=== PATIENT | female | born 1960 | race Caucasian/White ===

== ENCOUNTER 2023-10-24 11:19 | Inpatient (IN) | payer MEDICARE, OTHER, SELFPAY ==
[2023-10-24] VITALS (23 sets, daily range): BP systolic 95–139; BP diastolic 51–101; PULSE 2–118; BMI 19.5
--- NOTE | 2023-10-24 09:25 | ED.GENMED ---
History of Present Illness
General
Chief Complaint: Breathing Problem
Source: patient and ambulance crew
Exam Limitations: none
Time Seen by Provider: 10/24/23 09:16
Nursing documentation reviewed up to this point in time: agreed with
Travel History
Have you had any contact with someone who has COVID-19?: No
Do you have any symptoms of coronavirus? Fever > 100 degrees, chills, cough, shortness of breath, sore throat, loss of taste or smell, muscle aches, or headache?: Yes
Symptoms:: SOB
History of Present Illness
History of Present Illness:
63-year-old female presents to the emergency department due to shortness of breath ongoing for several days. She states she has had a fever but is not sure when. She smokes 2 packs a day, has a history of COPD. She was transferred by EMS who gave
her a DuoNeb which did bring her oxygen up from low 90s to mid 90s.
Past History
Past History
ED Past Medical History: COPD, Hypothyroidism, Psychiatric, Other (Multiple sclerosis) and Other (Prior drug overdoses, prior ventilator dependent narcotic drug overdose)
ED Past Surgical History: None, , Tonsilectomy and Other
Social History
Tobacco: Smoker
Alcohol: Former
Drug: Narcotics
Personal: Single
Living: with family
Employment: Not employed
Family History
Family History: Unable to obtain
Review of Systems
Review of Systems
Allergies reviewed?: Yes
All Other Systems: Not applicable
Constitutional: Reports fever
EENT: Reports no symptoms
Respiratory: Reports cough and trouble breathing
Cardiac: Reports no symptoms
ABD/GI: Reports no symptoms
: Reports no symptoms
Musculoskeletal: Reports no symptoms
Skin: Reports no symptoms
Neurological: Reports no symptoms
Endocrine: Reports no symptoms
Hematologic/Lymphatic: Reports no symptoms
Psychiatric: Reports no symptoms
Phy Exam
Physical Exam
Physical Exam:
Physical Exam
General: Moderate respiratory distress
Neck: supple. no meningeal signs. normal posterior pharynx
Heart: s1/s2 tachycardia, no murmur. equal radial
pulses.
HEENT: Pupils equal round reactive to light, EOMI
Lungs: Moderate respiratory distress. Wheezing bilaterally
Abdomen: normal bowel sounds. not tender. no CVAT
Neuro: alert and oriented. no focal neurological deficits cranial nerves II through XII intact
Skin: no rash
Psychiatric: well kept. interactive and cooperative
Extremities: Mild tibial edema. no calf tenderness. negative homans. good distal pulses
Scores
Heart Failure Risk
Heart Failure Risk Score: Yes
History of Stroke or TIA: No
History of intubation for respiratory distress: Yes
Heart rate on ED arrival >/= 110: Yes
SaO2 <90% on arrival on room air: Yes
HR >/=110 during 3min walk test (or too ill to perform test): Yes
ECG has acute ischemic changes: No
Urea >/=12mmol/L (BUN 33.6mg/dL): No
Serum CO2>/=35mmol/L: No
Troponin I or T elevated to NE Level (0.4mg/dL): No
NT-proBNP >/=5,000ng/L (5,000pg/ml): Yes
HF Risk Score: 6
Admission Status: VERY HIGH RISK 55.3% Consider admission to hospital
Course
Orders/Labs/Results
Orders:
Orders
10/24/23 Breakfast
NPO
Allow oral meds: Yes
Allow clear liquids: Sips of Clears
10/24/23 09:04
Electrocardiogram (*1) Urgent
Reason for Study: Chest Pain
Cardiac Monitoring- Treatment ONCE
IV Insert/Care/Rem.- Treatment PRN
10/24/23 09:05
EKG- Treatment ONCE
10/24/23 09:12
Complete Blood Count/With Diff Urgent
Comprehensive Metabolic Panel Urgent
Lactic Acid Urgent
Magnesium Urgent
Comment: ADD ON
PT/INR [Prothrombin Time] Urgent
Pro-BNP [NT-proBNP] Urgent
Serum Osmolality Urgent
Comment: ADD ON
Troponin I Urgent
Blood Culture Q30M
KENIA Source: Blood/Venous
Specimen Description:
Date Specimen was Collected: 10/24/23
Time Specimen was Collected: 09:04
10/24/23 09:17
Type+Screen Urgent
10/24/23 09:21
Dexamethasone Sod Phosphate [Decadron] 20 mg .ROUTE .STK-MED ONE
Ipratropium/Albuterol Sulfate [Duoneb] 3 ml .ROUTE .STK-MED ONE
10/24/23 09:22
Dexamethasone Sod Phosphate [Decadron] 10 mg IV NOW STA
Ipratropium/Albuterol Sulfate [Duoneb] 3 ml INH R NOW ONE
Bipap [RESP] Urgent
Patient to use own unit?: No
Inspiratory Pressure (cm H2O): 10
Expiratory Pressure (cm H2O): 5
10/24/23 09:39
COVID-19 Antigen Urgent
Source: Nasal Swab
Blood Culture Q30M
KENIA Source: Blood/Venous
Specimen Description:
Date Specimen was Collected: 10/24/23
Time Specimen was Collected: 09:04
Influenza A+B Rapid Molecular Urgent
KENIA Source: Nasal Swab
Specimen Description:
10/24/23 09:43
0.9% Sodium Chloride 1000 ml [Nss] 1,000 ml IV BOLUS
CR Chest Portable - 1 View Urgent
Comment:
Reason For Exam: short of breath
Reason Study Needs to be Portable: Patient Unstable
10/24/23 09:44
Straight cath- Treatment ONCE
10/24/23 09:45
Add On- LAB Urgent
Tests Added?: serum osmolality
10/24/23 10:02
Osmolality, Random Urine Urgent
Date Specimen was Collected: 10/24/23
Time Specimen was Collected: 10:00
Urine Sodium Urgent
Date Specimen was Collected: 10/24/23
Time Specimen was Collected: 10:00
10/24/23 10:14
Cefepime HCl [Maxipime] 2,000 mg IV NOW STA
10/24/23 10:26
Vancomycin [Vancocin] 1,500 mg 0.9% Sodium Chloride [Nss] 20 ml 0.9% Sodium Chloride 250 ml [Nss] 250 ml IV NOW
10/24/23 10:48
Echo 2D MMode Color/Doppler Urgent
Reason for Study: ef
CT Chest Pe Study Urgent
Comment:
Reason For Exam: pe
US Abdomen Complete/Upper Urgent
Comment:
Reason For Exam: lfts
10/24/23 10:55
Admit/Transfer Patient As Directed
Co-Sign Provider:
Level of Care: Inpatient admission
Assign to:: ICU
Physician / Group: [email or web address]/medicine
Diagnosis: acute hypoxic respiratory failure
Reason for Hospitalization: acute hypoxic respiratory failure
Expected length of stay greater than two midnights?: Yes
ELOS- Estimated Length of Stay in days: 4
I certify the patient meets the requirements for IP care: Yes
10/24/23 11:02
Code Status As Directed
Resuscitation Status: Full Code
10/24/23 12:18
Acetaminophen [Tylenol] 650 mg PO Q4HPRN PRN
Ipratropium/Albuterol Sulfate [Duoneb] 3 ml INH R Q2HPRN PRN
Ipratropium/Albuterol Sulfate [Duoneb] 3 ml INH R QID
Ondansetron Orally Disint [Zofran Odt (Orally Disintegrating)] 4 mg PO DAILYPRN PRN
Polyethylene Glycol Powder [Miralax] 17 grams PO DAILY PRN
10/24/23 12:18
Respiratory Culture/Gram Stain Routine
KENIA Source: Sputum
Specimen Description:
Activity As Directed
Activity Level: As Tolerated
Fentanyl Patch Confirmation [id number]
Vital Signs As Directed
Frequency: Per unit guidelines
DX Deep Vein Thrombosis Video Routine
10/24/23 12:42
Lactic Acid Urgent
Procalcitonin Urgent
PCT Algorithmm Indication: Respiratory
Troponin I Q6H
Vancomycin MRSA PCR Screen Routine
KENIA Source: Nose
Specimen Description:
10/24/23 13:00
FentaNYL 50 MCG/HR PATCH [Duragesic 50 Mcg/Hr Patch] 1 patch TRANSDERM Q72H
10/24/23 16:00
Heparin 5,000 units SC Q8
Oxycodone [Roxicodone] 15 mg PO Q4HWA
10/24/23 18:00
Cefepime HCl [Maxipime] 2,000 mg IV Q8H
10/25/23 06:00
Complete Blood Count/No Diff IN AM
Comprehensive Metabolic Panel IN AM
Magnesium IN AM
Phos [Phosphorus] IN AM
10/25/23 08:00
Dexamethasone Sod Phosphate [Decadron] 6 mg IV Q24H
10/26/23 06:00
Complete Blood Count/No Diff IN AM
Comprehensive Metabolic Panel IN AM
Magnesium IN AM
10/27/23 06:00
Complete Blood Count/No Diff IN AM
Comprehensive Metabolic Panel IN AM
Magnesium IN AM
10/27/23 13:00
REMOVE fentaNYL PATCH [Remove Duragesic Patch] See Dose Instructions REMOVE Q72H
10/28/23 06:00
Complete Blood Count/No Diff IN AM
Comprehensive Metabolic Panel IN AM
Magnesium IN AM
10/29/23 06:00
Complete Blood Count/No Diff IN AM
Comprehensive Metabolic Panel IN AM
Magnesium IN AM
Abnormal Lab Results
10/24/23 10/24/23 10/24/23
09:12 09:39 10:02
WBC 17.0 H 10^3/uL
(4.8-10.8)
RBC 3.59 L 10^6/uL
(4.20-5.40)
MCV 105.8 H fL
(81.0-99.0)
MCH 39.6 H pg
(27.0-31.0)
MCHC 37.4 H g/dL
(33.0-37.0)
MPV 10.8 H fL
(7.4-10.4)
Abs Immat Gran (auto) 0.2 H 10^3/uL
(0-0.05)
Absolute Neuts (auto) 14.0 H 10^3/uL
(1.4-6.5)
Absolute Monos (auto) 1.1 H 10^3/uL
(0.1-0.6)
Immature Gran % 0.9 H %
(0-0.5)
Neutrophils % 82.5 H %
(42.2-75.2)
Lymphocytes % 10.0 L %
(20.5-51.1)
PT 15.7 H Sec
(11.4-14.6)
Sodium 114 L* mmol/L
(135-145)
Chloride 78 L mmol/L
(98-107)
Serum Osmolality 248 L mOsm/kg
(275-300)
Lactic Acid 6.4 H* mmol/L
(0.7-2.0)
Calcium 7.7 L mg/dl
(8.4-10.2)
Total Bilirubin 1.5 H mg/dl
(0.2-1.3)
AST 144 H U/L
(14-36)
ALT 42 H U/L
(0-35)
Alkaline Phosphatase 242 H U/L
(38-126)
Troponin I 0.150 H* ng/ml
Total Protein 6.2 L g/dl
(6.3-8.2)
Albumin 2.6 L g/dl
(3.5-5.0)
Urine Sodium 12 L mmol/L
(30-90)
SARS-CoV-2 Antigen Positive A
(Negative)
10/24/23 09:12
10/24/23 09:12
Vital Signs
Initial and Last Documented VS:
Initial Vital Signs
Pulse Resp Pulse Ox
112 32 90
10/24/23 09:07 10/24/23 09:07 10/24/23 09:07
Last Documented Vital Signs
Temp Pulse Resp BP Pulse Ox
99.9 F 99 28 139/81 94
10/24/23 15:00 10/24/23 15:00 10/24/23 15:00 10/24/23 13:30 10/24/23 15:00
MDM/Problems Addressed
Differential Diagnosis Includes:
CHF, pneumonia, COVID, COPD exacerbation
MDM/Problems Addressed:
63-year-old female with COVID, hyponatremia, COPD exacerbation, respiratory insufficiency.
Chronic conditions affecting care: COPD
Acute Exacerbation and/or Progression of Chronic Illness: COPD
*Radiology
Radiology exam reviewed: radiology read reviewed (Chest x-ray right middle lobe pneumonia, pulmonary vascular increased)
*Pulse Oximetry
Patient hypoxic: no
*EKG
Interpreted by ED Provider?: Yes
EKG Intrepretation Date: 10/24/23
EKG Intrepretation Time: 09:09
Interpretation: abnormal
Comparison EKG: changes noted
Heart Rate: 112
Rate: tachycardiac
Rhythm: sinus tachycardia
[place]: normal axis
Interval: normal interval
QRS Pattern: normal QRS
Ischemia: T-wave inversion
*Pool Installer Interpretation
Rate: tachycardiac
Interpretation: abnormal
Heart Rate: 110
Rhythm: sinus tachycardia
*Critical Care Note
Total Time (30-74mins, 75-104mins- exclusive of procedures): 30
comment:
Critical care statement: A total of 30 minutes of critical care time was provided for this patient. This includes management of unstable vital signs, evaluation of the patient at bedside, reviewing the patient's pertinent medical records, discussion
with consultants, review of old EKGs and review of pertinent medical records. This time with separate from time utilized to perform the aforementioned documented procedures
Data Reviewed
Review of Other/Old Records Reveals: Discharge Summary
Source: records (VDRF due to overdose, d/c 08/11/11)
Patient Management
Social determinants of health affecting care: Living situation and Substance abuse
Discussion with other providers: Hospitalist and Extension Edger (Nephrology)
Escalation/DeEscalation of care consider admission/obs:
Admit to ICU indicated
ED Attending Note
-
Portions of this chart may have been created with voice recognition software.� Occasional wrong word or��sound alike� substitutions may have occurred due to the inherent limitations of voice recognition software.
Discharge Plan
Departure
Patient Disposition: Admit
Date of Disposition: 10/24/23
Time of Disposition: 10:07
Admit to: ICU
Presentation/result/management discussed w/ accepting MD/DO: Hospitalist
Patient with high blood pressure during this ER visit?: No
Condition: Serious
Covid-19: Confirmed COVID-19
Discharge Problem:
Acute hyponatremia, COPD exacerbation, Pneumonia, COVID-19
Interventions
Interventions:
*Risk Screen - Suicide Last Done: 10/24/23 09:16
*General Assessment Last Done: 10/24/23 09:16
*Neglect/Abuse Screening Last Done: 10/24/23 09:16
ED- Fall Risk Assessment Last Done: 10/24/23 09:16
*ED COVID-19 Vaccine History Last Done: 10/24/23 13:00
*Nursing Disposition Last Done: 10/24/23 12:20
ED- Cardiac Assessment Last Done: 10/24/23 10:00
ED- Pulmonary Assessment Last Done: 10/24/23 10:00
Discharge Date and Time
Discharge Date/Time: 10/24/23 12:35
[2023-10-24 09:26] LABS: % Basophils 0.2 % (0-2); % Immature Granulocytes 0.9 % (0-0.5); % Monocytes 6.4 % (1.7-9.3); % Neutrophils 82.5 % (42.2-75.2); Absolute Immature Granulocytes 0.2 10^3/uL (0-0.05); Absolute Lymphocytes 1.7 10^3/uL (1.2-3.4); Absolute Monocytes 1.1 10^3/uL (0.1-0.6); Hemoglobin 14.2 g/dL (12.0-16.0); Mean Corp Hgb Conc. 37.4 g/dL (33.0-37.0); Mean Corpuscular Hgb 39.6 pg (27.0-31.0); Mean Corpuscular Volume 105.8 fL (81.0-99.0); Mean Platelet Volume 10.8 fL (7.4-10.4); Nucleated Red Blood Cells % 0.1 %; Platelet Count 210 10^3/uL (130-400); Red Blood Cell Count 3.59 10^6/uL (4.20-5.40); Red Cell Dist. Width 13.3 % (11.5-14.5)
[2023-10-24] MEDS: DUONEB 3 ML INH (09:35)
[2023-10-24 09:37] LABS: INR 1.27; PT 15.7 Sec (11.4-14.6)
[2023-10-24 09:38] LABS: Lactic Acid 6.4 mmol/L (0.7-2.0)
[2023-10-24 09:42] LABS: ALT (SGPT) 42 U/L (0-35); AST (SGOT) 144 U/L (14-36); Albumin 2.6 g/dl (3.5-5.0); Alkaline Phosphatase 242 U/L (38-126); Blood Urea Nitrogen 10 mg/dl (7-17); Calcium 7.7 mg/dl (8.4-10.2); Carbon Dioxide 28 mmol/L (22-30); Chloride 78 mmol/L (98-107); Estimated Creatinine Clearance 60 ml/min; Glucose 74 mg/dl (70-99); Potassium 4.6 mmol/L (3.5-5.1); Sodium 114 mmol/L (135-145); Total Bilirubin 1.5 mg/dl (0.2-1.3); Total Protein 6.2 g/dl (6.3-8.2); eGFR > 60.00
[2023-10-24] MEDS: DECADRON 10 MG IV (09:43)
[2023-10-24 09:50] LABS: NT-proBNP > 27000 pg/ml
[2023-10-24] MEDS: NSS 1000 IV (09:50)
[2023-10-24 10:07] LABS: COVID-19 Antigen Positive (Negative)
--- NOTE | 2023-10-24 10:10 | EDRN ---
At 9:25 oxygen was at 2lpm and decreased to 1lpm per Dr. Newton who was in room w/ pt. At9:54 Dr. Newton in room and increased oxygen to 4lpm. This RN had TT'd resp therapist at 9:52 and responded and coming for BiPAP as pt showing increased
resp distress, Using all accessory muscle, rate 50's and pt grunting, and increased WOB. At 9:54 Dr. Newton in room, radiology doing xray, and resp outside of room. CXR completed at 10:00 and respiratory therapy entered room to place pt on BiPAP
at 12/5 and 4 lpm. Pt's teeth removed and placed in a labeled container. Pt is fighting BiPAP at this time. POX on 4 lpm was 956% and now on BiPAP is 97%. Pt remains w/ increased resp rate in 30-40s and decreased grunting and sl decrease in work of
breathing.
--- NOTE | 2023-10-24 10:20 | EDRN ---
Dr. Newton in room w/ pt speaking to spouse at this time.
[2023-10-24 10:23] LABS: Osmolality Serum 248 mOsm/kg (275-300)
[2023-10-24 10:28] LABS: Osmolality Urine 395 mOsm/kg (300-900)
[2023-10-24] MEDS: MAXIPIME 2000 MG IV ×2 (10:32→16:37)
[2023-10-24] MEDS: VANCOCIN 300 MG IV (10:51)
[2023-10-24] MEDS: VANCOCIN 300 ML IV (10:51)
[2023-10-24 10:56] LABS: Urine Sodium 12 mmol/L (30-90)
--- NOTE | 2023-10-24 11:25 | EDRN ---
Dr. Granados in room w/pt.
--- NOTE | 2023-10-24 11:28 | EDRN ---
Report called to Sara BERGERON in ICU at this time.
--- NOTE | 2023-10-24 11:30 | EDRN ---
Echo cardiogram being done at stretcher side at this time.
--- NOTE | 2023-10-24 11:50 | EDRN ---
Awaiting resp therapist to take pt to CT then ICU. TT sent at 11:41 that was delivered and not read. CT wainting for pt. Called fresh foods clerk to get respiratory to assist w/ pt transfers.
--- NOTE | 2023-10-24 12:38 | EDRN ---
Pt was taken from CT to ICU at 12:20 w/ resp therapist and myself. IV were off and on hold per Dr. Granados. Pt on BiPAP 14/5 w/ 4lpm of oxygen. Vancomycin infusing.
--- NOTE | 2023-10-24 12:41 | CON.INTV ---
Consultation
Consultation Request
Date/Time Consultation Requested: 10-24-23
Date/Time Consultation Performed: 10-24-23
Requesting Provider: Hospitalist
Performing Provider: Dr Griffin
Reason for Consultation: dyspnea
Medical History
-
Chief Complaint: dyspnea
History of Present Illness:
Ms Kaitlin Esparza is a 63/W adm 10-24 with several d h/o dyspnea.
Brought by EMS to ER, no EMS report available, ER note mentioned administration of DNs in route which improved O2 from low 90s victoria mid 90s.
Seen at ICU, on BPAP 14/5 with O2 4L , POx 92%, in moderate resp distress, intermittently agitated and trying to remove BPAP mask. Unfortunately very poor historian at time of visit, unknown baseline MS, appears acutely on chronically ill
Past Medical History
Past Medical History: Other (see A&P for PMH/PSH)
Social History
Tobacco: Smoker
Alcohol: Former
Drug: Narcotics
Personal: Single
Living: With Family
Employment: Not Employed
Family History
Family History: Unable to Obtain
Allergies / Home Medications
Allergies
Allergy/AdvReac Type Severity Reaction Status Date / Time
alcohol [Alcohol] Allergy HISTORY OF Verified 10/24/23 09:06
ETOH ABUSE
latex [Latex] Allergy Anaphylaxis Verified 10/24/23 09:06
nicotine [Nicotine] Allergy Hives Verified 10/24/23 09:06
Penicillins Allergy Hives Verified 10/24/23 09:06
Home Medications
Medication Instructions Recorded Confirmed Last Taken Type
fentanyl 50 mcg/hr transdermal 50 mcg transdermal Q72H Pain 10/24/23 10/24/23 Unknown History
patch
hydromorphone 4 mg tablet 4 mg PO Q6HPRN PRN SEVERE PAIN 10/24/23 10/24/23 Unknown History
methadone 10 mg tablet 10 mg PO .DAILY OR TID? Pain 10/24/23 Unknown History
ondansetron 4 mg disintegrating 4 mg PO DAILYPRN PRN nausea 10/24/23 10/24/23 Unknown History
tablet
oxycodone 15 mg tablet 15 mg PO Q4HWA Pain 10/24/23 10/24/23 Unknown History
polyethylene glycol 3350 17 gram 17 g PO DAILY PRN constipation 10/24/23 10/24/23 Unknown History
oral powder packet (Miralax)
Review of Systems
-
Unable to Obtain full review of systems at this time due to: Acuity
Vitals / Labs / Diagnostic Testing
Vital Signs
Temp Pulse Resp BP Pulse Ox
98.1 F 116 45 101/71 96
10/24/23 09:55 10/24/23 12:30 10/24/23 12:30 10/24/23 11:45 10/24/23 12:30
Lab Data
10/24/23 09:12
10/24/23 09:12
Laboratory Results
10/24/23
09:12
PT 15.7 H
INR 1.27
Microbiology
10/24/23 09:39 Nasal Swab Influenza Types A & B (YANY) - Final
Negative for Influenza A & B, NAAT
Negative results must be combined with clinical observations
and patient history.
Nucleic Acid Amplification test (NAAT)performed on the
[employer] platform.
Diagnostic Testing:
Physical Exam
-
HEENT: Normocephalic and Other (FFM BPAP)
Cardiovascular: Regular Rhythm, Murmur (n) and Peripheral Edema (LANCE mild to moderate, pitting)
Respiratory: Rales (R base), Rhonchi (scattered) and Accessory Resp Muscle Use
GI: Soft and Non Distended
Neurology: Other (lethargic to intermittently agitated)
Skin: Dry
General: Respiratory Distress
Assessment
-
Assessment:
Ms Kaitlin Esparza is a 63/W adm 10-24 with several d h/o dyspnea. Brought by EMS to ER, no EMS report available, ER note mentioned administration of DNs in route which improved O2 from low 90s victoria mid 90s. Seen at ICU, on BPAP 14/5 with O2 4L , POx
92%, in moderate resp distress, intermittently agitated and trying to remove BPAP mask. Unfortunately very poor historian at time of visit, unknown baseline MS, appears acutely on chronically ill
Impression:
Acute respiratory failure
RML infiltrate
COVID positive
Elevated PCT
Leukocytosis s eosinophilia
Hyponatremia, uncertain chronicity
Low serum osmolality
Lactic acidosis
Mild transaminitis
Elevated troponin and BNP: LVEF 30-35% with WMAs
Flu negative
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
COPD
Hypothyroidism
Multiple sclerosis
Substance abuse: on methadone
VDRF due to overdose Jul 2011
Chronic pain: reportedly on fentanyl patch, hydromorphone, oxycodone
Smoker
Alcohol: Former
Plan:
Admitted to ICU for mgmt of pneumonia and resp distress
Seen at ICU, unfortunately very poor historian at time of visit
Per RN report, found with two patches of fentanyl applied to her back
Reviewed with pharmacy, chronic back pain and h/o opiate abuse, on multiple opiates
Continue BPAP 14/5, 4L
Titrate for comfort and POx>=90%
Asp precs
NPO for now
BDs: alb/iprat HFA qid and prn to continue
RML infiltrate on CXR, RLL pneumonitis not typical of COVID on CT
Small patchy densities in lingula
Started on empiric atbs upon adm to ER: cefepime and vancomycin IV
Dexam 6 mg IV changed to MP 40 mg IV q12
Uncertain impact of COVID positive test: no areas of pneumonitis c/w COVID infection
Observe off remdesivir
Procure sputum sample for culture
Blood cxs pending
MRSA screening pending
PCT elevated
Hyponatremia, unclear chronicity but severe
Likely secondary to acute illness, opiates, decreased oral intake, heart failure
Continue NSS for now
Renal consultation warranted
Noted elevated troponins and BNP along TTE evidence of low EF and WMAs of unknown chronicity
Differential: demand ischemia, sepsis induced CM
Cards consultation
Chronic back pain and opiate dependence
Continue fentanyl patch, oxycodone, prn IV morphine
Sc for DVT proph
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
Guarded prognosis
Critical care time: 40 min
Diagnostic tests:
CXR 10-24-23 c/w Apr 2023: New R basilar infiltrate. Mild pulm vasc congestion. No free air. Blunted c-d angles.
Chest CTA 10-24-23: No PE. RML infiltrate. RLL patchy pneumonitis. Patchy small lingular infiltrates.
TTE 10-24-23:
CONCLUSIONS
1. Normal left ventricular size with akinesis of the septum and apex, normal contraction of the basal inferior, inferolateral and lateral louis and hypokinesis of the remaining segments, EF 30-35%
2. Mild mitral regurgitation with normal left atrium
3. Aortic sclerosis with mild aortic regurgitation in limited views
4. Grossly normal right heart, could not determine pulmonary artery systolic pressure
Reliability of the interpretation is reduced related to limited image quality.
There are no prior studies available for comparison
[2023-10-24 13:04] LABS: Magnesium 1.7 mg/dl (1.6-2.3)
[2023-10-24 13:07] LABS: Lactic Acid 2.5 mmol/L (0.7-2.0)
--- NOTE | 2023-10-24 13:07 | PTCARENOTE ---
PT found with 2 50 mcg fentanyl patches on lower back, removed, notified Dr Carreon and Dr Griffin, no new orders
[2023-10-24 13:08] LABS: APTT 40.1 Sec (23.4-35.0)
--- NOTE | 2023-10-24 13:10 | PHA.VAN.IN ---
Assessment
- Assessment
Renal Function: Appears similar to baseline
Concomitant Antimicrobials: cefepime
AUC Dosing Plan
- Dosing Variables
Dosing Weight (kg): 51.5
Dosing CrCl (ml/min): 60
Vd coefficient (L/kg): 0.7
- Empiric Dosing
Initial / Loading Dose: 1500 mg (29mg/kg) - adm 10/24/23 ~ 1100
Maintenance Regimen: 1000 mg q24h - start 0600 10/25/23
Estimated AUC (mcg*h/mL): 526
Estimated Peak (mcg*h/mL): 38.1
Estimated Trough (mcg/ml): 11.0
Estimated Half Life (H): 12.8
- Monitoring
No levels ordered at this time: consider levels in few days when pt reaches steady state
Pharmacokinetics Vancomycin I
- -
Patient Age: 63
Patient Sex: Female
Vancomycin Day #: 1
Indication: Pulmonary/Respiratory
Requesting Provider: Velma
Pertinent Antimicrobial Allergies:
penicillins-> hives; latex -> anaphylaxis
Height / Weight:
Height 5 ft 4 in
Actual Weight 51.5 kg
Pertinent Past Medical History: COPD
- Vital Signs / Lab Results
Temp Pulse Resp BP Pulse Ox
98.1 F 116 45 101/71 96
10/24/23 09:55 10/24/23 12:30 10/24/23 12:30 10/24/23 11:45 10/24/23 12:30
Lab Results - Hematology
10/24/23
09:12
WBC 17.0 H
Lab Results - Chemistry
10/24/23
09:12
BUN 10
Creatinine 0.8
Estimated Creat Clear 60
Albumin 2.6 L
10/24/23 10/24/23
09:12 12:42
Lactic Acid 6.4 H* 2.5 H
Microbiology Results
10/24/23 09:39 Influenza Types A & B (YANY) - Final
Nasal Swab Negative for Influenza A & B, NAAT
Negative results must be combined with clinical observations
and patient history.
Nucleic Acid Amplification test (NAAT)performed on the
[employer] platform.
[2023-10-24 13:20] LABS: Troponin I 0.158 ng/ml
[2023-10-24 13:25] LABS: Procalcitonin 1.12 ng/ml (0.0-0.25)
[2023-10-24] MEDS: DURAGESIC 50 MCG/HR PATCH 1 PATCH TRANSDERM (13:25)
--- NOTE | 2023-10-24 13:45 | CON.CAR ---
Addendum entered and electronically signed by Mando Biggs MD 10/25/23 08:28:
This note is for 10/24/23 and was put under wrong consult note
I saw and examined the patient.
The SPECIMEN PROCESSOR or PA's note was reviewed and I agree with the note.
Comment: Sedate
Neck: Supple, no JVD, HJR, carotids +2 B/L, no bruits bilaterally.
Heart: Non displaced PMI, RRR, no murmurs, No S3, S4, no rubs.
Lungs: Poor effort
Extremities: No clubbing, cyanosis or edema bilaterally.
Neuro: Sedate
Kaitlin has a history of multiple sclerosis, substance abuse on methadone chronic opiate use, tobacco abuse, COPD, hypothyroidism.� She presented with worsening shortness breath found to be COVID-positive.� Cardiology is consulted for CHF based on
elevated proBNP.� Patient also has pneumonia on x-ray
At the present time she is sedate.� Echocardiogram with ejection fraction of 30 to 35%.� Will add low-dose Toprol.� Will also continue IV Lasix low-dose for now although likely mostly pneumonia.� Will eventually add VICTOR MANUEL inhibitor
Original Note:
Consultation
Consultation Request
Date/Time Consultation Requested: 10/24/2023
Date/Time Consultation Performed: 10/24/2023 at 1346
Requesting Provider: Dr. Carreon
Performing Provider: Dr. Biggs
Reason for Consultation: Cardiomyopathy
Medical History
-
History of Present Illness:
HPI: Kaitlin is a 63-year-old female with past medical history of hypothyroidism, COPD, multiple sclerosis, substance abuse, tobacco abuse, chronic pain, and possible remote atrial fibrillation who presents to ER for evaluation of ongoing
shortness of breath. Symptoms have been occurring for the past few days. She has also had a fever. In ER, she was found to be COVID-positive with elevated WBC at 17.0 and chest x-ray and chest CT consistent with large right middle lobe pneumonia.
She was hypoxic and placed on supplemental O2. Echo done urgently in the emergency room that showed cardiomyopathy with EF 30 to 35%. Cardiology consulted given cardiomyopathy.
PMH:
Hypothyroidism
COPD
Multiple sclerosis
h/o substance abuse
Tobacco abuse
Chronic pain
Possible remote atrial fibrillation
Past Medical History
Past Medical History: Other (In HPI)
Past Surgical History: Appendectomy, , Tonsilectomy and Other (Right hemicolectomy, right hernia repair, hysterectomy, bladder repair)
Social History
Tobacco: Smoker
Alcohol: Former
Drug: Narcotics
Personal: Single
Employment: Not Employed
Family History
Family History: CAD
Allergies / Home Medications
Allergy/AdvReac Type Severity Reaction Status Date / Time
alcohol [Alcohol] Allergy HISTORY OF Verified 10/24/23 09:06
ETOH ABUSE
latex [Latex] Allergy Anaphylaxis Verified 10/24/23 09:06
nicotine [Nicotine] Allergy Hives Verified 10/24/23 09:06
Penicillins Allergy Hives Verified 10/24/23 09:06
Medication Instructions Recorded Confirmed Type
fentanyl 50 mcg/hr transdermal 50 mcg transdermal Q72H Pain 10/24/23 10/24/23 History
patch
hydromorphone 4 mg tablet 4 mg PO Q6HPRN PRN SEVERE PAIN 10/24/23 10/24/23 History
methadone 10 mg tablet 10 mg PO .DAILY OR TID? Pain 10/24/23 History
ondansetron 4 mg disintegrating 4 mg PO DAILYPRN PRN nausea 10/24/23 10/24/23 History
tablet
oxycodone 15 mg tablet 15 mg PO Q4HWA Pain 10/24/23 10/24/23 History
polyethylene glycol 3350 17 gram 17 g PO DAILY PRN constipation 10/24/23 10/24/23 History
oral powder packet (Miralax)
Review of Systems
-
History Source: Patient
All other systems: Negative unless noted
Physical Exam
Vital Signs
Temp Pulse Resp BP Pulse Ox
98.1 F 116 45 101/71 96
10/24/23 09:55 10/24/23 12:30 10/24/23 12:30 10/24/23 11:45 10/24/23 12:30
Lab Results
10/24/23 09:12
10/24/23 09:12
Troponin I 0.158 ng/ml H* 10/24/23 12:42
Tyv-E-Nmipfdwzclg Pept > 92525 pg/ml 10/24/23 09:12
Impression / Plan
-
Cardiology: Previously seen by Dr. Biggs in 2018
Impression:
Presented with shortness of breath
Acute hypoxic respiratory insufficiency
COVID-19
Right middle lobe pneumonia
Cardiomyopathy, EF 30 to 35%
Elevated troponin
Hyponatremia
Hypothyroidism
COPD
Multiple sclerosis
h/o substance abuse
Tobacco abuse
Chronic pain
Possible remote atrial fibrillation
Echo 10/24/2023: EF 30 to 35%, akinesis of the septum and apex, normal contraction of the basal inferior, inferolateral, and lateral louis, hypokinesis of the remaining segments, mild MR, aortic sclerosis with mild AR
Plan:
-Presented with worsening shortness of breath. COVID-positive in the emergency room and evidence of large right middle lobe pneumonia noted on chest x-ray and chest CT.
-Continue antibiotics per primary service for pneumonia.
-Severe hyponatremia noted with Na of 114.
-Echo completed 10/24/2023 with cardiomyopathy noted. EF 30-35% with WMA. No prior to compare to
-Borderline hypotensive currently. Will start low dose Toprol with hold parameters.
-Elevated troponin noted with trop up to 0.158. Continue to trend to peak.
-Consider eventual ischemic evaluation, inpatient vs outpatient.
-Wean O2 as able.
HPI: Kaitlin is a 63-year-old female with past medical history of hypothyroidism, COPD, multiple sclerosis, substance abuse, tobacco abuse, chronic pain, and possible remote atrial fibrillation who presents to ER for evaluation of ongoing
shortness of breath. Symptoms have been occurring for the past few days. She has also had a fever. In ER, she was found to be COVID-positive with elevated WBC at 17.0 and chest x-ray and chest CT consistent with large right middle lobe pneumonia.
She was hypoxic and placed on supplemental O2. Echo done urgently in the emergency room that showed cardiomyopathy with EF 30 to 35%. Cardiology consulted given cardiomyopathy.
Data Reviewed
-
EKG: Tracing Personally Visualized and interpreted
Radiology: Report Reviewed by me
CT Scan: Report Reviewed by me
Medical Tests (Nuc Med, Echo etc): Report Reviewed by me
Labs: Labs Reviewed by me
Old Records: Reviewed
--- NOTE | 2023-10-24 14:00 | PTCARENOTE ---
PT received from ED via stretcher, PT restless, uncooperative to commands, continuously removing Bipap, PT placed on 4L NC and appears more comfortable, less pulling, PT unable to answer questions place and time, ST on monitor, +3 edema to LE, weak
pedal pulses, 4L MF 97%, coarse rhonchi with weak KILN STOKER cough, abdomen soft NT, +BS, B/L heels, B/L elbows and scrum, red and blanchable, foams placed on above sites, left FA INT, right wrist INT right AC INT, flushed and patent
[2023-10-24] MEDS: ProAIR HFA INHALER 2 PUFF INH (14:05)
[2023-10-24] MEDS: ATROVENT HFA INHALER 2 PUFF INH (14:05)
--- NOTE | 2023-10-24 15:29 | HPS.HSE ---
Family Physician
-
Family Physician: NOT KNOW UNKNOWN - PT DOES
Chief Complaint
-
Shortness of breath
History of Present Illness
63-year-old female with past medical history of hypothyroidism, COPD, multiple sclerosis, substance abuse on methadone, chronic opiate, tobacco abuse, COPD, chronic pain, ? History of atrial fibrillation now presenting for ongoing shortness of
breath. Symptoms have been ongoing for the last couple days and worsened over the last 24 hours prompting hospital visit. Also acknowledges fever. Patient received DuoNebs with improvement of oxygenation and route to the hospital. Patient was
noted to be tachypneic, tachycardic, diffuse wheezing bilaterally. Patient was placed on BiPAP 14/5 upon arrival, saturations approximate 902%. Also noted to have lower extremity edema, +1. White count 17, sodium 114, total bilirubin 1.5, AST
144, ALT 42, alk phos 242. Procalcitonin noted to be 1.12. SARS-CoV-[address] chest with no PE, found to have large right middle lobe pneumonia, possible pneumonitis although could also be due to SARS-CoV-2, empirical effusion. Ultrasound
noted to have thrombosed main portal vein. Ascites also noted.
Medical History
Past Medical History
Past Medical History: Reports Other (hypothyroidism, COPD, multiple sclerosis, substance abuse on methadone, chronic opiate, tobacco abuse, COPD, chronic pain,)
Past Surgical History: Reports None
Social History
Tobacco: Smoker
Drug: Narcotics
Personal:
Living: With Family
Family History
Family History: Not pertinent
Allergies / Home Medications
Allergies reflects when Allergies were last updated in [employer].
Home Medications with original date entered in [employer]
Allergy/Medication List:
Allergies
Allergy/AdvReac Type Severity Reaction Status Date / Time
alcohol [Alcohol] Allergy HISTORY OF Verified 10/24/23 09:06
ETOH ABUSE
latex [Latex] Allergy Anaphylaxis Verified 02/02/24 09:06
nicotine [Nicotine] Allergy Hives Verified 10/24/23 09:06
Penicillins Allergy Hives Verified 10/24/23 09:06
Home Medications
fentanyl 50 mcg/hr transdermal patch 50 mcg transdermal Q72H Pain 10/24/23
hydromorphone 4 mg tablet 4 mg PO Q6HPRN PRN SEVERE PAIN 10/24/23
methadone 10 mg tablet 10 mg PO .DAILY OR TID? Pain 10/24/23
ondansetron 4 mg disintegrating tablet 4 mg PO DAILYPRN PRN nausea 10/24/23
oxycodone 15 mg tablet 15 mg PO Q4HWA Pain 10/24/23
polyethylene glycol 3350 17 gram oral powder packet (Miralax) 17 g PO DAILY PRN constipation 10/24/23
Review of Systems
-
History Source: Patient
A 12 point ROS was completed and negative except as noted: Yes
Physical Exam
Vital Signs
Vital Signs
Temp Pulse Resp BP Pulse Ox
99.9 F 99 28 139/81 94
10/24/23 15:00 10/24/23 15:00 10/24/23 15:00 10/24/23 13:30 10/24/23 15:00
Physical Exam
General: Well Developed, Well Nourished, Respiratory Distress and Other (bipap on board)
Respiratory: Clear
Cardiac: S1/S2 and Regular Rhythm
GI: Soft
Musculoskeletal: No Clubbing
Skin: Warm
Neuro: Awake, Alert, Oriented and AO x 3
Hematologic/Lymphatic: No Lymphadenopathy
Psych: Calm
Laboratory Results
-
10/24/23 09:12
10/24/23 09:12
Laboratory Results
PT 15.7 Sec (11.4-14.6) H 10/24/23 09:12
INR 1.27 10/24/23 09:12
APTT 40.1 Sec (23.4-35.0) H 10/24/23 12:42
Lactic Acid 2.5 mmol/L (0.7-2.0) H 10/24/23 12:42
Total Bilirubin 1.5 mg/dl (0.2-1.3) H 10/24/23 09:12
AST 144 U/L (14-36) H 10/24/23 09:12
ALT 42 U/L (0-35) H 10/24/23 09:12
Alkaline Phosphatase 242 U/L (38-126) H 10/24/23 09:12
Troponin I Cancelled 10/24/23 18:18
Data Reviewed
-
Diagnostic Radiology: Image Personally Visualized and interpreted and Report Reviewed by me
CT Scan: Image Personally Visualized and interpreted and Report Reviewed by me
Ultrasound: Image Personally Visualized and interpreted and Report Reviewed by me
Medical Tests (Nuc Med, Echo, EKG etc): Report Reviewed by me
Lab Data: Labs Reviewed by me
Impression/Plan
-
IMPRESSION:
63-year-old female with past medical history of hypothyroidism, COPD, multiple sclerosis, substance abuse on methadone, chronic opiate, tobacco abuse, COPD, chronic pain, ? History of atrial fibrillation now presenting for ongoing shortness of
breath.
PLAN:
#Acute hypoxic respiratory failure
#COPD exacerbation
#Pneumonia
#SARS-CoV-2
� I suspect this is COPD exacerbation secondary to pneumonia along with new onset acute HFrEF
�Doubt SARS-CoV-2 pneumonia as etiology for decompensation
� Continue IV antibiotics
� Follow-up cultures including sputum cultures
� Wean O2 as tolerated
� I believe can be weaned off BiPAP now
� DuoNebs every 4 standing
� Solu-Medrol 40 mg every 12, wean as tolerated
� Continue gentle diuresis as blood pressures improved
#Severe sepsis
� Secondary to pneumonia
� Continue plan as above with IV antibiotics, follow-up cultures
� Maintain MAP greater than 65
#New onset acute HFrEF
� Echo with EF 30 to 35%, akinesis of the septum and apex �normal contraction of the basal inferior, inferolateral, and lateral louis, hypokinesis of the remaining segments, mild MR, aortic sclerosis with mild AR
� Gentle diuresis, 20 mg IV Lasix today, titrate as needed
� Started on low-dose Toprol, monitor blood pressures
� Ischemic evaluation inpatient versus outpatient as per cardiology
� Cardiology consulted
� Wean O2 as tolerated
#Portal vein thrombosis
� Started on Lovenox 1 mg/kg
� Follow-up pathology/GI outpatient
#Hyponatremia
� I favor secondary to fluid overload along with possible SIADH
� Monitor with gentle diuresis
� ICU consulted nephrology, appreciate recommendations
#Transaminitis
#Hepatocellular injury
� Most likely secondary to portal vein thrombosis along with congestive hepatopathy
� Continue anticoagulation as stated above
� Continue diuresis and monitor
#Elevated opponent
� Most likely non-KS troponin elevation in setting of acute CHF
� Continue to monitor trend
� Follow cardiology recommendations
#Hypothyroidism
� Follow-up TSH with reflex T4
� Not on Synthroid as per med rec
� Continue to monitor
#Polysubstance abuse
#Tobacco use
#Chronic pain
� Continue methadone, fentanyl patch, opiates as needed
#Multiple sclerosis
#DVT prophylaxis
Lovenox
--- NOTE | 2023-10-24 15:35 | CON.MD ---
Addendum entered and electronically signed by Mando Biggs MD 10/25/23 08:28:
Note below from cardiology was amended to the wrong consult on 10/24/23
Addendum entered and electronically signed by Mando Biggs MD 10/24/23 15:59:
I saw and examined the patient.
The SUPERVISOR REAL ESTATE OFFICE or PA's note was reviewed and I agree with the note.
Comment: Sedate
Neck: Supple, no JVD, HJR, carotids +2 B/L, no bruits bilaterally.
Heart: Non displaced PMI, RRR, no murmurs, No S3, S4, no rubs.
Lungs: Poor effort
Extremities: No clubbing, cyanosis or edema bilaterally.
Neuro: Sedate
Kaitlin has a history of multiple sclerosis, substance abuse on methadone chronic opiate use, tobacco abuse, COPD, hypothyroidism. She presented with worsening shortness breath found to be COVID-positive. Cardiology is consulted for CHF based on
elevated proBNP. Patient also has pneumonia on x-ray
At the present time she is sedate. Echocardiogram with ejection fraction of 30 to 35%. Will add low-dose Toprol. Will also continue IV Lasix low-dose for now although likely mostly pneumonia. Will eventually add VICTOR MANUEL inhibitor
Original Note:
Consultation - Medical
-
Assessment
-hyponatremia
-hypotension on admission
-COVID+
-large RML PNA
-lactic acidosis
-?thrombosed portal vein
-COPD
-hypothyroid
-HFrEF 30%
-multiple sclerosis
-chronic pain/opioids
Plan
-likely volume depleted on admission. receiving 1L IVF
-repeat BMP. May need 3%NaCl
-follow lactate/LFTs
-steroids IV
-abx per primary team
-follow Cr given contrast and hypotension and sepsis
-Can trial lasix, though I don't think she is severely volume overloaded. Currently there is essentially no po intake, so all volume is med related.
-critical care time 31 minutes
-[id number]
--- NOTE | 2023-10-24 16:21 | PTCARENOTE ---
PT B/L knees are mottled and the palms of her hands are also ducky in color, updated Ramón by phone, PT continues to be drowsy, not answering questions, PT just moans when nurse asks questions, no attempt to respond, B/L elbows, sacrum and
heels are blanchable and red, foams applied
[2023-10-24 16:30] LABS: Lactic Acid 1.4 mmol/L (0.7-2.0)
[2023-10-24] MEDS: SOLU-MEDROL PF 40 MG IV (16:36)
[2023-10-24] MEDS: STERILE WATER FOR INJECTION 10 ML IV (16:37)
[2023-10-24 16:38] LABS: Blood Urea Nitrogen 14 mg/dl (7-17); Calcium 7.1 mg/dl (8.4-10.2); Carbon Dioxide 27 mmol/L (22-30); Chloride 82 mmol/L (98-107); Estimated Creatinine Clearance 69 ml/min; Glucose 87 mg/dl (70-99); Sodium 114 mmol/L (135-145); eGFR > 60.00
[2023-10-24] MEDS: LOVENOX 50 MG SC (16:38)
[2023-10-24] MEDS: LASIX 20 MG IV (16:46)
[2023-10-24 17:06] LABS: TSH Reflex To Free T4 2.29 uIU/ml (0.47-4.68)
[2023-10-24] MEDS: SODIUM CHLORIDE 3% 250 IV (17:33)
[2023-10-24 18:42] LABS: Troponin I 0.161 ng/ml
[2023-10-24] MEDS: COMBIVENT RESPIMAT INHAL SPRAY 1 PUFF INH (20:42)
[2023-10-24 21:03] LABS: Blood Urea Nitrogen 14 mg/dl (7-17); Carbon Dioxide 28 mmol/L (22-30); Chloride 88 mmol/L (98-107); Estimated Creatinine Clearance 80 ml/min; Glucose 86 mg/dl (70-99); Potassium 3.4 mmol/L (3.5-5.1); Sodium 117 mmol/L (135-145); eGFR > 60.00
--- NOTE | 2023-10-24 22:08 | PTCARENOTE ---
received patient from previous shift. pt will not speak to me. she mumbles/groans when pulling her up in bed, listening to her lungs, or trying to do any care for her. pupils equal and reactive. moving all extremities. restless, tossing and turning
throughout the bed. 4L midflow. ST on the monitor. rectal temp probe in place. no BM. purewick draining yellow urine. 3% infusing as ordered.
[2023-10-24] MEDS: KCL 160 MEQ IV (22:47)
[2023-10-25] VITALS (17 sets, daily range): BP systolic 91–137; BP diastolic 52–120; BMI 19.3
--- NOTE | 2023-10-25 00:02 | PTCARENOTE ---
pt removed her gown, pulled out her ivs, was attempting to crawl over the side rails, took off her bp cuff, and some of her heart monitor stickers. attempted to reorient patient she said she did know where she was but she continued to pull off her
monitor stickers and her gown while I was trying to talk to her. bilateral wrist restraints in place.
[2023-10-25] MEDS: STERILE WATER FOR INJECTION 10 ML IV ×3 (01:21→17:17)
[2023-10-25] MEDS: MAXIPIME 2000 MG IV ×3 (01:21→17:18)
[2023-10-25] MEDS: LOVENOX 50 MG SC ×2 (04:44→15:59)
[2023-10-25 04:54] LABS: Troponin I 0.169 ng/ml
[2023-10-25 05:04] LABS: ALT (SGPT) 48 U/L (0-35); AST (SGOT) 155 U/L (14-36); Alkaline Phosphatase 196 U/L (38-126); Blood Urea Nitrogen 16 mg/dl (7-17); Calcium 7.3 mg/dl (8.4-10.2); Carbon Dioxide 27 mmol/L (22-30); Chloride 92 mmol/L (98-107); Estimated Creatinine Clearance 79 ml/min; Glucose 69 mg/dl (70-99); Phosphorus 3.7 mg/dl (2.5-4.5); Potassium 4.2 mmol/L (3.5-5.1); Sodium 121 mmol/L (135-145); Total Protein 5.1 g/dl (6.3-8.2); eGFR > 60.00
[2023-10-25 05:14] LABS: Hematocrit 32.9 % (37.0-47.0); Hemoglobin 12.5 g/dL (12.0-16.0); Mean Corpuscular Hgb 39.1 pg (27.0-31.0); Mean Corpuscular Volume 102.8 fL (81.0-99.0); Mean Platelet Volume 11.6 fL (7.4-10.4); Platelet Count 185 10^3/uL (130-400); Red Cell Dist. Width 13.2 % (11.5-14.5); White Blood Cell Count 21.1 10^3/uL (4.8-10.8)
[2023-10-25] MEDS: SOLU-MEDROL PF 40 MG IV ×2 (05:57→17:18)
[2023-10-25] MEDS: VANCOCIN 200 IV (05:57)
[2023-10-25] MEDS: DEXTROSE 50% SYRINGE 12.5 GRAMS IV (05:58)
[2023-10-25 06:35] LABS: Glucose - Point of Care 178 mg/dl (70-99)
--- NOTE | 2023-10-25 07:42 | W.PN.INTV ---
Today's Communication / Plan
Recommendations
O2
Atb
Sputum cx
Acapella
Assessment
-
Assessment:
Ms Kaitlin Esparza is a 63/W adm 10-24 with several d h/o dyspnea. Brought by EMS to ER, no EMS report available, ER note mentioned administration of DNs in route which improved O2 from low 90s victoria mid 90s. Seen at ICU, on BPAP 14/5 with O2 4L , POx
92%, in moderate resp distress, intermittently agitated and trying to remove BPAP mask. Unfortunately very poor historian at time of visit, unknown baseline MS, appears acutely on chronically ill
Impression:
Acute respiratory failure
RML infiltrate
COVID positive
Elevated PCT
Leukocytosis s eosinophilia
Hyponatremia, uncertain chronicity
Low serum osmolality
Lactic acidosis
Mild transaminitis
Portal vein thrombosis
Elevated troponin and BNP: LVEF 30-35% with WMAs
Flu negative
Conditions PUBLISHING EDITOR:
COPD
Hypothyroidism
Multiple sclerosis
Substance abuse: on methadone
VDRF due to overdose Jul 2011
Chronic pain: reportedly on fentanyl patch, hydromorphone, oxycodone
Smoker
Alcohol: Former
Plan:
Admitted to ICU for mgmt of pneumonia and resp distress
Seen at ICU, unfortunately very poor historian at time of visit
Require BPAP for a short period of time in ICU
Transitioned to MFNC
Currently on 4L, POx 95%
Asp precs
BDs: alb/iprat HFA qid and prn to continue
RML infiltrate on CXR, RLL pneumonitis not typical of COVID on CT
Small patchy densities in lingula
Started on empiric atbs upon adm to ER: cefepime and vancomycin IV
Dexam 6 mg IV changed to MP 40 mg IV q12, continue for now
Uncertain impact of COVID positive test: no areas of pneumonitis c/w COVID infection
Observe off remdesivir
Acapella valve, sputum sample for culture
Blood cxs pending
MRSA screening negative, can d/c vancomycin
PCT elevated
Intermittent CXR
Hyponatremia, unclear chronicity, severe, responding to diuretic trial
Likely secondary to acute illness, opiates, decreased oral intake, heart failure
Renal consultation appreciated
Noted elevated troponins and BNP along TTE evidence of low EF and WMAs of unknown chronicity
Differential: demand ischemia, sepsis induced CM
Cards following
Portal vein thrombosis, liver steatosis, small volume ascites on US
Started on AC with enoxaparin
Rec GI and Hem/Onc evaluation
Chronic back pain and opiate dependence
Continue fentanyl patch, oxycodone, prn IV morphine
D/w MUSIC COMPOSER and Mrs Esparza
At this juncture stable for transition to IMU, will follow
Diagnostic tests:
CXR 10-24-23 c/w Apr 2023: New R basilar infiltrate. Mild pulm vasc congestion. No free air. Blunted c-d angles.
Chest CTA 10-24-23: No PE. RML infiltrate. RLL patchy pneumonitis. Patchy small lingular infiltrates.
TTE 10-24-23:
CONCLUSIONS
1. Normal left ventricular size with akinesis of the septum and apex, normal contraction of the basal inferior, inferolateral and lateral louis and hypokinesis of the remaining segments, EF 30-35%
2. Mild mitral regurgitation with normal left atrium
3. Aortic sclerosis with mild aortic regurgitation in limited views
4. Grossly normal right heart, could not determine pulmonary artery systolic pressure
Reliability of the interpretation is reduced related to limited image quality.
There are no prior studies available for comparison
Subjective Dataa
Subjective Data
Date of Service:
Date of Service: October 25, 2023
Chief Complaint: Sunglass Clip Attacher Follow Up
Subjective:
Require BiPAP only for a short period of time during initial ICU time, then transition to mid flow nasal cannula
Appears more awake and conversant today, multiple complaints
Currently on oxygen 4 L with saturation 95%
Review of Systems
General: Fever (n), Sweats, Chills and Satisfactory Appetite (n)
HEENT: Epistaxis (n)
Cardiopulmonary: Dyspnea, Cough, Wheezing and Chest Pain
GI: Abdominal Pain, Nausea and Vomiting
Neuro: Weakness
Objective Data
Data Reviewed
Vital Signs / I&O / Oxygen:
Vital Signs
Temp Pulse Resp BP Pulse Ox
98.6 F 100 23 106/56 96
10/25/23 07:24 10/25/23 05:45 10/25/23 05:45 10/24/23 20:30 10/25/23 05:45
SaO2 96
Nasal Cannula flow liters per 4
minute
Physical Exam
General: Respiratory Distress
HEENT: Normocephalic and Moist Mucous Membranes
Cardiovascular: Regular Rhythm, Murmur (n) and Peripheral Edema (mild LANCE)
Respiratory: Wheeze (n), Crackles, Accessory Resp Muscle Use (mild) and Stridor (n)
GI: Soft, Non Distended and Non Tender
Neurology: Awake, Oriented and No Motor Deficits
Skin: Dry
Labs/Micro/Reports
Lab Data
10/25/23 04:12
10/25/23 04:12
Laboratory Results
10/24/23 10/24/23
09:12 12:42
PT 15.7 H
INR 1.27
APTT 40.1 H
Microbiology
10/24/23 12:42 Nose Nasal Screen MRSA (PCR) - Final
MRSA not detected - performed by PCR methodology.
10/24/23 09:39 Nasal Swab Influenza Types A & B (YANY) - Final
Negative for Influenza A & B, NAAT
Negative results must be combined with clinical observations
and patient history.
Nucleic Acid Amplification test (NAAT)performed on the
[employer] platform.
[2023-10-25] MEDS: LASIX 20 MG IV (08:00)
--- NOTE | 2023-10-25 08:00 | PTCARENOTE ---
PT received in bed drowsy but arousable to verbal stimuli, PT uncooperative at times waxing and waning when she'll answer questions and follow simple commands, moaning at times and unable to tell you why, PT oriented to self only, NSR weak pedal
pulses, +2 edema, 4L MF B/L BS coarse rhonchi T/O, dry weak cough, abdomen soft NT +BS, incontinent, bruises noted to left and right flank areas, unknown of the origin, multiple tattoos, right AC INT flushed and patent
[2023-10-25] MEDS: TOPROL XL 12.5 MG PO (08:01)
[2023-10-25] MEDS: COMBIVENT RESPIMAT INHAL SPRAY 1 PUFF INH ×4 (08:53→19:43)
--- NOTE | 2023-10-25 09:58 | W.PN.UPDATE ---
Update Note
Progress Note Update
Discussed with Dr. Griffin received a consult on this patient for portal vein thrombosis would recommend hematology consult, unclear if it is acute or chronic thrombosis, she does have evidence of hepatic steatosis but no evidence of cirrhosis or
varices noted on ultrasound and will need workup for hepatic steatosis as outpatient could also be related to COVID. Defer further workup for possible hypercoagulable state to hematology and follow-up with GI as outpatient for workup of fatty liver.
--- NOTE | 2023-10-25 10:04 | PHA.VAN.FU ---
Vancomycin Assessment / Plan
- Assessment
Renal Function: Stable
WBC's are: Trending Up
In the past 24 hrs, patient has been: Afebrile
Concomitant Antimicrobials: Cefepime
- Dosing Plan
Continue: Vanc 1000mg IV q24H
- Monitoring Plan
No level(s) ordered at this time: Consider levels after 2/5 dose.
- Follow Up
Pharmacy will continue to follow.
Vancomycin Follow UP
- -
Patient Age: 63
Patient Sex: Female
Vancomycin Day #: 2
Indication: Pulmonary/Respiratory
Requesting Provider: Velma
Pertinent Antimicrobial Allergies:
penicillins-> hives; latex -> anaphylaxis
Height / Weight:
Height 5 ft 4 in
Actual Weight 50.9 kg
Pertinent Past Medical History: COPD
- Vital Signs / Lab Results
Temp Pulse Resp BP Pulse Ox
98.6 F 85 21 119/79 95
10/25/23 07:24 10/25/23 09:45 10/25/23 09:45 10/25/23 09:00 10/25/23 09:45
Lab Results - Hematology
10/24/23 10/25/23
09:12 04:12
WBC 17.0 H 21.1 H
Lab Results - Chemistry
10/24/23 10/24/23 10/24/23
09:12 16:10 20:39
BUN 10 14 14
Creatinine 0.8 0.7 0.6
Estimated Creat Clear 60 69 80
Albumin 2.6 L
10/25/23
04:12
BUN 16
Creatinine 0.6
Estimated Creat Clear 79
Albumin 2.0 L
10/24/23 10/24/23 10/24/23
09:12 12:42 16:10
Lactic Acid 6.4 H* 2.5 H 1.4
10/24/23
17:00
Lactic Acid Cancelled
Microbiology Results
10/24/23 09:39 Blood Culture - Preliminary
Blood/Venous No Growth in 24 hours- Final report to follow
10/24/23 09:12 Blood Culture - Preliminary
Blood/Venous No Growth in 24 hours- Final report to follow
10/24/23 12:42 Nasal Screen MRSA (PCR) - Final
Nose MRSA not detected - performed by PCR methodology.
10/24/23 09:39 Influenza Types A & B (YANY) - Final
Nasal Swab Negative for Influenza A & B, NAAT
Negative results must be combined with clinical observations
and patient history.
Nucleic Acid Amplification test (NAAT)performed on the
[employer] platform.
--- NOTE | 2023-10-25 11:08 | W.PN.NEPH.PH ---
Today's Communication / Plan
-
3%
Assessment/Plan
-
Assessment
-hyponatremia
-hypotension on admission
-COVID+
-large RML PNA
-lactic acidosis
-?thrombosed portal vein
-COPD
-hypothyroid
-HFrEF 30%
-multiple sclerosis
-chronic pain/opioids
Plan
-3%NaCl again today
-follow LFTs
-steroids IV
-abx per primary team
-follow Cr given contrast and hypotension and sepsis
-Can continue lasix for balance, though I don't think she is severely volume overloaded. Currently there is essentially no po intake, so all volume is med related.
-critical care time 31 minutes
-
-
Date of Service: October 25, 2023
CC / HPI / ROS
-
Chief Complaint:
hyponatremia
History of Present Illness:
Abx for RML PNA
BP stable
Na up to 121 after 3%
LFTs stable high
Review of Systems:
no CP/fever
Labs
-
Labs:
WBC 21.1 10^3/uL (4.8-10.8) H 10/25/23 04:12
RBC 3.20 10^6/uL (4.20-5.40) L 10/25/23 04:12
Hgb 12.5 g/dL (12.0-16.0) 10/25/23 04:12
Hct 32.9 % (37.0-47.0) L 10/25/23 04:12
Plt Count 185 10^3/uL (130-400) 10/25/23 04:12
Sodium 121 mmol/L (135-145) L 10/25/23 04:12
Potassium 4.2 mmol/L (3.5-5.1) 10/25/23 04:12
Chloride 92 mmol/L (98-107) L 10/25/23 04:12
Carbon Dioxide 27 mmol/L (22-30) 10/25/23 04:12
BUN 16 mg/dl (7-17) 10/25/23 04:12
Creatinine 0.6 mg/dL (0.6-1.0) 10/25/23 04:12
eGFR > 60.00 10/25/23 04:12
Glucose 69 mg/dl (70-99) L 10/25/23 04:12
Calcium 7.3 mg/dl (8.4-10.2) L 10/25/23 04:12
Phosphorus 3.7 mg/dl (2.5-4.5) 10/25/23 04:12
Yso-C-Ynwonaxroem Pept > 29151 pg/ml 10/24/23 09:12
Albumin 2.0 g/dl (3.5-5.0) L 10/25/23 04:12
Physical Exam
-
Vital Signs:
Vital Signs
Temp Pulse Resp BP Pulse Ox
98.5 F 85 21 119/79 95
10/25/23 11:01 10/25/23 09:45 10/25/23 09:45 10/25/23 09:00 10/25/23 09:45
Cardiovascular:: Regular rate and rhythm
Respiratory:: Bilateral: Rhonchi
Lung Excursion:: Normal
Abdomen:: Nontender and Soft
Bowel Sounds:: Normal
Extremity Edema:: None: Bilateral:
[2023-10-25 11:15] LABS: Troponin I 0.162 ng/ml
--- NOTE | 2023-10-25 11:54 | CON.ONC ---
Impression
Impression
Portal vein thrombosis indeterminate age
Acute hypoxic respiratory insufficiency
COVID-19
Right middle lobe pneumonia
Cardiomyopathy, EF 30 to 35%
Elevated troponin
Hyponatremia
Hypothyroidism
COPD
Multiple sclerosis
h/o substance abuse
Tobacco abuse
Chronic pain
Possible remote atrial fibrillation
Plan
Plan
Portal vein thrombosis indeterminate age
Evaluate for thrombophilia associated event APL, prothrombin gene mutation, PENNY-2 mutation
Has been an increase incidence of portal vein thrombosis associated with coronavirus
Patient is unable to give history of potential abdominal trauma
Slight elevation of PT and PTT obtain a mixing study
Would be exceedingly careful with anticoagulation in this cachectic gait unstable patient
Suggest heparin to low-dose Apixaban 2.5 mg twice daily
Patient History
History of Present Illness
Ms Kaitlin Esparza is a 63/W adm 02- with several d h/o dyspnea and cough. She has a known history of chronic pain with use of opiates including fentanyl, hydromorphone, oxycodone and methadone. She has underlying COPD and presented within moderate
resp distress, intermittently agitated and trying to remove BPAP mask. She has been found to be COVID-positive with a lower lobe pneumonia. Unfortunately very poor historian Known psychiatric history., unknown baseline MS, appears acutely on
chronically ill With multiple bruises implying gait instability and falls. Hematology has been consulted for the incidental finding of portal vein thrombosis.
Past-Medical/Surgical History
PMH:
Past Medical History:
Hypothyroidism, COPD, Multiple sclerosis, h/o substance abuse, Tobacco abuse, Chronic pain, Possible remote atrial fibrillation
Past Surgical History: Appendectomy, , Tonsilectomy and Right hemicolectomy, right hernia repair, hysterectomy, bladder repair
Social History
Tobacco: Smoker
Alcohol: Former
Drug: Narcotics
Personal: Single
Employment: Not Employed
Family History
Family History: CAD
Allergies / Home Medications
Patient Medication
Medication Instructions Recorded Confirmed Last Taken Type
fentanyl 50 mcg/hr transdermal 50 mcg transdermal Q72H Pain 10/24/23 10/24/23 Unknown History
patch
hydromorphone 4 mg tablet 4 mg PO Q6HPRN PRN SEVERE PAIN 10/24/23 10/24/23 Unknown History
methadone 10 mg tablet 10 mg PO .DAILY OR TID? Pain 10/24/23 Unknown History
ondansetron 4 mg disintegrating 4 mg PO DAILYPRN PRN nausea 10/24/23 10/24/23 Unknown History
tablet
oxycodone 15 mg tablet 15 mg PO Q4HWA Pain 10/24/23 10/24/23 Unknown History
polyethylene glycol 3350 17 gram 17 g PO DAILY PRN constipation 10/24/23 10/24/23 Unknown History
oral powder packet (Miralax)
Active Medications
Generic Name Dose Route Start Last Admin
Trade Name Freq PRN Reason Stop Dose Admin
Acetaminophen 650 mg 10/24/23 12:18
Acetaminophen 325 Mg Tablet PO 11/21/23 12:17
Q4HPRN PRN
mild pain/GARCIA/temp> 100.4F
Albuterol/Ipratropium 1 puff 10/24/23 20:00 10/25/23 11:39
Combivent Respimat Inhalation [place] INH 11/21/23 19:59 1 puff
R QID LEISA Administration
Albuterol/Ipratropium 1 puff 10/24/23 17:27
Combivent Respimat Inhalation [place] INH 11/21/23 17:26
R Q2HPRN PRN
SOB/WHEEZE
Cefepime HCl 2,000 mg 10/24/23 18:00 10/25/23 10:24
Cefepime Hcl 2,000 Mg/12.5 Ml Vial IV 2,000 mg
Q8H LEISA Administration
Dextrose 12.5 grams 10/25/23 05:37 10/25/23 05:58
Dextrose 50% (0.5 Grams/Ml) 50 Ml Syringe IV 11/22/23 05:36 12.5 grams
[id number] PRN Administration
BS < 70
Enoxaparin Sodium 50 mg 10/24/23 16:00 10/25/23 04:44
Enoxaparin Sodium 60 Mg/0.6 Ml Syringe SC 11/21/23 15:59 50 mg
Q12H LEISA Administration
Fentanyl 1 patch 10/24/23 13:00 10/24/23 13:25
Fentanyl 50 Mcg/Hr Patch TRANSDERM 11/07/23 12:59 1 patch
Q72H LEISA Administration
Furosemide 20 mg 10/24/23 16:00 10/25/23 08:00
Furosemide 20 Mg (10 Mg/Ml) 2 Ml Vial IV 11/21/23 15:59 20 mg
DAILY LEISA Administration
Sodium Chloride 250 mls @ 20 mls/hr 10/25/23 11:10
Sodium Chloride 3% IV 10/25/23 23:39
ONCE ONE
Methylprednisolone Sodium Succinate 40 mg 10/24/23 18:00 10/25/23 05:57
Methylprednisolone Pf 125 Mg/2 Ml Vial IV 11/21/23 17:59 40 mg
Q12H LEISA Administration
Metoprolol Succinate 12.5 mg 10/25/23 08:00 10/25/23 08:01
Metoprolol 12.5 Mg Extended Release Dose (1/2 Of 25 Mg Xl Tablet) PO 11/22/23 07:59 12.5 mg
DAILY LEISA Administration
Morphine Sulfate 1 mg 10/24/23 12:49
Morphine 2 Mg/Ml Syringe IV 11/07/23 12:48
Q6HPRN PRN
moderate to severe pain
Oxycodone HCl 15 mg 10/24/23 16:00
Oxycodone 15 Mg Regular Release Tablet PO 11/07/23 15:59
Q4HWA LEISA
Patch Removal 0 patch 10/27/23 13:00
Remove Fentanyl Patch REMOVE 11/10/23 12:59
Q72H LEISA
Polyethylene Glycol 17 grams 10/24/23 12:18
Polyethylene Glycol Powder 17 Grams Packet PO 11/21/23 12:17
DAILY PRN
constipation
Sodium Chloride 0 flush 10/24/23 13:00
Sodium Chloride 0.9% (Flush) Syringe IV 11/21/23 12:59
PER PROTOCOL LEISA
Sterile Water 10 ml 10/24/23 18:00 10/25/23 01:21
Sterile Water For Injection 10 Ml Vial IV 11/21/23 17:59 10 ml
Q8H LEISA Administration
Review of Systems
-
Patient unable to offer meaningful review of systems outside of the complaints noted in HPI
Physical Exam
-
Physical Exam
General: Cachectic, Acutely ill
Respiratory: Right lower lobe rhonchi
Cardiac: S1/S2 and Regular Rhythm
GI: Soft Bowel sounds present
Musculoskeletal: No Clubbing
Skin: Warm Multiple tattoos and areas of ecchymosis to suggest frequent falls
Neuro: Awake, Alert
Hematologic/Lymphatic: No Lymphadenopathy
Psych: Calm
Labs
Lab Results
WBC 21.1 10^3/uL (4.8-10.8) H 10/25/23 04:12
RBC 3.20 10^6/uL (4.20-5.40) L 10/25/23 04:12
Hgb 12.5 g/dL (12.0-16.0) 10/25/23 04:12
Hct 32.9 % (37.0-47.0) L 10/25/23 04:12
MCV 102.8 fL (81.0-99.0) H 10/25/23 04:12
MCH 39.1 pg (27.0-31.0) H 10/25/23 04:12
MCHC 38.0 g/dL (33.0-37.0) H 10/25/23 04:12
RDW 13.2 % (11.5-14.5) 10/25/23 04:12
Plt Count 185 10^3/uL (130-400) 10/25/23 04:12
MPV 11.6 fL (7.4-10.4) H 10/25/23 04:12
Abs Immat Gran (auto) 0.2 10^3/uL (0-0.05) H 10/24/23 09:12
Absolute Neuts (auto) 14.0 10^3/uL (1.4-6.5) H 10/24/23 09:12
Absolute Lymphs (auto) 1.7 10^3/uL (1.2-3.4) 10/24/23 09:12
Absolute Monos (auto) 1.1 10^3/uL (0.1-0.6) H 10/24/23 09:12
Absolute Eos (auto) 0.0 10^3/uL (0-0.7) 10/24/23 09:12
Absolute Basos (auto) 0.0 10^3/uL (0-0.2) 10/24/23 09:12
Immature Gran % 0.9 % (0-0.5) H 10/24/23 09:12
Neutrophils % 82.5 % (42.2-75.2) H 10/24/23 09:12
Lymphocytes % 10.0 % (20.5-51.1) L 10/24/23 09:12
Monocytes % 6.4 % (1.7-9.3) 10/24/23 09:12
Eosinophils % 0.0 % (0-6) 10/24/23 09:12
Basophils % 0.2 % (0-2) 10/24/23 09:12
Creatinine 0.6 mg/dL (0.6-1.0) 10/25/23 04:12
Vital Signs
Vital Signs
Temp Pulse Resp BP Pulse Ox
98.5 F 85 21 119/79 95
10/25/23 11:01 10/25/23 09:45 10/25/23 09:45 10/25/23 09:00 10/25/23 09:45
[2023-10-25] MEDS: SODIUM CHLORIDE 3% 250 IV (12:02)
--- NOTE | 2023-10-25 12:37 | PTCARENOTE ---
Updated PT's and daughter, reviewed visiting hours and protocols due to her COVID+ status, family is receptive and cooperative, assessment of PT unchanged, PT continues to be drowsy, but arousable, no changes in O2 requirements, PT remains
on Novel respiratory illness
--- NOTE | 2023-10-25 13:07 | W.PN.HOSP.TC ---
Today's Communication/Plan
-
iv abx
F/u cultures - not expectorating much
3% saline - monitor Na level
wean o2
Assessment / Plan
Assessment / Plan
Physical Exam
General: Well Developed, Well Nourished, Respiratory Distress
Respiratory: Clear
Cardiac: S1/S2 and Regular Rhythm
GI: Soft
Musculoskeletal: No Clubbing
Skin: Warm
Neuro: Awake, Alert, Oriented and AO x 3
Hematologic/Lymphatic: No Lymphadenopathy
Psych: Calm
63-year-old female with past medical history of hypothyroidism, COPD, multiple sclerosis, substance abuse on methadone, chronic opiate, tobacco abuse, COPD, chronic pain, ?� History of atrial fibrillation now presenting for ongoing shortness of
breath.
PLAN:
#Acute hypoxic respiratory failure
#COPD exacerbation
#Pneumonia
#SARS-CoV-2
� I suspect this is COPD exacerbation secondary to pneumonia along with +/- new onset acute HFrEF
� Continue IV antibiotics
� Follow-up cultures including sputum cultures
� Wean O2 as tolerated
� DuoNebs every 4 standing
� Solu-Medrol 40 mg every 12, wean as tolerated
� Continue gentle diuresis, not overtly fluid overloaded
-Incentive [place]
#Severe sepsis
� Secondary to pneumonia
� Continue plan as above with IV antibiotics, follow-up cultures
� Maintain MAP greater than 65
#New onset acute HFrEF
� Echo with EF 30 to 35%, akinesis of the septum and apex �normal contraction of the basal inferior, inferolateral, and lateral louis, hypokinesis of the remaining segments, mild MR, aortic sclerosis with mild AR
� Gentle diuresis, 20 mg IV Lasix today, titrate as needed
� Started on low-dose Toprol, monitor blood pressures
� Ischemic evaluation inpatient versus outpatient as per cardiology
� Cardiology consulted
� Wean O2 as tolerated
#Portal vein thrombosis
-unclear acute v chronic, can be related to COVID-19
� Started on Lovenox 1 mg/kg - can transition to 2.5 mg BID Eliquis
� Follow-up hematology outpatient
-F/u Heme work up, Mixing study
-heme consulted here by ICU
#Hyponatremia
�Hypertonic Saline
-Nephro on board
#Transaminitis
#Hepatocellular injury
� Most likely secondary to portal vein thrombosis +/- congestive hepatopathy
� Continue anticoagulation as stated above
� Continue diuresis and monitor
-See above for portal vein thrombosis
#Elevated troponin
� Most likely non-DC troponin elevation in setting of acute CHF
� Continue to monitor trend
� Follow cardiology recommendations
#Polysubstance abuse
#Tobacco use
#Chronic pain
� Continue methadone, fentanyl patch, opiates as needed
#Multiple sclerosis
#DVT prophylaxis
Lovenox
Total time spent on today's encounter was 52 minutes which included time spent in counseling the patient/family regarding diagnosis and treatment plan as listed above, goals of care, and symptom management. Case was discussed with nursing staff,
specialists, and care coordinators/case management. All labs and imaging personally reviewed by me. Remainder the time spent in detailed review of previous records, lab data, imaging, and other medical provider documentation.
Anticipated Discharge: > 48 hours
Subjective/Interval History
-
Date of Service: October 25, 2023
weaned off bipap, respiratory status appears improved
Objective Data
-
Labs:
Laboratory Results
10/25/23 10/25/23 10/25/23
04:12 12:14 16:00
WBC 21.1 H
Hgb 12.5
Hct 32.9 L
Plt Count 185
APTT Pending
Sodium 121 L Pending
Potassium 4.2 Pending
Chloride 92 L Pending
Carbon Dioxide 27 Pending
BUN 16 Pending
Creatinine 0.6 Pending
Glucose 69 L Pending
Calcium 7.3 L Pending
Total Bilirubin 1.0
AST 155 H
ALT 48 H
Alkaline Phosphatase 196 H
Vital Signs:
Vital Signs
Temp Pulse Resp BP Pulse Ox
98.5 F 82 22 128/71 95
10/25/23 11:01 10/25/23 12:30 10/25/23 12:30 10/25/23 12:00 10/25/23 12:30
Review of Systems
-
History Source: Patient
All other systems: Not reviewed unless documented
Data Reviewed
-
CT Scan: Image personally visualized and interpreted and Report Reviewed by me
Ultrasound: Image personally visualized and interpreted and Report Reviewed by me
Labs: Labs Reviewed by me
[2023-10-25 13:59] LABS: APTT 33.2 Sec (23.4-35.0)
[2023-10-25 16:25] LABS: Blood Urea Nitrogen 19 mg/dl (7-17); Calcium 7.6 mg/dl (8.4-10.2); Carbon Dioxide 32 mmol/L (22-30); Chloride 93 mmol/L (98-107); Estimated Creatinine Clearance 68 ml/min; Glucose 83 mg/dl (70-99); Potassium 3.8 mmol/L (3.5-5.1); Sodium 122 mmol/L (135-145); eGFR > 60.00
--- NOTE | 2023-10-25 16:57 | PTCARENOTE ---
Received call from lab regarding DR García's PTT mixing study lab, Lab personnel asked if the mixing study was the correct lab the doctor wanted, I explained I was unsure, but I'm assuming that he wanted this as he was looking at several different
obscure labs, lab canceled PTT mixing study and obtained a PTT, I tiger texted DR García regarding this, my TT was read, however I didn't not receive any new orders
--- NOTE | 2023-10-25 20:09 | PTCARENOTE ---
Received patient from previous shift. alert to self only. moaning and calling out. 4L midflow, dry cough. ST on the monitor. incontinent of urine, brief changed. fentanyl patch on left upper arm.
[2023-10-26] VITALS (19 sets, daily range): BP systolic 96–141; BP diastolic 45–81; BMI 18.9
[2023-10-26] MEDS: MAXIPIME 2000 MG IV ×3 (02:42→17:36)
[2023-10-26] MEDS: STERILE WATER FOR INJECTION 10 ML IV ×3 (02:42→17:37)
[2023-10-26] MEDS: LOVENOX 50 MG SC (05:10)
[2023-10-26] MEDS: SOLU-MEDROL PF 40 MG IV ×2 (05:10→17:36)
[2023-10-26 05:16] LABS: Hematocrit 31.7 % (37.0-47.0); Hemoglobin 11.9 g/dL (12.0-16.0); Mean Corp Hgb Conc. 37.5 g/dL (33.0-37.0); Mean Corpuscular Volume 103.9 fL (81.0-99.0); Mean Platelet Volume 11.6 fL (7.4-10.4); Platelet Count 236 10^3/uL (130-400); Red Blood Cell Count 3.05 10^6/uL (4.20-5.40); Red Cell Dist. Width 13.2 % (11.5-14.5); White Blood Cell Count 22.4 10^3/uL (4.8-10.8)
[2023-10-26 05:20] LABS: ALT (SGPT) 62 U/L (0-35); AST (SGOT) 153 U/L (14-36); Albumin 2.1 g/dl (3.5-5.0); Alkaline Phosphatase 214 U/L (38-126); Blood Urea Nitrogen 22 mg/dl (7-17); Calcium 7.7 mg/dl (8.4-10.2); Carbon Dioxide 29 mmol/L (22-30); Chloride 98 mmol/L (98-107); Estimated Creatinine Clearance 78 ml/min; Glucose 77 mg/dl (70-99); Magnesium 2.1 mg/dl (1.6-2.3); Potassium 3.7 mmol/L (3.5-5.1); Sodium 126 mmol/L (135-145); Total Protein 5.2 g/dl (6.3-8.2); eGFR > 60.00
--- NOTE | 2023-10-26 05:32 | PTCARENOTE ---
pt alert to self, taking off hospital gown, tele monitor, oxygen, and throwing her legs up over top the side rails. redressed and new leads put on multiple times. complete bed bath given. incontinent of urine. pt now in soft limb restraints.
--- NOTE | 2023-10-26 08:00 | PTCARENOTE ---
PT received in bed, PT thrashing around, attempting to remove gown and IV's, restraints reapplied overnight for protection, PT is AAOx2, disoriented to tie, PT easily forgetful, need to ask PT questions multiple times, still only occasionally
answers you, and most of the time her answers make no sense, NSR, +pulses +2 edema to B/L ankles, 2L NC 90-94%, B/L BS diminished, shallow, coarse with rhonchi noted, occasional dry cough, abdomen soft, NT, distended, + BS, PT incontinent of urine,
B/L hips with bruise noted, left upper arm INT, right AC INT, flushed and patent
[2023-10-26] MEDS: COMBIVENT RESPIMAT INHAL SPRAY 1 PUFF INH ×4 (08:08→19:52)
[2023-10-26] MEDS: TOPROL XL 12.5 MG PO (08:14)
[2023-10-26] MEDS: LASIX 20 MG IV (08:15)
--- NOTE | 2023-10-26 08:15 | W.PN.INTV ---
Today's Communication / Plan
Recommendations
O2
Atbs
MP
BDs
Asp precs
Telem
Assessment
-
Assessment:
Ms Kaitlin Esparza is a 63/W adm 10-24 with several d h/o dyspnea. Brought by EMS to ER, no EMS report available, ER note mentioned administration of DNs in route which improved O2 from low 90s [place]oria mid 90s. Seen at ICU, on BPAP 14/ with O2 4L , POx
92%, in moderate resp distress, intermittently agitated and trying to remove BPAP mask. Unfortunately very poor historian at time of visit, unknown baseline MS, appears acutely on chronically ill
Impression:
Acute respiratory failure
RML infiltrate
COVID positive
Elevated PCT
Leukocytosis s eosinophilia
Hyponatremia, uncertain chronicity
Low serum osmolality
Lactic acidosis
Mild transaminitis
Portal vein thrombosis
Elevated troponin and BNP: LVEF 30-35% with WMAs
Flu negative
Conditions [place]:
COPD
Hypothyroidism
Multiple sclerosis
Substance abuse: on methadone
VDRF due to overdose Jul 2011
Chronic pain: reportedly on fentanyl patch, hydromorphone, oxycodone
Smoker
Alcohol: Former
Plan:
Admitted to ICU for mgmt of pneumonia and resp distress
Required BPAP for a short period of time in ICU
Transitioned to [facility]
Currently down to 2L, POx 95%
Asp precs
BDs: alb/iprat HFA qid and prn to continue
RML infiltrate on CXR, RLL pneumonitis not typical of COVID on CT
Small patchy densities in lingula
Started on empiric atbs upon adm to ER: cefepime and vancomycin IV
Dexam 6 mg IV changed to MP 40 mg IV q12, continue for now
Uncertain impact of COVID positive test: no areas of pneumonitis c/w COVID infection
Observe off remdesivir
Acapella valve, sputum sample for culture
Blood cxs pending
MRSA screening negative, can d/c vancomycin
PCT elevated
Intermittent CXR
Hyponatremia, unclear chronicity, severe, responding to diuretic trial
Likely secondary to acute illness, opiates, decreased oral intake, heart failure
Renal consultation appreciated, 3% saline
Noted elevated troponins and BNP along TTE evidence of low EF and WMAs of unknown chronicity
Differential: demand ischemia, sepsis induced CM
Cards following
Portal vein thrombosis, liver steatosis, small volume ascites on US
Suspected COVID infection related
Started on AC with enoxaparin, continue
GI contacted, will see as outpatient
D/w Hem/Onc, rec thrombophilia w/u
Chronic back pain and opiate dependence
Continue fentanyl patch, oxycodone, prn IV morphine
D/w [employer]ICE [employer]IDENT PLANNING
Stable for transition to telemetry, will follow
Diagnostic tests:
CXR 10-24-23 c/w Apr 2023: New R basilar infiltrate. Mild pulm vasc congestion. No free air. Blunted c-d angles.
Chest CTA 10-24-23: No PE. RML infiltrate. RLL patchy pneumonitis. Patchy small lingular infiltrates.
TTE 10-24-23:
CONCLUSIONS
1. Normal left ventricular size with akinesis of the septum and apex, normal contraction of the basal inferior, inferolateral and lateral louis and hypokinesis of the remaining segments, EF 30-35%
2. Mild mitral regurgitation with normal left atrium
3. Aortic sclerosis with mild aortic regurgitation in limited views
4. Grossly normal right heart, could not determine pulmonary artery systolic pressure
Reliability of the interpretation is reduced related to limited image quality.
There are no prior studies available for comparison
Subjective Dataa
Subjective Data
Date of Service:
Date of Service: October 26, 2023
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
Subjective:
No major events reported overnight
Oxygen requirement has decreased
Hyponatremia improving
Review of Systems
General: Other (Poor historian)
Objective Data
Data Reviewed
Vital Signs / I&O / Oxygen:
Vital Signs
Temp Pulse Resp BP Pulse Ox
97.9 F 103 21 114/52 93
10/26/23 07:39 10/26/23 06:30 10/26/23 06:30 10/26/23 06:00 10/26/23 05:15
SaO2 93
Nasal Cannula flow liters per 3
minute
Physical Exam
General: Respiratory Distress
HEENT: Normocephalic and Moist Mucous Membranes
Cardiovascular: Regular Rhythm, Murmur (n) and Peripheral Edema (mild LANCE)
Respiratory: Wheeze (n), Crackles, Accessory Resp Muscle Use (mild) and Stridor (n)
GI: Soft, Non Distended and Non Tender
Neurology: Awake, Oriented and No Motor Deficits
Skin: Dry
Labs/Micro/Reports
Lab Data
10/26/23 04:31
10/26/23 04:31
Laboratory Results
10/25/23
13:35
APTT 33.2
Microbiology
10/24/23 09:39 Blood/Venous Blood Culture - Preliminary
No Growth in 24 hours- Final report to follow
10/24/23 09:12 Blood/Venous Blood Culture - Preliminary
No Growth in 24 hours- Final report to follow
10/24/23 12:42 Nose Nasal Screen MRSA (PCR) - Final
MRSA not detected - performed by PCR methodology.
10/24/23 09:39 Nasal Swab Influenza Types A & B (YANY) - Final
Negative for Influenza A & B, NAAT
Negative results must be combined with clinical observations
and patient history.
Nucleic Acid Amplification test (NAAT)performed on the
[facility] platform.
--- NOTE | 2023-10-26 09:19 | W.PN.NEPH.PH ---
Today's Communication / Plan
-
3%
Assessment/Plan
-
Assessment
-hyponatremia
-hypotension on admission
-COVID+
-large RML PNA
-lactic acidosis
-?thrombosed portal vein
-COPD
-hypothyroid
-HFrEF 30%
-multiple sclerosis
-chronic pain/opioids
Plan
-3%NaCl again today
-follow LFTs
-steroids and abx per primary team
-Can continue lasix for balance, though I don't think she is severely volume overloaded. Currently there is essentially no po intake, so all volume is med related.
-
-
Date of Service: October 26, 2023
CC / HPI / ROS
-
Chief Complaint:
hyponatremia
History of Present Illness:
Abx for RML PNA
BP stable
Na up to 126 after 3%
LFTs stable high
diuresing with lasix
WBC remains elevated
Review of Systems:
no CP/fever
Labs
-
Labs:
WBC 22.4 10^3/uL (4.8-10.8) H 10/26/23 04:31
RBC 3.05 10^6/uL (4.20-5.40) L 10/26/23 04:31
Hgb 11.9 g/dL (12.0-16.0) L 10/26/23 04:31
Hct 31.7 % (37.0-47.0) L 10/26/23 04:31
Plt Count 236 10^3/uL (130-400) D 10/26/23 04:31
Sodium 126 mmol/L (135-145) L 10/26/23 04:31
Potassium 3.7 mmol/L (3.5-5.1) 10/26/23 04:31
Chloride 98 mmol/L (98-107) 10/26/23 04:31
Carbon Dioxide 29 mmol/L (22-30) 10/26/23 04:31
BUN 22 mg/dl (7-17) H 10/26/23 04:31
Creatinine 0.6 mg/dL (0.6-1.0) 10/26/23 04:31
eGFR > 60.00 10/26/23 04:31
Glucose 77 mg/dl (70-99) 10/26/23 04:31
Calcium 7.7 mg/dl (8.4-10.2) L 10/26/23 04:31
Phosphorus 3.7 mg/dl (2.5-4.5) 10/25/23 04:12
[id number] Pept > 91882 pg/ml 10/24/23 09:12
Albumin 2.1 g/dl (3.5-5.0) L 10/26/23 04:31
Physical Exam
-
Vital Signs:
Vital Signs
Temp Pulse Resp BP Pulse Ox
97.9 F 91 21 124/70 93
10/26/23 07:39 10/26/23 08:15 10/26/23 06:30 10/26/23 08:15 10/26/23 05:15
Cardiovascular:: Regular rate and rhythm
Respiratory:: Bilateral: Rhonchi
Lung Excursion:: Normal
Abdomen:: Nontender and Soft
Bowel Sounds:: Normal
Extremity Edema:: None: Bilateral:
[2023-10-26] MEDS: SODIUM CHLORIDE 3% 250 IV (11:27)
--- NOTE | 2023-10-26 12:00 | PTCARENOTE ---
Assessment remains unchanged, updated and at bedside, PT continues with B/L wrist restraints for protection
--- NOTE | 2023-10-26 13:17 | W.PN.HOSP.TC ---
Addendum entered and electronically signed by Gustavo Carreon MD 10/26/23 14:40:
eliquis not covered by insurance - cm assessing options
Original Note:
Today's Communication/Plan
-
Hypertonic saline
Anticoagulation
Wean O2
Antibiotics
Steroids
IV Lasix
Assessment / Plan
Assessment / Plan
Physical Exam
General: Well Developed, Well Nourished, Respiratory Distress
Respiratory: Clear
Cardiac: S1/S2 and Regular Rhythm
GI: Soft
Musculoskeletal: No Clubbing
Skin: Warm
Neuro: Awake, Alert, Oriented and AO x 3
Hematologic/Lymphatic: No Lymphadenopathy
Psych: Calm
63-year-old female with past medical history of hypothyroidism, COPD, multiple sclerosis, substance abuse on methadone, chronic opiate, tobacco abuse, COPD, chronic pain, ?� History of atrial fibrillation now presenting for ongoing shortness of
breath.
PLAN:
#Acute hypoxic respiratory failure
#COPD exacerbation
#Pneumonia
#SARS-CoV-2
� I suspect this is COPD exacerbation secondary to pneumonia along with +/- new onset acute HFrEF
� Continue IV antibiotics
� Follow-up cultures including sputum cultures
� Wean O2 as tolerated
� DuoNebs every 4 standing
� Solu-Medrol 40 mg every 12, wean as tolerated
� Continue gentle diuresis, not overtly fluid overloaded
-Incentive [place]
#Severe sepsis
� Secondary to pneumonia
� Continue plan as above with IV antibiotics, follow-up cultures
� Maintain MAP greater than 65
#New onset acute HFrEF
� Echo with EF 30 to 35%, akinesis of the septum and apex �normal contraction of the basal inferior, inferolateral, and lateral louis, hypokinesis of the remaining segments, mild MR, aortic sclerosis with mild AR
� Gentle diuresis, 20 mg IV Lasix today, titrate as needed
� Started on low-dose Toprol, monitor blood pressures
� Ischemic evaluation inpatient versus outpatient as per cardiology
� Cardiology consulted
� Wean O2 as tolerated
#Portal vein thrombosis
-unclear acute v chronic, can be related to COVID-19
� Started on Lovenox 1 mg/kg - can transition to 2.5 mg BID Eliquis
� Follow-up hematology outpatient
-F/u Heme work up, Mixing study
-heme consulted here by ICU
#Hyponatremia
�Hypertonic Saline again today
-Nephro on board
#Transaminitis
#Hepatocellular injury
� Most likely secondary to portal vein thrombosis +/- congestive hepatopathy
� Continue anticoagulation as stated above
� Continue diuresis and monitor
-See above for portal vein thrombosis
#Elevated troponin
� Most likely non-OK troponin elevation in setting of acute CHF
� Continue to monitor trend
� Follow cardiology recommendations
#Polysubstance abuse
#Tobacco use
#Chronic pain
� Continue methadone, fentanyl patch, opiates as needed
#Multiple sclerosis
#DVT prophylaxis
Lovenox
Anticipated Discharge: > 48 hours
Subjective/Interval History
-
Date of Service: October 26, 2023
Weaning oxygen; Still mild wheezing
Objective Data
-
Labs:
Laboratory Results
24 10/26/23
04:31 15:00
WBC 22.4 H
Hgb 11.9 L
Hct 31.7 L
Plt Count 236 D
Sodium 126 L Pending
Potassium 3.7 Pending
Chloride 98 Pending
Carbon Dioxide 29 Pending
BUN 22 H Pending
Creatinine 0.6 Pending
Glucose 77 Pending
Calcium 7.7 L Pending
Total Bilirubin 1.0
AST 153 H
ALT 62 H
Alkaline Phosphatase 214 H
Vital Signs:
Vital Signs
Temp Pulse Resp BP Pulse Ox
97.9 F 79 25 120/65 92
10/26/23 11:13 10/26/23 12:05 10/26/23 12:05 10/26/23 10:00 10/26/23 12:05
Review of Systems
-
History Source: Patient
All other systems: Not reviewed unless documented
Data Reviewed
-
CT Scan: Image personally visualized and interpreted and Report Reviewed by me
Ultrasound: Image personally visualized and interpreted and Report Reviewed by me
Labs: Labs Reviewed by me
--- NOTE | 2023-10-26 14:55 | CM ---
Case Management Consult completed.
Out of Pocket Cost for Eliquis 2.5 mg Bid and Xarelo 20 mg are both $0
Attending notified and acknowledged cost info via [place] [employer]
[2023-10-26 15:19] LABS: Blood Urea Nitrogen 25 mg/dl (7-17); Calcium 8.2 mg/dl (8.4-10.2); Carbon Dioxide 28 mmol/L (22-30); Chloride 96 mmol/L (98-107); Estimated Creatinine Clearance 67 ml/min; Glucose 73 mg/dl (70-99); Potassium 3.8 mmol/L (3.5-5.1); Sodium 130 mmol/L (135-145); eGFR > 60.00
--- NOTE | 2023-10-26 16:41 | SUR.OPER ---
Report given to Kelsey BERGERON on 2 N, answered all questions, PT and belongings transferred to room 1671
--- NOTE | 2023-10-26 16:51 | PTCARENOTE ---
Pt received from ICU. 2L o2 b/l soft wrist restraints. 3% saline 20 ml/hr running through R AC report received from Sara.
[2023-10-26] MEDS: ELIQUIS 2.5 MG PO (17:36)
[2023-10-27] MEDS: STERILE WATER FOR INJECTION 10 ML IV ×3 (02:44→18:06)
[2023-10-27] MEDS: MAXIPIME 2000 MG IV ×3 (02:44→18:06)
[2023-10-27 03:33] VITALS: BP 92/75
[2023-10-27] MEDS: SOLU-MEDROL PF 40 MG IV (06:11)
[2023-10-27 06:57] LABS: ALT (SGPT) 68 U/L (0-35); AST (SGOT) 105 U/L (14-36); Albumin 2.1 g/dl (3.5-5.0); Alkaline Phosphatase 224 U/L (38-126); Blood Urea Nitrogen 28 mg/dl (7-17); Calcium 7.8 mg/dl (8.4-10.2); Carbon Dioxide 25 mmol/L (22-30); Chloride 104 mmol/L (98-107); Estimated Creatinine Clearance 67 ml/min; Glucose 77 mg/dl (70-99); Magnesium 2.3 mg/dl (1.6-2.3); Potassium 3.5 mmol/L (3.5-5.1); Sodium 132 mmol/L (135-145); Total Protein 5.2 g/dl (6.3-8.2); eGFR > 60.00
[2023-10-27 07:03] LABS: Hematocrit 30.8 % (37.0-47.0); Hemoglobin 11.4 g/dL (12.0-16.0); Mean Corpuscular Volume 105.5 fL (81.0-99.0); Platelet Count 180 10^3/uL (130-400); Red Blood Cell Count 2.92 10^6/uL (4.20-5.40); Red Cell Dist. Width 13.5 % (11.5-14.5); White Blood Cell Count 13.1 10^3/uL (4.8-10.8)
[2023-10-27 07:35] VITALS: BP 117/66
[2023-10-27] MEDS: COMBIVENT RESPIMAT INHAL SPRAY 1 PUFF INH ×3 (08:23→15:26)
[2023-10-27] MEDS: ELIQUIS 2.5 MG PO (09:57)
[2023-10-27] MEDS: LASIX 20 MG IV (09:58)
[2023-10-27] MEDS: TOPROL XL 12.5 MG PO (09:58)
[2023-10-27 11:18] VITALS: BP 117/63
--- NOTE | 2023-10-27 12:45 | W.PN.PUL3 ---
Today's Communication / Plan
-
O2
Cefepime
CS
BDs
CXR
Assessment
-
Assessment:
Ms Kaitlin Esparza is a 63/W adm 10-24 with several d h/o dyspnea. Brought by EMS to ER, no EMS report available, ER note mentioned administration of DNs in route which improved O2 from low 90s victoria mid 90s. Seen at ICU, on BPAP 14/5 with O2 4L , POx
92%, in moderate resp distress, intermittently agitated and trying to remove BPAP mask. Unfortunately very poor historian at time of visit, unknown baseline MS, appears acutely on chronically ill
Impression:
Acute respiratory failure
RML infiltrate
COVID positive
Elevated PCT
Leukocytosis s eosinophilia
Hyponatremia, uncertain chronicity
Low serum osmolality
Lactic acidosis
Mild transaminitis
Portal vein thrombosis
Elevated troponin and BNP: LVEF 30-35% with WMAs
Flu negative
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
COPD
Hypothyroidism
Multiple sclerosis
Substance abuse: on methadone
VDRF due to overdose Jul 2011
Chronic pain: reportedly on fentanyl patch, hydromorphone, oxycodone
Smoker
Alcohol: Former
Plan:
Admitted to ICU for mgmt of pneumonia and resp distress
Required BPAP for a short period of time in ICU
Transitioned to [facility]NC
Currently down to 2L, POx 95%
Asp precs
BDs: alb/iprat HFA qid and prn to continue
RML infiltrate on CXR, RLL pneumonitis not typical of COVID on CT
Small patchy densities in lingula
Started on empiric atbs upon adm to ER: cefepime and vancomycin IV
Dexam 6 mg IV changed to MP 40 mg IV q12 due to significant bronchitic symptoms, decrease to 40 mg qd on 10-26 (equivalent to 7.5 mg dexam)
Uncertain impact of COVID positive test: no areas of pneumonitis c/w COVID infection
Observing off remdesivir
Acapella valve, sputum sample for culture
Blood cxs so far negative
MRSA screening negative, d/c'ed vancomycin
PCT elevated
Portable CXR 10-28
Hyponatremia, unclear chronicity, severe, responding to diuretic trial and 3% saline
Likely secondary to acute illness, opiates, decreased oral intake, heart failure
Renal consultation appreciated
Noted elevated troponins and BNP along TTE evidence of low EF and WMAs of unknown chronicity
Differential: demand ischemia, sepsis induced CM
Cards following
Portal vein thrombosis, liver steatosis, small volume ascites on US
Suspected COVID infection related
Started on AC with enoxaparin, changed to apixaban by Hem
GI contacted, will see as outpatient
D/w Hem/Onc, thrombophilia w/u
Chronic back pain and opiate dependence
Continue fentanyl patch, oxycodone, prn IV morphine
Diagnostic tests:
CXR 10-24-23 c/w Apr 2023: New R basilar infiltrate. Mild pulm vasc congestion. No free air. Blunted c-d angles.
Chest CTA 10-24-23: No PE. RML infiltrate. RLL patch of pneumonitis. Patchy small lingular infiltrates.
TTE 10-24-23:
CONCLUSIONS
1. Normal left ventricular size with akinesis of the septum and apex, normal contraction of the basal inferior, inferolateral and lateral louis and hypokinesis of the remaining segments, EF 30-35%
2. Mild mitral regurgitation with normal left atrium
3. Aortic sclerosis with mild aortic regurgitation in limited views
4. Grossly normal right heart, could not determine pulmonary artery systolic pressure
Reliability of the interpretation is reduced related to limited image quality.
There are no prior studies available for comparison
Subjective Data
-
Date of Service:
Date of Service: October 27, 2023
Chief Complaint: Pulmonary Follow Up
Subjective:
Transferred from ICU
O2 down to 2L
MS slightly improved, suspected poor baseline
Review of Systems
General: Other (poor historian)
Objective Data
Data Reviewed
Vital Signs / I&O / Oxygen:
Vital Signs
Temp Pulse Resp BP Pulse Ox
97.1 F 80 20 117/63 99
10/27/23 11:18 10/27/23 11:42 10/27/23 11:42 10/27/23 11:18 10/27/23 11:18
SaO2 99
Nasal Cannula flow liters per 2
minute
Physical Exam
General: Respiratory Distress (n)
HEENT: Normocephalic and Moist Mucous Membranes
Cardiovascular: Regular Rhythm, Murmur and Peripheral Edema (LANCE)
Respiratory: Crackles (R base), Rhonchi and Stridor (n)
GI: Soft, Non Distended and Non Tender
Neurology: Lethargic (arousable) and Other
Skin: Dry
Labs/Micro/Reports
Lab Data
10/27/23 06:06
10/27/23 06:06
Microbiology
10/24/23 09:39 Blood/Venous Blood Culture - Preliminary
No Growth in 72 hours- Final report to follow
10/24/23 09:12 Blood/Venous Blood Culture - Preliminary
No Growth in 72 hours- Final report to follow
10/24/23 12:42 Nose Nasal Screen MRSA (PCR) - Final
MRSA not detected - performed by PCR methodology.
10/24/23 09:39 Nasal Swab Influenza Types A & B (YANY) - Final
Negative for Influenza A & B, NAAT
Negative results must be combined with clinical observations
and patient history.
Nucleic Acid Amplification test (NAAT)performed on the
[employer] platform.
--- NOTE | 2023-10-27 13:25 | W.PN.HOSP.TC ---
Today's Communication/Plan
-
see A/P
Assessment / Plan
Assessment / Plan
HPI: 63-year-old female with past medical history of hypothyroidism, COPD, multiple sclerosis, substance abuse on methadone, chronic opiate, tobacco abuse, COPD, chronic pain, ?History of atrial fibrillation; p/w shortness of breath.
A/P:
# Acute hypoxic respiratory insufficiency
# COPD exacerbation
# Severe sepsis POA, Secondary to CAP
# SARS-CoV-2
procal 1.12, MRSA screen negative, Continue Cefepime
Blood Cx negative
On 2L NC, wean O2 as tolerated
DuoNebs every 4 standing
Solu-Medrol 40 mg every 12 -> Decadron 6 mg daily
Incentive [place]
# hypoactive delirium
DC fentanyl patch , off ATC oxycodone
Check UDS
Check CT head
Monitor MS
NPO for now, SPL eval
# New onset acute HFrEF
Echo with EF 30 to 35%, akinesis of the septum and apex, normal contraction of the basal inferior, inferolateral, and lateral louis, hypokinesis of the remaining segments, mild MR, aortic sclerosis with mild AR
Cont gentle diuresis, IV Lasix 20 mg daily, cont
Started on low-dose Toprol, monitor blood pressures
Ischemic evaluation inpatient versus outpatient as per cardiology
Cardiology consulted
# Portal vein thrombosis
unclear acute v chronic, can be related to COVID-19
Started on Lovenox 1 mg/kg, transitioned to 2.5 mg BID Eliquis
Follow-up hematology outpatient
# Hyponatremia
s/p Hypertonic Saline
Nephro on board
# Transaminitis
# Hepatocellular injury
Most likely secondary to portal vein thrombosis +/- congestive hepatopathy
Continue anticoagulation as stated above
Continue diuresis and monitor
See above for portal vein thrombosis
# Elevated troponin, Most likely non-[place] troponin elevation in setting of acute CHF
Continue to monitor trend
troponin plateaued at 0.16
# Polysubstance abuse
# Tobacco use
# Chronic pain
Continue methadone, fentanyl patch, opiates as needed
# Multiple sclerosis
DVT prophylaxis: Lovenox SQ
DW RN
Anticipated Discharge: 24 - 48 hours
Subjective/Interval History
-
Date of Service: October 27, 2023
Objective Data
-
Labs:
Laboratory Results
10/27/23
06:06
WBC 13.1 H
Hgb 11.4 L
Hct 30.8 L
Plt Count 180 D
Sodium 132 L
Potassium 3.5
Chloride 104
Carbon Dioxide 25
BUN 28 H
Creatinine 0.7
Glucose 77
Calcium 7.8 L
Total Bilirubin 1.0
AST 105 H
ALT 68 H
Alkaline Phosphatase 224 H
Vital Signs:
Vital Signs
Temp Pulse Resp BP Pulse Ox
36.2 C 80 20 117/63 99
10/27/23 11:18 10/27/23 11:42 10/27/23 11:42 10/27/23 11:18 10/27/23 11:18
Review of Systems
-
Unable to obtain full review of systems at this time due to: Other (pt did not respond)
Physical Exam
-
General: Well Developed, Well Nourished and Comfortable
HEENT: Normocephalic, Atraumatic, Nose Appears Normal, Ears Appear Normal and Oxygen (2L NC)
Respiratory: Clear to Auscultation and Non Labored Respirations; Negative Accessory Resp Muscle Use
Cardiac: Regular Rhythm and S1/S2
GI: Soft, Nontender, Nondistended and Normal Bowel Sounds
Skin: Warm and Dry
Psych: Calm
Data Reviewed
-
Labs: Labs Reviewed by me
--- NOTE | 2023-10-27 13:47 | W.PN.NEPH.PH ---
Today's Communication / Plan
-
follow bmp, lasix FR
Assessment/Plan
-
Assessment
-hyponatremia
-hypotension on admission
-COVID+
-large RML PNA
-lactic acidosis
-?thrombosed portal vein
-COPD
-hypothyroid
-HFrEF 30%
-multiple sclerosis
-chronic pain/opioids
Plan
-sodium up to 132 after 3% given last pm
-follow LFTs
-steroids and abx per primary team
-Can continue lasix for balance, though I don't think she is severely volume overloaded. Currently there is essentially no po intake, so all volume is med related.
-
-
Date of Service: October 27, 2023
CC / HPI / ROS
-
Chief Complaint:
hyponatremia
History of Present Illness:
Abx for RML PNA
BP stable
Na up to 132 after 3%
LFTs stable high
diuresing with lasix
WBC remains elevated
Review of Systems:
no CP/fever
Labs
-
Labs:
WBC 13.1 10^3/uL (4.8-10.8) H 10/27/23 06:06
RBC 2.92 10^6/uL (4.20-5.40) L 10/27/23 06:06
Hgb 11.4 g/dL (12.0-16.0) L 10/27/23 06:06
Hct 30.8 % (37.0-47.0) L 10/27/23 06:06
Plt Count 180 10^3/uL (130-400) D 10/27/23 06:06
Sodium 132 mmol/L (135-145) L 10/27/23 06:06
Potassium 3.5 mmol/L (3.5-5.1) 10/27/23 06:06
Chloride 104 mmol/L (98-107) 10/27/23 06:06
Carbon Dioxide 25 mmol/L (22-30) 10/27/23 06:06
BUN 28 mg/dl (7-17) H 10/27/23 06:06
Creatinine 0.7 mg/dL (0.6-1.0) 10/27/23 06:06
eGFR > 60.00 10/27/23 06:06
Glucose 77 mg/dl (70-99) 10/27/23 06:06
Calcium 7.8 mg/dl (8.4-10.2) L 10/27/23 06:06
Phosphorus 3.7 mg/dl (2.5-4.5) 10/25/23 04:12
Hsc-H-Mhknddnuasa Pept > 60568 pg/ml 10/24/23 09:12
Albumin 2.1 g/dl (3.5-5.0) L 10/27/23 06:06
Physical Exam
-
Vital Signs:
Vital Signs
Temp Pulse Resp BP Pulse Ox
97.1 F 80 20 117/63 99
10/27/23 11:18 10/27/23 11:42 10/27/23 11:42 10/27/23 11:18 10/27/23 11:18
Cardiovascular:: Regular rate and rhythm
--- NOTE | 2023-10-27 14:06 | W.PN.CARDCBS ---
Today's Communication / Plan
-
add lisinopril for reduced EF
consider outpt ischemic eval
cont antibiotics for pneumonia and treatment of Covid
Impression / Plan
-
Cardiology: Previously seen by Dr. Biggs in 2018
Impression:
Presented with shortness of breath
Acute hypoxic respiratory insufficiency
COVID-19
Right middle lobe pneumonia
Cardiomyopathy, EF 30 to 35%
Hyponatremia
Hypothyroidism
COPD
Multiple sclerosis
h/o substance abuse
Tobacco abuse
Chronic pain
Possible remote atrial fibrillation
Non [place] troponin elevation
Echo 10/24/2023: EF 30 to 35%, akinesis of the septum and apex, normal contraction of the basal inferior, inferolateral, and lateral louis, hypokinesis of the remaining segments, mild MR, aortic sclerosis with mild AR
Plan:
Nephrology managing diuretics with low Na+ which is improving
cont Toprol and add Lisinopril for reduced EF
? outpt ischemic evaluation
cont antibiotics for pneumonia and treatment of Covid
HPI: Kaitlin is a 63-year-old female with past medical history of hypothyroidism, COPD, multiple sclerosis, substance abuse, tobacco abuse, chronic pain, and possible remote atrial fibrillation who presents to ER for evaluation of ongoing
shortness of breath. Symptoms have been occurring for the past few days. She has also had a fever. In ER, she was found to be COVID-positive with elevated WBC at 17.0 and chest x-ray and chest CT consistent with large right middle lobe pneumonia.
She was hypoxic and placed on supplemental O2. Echo done urgently in the emergency room that showed cardiomyopathy with EF 30 to 35%. Cardiology consulted given cardiomyopathy.
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
Subjective
Date of Service: October 27, 2023
Awake but confused
Objective
Labs:
10/27/23 06:06
10/27/23 06:06
Labs
Hgb 11.4 g/dL (12.0-16.0) L 10/27/23 06:06
Hct 30.8 % (37.0-47.0) L 10/27/23 06:06
Plt Count 180 10^3/uL (130-400) D 10/27/23 06:06
PT 15.7 Sec (11.4-14.6) H 10/24/23 09:12
INR 1.27 10/24/23 09:12
APTT 33.2 Sec (23.4-35.0) 10/25/23 13:35
Sodium 132 mmol/L (135-145) L 10/27/23 06:06
Potassium 3.5 mmol/L (3.5-5.1) 10/27/23 06:06
BUN 28 mg/dl (7-17) H 10/27/23 06:06
Creatinine 0.7 mg/dL (0.6-1.0) 10/27/23 06:06
Glucose 77 mg/dl (70-99) 10/27/23 06:06
Troponins
10/24/23 10/24/23 10/24/23
16:10 18:10 18:18
Troponin I Cancelled 0.161 H* Cancelled
10/25/23 10/25/23
04:12 10:37
Troponin I 0.169 H* 0.162 H*
Vital Signs and I&O:
Vital Signs
Temp Pulse Resp BP Pulse Ox
97.1 F 80 20 117/63 99
10/27/23 11:18 10/27/23 11:42 10/27/23 11:42 10/27/23 11:18 10/27/23 11:18
Vital Signs
Temp Pulse Resp BP Pulse Ox
97.1 F 80 20 117/63 99
10/27/23 11:18 10/27/23 11:42 10/27/23 11:42 10/27/23 11:18 10/27/23 11:18
Physical Exam
Physical Exam
General: awake but confused
Neck: Supple, no JVD, HJR, carotids +2 B/L, no bruits bilaterally.
Heart: Non displaced PMI, RRR, no murmurs, No S3, S4, no rubs.
Lungs: scattered rhonchi
Abdomen: Normal bowel sounds, soft, non-tender, non-distended.
Extremities: No clubbing, cyanosis or edema bilaterally.
Neuro: awake but confused
[2023-10-27] MEDS: DURAGESIC 50 MCG/HR PATCH 1 PATCH TRANSDERM (14:25)
[2023-10-27 15:24] VITALS: BP 106/53
[2023-10-27 15:36] VITALS: BMI 18.9
--- NOTE | 2023-10-27 15:47 | CM ---
Reviewed the chart notes and spoke with the patient's spouse via telephone. Attempted to reach patient by her cell and room phone, no answer. The patient resides with her spouse in a second floor apartment with a flight of steps to enter. The
patient had a cane and nebulizer. The patient has not had VN nor been to a SNF. The patient's pharmacy of choice is [facility]. The patient is currently on supplemental O2. CM continues to be available to patient/family and is monitoring medical
plan for needs at discharge.
Plan: Discharge plans will depend on the patient's progress.
[2023-10-27 19:05] VITALS: BP 114/55
[2023-10-27] MEDS: COMBIVENT RESPIMAT INHAL SPRAY INH (19:58)
[2023-10-27] MEDS: MORPHINE SULFATE 1 MG IV (20:21)
[2023-10-27] MEDS: ATIVAN 0.5 MG IV (21:12)
[2023-10-27] MEDS: NSS (PRESERVATIVE FREE) 0.25 ML IV (21:12)
[2023-10-27] MEDS: ELIQUIS PO ×2 (22:30→22:34)
[2023-10-27 23:24] VITALS: BP 122/86
[2023-10-28 00:26] LABS: Beta-2-Glycoprotein I Ab. IgA <10 SAU (<=20)
--- NOTE | 2023-10-28 00:58 | PTCARENOTE ---
Dayshift reports unable to obtain head CT during the day - repeat order for urgent head CT ordered. Patient restless/unable to follow commands. Patient w/ CPOT of 6 - PRN order of morphine given. Patient remained restless w/ CPOT of 5. TOPOGRAPHICAL SURVEYOR notified.
One time dose of Ativan ordered and administered - See MAR. Patient more calm after administration of Ativan. Patient transported for head CT - CT obtained.
--- NOTE | 2023-10-28 01:05 | PTCARENOTE ---
Patient unable to follow commands/uncooperative. Unable to give patient PM Hiralquis. PHYSICIAN/ALLERGY/IMMUNOLOGY notified.
[2023-10-28] MEDS: MAXIPIME 2000 MG IV ×3 (03:01→19:32)
[2023-10-28] MEDS: STERILE WATER FOR INJECTION 10 ML IV ×3 (03:01→19:32)
[2023-10-28 03:26] VITALS: BP 131/73
[2023-10-28 06:23] LABS: Hematocrit 34.3 % (37.0-47.0); Hemoglobin 12.5 g/dL (12.0-16.0); Mean Corp Hgb Conc. 36.4 g/dL (33.0-37.0); Mean Corpuscular Hgb 39.1 pg (27.0-31.0); Mean Corpuscular Volume 107.2 fL (81.0-99.0); Mean Platelet Volume 11.4 fL (7.4-10.4); Platelet Count 196 10^3/uL (130-400); White Blood Cell Count 13.5 10^3/uL (4.8-10.8)
[2023-10-28 06:50] LABS: ALT (SGPT) 79 U/L (0-35); AST (SGOT) 133 U/L (14-36); Albumin 2.5 g/dl (3.5-5.0); Alkaline Phosphatase 248 U/L (38-126); Blood Urea Nitrogen 34 mg/dl (7-17); Calcium 8.3 mg/dl (8.4-10.2); Carbon Dioxide 31 mmol/L (22-30); Chloride 106 mmol/L (98-107); Estimated Creatinine Clearance 58 ml/min; Glucose 55 mg/dl (70-99); Magnesium 2.6 mg/dl (1.6-2.3); Potassium 3.5 mmol/L (3.5-5.1); Sodium 138 mmol/L (135-145); Total Bilirubin 1.3 mg/dl (0.2-1.3); Total Protein 5.7 g/dl (6.3-8.2); eGFR > 60.00
[2023-10-28] MEDS: DEXTROSE 50% SYRINGE 12.5 GRAMS IV (06:52)
[2023-10-28 08:00] VITALS: BP 110/87
[2023-10-28] MEDS: COMBIVENT RESPIMAT INHAL SPRAY INH ×2 (08:19→08:25)
[2023-10-28] MEDS: ELIQUIS PO ×2 (08:34→20:46)
[2023-10-28] MEDS: TOPROL XL PO (08:35)
[2023-10-28 08:38] LABS: Glucose - Point of Care 122 mg/dl (70-99)
--- NOTE | 2023-10-28 09:20 | W.PN.HOSP.TC ---
Today's Communication/Plan
-
see A/P
Assessment / Plan
Assessment / Plan
HPI: 63-year-old female with past medical history of hypothyroidism, COPD, multiple sclerosis, substance abuse on methadone, chronic opiate, tobacco abuse, COPD, chronic pain, ?History of atrial fibrillation; p/w shortness of breath.
A/P:
# Acute hypoxic respiratory insufficiency
# COPD exacerbation
# Severe sepsis POA, Secondary to CAP
# SARS-CoV-2
procal 1.12, MRSA screen negative, Blood Cx negative, Continue Cefepime
On 2L NC, wean O2 as tolerated
DuoNebs every 4 standing
Start RemD with persistent hypoxia
Solu-Medrol 40 mg every 12 -> Decadron 6 mg daily
Incentive [place]
# hypoactive delirium
DC fentanyl patch , off ATC oxycodone
Check UDS
CT head : No acute intracranial abnormality noted.
Check MRI brain
Monitor MS
NPO for now, cont SPL eval
# Hypoglycemia due to decreased PO
s/p D50
start D5NSS
check AccuCheck
# New onset acute HFrEF
Echo with EF 30 to 35%, akinesis of the septum and apex, normal contraction of the basal inferior, inferolateral, and lateral louis, hypokinesis of the remaining segments, mild MR, aortic sclerosis with mild AR
Cont gentle diuresis with IV Lasix 20 mg daily
Started on low-dose Toprol, monitor blood pressures
Cardiology on board, added lisinopril for reduced EF, consider outpt ischemic eval
# Portal vein thrombosis
unclear acute v chronic, can be related to COVID-19
Started on Lovenox 1 mg/kg, transitioned to 2.5 mg BID Eliquis
Follow-up hematology outpatient
# Hyponatremia
s/p Hypertonic Saline
Nephro on board
# Transaminitis
# Hepatocellular injury
Most likely secondary to portal vein thrombosis +/- congestive hepatopathy
Continue anticoagulation as stated above
Continue diuresis and monitor
See above for portal vein thrombosis
# Elevated troponin, Most likely non-DC troponin elevation in setting of acute CHF
Continue to monitor trend
troponin plateaued at 0.16
# Polysubstance abuse
# Tobacco use
# Chronic pain
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
# Multiple sclerosis
DVT prophylaxis: Lovenox SQ
DW RN
Anticipated Discharge: > 48 hours
Subjective/Interval History
-
Date of Service: October 28, 2023
Objective Data
-
Labs:
Laboratory Results
10/28/23
04:52
WBC 13.5 H
Hgb 12.5
Hct 34.3 L
Plt Count 196
Sodium 138
Potassium 3.5
Chloride 106
Carbon Dioxide 31 H
BUN 34 H
Creatinine 0.8
Glucose 55 L*
Calcium 8.3 L
Total Bilirubin 1.3
AST 133 H
ALT 79 H
Alkaline Phosphatase 248 H
Vital Signs:
Vital Signs
Temp Pulse Resp BP Pulse Ox
36.3 C 90 26 110/87 93
10/28/23 08:00 10/28/23 08:00 10/28/23 08:00 10/28/23 08:00 10/28/23 08:00
I&O
10/27/23 10/28/23 10/29/23
06:59 06:59 06:59
Intake Total 0 / 0
Output Total 0 / 0
Balance 0 / 0
Review of Systems
-
Unable to obtain full review of systems at this time due to: Acuity (confused)
Physical Exam
-
General: Well Developed and Well Nourished
HEENT: Normocephalic, Atraumatic, Nose Appears Normal, Ears Appear Normal and Oxygen (2L NC)
Respiratory: Clear to Auscultation and Non Labored Respirations; Negative Accessory Resp Muscle Use
Cardiac: Regular Rhythm and S1/S2
GI: Soft, Nontender, Nondistended and Normal Bowel Sounds
Skin: Warm and Dry
Neuro: Awake
Psych: Calm and Confused; Negative Intact Judgement/Insight
Data Reviewed
-
Labs: Labs Reviewed by me
[2023-10-28] MEDS: LASIX 20 MG IV (09:49)
[2023-10-28] MEDS: DECADRON 6 MG IV (09:49)
[2023-10-28] MEDS: KCL 270 MEQ IV (10:19)
[2023-10-28 11:22] LABS: Amphetamines Negative (Negative); Barbiturates Negative (Negative); Benzodiazepines Positive (Negative); Buprenorphine Negative (Negative); Cocaine Positive (Negative); Marijuana Negative (Negative); Methadone Negative (Negative); Methamphetamines Positive (Negative); Opiates Positive (Negative); Phencyclidine Negative (Negative); Tricyclic Antidepressants Negative (Negative)
--- NOTE | 2023-10-28 11:38 | CON.MD ---
Consultation - Medical
-
patient seen chart reviewed. spoke with nursing . the patient is a 63 year old woman with serious underlying medical issues...see below... who comes to the er w c.o sob. she was found to have covid /pneumonia. she has been in the throes of what
seems to be a hypoactive delirium. the patient according to the chart does have some psych hx....depression, bipolar, schizoaffective, and adhd are noted but at this point it is impossible to obtain a hx nor is it particularly relevant at this
moment as she is lying in bed virtually motionless when i saw her and moaning now and them. she has been seen by cardiology, pulmonary, renal and gi and has medical concerns in all of these specialties. again see below. recently she was being rx
w duragesic patch dc'ed due to sedation. she does have hx of opiate and bzp dependence in the past. noted on tox screen were opiates, methamphetamine bzp and cocaine. patient was at some point taking methadone for pain. currently has a prn of
morphine for pain. chest ray showing pneumonia, cat scan brain /atrophy, abdominal ultrasound among other findings thrombosed portal vein.
past psych hx not known. there have been many dx in the past in the context of substance abuse as well. i did find a note from dr chavira in the record from 2010 recording hx of substance abuse and possibly bipolar/schizoaffective.
medical hx patient w many medical illnesses including those listed above, MS hypothyroid copd bzp and opiate dependence, chronic back pain, hld cad gerd osteoporosis vit d deficiency hx hemicolectomy (dr chavira's note reads small bowel
obstruction) hysterectomy (?why), bladder surgery (?why)
severe hyponatremia elevated lft's imaging as above macrocytosis qtc 535
family hx non contributory
substance abuse see above
social hx not known
mental status frail woman appears older than age lying virtually motionless in her bed. only verbalization was moaning in response to my questions eg ?what's your first name, Mrs Esparza?' unable to assess further
dx tme secondary to underlying medical illness
recommendations avoid all sedating medications as is possible yet watching for signs of withdrawal from bzp opiates and possibly alcohol. do not feel psychotropic medication needed at this time. note qtc is elevated so would beware of medications
which further increase it. would recheck b12 folate vit d and tsh. psych will sign off. nursing tells me patient is not a mgt issue...her delirium is very hypoactive. please call us if you need us to see her again.
--- NOTE | 2023-10-28 11:41 | W.PN.PUL3 ---
Today's Communication / Plan
-
O2
Cefepime
BDs
Dexam
Remd per adm svce
Assessment
-
Assessment:
Ms Kaitlin Esparza is a 63/W adm 10-24 with several d h/o dyspnea. Brought by EMS to ER, no EMS report available, ER note mentioned administration of DNs in route which improved O2 from low 90s victoria mid 90s. Seen at ICU, on BPAP 14/ with O2 4L , POx
92%, in moderate resp distress, intermittently agitated and trying to remove BPAP mask. Unfortunately very poor historian at time of visit, unknown baseline MS, appears acutely on chronically ill
Impression:
Acute respiratory failure
RML infiltrate
COVID positive
Elevated PCT
Leukocytosis s eosinophilia
Hyponatremia, uncertain chronicity
Low serum osmolality
Lactic acidosis
Mild transaminitis
Portal vein thrombosis
Elevated troponin and BNP: LVEF 30-35% with WMAs
Flu negative
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
COPD
Hypothyroidism
Multiple sclerosis
Substance abuse: on methadone
VDRF due to overdose Jul 2011
Chronic pain: reportedly on fentanyl patch, hydromorphone, oxycodone
Smoker
Alcohol: Former
Plan:
Admitted to ICU for mgmt of pneumonia and resp distress
Required BPAP for a short period of time in ICU
Transitioned to [facility]
Continue O2 protocol
Asp precs
BDs: alb/iprat HFA qid and prn to continue if patient cooperates
RML infiltrate on CXR, RLL pneumonitis not typical of COVID on CT
Small patchy densities in lingula
Started on empiric atbs upon adm to ER: cefepime and vancomycin IV
Currently on cefepime, complete 5 d regimen on 10-29
Dexam 6 mg IV temporarily changed to MP 40 mg IV q12 due to significant bronchitic symptoms, changed back to dexam COVID dosing, continue through 11-03
Uncertain impact of COVID positive test: no areas of pneumonitis c/w COVID infection
Observing off remdesivir, started 10-27 by adm svce due to hypoxia
Acapella valve, sputum sample for culture
Blood cxs so far negative
MRSA screening negative, d/c'ed vancomycin
PCT elevated
Portable CXR 10-28, marked improvement in RML infiltrate
Hyponatremia, unclear chronicity, severe, responding to diuretic trial and 3% saline
Likely secondary to acute illness, opiates, decreased oral intake, heart failure
Renal consultation appreciated
Noted elevated troponins and BNP along TTE evidence of low EF and WMAs of unknown chronicity
Differential: demand ischemia, sepsis induced CM
Cards following
Portal vein thrombosis, liver steatosis, small volume ascites on US
Suspected COVID infection related
Started on AC with enoxaparin, changed to apixaban by Hem
GI contacted, will see as outpatient
D/w Hem/Onc, thrombophilia w/u
Chronic back pain and opiate dependence
Continue fentanyl patch, oxycodone, prn IV morphine
Diagnostic tests:
CXR 10-24-23 c/w Apr 2023: New R basilar infiltrate. Mild pulm vasc congestion. No free air. Blunted c-d angles.
Chest CTA 10-24-23: No PE. RML infiltrate. RLL patch of pneumonitis. Patchy small lingular infiltrates.
TTE 10-24-23:
CONCLUSIONS
1. Normal left ventricular size with akinesis of the septum and apex, normal contraction of the basal inferior, inferolateral and lateral louis and hypokinesis of the remaining segments, EF 30-35%
2. Mild mitral regurgitation with normal left atrium
3. Aortic sclerosis with mild aortic regurgitation in limited views
4. Grossly normal right heart, could not determine pulmonary artery systolic pressure
Reliability of the interpretation is reduced related to limited image quality.
There are no prior studies available for comparison
Subjective Data
-
Date of Service:
Date of Service: October 28, 2023
Chief Complaint: Pulmonary Follow Up
Objective Data
Data Reviewed
Vital Signs / I&O / Oxygen:
Vital Signs
Temp Pulse Resp BP Pulse Ox
97.3 F 90 26 110/87 93
10/28/23 08:00 10/28/23 09:49 10/28/23 08:00 10/28/23 09:49 10/28/23 08:00
Intake and Output
10/27/23 10/28/23 10/29/23
06:59 06:59 06:59
Intake Total 0 / 0
Output Total 0 / 0
Balance 0 / 0
SaO2 93
Nasal Cannula flow liters per 2
minute
Physical Exam
General: Respiratory Distress (n)
HEENT: Normocephalic and Moist Mucous Membranes
Cardiovascular: Regular Rhythm, Murmur and Peripheral Edema (LANCE)
Respiratory: Crackles (R base), Rhonchi and Stridor (n)
GI: Soft, Non Distended and Non Tender
Neurology: Lethargic (arousable) and Other
Skin: Dry
Labs/Micro/Reports
Lab Data
10/28/23 04:52
10/28/23 04:52
Microbiology
10/24/23 09:39 Blood/Venous Blood Culture - Preliminary
No Growth in 4 days- Final report to follow
10/24/23 09:12 Blood/Venous Blood Culture - Preliminary
No Growth in 4 days- Final report to follow
[2023-10-28 12:00] VITALS: BP 114/68
--- NOTE | 2023-10-28 12:51 | W.PN.CARDCBS ---
Today's Communication / Plan
-
Will defer diuretic management to nephrology
Newly reduced LVEF - cont Toprol and Lisinopril for cardiomyopathy
Consider outpt ischemic evaluation
We will sign off, please recall as needed
Outpatient follow up arranged
Impression / Plan
-
Cardiology: Previously seen by Dr. Biggs in 2018
Impression:
Presented with shortness of breath
Acute hypoxic respiratory insufficiency
COVID-19
Right middle lobe pneumonia
Cardiomyopathy, EF 30 to 35%
Hyponatremia
Hypothyroidism
COPD
Multiple sclerosis
h/o substance abuse
Tobacco abuse
Chronic pain
Possible remote atrial fibrillation
Non PA troponin elevation
Altered mental status
Echo 10/24/2023: EF 30 to 35%, akinesis of the septum and apex, normal contraction of the basal inferior, inferolateral, and lateral louis, hypokinesis of the remaining segments, mild MR, aortic sclerosis with mild AR
Plan:
Nephrology managing diuretics with low Na+ which is improving
Newly reduced LVEF - cont Toprol and Lisinopril for cardiomyopathy
Consider outpt ischemic evaluation
Defer treatment of COVID/PNA to hospitalist
We will sign off
Please recall as needed
Outpatient follow up arranged
HPI: Kaitlin is a 63-year-old female with past medical history of hypothyroidism, COPD, multiple sclerosis, substance abuse, tobacco abuse, chronic pain, and possible remote atrial fibrillation who presents to ER for evaluation of ongoing
shortness of breath. Symptoms have been occurring for the past few days. She has also had a fever. In ER, she was found to be COVID-positive with elevated WBC at 17.0 and chest x-ray and chest CT consistent with large right middle lobe pneumonia.
She was hypoxic and placed on supplemental O2. Echo done urgently in the emergency room that showed cardiomyopathy with EF 30 to 35%. Cardiology consulted given cardiomyopathy.
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
Subjective
Date of Service: October 28, 2023
Difficult to obtain history, patient in restrains, minimally responsive. Shakes head and says no when I ask if she has chest pain or shortness of breath.
Objective
Labs:
10/28/23 04:52
10/28/23 04:52
Labs
Hgb 12.5 g/dL (12.0-16.0) 10/28/23 04:52
Hct 34.3 % (37.0-47.0) L 10/28/23 04:52
Plt Count 196 10^3/uL (130-400) 10/28/23 04:52
PT 15.7 Sec (11.4-14.6) H 10/24/23 09:12
INR 1.27 10/24/23 09:12
APTT 33.2 Sec (23.4-35.0) 10/25/23 13:35
Sodium 138 mmol/L (135-145) 10/28/23 04:52
Potassium 3.5 mmol/L (3.5-5.1) 10/28/23 04:52
BUN 34 mg/dl (7-17) H 10/28/23 04:52
Creatinine 0.8 mg/dL (0.6-1.0) 10/28/23 04:52
Glucose 55 mg/dl (70-99) L* 10/28/23 04:52
Vital Signs and I&O:
Vital Signs
Temp Pulse Resp BP Pulse Ox
97.8 F 91 24 114/68 90
10/28/23 12:00 10/28/23 12:00 10/28/23 12:00 10/28/23 12:00 10/28/23 12:00
Vital Signs
Temp Pulse Resp BP Pulse Ox
97.8 F 91 24 114/68 90
10/28/23 12:00 10/28/23 12:00 10/28/23 12:00 10/28/23 12:00 10/28/23 12:00
Intake & Output
10/26/23 10/27/23 10/28/23 10/29/23
06:59 06:59 06:59 06:59
Intake Total 0 / 0
Output Total 0 / 0
Balance 0 / 0
Physical Exam
Physical Exam
Gen: NAD, in restraints, responds to voice
HEENT: NC/AT, sclera anicteric
Neck: No JVD
CV: RRR, NL s1/s2
Lungs: CTAB
Abd: S/ND
Ext: No LE edema
Skin: Warm, dry
Neuro: Non-focal
[2023-10-28] MEDS: NSS 30 IV (13:25)
[2023-10-28] MEDS: VEKLURY 250 MG IV (13:25)
[2023-10-28 13:35] LABS: Glucose - Point of Care 138 mg/dl (70-99)
[2023-10-28 13:57] LABS: Fentanyl, Urine Positive (Negative)
--- NOTE | 2023-10-28 14:07 | W.PN.NEPH.PH ---
Today's Communication / Plan
-
hold lasix
follow bmp
Assessment/Plan
-
Assessment
-hyponatremia
-hypotension on admission
-COVID+
-large RML PNA
-lactic acidosis
-?thrombosed portal vein
-COPD
-hypothyroid
-HFrEF 30%
-multiple sclerosis
-chronic pain/opioids
-confusion
Plan
-sodium up to 138 after 3% given 48hrs ago
-will hold lasix, patient is not able to swallow due to mental status changes
-follow LFTs
-steroids and abx per primary team
-for MRI of head re: confusion
-
-
Date of Service: October 28, 2023
CC / HPI / ROS
-
Chief Complaint:
hyponatremia
History of Present Illness:
Abx for RML PNA
BP stable
Na up to 138
LFTs stable high
WBC remains elevated
Review of Systems:
no CP/fever
confusion and swallowing issues
Labs
-
Labs:
WBC 13.5 10^3/uL (4.8-10.8) H 10/28/23 04:52
RBC 3.20 10^6/uL (4.20-5.40) L 10/28/23 04:52
Hgb 12.5 g/dL (12.0-16.0) 10/28/23 04:52
Hct 34.3 % (37.0-47.0) L 10/28/23 04:52
Plt Count 196 10^3/uL (130-400) 10/28/23 04:52
Sodium 138 mmol/L (135-145) 10/28/23 04:52
Potassium 3.5 mmol/L (3.5-5.1) 10/28/23 04:52
Chloride 106 mmol/L (98-107) 10/28/23 04:52
Carbon Dioxide 31 mmol/L (22-30) H 10/28/23 04:52
BUN 34 mg/dl (7-17) H 10/28/23 04:52
Creatinine 0.8 mg/dL (0.6-1.0) 10/28/23 04:52
eGFR > 60.00 10/28/23 04:52
Glucose 55 mg/dl (70-99) L* 10/28/23 04:52
Calcium 8.3 mg/dl (8.4-10.2) L 10/28/23 04:52
Phosphorus 3.7 mg/dl (2.5-4.5) 10/25/23 04:12
Mth-W-Stpqxuirhuf Pept > 79440 pg/ml 10/24/23 09:12
Albumin 2.5 g/dl (3.5-5.0) L 10/28/23 04:52
Physical Exam
-
Vital Signs:
Vital Signs
Temp Pulse Resp BP Pulse Ox
97.8 F 91 24 114/68 90
10/28/23 12:00 10/28/23 12:00 10/28/23 12:00 10/28/23 12:00 10/28/23 12:00
Cardiovascular:: Regular rate and rhythm
Morgan Catheter: No
--- NOTE | 2023-10-28 15:26 | CM ---
Reviewed the chart notes. Await PT/OT recommendation. CM continues to be available to patient/family and is monitoring medical plan for needs at discharge.
Plan: Discharge plans will depend on the patient's progress.
[2023-10-28 16:00] VITALS: BP 131/75
[2023-10-28] MEDS: D5/0.9% SODIUM CHLORIDE 1000 IV (16:05)
[2023-10-28 16:16] LABS: Vitamin D, 25-OH*** < 12.8 ng/mL (30-80)
[2023-10-28 16:29] LABS: TSH Reflex To Free T4 3.22 uIU/ml (0.47-4.68)
[2023-10-28 16:46] LABS: Beta-2-Glycoprotein I Ab. IgG <10 SGU (<=20); Beta-2-Glycoprotein I Ab. IgM 14 SMU (<=20)
[2023-10-28 17:05] LABS: Folate 3.3 ng/ml (2.76-20); Vitamin B12 970 pg/ml (239-931)
[2023-10-28 17:13] LABS: Cardiolipin IgA Antibody <10 APL (<=11); Cardiolipin IgM Antibody 10 MPL (<=12); Cardiolipin Igg Antibody <10 GPL (<=14)
[2023-10-28 17:58] LABS: Glucose - Point of Care 131 mg/dl (70-99)
[2023-10-28 19:00] VITALS: BP 114/68
[2023-10-28 23:15] VITALS: BP 125/63
[2023-10-28 23:51] LABS: Glucose - Point of Care 148 mg/dl (70-99)
[2023-10-28] MEDS: NOVOLOG FLEXPEN-LOW RESISTANCE SC (23:59)
[2023-10-29] MEDS: STERILE WATER FOR INJECTION 10 ML IV ×3 (02:13→17:56)
[2023-10-29] MEDS: MAXIPIME 2000 MG IV ×3 (02:13→17:56)
[2023-10-29 03:12] VITALS: BP 119/59
[2023-10-29 05:32] LABS: Hematocrit 32.4 % (37.0-47.0); Hemoglobin 11.6 g/dL (12.0-16.0); Mean Corp Hgb Conc. 35.8 g/dL (33.0-37.0); Mean Corpuscular Hgb 38.8 pg (27.0-31.0); Mean Corpuscular Volume 108.4 fL (81.0-99.0); Mean Platelet Volume 11.5 fL (7.4-10.4); Platelet Count 125 10^3/uL (130-400); Red Blood Cell Count 2.99 10^6/uL (4.20-5.40); Red Cell Dist. Width 14.2 % (11.5-14.5); White Blood Cell Count 14.2 10^3/uL (4.8-10.8)
[2023-10-29 06:00] VITALS: BMI 18.6
[2023-10-29 06:02] LABS: Glucose - Point of Care 138 mg/dl (70-99)
[2023-10-29] MEDS: NOVOLOG FLEXPEN-LOW RESISTANCE SC ×3 (06:08→18:15)
[2023-10-29 06:17] LABS: ALT (SGPT) 65 U/L (0-35); AST (SGOT) 80 U/L (14-36); Albumin 2.2 g/dl (3.5-5.0); Alkaline Phosphatase 178 U/L (38-126); Blood Urea Nitrogen 37 mg/dl (7-17); Calcium 8.5 mg/dl (8.4-10.2); Carbon Dioxide 28 mmol/L (22-30); Chloride 109 mmol/L (98-107); Direct Bilirubin 0.9 mg/dl (0.0-0.4); Estimated Creatinine Clearance 67 ml/min; Glucose 125 mg/dl (70-99); Magnesium 2.5 mg/dl (1.6-2.3); Potassium 3.4 mmol/L (3.5-5.1); Sodium 142 mmol/L (135-145); Total Bilirubin 1.1 mg/dl (0.2-1.3); Total Protein 5.2 g/dl (6.3-8.2); eGFR > 60.00
[2023-10-29] MEDS: D5/0.9% SODIUM CHLORIDE 1000 IV (06:35)
[2023-10-29 08:10] VITALS: BP 136/59
[2023-10-29 08:54] LABS: Glycohemoglobin (HgbA1c) 5.4 % (4.0-5.6)
[2023-10-29] MEDS: DECADRON 6 MG IV (09:17)
[2023-10-29] MEDS: ELIQUIS PO ×2 (09:18→20:54)
[2023-10-29] MEDS: KCL 270 MEQ IV (09:18)
[2023-10-29] MEDS: TOPROL XL PO (09:18)
--- NOTE | 2023-10-29 09:44 | PTOTSP ---
Dysphagia Evaluation
Patient inappropriate for oral intake via any means at this time due to AMS (hypoactive delirium noted this admission) resulting in absent pre-feeding skills.
Recommend:
1. NPO - consider temporary non-oral means
2. Medications via non-oral means
3. Patients is NOT appropriate for Aspiration Risk Hydration Protocol
4. Oral care 3-5x daily with suctioning
5. Will re-assess swallowing if/when mentation improves.
--- NOTE | 2023-10-29 10:51 | W.PN.HOSP.TC ---
Addendum entered and electronically signed by Dian Alfred MD 10/29/23 16:23:
# Unclear source of Pneumonia
Original Note:
Today's Communication/Plan
-
see A/P
Assessment / Plan
Assessment / Plan
HPI: 63-year-old female with past medical history of hypothyroidism, COPD, multiple sclerosis, substance abuse on methadone, chronic opiate, tobacco abuse, COPD, chronic pain, ?History of atrial fibrillation; p/w shortness of breath.
A/P:
# Acute hypoxic respiratory insufficiency
# COPD exacerbation
# Severe sepsis POA, Secondary to CAP
# SARS-CoV-2
procal 1.12, MRSA screen negative, Blood Cx negative, Continue Cefepime
On 2L NC, wean O2 as tolerated
DuoNebs every 4 standing
Started RemD with persistent hypoxia
Solu-Medrol 40 mg every 12 -> Decadron 6 mg daily
Incentive [place]
# hypoactive delirium
DC fentanyl patch, off ATC oxycodone, PRN Morphine
UDS positive for opiate/fentanyl/benzo, also cocaine and methamphetamine
CT head : No acute intracranial abnormality noted.
Check MRI brain
Monitor MS
NPO for now, cont SPL eval
# Hypoglycemia due to decreased PO
s/p D50
cont D5NSS
monitor with AccuCheck
# New onset acute HFrEF
Echo with EF 30 to 35%, akinesis of the septum and apex, normal contraction of the basal inferior, inferolateral, and lateral louis, hypokinesis of the remaining segments, mild MR, aortic sclerosis with mild AR
Cont gentle diuresis with IV Lasix 20 mg daily
Started on low-dose Toprol, monitor blood pressures
Cardiology on board, added lisinopril for reduced EF, consider outpt ischemic eval
# Portal vein thrombosis
unclear acute v chronic, can be related to COVID-19
Was started on Lovenox 1 mg/kg, transitioned to 2.5 mg BID Eliquis
Follow-up hematology outpatient
# Hyponatremia
s/p Hypertonic Saline
Nephro on board
# Transaminitis, LFT improving
# Hepatocellular injury
Most likely secondary to portal vein thrombosis +/- congestive hepatopathy
Continue anticoagulation as stated above
Continue diuresis and monitor
See above for portal vein thrombosis
# Elevated troponin, Most likely non-VT troponin elevation in setting of acute CHF
Continue to monitor trend
troponin plateaued at 0.16
# Polysubstance abuse
# Tobacco use
# Chronic pain
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
# Multiple sclerosis
DVT prophylaxis: Lovenox SQ
DW RN
Anticipated Discharge: > 48 hours
Subjective/Interval History
-
Date of Service: October 29, 2023
Objective Data
-
Labs:
Laboratory Results
10/29/23
05:15
WBC 14.2 H
Hgb 11.6 L
Hct 32.4 L
Plt Count 125 L D
Sodium 142
Potassium 3.4 L
Chloride 109 H
Carbon Dioxide 28
BUN 37 H
Creatinine 0.7
Glucose 125 H
Calcium 8.5
Total Bilirubin 1.1
AST 80 H
ALT 65 H
Alkaline Phosphatase 178 H
Vital Signs:
Vital Signs
Temp Pulse Resp BP Pulse Ox
36.2 C 82 18 136/59 97
10/29/23 08:10 10/29/23 08:10 10/29/23 08:10 10/29/23 08:10 10/29/23 08:10
I&O
10/28/23 10/29/23 10/30/23
06:59 06:59 06:59
Intake Total 0 / 0
Output Total 0 / 0 200 / 200
Balance 0 / 0 -200 / -200
Review of Systems
-
Unable to obtain full review of systems at this time due to: Acuity (confused)
Physical Exam
-
General: Well Developed
HEENT: Normocephalic, Atraumatic, Nose Appears Normal, Ears Appear Normal and Oxygen (2L NC)
Respiratory: Clear to Auscultation and Non Labored Respirations; Negative Accessory Resp Muscle Use
Cardiac: Regular Rhythm and S1/S2
GI: Soft, Nontender, Nondistended and Normal Bowel Sounds
Skin: Warm and Dry
Neuro: Awake
Psych: Calm and Confused; Negative Intact Judgement/Insight
Data Reviewed
-
Labs: Labs Reviewed by me
--- NOTE | 2023-10-29 11:09 | W.PN.NEPH.PH ---
Today's Communication / Plan
-
IVF
Assessment/Plan
-
Assessment
-hyponatremia
-hypotension on admission
-COVID+
-large RML PNA
-lactic acidosis
-?thrombosed portal vein
-COPD
-hypothyroid
-HFrEF 30%
-multiple sclerosis
-chronic pain/opioids
-confusion
Plan
-no diuretics
-basal IVF with dextrose, may need hypotonic if po intake remains nil
-follow BMP
-
-
Date of Service: October 29, 2023
CC / HPI / ROS
-
Chief Complaint:
hyponatremia
History of Present Illness:
Abx for RML PNA
BP stable
Na up to 142
K low 3.4
LFTs stable high
WBC remains elevated
Review of Systems:
no CP/fever
confusion and swallowing issues
Labs
-
Labs:
WBC 14.2 10^3/uL (4.8-10.8) H 10/29/23 05:15
RBC 2.99 10^6/uL (4.20-5.40) L 10/29/23 05:15
Hgb 11.6 g/dL (12.0-16.0) L 10/29/23 05:15
Hct 32.4 % (37.0-47.0) L 10/29/23 05:15
Plt Count 125 10^3/uL (130-400) L D 10/29/23 05:15
Sodium 142 mmol/L (135-145) 10/29/23 05:15
Potassium 3.4 mmol/L (3.5-5.1) L 10/29/23 05:15
Chloride 109 mmol/L (98-107) H 10/29/23 05:15
Carbon Dioxide 28 mmol/L (22-30) 10/29/23 05:15
BUN 37 mg/dl (7-17) H 10/29/23 05:15
Creatinine 0.7 mg/dL (0.6-1.0) 10/29/23 05:15
eGFR > 60.00 10/29/23 05:15
Glucose 125 mg/dl (70-99) H 10/29/23 05:15
Calcium 8.5 mg/dl (8.4-10.2) 10/29/23 05:15
Phosphorus 3.7 mg/dl (2.5-4.5) 10/25/23 04:12
Xoe-R-Qacwmeklrsy Pept > 82260 pg/ml 10/24/23 09:12
Albumin 2.2 g/dl (3.5-5.0) L 10/29/23 05:15
Physical Exam
-
Vital Signs:
Vital Signs
Temp Pulse Resp BP Pulse Ox
97.2 F 82 18 136/59 97
10/29/23 08:10 10/29/23 08:10 10/29/23 08:10 10/29/23 08:10 10/29/23 08:10
Cardiovascular:: Regular rate and rhythm
Respiratory:: Bilateral: Coarse and Bilateral: Rhonchi
Lung Excursion:: Normal
Abdomen:: Nontender and Soft
Bowel Sounds:: Normal
Extremity Edema:: None: Bilateral:
[2023-10-29 11:30] VITALS: BP 136/59
[2023-10-29 11:37] LABS: Glucose - Point of Care 131 mg/dl (70-99)
[2023-10-29] MEDS: NSS 30 IV (13:39)
[2023-10-29] MEDS: VEKLURY 250 MG IV (13:39)
--- NOTE | 2023-10-29 15:11 | CM ---
Reviewed chart notes. Patient with soft wrist restraints. Awaiting PT evaluation for discharge planning purposes. ST recommending NPO due to poor cognitive status. CM continues to be available to patient/family and is monitoring medical plan for
needs at discharge.
Plan: Discharge plans will depend on the patient's progress.
[2023-10-29] MEDS: NSS (PRESERVATIVE FREE) 1 ML IV (15:37)
[2023-10-29] MEDS: ATIVAN 2 MG IV (15:39)
--- NOTE | 2023-10-29 15:50 | W.PN.PUL3 ---
Today's Communication / Plan
-
O2
Dexam through 11-03
Complete atb 10-29 and d/c
Asp precs
Reconsult as needed
Assessment
-
Assessment:
Ms Kaitlin Esparza is a 63/W adm 10-24 with several d h/o dyspnea. Brought by EMS to ER, no EMS report available, ER note mentioned administration of DNs in route which improved O2 from low 90s [place] mid 90s. Seen at ICU, on BPAP 14/5 with O2 4L , POx
92%, in moderate resp distress, intermittently agitated and trying to remove BPAP mask. Unfortunately very poor historian at time of visit, unknown baseline MS, appears acutely on chronically ill
Impression:
Acute respiratory failure
RML infiltrate
COVID positive
Elevated PCT
Leukocytosis s eosinophilia
Hyponatremia, uncertain chronicity
Low serum osmolality
Lactic acidosis
Mild transaminitis
Portal vein thrombosis
Elevated troponin and BNP: LVEF 30-35% with WMAs
Flu negative
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
COPD
Hypothyroidism
Multiple sclerosis
Substance abuse: on methadone
VDRF due to overdose Jul 2011
Chronic pain: reportedly on fentanyl patch, hydromorphone, oxycodone
Smoker
Alcohol: Former
Plan:
Admitted to ICU for mgmt of pneumonia and resp distress
Required BPAP for a short period of time in ICU
Transitioned to [facility]
Transferred to F
Asp precs to continue
Does not cooperate with attempts to give oral meds
Mainly hypoactive delirium, could not do speech eval today, kept NPO
BDs: alb/iprat HFA qid and prn but patient does not cooperate (delirium)
RML infiltrate on CXR, RLL pneumonitis not typical of COVID on CT
Small patchy densities in lingula
Started on empiric atbs upon adm to ER: cefepime and vancomycin IV
Currently on cefepime, complete 5 d regimen on 10-29
Dexam 6 mg IV temporarily changed to MP 40 mg IV q12 due to significant bronchitic symptoms, changed back to dexam COVID dosing, continue through 11-03
Uncertain impact of COVID positive test: no areas of pneumonitis c/w COVID infection
Observing off remdesivir since adm, started 10-27 by adm svce due to hypoxia
Currently on O2 2L, Pox 95%
Acapella valve, could not produce sputum sample for culture
Blood cxs so far negative
MRSA screening negative, d/c'ed vancomycin
PCT elevated
Portable CXR 10-28, marked improvement in RML infiltrate
Hyponatremia, unclear chronicity, severe, responded to diuretic trial and 3% saline
Likely secondary to acute illness, opiates, decreased oral intake, heart failure
Renal following
Noted elevated troponins and BNP along TTE evidence of low EF and WMAs of unknown chronicity
Differential: demand ischemia, sepsis induced CM. Rec outpatient w/u
Cards was following till 10-28
Portal vein thrombosis, liver steatosis, small volume ascites on US
Suspected COVID infection related
Started on AC with enoxaparin, changed to apixaban by Hem
GI contacted, will see as outpatient
D/w Hem/Onc, thrombophilia w/u
Chronic back pain and opiate dependence
Seen by Psych 10-28: TME, hypoactive delirium, rec avoiding sedating meds
D/w Mr Esparza on 10-29
Reconsult prn
Diagnostic tests:
CXR 10-24-23 c/w Apr 2023: New R basilar infiltrate. Mild pulm vasc congestion. No free air. Blunted c-d angles.
Chest CTA 10-24-23: No PE. RML infiltrate. RLL patch of pneumonitis. Patchy small lingular infiltrates.
TTE 10-24-23:
CONCLUSIONS
1. Normal left ventricular size with akinesis of the septum and apex, normal contraction of the basal inferior, inferolateral and lateral louis and hypokinesis of the remaining segments, EF 30-35%
2. Mild mitral regurgitation with normal left atrium
3. Aortic sclerosis with mild aortic regurgitation in limited views
4. Grossly normal right heart, could not determine pulmonary artery systolic pressure
Reliability of the interpretation is reduced related to limited image quality.
There are no prior studies available for comparison
Subjective Data
-
Date of Service:
Date of Service: October 29, 2023
Chief Complaint: Pulmonary Follow Up
Subjective:
Remains encephalopathic
Continues refusing oral meds
Delirious could not due speech eval today, kept NPO
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
Review of Systems
General: Other (unable, delirium)
Objective Data
Data Reviewed
Vital Signs / I&O / Oxygen:
Vital Signs
Temp Pulse Resp BP Pulse Ox
96.3 F L 85 22 136/59 96
10/29/23 11:30 10/29/23 11:30 10/29/23 11:30 10/29/23 11:30 10/29/23 11:30
Intake and Output
10/28/23 10/29/23 10/30/23
06:59 06:59 06:59
Intake Total 0 / 0
Output Total 0 / 0 200 / 200
Balance 0 / 0 -200 / -200
SaO2 96
Nasal Cannula flow liters per 2
minute
Physical Exam
General: Respiratory Distress (n)
HEENT: Normocephalic and Moist Mucous Membranes
Cardiovascular: Regular Rhythm, Murmur and Peripheral Edema (LANCE)
Respiratory: Crackles (R base), Rhonchi and Stridor (n)
GI: Soft, Non Distended and Non Tender
Neurology: Lethargic (arousable) and Other (agitated)
Skin: Dry
Labs/Micro/Reports
Lab Data
10/29/23 05:15
10/29/23 05:15
Microbiology
10/24/23 09:39 Blood/Venous Blood Culture - Final
No Growth - Final Report
10/24/23 09:12 Blood/Venous Blood Culture - Final
No Growth - Final Report
--- NOTE | 2023-10-29 15:51 | PN.CDI ---
CDI
- -
CDI:
Physician Documentation Request
Admit Date: 10/24/23 11:19
Dear Doctor Tima,
Patient admitted with severe sepsis secondary.
Patient positive for COVID.
Cefepime given to patient since admission.
10/28 Progress note states 'start RemD with persistent hypoxia'
Based on the above, could you clarify in the Progress Notes further specificity regarding the known, suspected or likely type of pneumonia you are treating (recognizing the specific organism may not be known)?
Gram negative Pneumonia
COVID pneumonia
Multifactorial - please specify
Other organism - specify known or suspected type
Other type
Use of terms such as suspected, likely, concern for, or probable (associated with a specific diagnosis that is being evaluated, monitored, or treated as if it exists) are acceptable and can be coded in the inpatient setting, when documented at the
time of discharge.
Thank you,
Sarah Daniel RN, BSN
CDI Specialist
tiger text
Please use your independent medical judgment in providing your response.
[2023-10-29 16:07] VITALS: BP 125/58
[2023-10-29] MEDS: FLAGYL 500 MG 100 IV (17:56)
[2023-10-29 18:10] LABS: Glucose - Point of Care 114 mg/dl (70-99)
[2023-10-29 19:45] VITALS: BP 131/59
[2023-10-29 22:35] LABS: Glucose - Point of Care 79 mg/dl (70-99)
[2023-10-29 23:04] LABS: B.E. 2.5 mmol/L; HCO3 26.3 mmol/L (21-28); O2 Saturation % 96.4 % (94-98); PCO2 37 mmHg (32-35); PO2 76 mmHg (83-108); pH 7.46 (7.35-7.45)
[2023-10-29 23:29] VITALS: BP 131/62
[2023-10-29] MEDS: D5/0.9% SODIUM CHLORIDE IV (23:45)
[2023-10-30 00:24] LABS: Glucose - Point of Care 121 mg/dl (70-99)
[2023-10-30] MEDS: NOVOLOG FLEXPEN-LOW RESISTANCE SC ×4 (01:06→18:20)
[2023-10-30] MEDS: FLAGYL 500 MG 100 IV ×3 (02:41→18:21)
[2023-10-30] MEDS: MAXIPIME 2000 MG IV ×2 (02:41→11:07)
[2023-10-30] MEDS: STERILE WATER FOR INJECTION 10 ML IV ×2 (02:41→11:07)
[2023-10-30 03:25] VITALS: BP 100/65
--- NOTE | 2023-10-30 04:23 | W.PN.UPDATE ---
Update Note
Progress Note Update
RN notifed AUTO BODY REPAIR ESTIMATOR patient looks lethargic possibly due to Ativan 2mg given prior to CT Scan, Temp of 96.5, Felice richardson ordered with target to 97. Temp at present 97.5. ABG done wnl. VS stable.
At 0600,patient is awake more and restless, Bladder scan 364, hasn't void all night, will straight cath once.
[2023-10-30 05:56] LABS: Hematocrit 34.5 % (37.0-47.0); Hemoglobin 12.4 g/dL (12.0-16.0); Mean Corp Hgb Conc. 35.9 g/dL (33.0-37.0); Mean Corpuscular Hgb 39.9 pg (27.0-31.0); Mean Corpuscular Volume 110.9 fL (81.0-99.0); Mean Platelet Volume 11.4 fL (7.4-10.4); Platelet Count 147 10^3/uL (130-400); Red Blood Cell Count 3.11 10^6/uL (4.20-5.40); Red Cell Dist. Width 14.7 % (11.5-14.5); White Blood Cell Count 25.8 10^3/uL (4.8-10.8)
[2023-10-30 06:20] LABS: ALT (SGPT) 67 U/L (0-35); AST (SGOT) 61 U/L (14-36); Albumin 2.1 g/dl (3.5-5.0); Alkaline Phosphatase 195 U/L (38-126); Blood Urea Nitrogen 37 mg/dl (7-17); Calcium 8.1 mg/dl (8.4-10.2); Carbon Dioxide 24 mmol/L (22-30); Chloride 120 mmol/L (98-107); Direct Bilirubin 0.9 mg/dl (0.0-0.4); Estimated Creatinine Clearance 55 ml/min; Glucose 96 mg/dl (70-99); Potassium 3.3 mmol/L (3.5-5.1); Sodium 145 mmol/L (135-145); Total Protein 5.3 g/dl (6.3-8.2); eGFR > 60.00
[2023-10-30 06:27] LABS: Glucose - Point of Care 96 mg/dl (70-99)
[2023-10-30 07:10] VITALS: BP 130/64
[2023-10-30] MEDS: TOPROL XL PO (07:54)
[2023-10-30] MEDS: ELIQUIS PO ×2 (07:54→21:04)
[2023-10-30] MEDS: KCL 270 MEQ IV (08:15)
[2023-10-30] MEDS: DECADRON 6 MG IV (08:16)
[2023-10-30] MEDS: D5/0.9% SODIUM CHLORIDE 1000 IV (08:31)
[2023-10-30 08:50] LABS: Phosphatidylserine Ab, IgA 0 APS (0-19); Phosphatidylserine Ab, IgG 4 GPS (0-15); Phosphatidylserine Ab, IgM 14 MPS (0-21)
--- NOTE | 2023-10-30 09:30 | CM ---
Requested order for PT OT from . said too confused to participate at this time.Pt needing soft restraints.
Positive Covid.
On 4 liter oxygen Pox 93%.
Low temp.
Continues on steroids and Remdesivir.
NPO IV fluids.
PLAN Will depend on hospital course of care .
[2023-10-30 11:00] VITALS: BP 138/69
[2023-10-30 11:12] LABS: Glucose - Point of Care 110 mg/dl (70-99)
--- NOTE | 2023-10-30 11:47 | W.PN.HOSP.TC ---
Addendum entered and electronically signed by Dian Alfred MD 10/30/23 14:30:
# Moderate Malnutrition
Addendum entered and electronically signed by Dian Alfred MD 10/30/23 13:57:
updated daughter on the phone
Original Note:
Today's Communication/Plan
-
see A/P
Assessment / Plan
Assessment / Plan
HPI: 63-year-old female with past medical history of hypothyroidism, COPD, multiple sclerosis, substance abuse on methadone, chronic opiate, tobacco abuse, COPD, chronic pain, ?History of atrial fibrillation; p/w shortness of breath.
A/P:
# Acute hypoxic respiratory insufficiency
# COPD exacerbation
# Severe sepsis POA, Secondary to CAP
# SARS-CoV-2
procal 1.12, MRSA screen negative, Blood Cx negative
She was treated with Cefepime, received 7 days, discontinue further cefepime
Added Flagyl for anaerobe coverage, will treat for 5 days
Cont O2 support at 2L NC, wean O2 as tolerated
DuoNebs every 4 standing
Started RemD x5 days with persistent hypoxia
Solu-Medrol 40 mg every 12 -> Decadron 6 mg daily x10 days
Incentive [place]
# Leucocytosis
ID CS
# hypoactive delirium
DC fentanyl patch, off ATC oxycodone, PRN Morphine
UDS positive for opiate/fentanyl/benzo, also cocaine and methamphetamine
CT head x2: No acute intracranial abnormality noted.
Check MRI brain
Monitor MS
NPO for now, cont SPL eval
# Hypoglycemia due to decreased PO
s/p D50
cont D5NSS
monitor with AccuCheck
# New onset acute HFrEF
Echo with EF 30 to 35%, akinesis of the septum and apex, normal contraction of the basal inferior, inferolateral, and lateral louis, hypokinesis of the remaining segments, mild MR, aortic sclerosis with mild AR
Cont gentle diuresis with IV Lasix 20 mg daily
Started on low-dose Toprol, monitor blood pressures
Cardiology on board, added lisinopril for reduced EF, consider outpt ischemic eval
# Portal vein thrombosis
unclear acute v chronic, can be related to COVID-19
Was started on Lovenox 1 mg/kg, transitioned to 2.5 mg BID Eliquis
Follow-up hematology outpatient
# Hyponatremia
s/p Hypertonic Saline
Nephro on board
# Transaminitis, LFT improving
# Hepatocellular injury
Most likely secondary to portal vein thrombosis +/- congestive hepatopathy
Continue anticoagulation as stated above
Continue diuresis and monitor
See above for portal vein thrombosis
# Elevated troponin, Most likely non-HI troponin elevation in setting of acute CHF
Continue to monitor trend
troponin plateaued at 0.16
# Polysubstance abuse
# Tobacco use
# Chronic pain
off SERVICE LOSS CONTROL CONSULTANT fentanyl patch, oxycodone with current hypoactive delirium
# Multiple sclerosis
# Hypokalemia
replete
DVT prophylaxis: Lovenox SQ
DW RN
Anticipated Discharge: > 48 hours
Subjective/Interval History
-
Date of Service: October 30, 2023
Objective Data
-
Labs:
Laboratory Results
10/30/23
05:39
WBC 25.8 H
Hgb 12.4
Hct 34.5 L
Plt Count 147
Sodium 145
Potassium 3.3 L
Chloride 120 H
Carbon Dioxide 24
BUN 37 H
Creatinine 0.9
Glucose 96
Calcium 8.1 L
Total Bilirubin 1.0
AST 61 H
ALT 67 H
Alkaline Phosphatase 195 H
Vital Signs:
Vital Signs
Temp Pulse Resp BP Pulse Ox
36.8 C 94 18 130/64 95
10/30/23 08:20 10/30/23 07:10 10/30/23 07:10 10/30/23 07:10 10/30/23 07:10
I&O
10/29/23 10/30/23 10/31/23
06:59 06:59 06:59
Intake Total 760 / 760
Output Total 200 / 200 700 / 700 300 / 300
Balance -200 / -200 60 / 60 -300 / -300
Review of Systems
-
Unable to obtain full review of systems at this time due to: Acuity
Physical Exam
-
General: Well Developed and Appears Chronically Ill
HEENT: Normocephalic, Atraumatic, Nose Appears Normal, Ears Appear Normal and Oxygen (2L NC)
Respiratory: Clear to Auscultation and Non Labored Respirations; Negative Accessory Resp Muscle Use
Cardiac: Regular Rhythm and S1/S2
GI: Soft, Nontender, Nondistended and Normal Bowel Sounds
Skin: Warm and Dry
Psych: Calm and Confused; Negative Intact Judgement/Insight
Data Reviewed
-
CT Scan: Report Reviewed by me
Labs: Labs Reviewed by me
[2023-10-30] MEDS: VEKLURY 250 MG IV (12:26)
[2023-10-30] MEDS: NSS 30 IV (12:26)
--- NOTE | 2023-10-30 13:12 | PN.CDI ---
CDI
- -
CDI:
Physician Documentation Request
Admit Date: 10/24/23 11:19
Dear Doctor Tima,
10/29 note states 'CBW BMI 18.6 underweight range. 11.5% weight loss x 6 months significant per ASPEN.... RN reports pt is very skinny with clavicle bones protruding and depressed temples...... Per ASPEN/AND guidelines, pt meets for moderate
malnutrition in context of chronic illness as evidence by 11.5% weight loss x 6 moths, muscle loss.'
Based on the information, which of the following most accurately represents the patient's nutritional status?
Moderate Malnutrition
Underweight without malnutrition
No nutritional deficiency
Other (please specify)
[place] Criteria ([facility] Hospitalist 2017)
2 or more criteria must be present for either
non severe or severe malnutrition
Note that the criteria differs related to the
presence of an acute or chronic illness
Acute Illness Chronic Illness
Energy Intake Non Severe: <75% for >7 days Non Severe: <75% for >1 month
Severe: <50% for >5 days Severe: <75% for >1 month
Weight Loss Non Severe: 1-2% over 1 week Non Severe: 5% over 1 month
5% over 1 month 7.5% over 3 months
7.5% over 3 months 10% over 6 months
1 year N/A 20% over 1 year
Severe: >2% over 1 week Severe: >5% over 1 month
>5% over 1 month >7.5% over 3 months
>7.5% over 3 months >10% over 6 months
1 year N/A >20% over 1 year
Body Fat Non Severe: Mild Decrease Non Severe: Mild Loss
Severe: Moderate Decrease Severe: Severe Loss
Muscle Mass Non Severe: Mild Decrease Non Severe: Mild Loss
Severe: Moderate Decrease Severe: Severe Loss
Fluid Accumulation Non Severe: Mild Accumulation Non Severe: Mild Accumulation
Severe: Moderate to severe Severe: Moderate to severe
accumulation accumulation
Reduced Hemodialysis Charge Nurse Strength Non Severe: N/A Non Severe: N/A
Severe: Measurably reduced Severe: Measurably reduced
Additional criteria that can be used to Determine if Mild or Moderate Malnutrition ([employer]ck Manual 2018)
Mild Moderate Severe
Albumin gm/dl <3.0 gm/dl <2.5 gm/dl <2.0 gm/dl
Pre Albumin mg/dl <15 gm/dl <10 mg/dl <5.0 mg/dl
BMI <18.5 <17 <16
Use of terms such as suspected, likely, concern for, or probable (associated with a specific diagnosis that is being evaluated, monitored, or treated as if it exists) are acceptable and can be coded in the inpatient setting, when documented at the
time of discharge.
Thank you,
Sarah Daniel RN, BSN
CDI Specialist
tiger text
Please use your independent medical judgment in providing your response.
--- NOTE | 2023-10-30 13:13 | W.PN.NEPH.PH ---
Today's Communication / Plan
-
ivf
Assessment/Plan
-
Assessment
-hyponatremia
-hypotension on admission
-COVID+
-large RML PNA
-lactic acidosis
-?thrombosed portal vein
-COPD
-hypothyroid
-HFrEF 30%
-multiple sclerosis
-chronic pain/opioids
-confusion
Plan
-no diuretics
-basal IVF with dextrose, change to hypotonic
-follow BMP
-cause of delirium uncertain,
-
-
Date of Service: October 30, 2023
CC / HPI / ROS
-
Chief Complaint:
hyponatremia
History of Present Illness:
Abx for RML PNA
BP stable
Na up to 145
K low 3.3
LFTs stable high
WBC remains elevated on steroids
Review of Systems:
no CP/fever
confusion and swallowing issues
Labs
-
Labs:
WBC 25.8 10^3/uL (4.8-10.8) H 10/30/23 05:39
RBC 3.11 10^6/uL (4.20-5.40) L 10/30/23 05:39
Hgb 12.4 g/dL (12.0-16.0) 10/30/23 05:39
Hct 34.5 % (37.0-47.0) L 10/30/23 05:39
Plt Count 147 10^3/uL (130-400) 10/30/23 05:39
Sodium 145 mmol/L (135-145) 10/30/23 05:39
Potassium 3.3 mmol/L (3.5-5.1) L 10/30/23 05:39
Chloride 120 mmol/L (98-107) H 10/30/23 05:39
Carbon Dioxide 24 mmol/L (22-30) 10/30/23 05:39
BUN 37 mg/dl (7-17) H 10/30/23 05:39
Creatinine 0.9 mg/dL (0.6-1.0) 10/30/23 05:39
eGFR > 60.00 10/30/23 05:39
Glucose 96 mg/dl (70-99) 10/30/23 05:39
Calcium 8.1 mg/dl (8.4-10.2) L 10/30/23 05:39
Phosphorus 3.7 mg/dl (2.5-4.5) 10/25/23 04:12
Usu-U-Mtajvucfhgy Pept > 29101 pg/ml 10/24/23 09:12
Albumin 2.1 g/dl (3.5-5.0) L 10/30/23 05:39
Physical Exam
-
Vital Signs:
Vital Signs
Temp Pulse Resp BP Pulse Ox
98.2 F 89 20 138/69 95
10/30/23 11:00 10/30/23 11:00 10/30/23 11:00 10/30/23 11:00 10/30/23 11:00
Cardiovascular:: Regular rate and rhythm
Respiratory:: Bilateral: Coarse and Bilateral: Rhonchi
Lung Excursion:: Normal
Abdomen:: Nontender and Soft
Bowel Sounds:: Normal
Extremity Edema:: None: Bilateral:
[2023-10-30] MEDS: D5/0.45%NACL 500 IV ×2 (14:18→21:12)
[2023-10-30 15:10] VITALS: BP 107/76
--- NOTE | 2023-10-30 15:27 | CON.ID ---
Consultation
-
Date/Time Consultation Requested: 10/30/2023 1125
Date/Time Consultation Performed: 10/30/2023 1521
Requesting Provider: Dr. Alfred
Performing Provider: Dr. Begum
Reason for Consultation: COVID-19; confusion/change in mental status; leukocytosis
Chief Complaint / Past History
History of Present Illness
Kaitlin Esparza is a 63-year-old female being evaluated at the request of Dr. Alfred in regards to COVID-19 and encephalopathy. History is obtained from chart review, along with history obtained from the patient's who was at the bedside.
Currently the patient has depressed level of consciousness and cannot provide any history to me.
According to the , the patient has a significant past medical history of multiple sclerosis, and was in her usual state of health until approximately 3 weeks ago. At that time he found that she started to have decreased energy, and he
believes that some of her change in mental status may be back to that point in time. He admits that she had a slight cough, but on the day of admission she became much more confused and he called EMS. When they arrived she was found to have
decreased pulse ox which improved with oxygenation. Workup in the ER revealed that she was COVID-positive. She initially was not started on any antivirals as she was not hypoxic, but she did start some antibacterial medications (cefepime). Over
the past several days she had increasing O2 requirements, and remdesivir has been started. Infectious Diseases is asked to comment upon further antimicrobial therapy.
Past History
Additional Past Medical History:
COPD
Hypothyroidism
Multiple sclerosis
Substance abuse (on chronic methadone)
Additional Past Surgical History:
Back surgery
SBO with bowel resection
Allergy History:
alcohol [Alcohol] Allergy (Verified 10/24/23 09:06)
HISTORY OF ETOH ABUSE
latex [Latex] Allergy (Verified 10/24/23 09:06)
Anaphylaxis
nicotine [Nicotine] Allergy (Verified 10/24/23 09:06)
Hives
Penicillins Allergy (Verified 10/24/23 09:06)
Hives
Medications Reviewed: Yes
Current Antibiotics:
Remdesivir (day #3)
Metronidazole
Social History
Tobacco: Smoker (2 PPD)
Alcohol: Former
Drug: Narcotics
Personal: Single
Living: With Family
Employment: Not Employed
Family History
Family History: Not Pertinent
Review of Systems
Vital Signs
Temp Pulse Resp BP Pulse Ox
98.0 F 85 20 107/76 97
10/30/23 15:10 10/30/23 15:10 10/30/23 15:10 10/30/23 15:10 10/30/23 15:10
Physical Exam
Physical Exam
Constitutional: Acutely Ill, Non-toxic and Cachetic
Head: Other (Temporal wasting.)
Eyes: Pupils Equal, Pupils Round, No Conjunctival Hemorrhage and Sclera Anicteric
Oral: Poor Dentition, No Thrush and No Ulcers
Lymph Nodes: Negative Lymphadenopathy
Cardiovascular: Regular Rate and S1/S2; Negative S3/S4 or Murmur
Pulmonary: Coarse and Other (Mildly labored.); Negative Wheezes or Rales
Gastrointestinal: Soft, Non Distended, Normal Bowel Sounds, No Rebound and No Guarding
Genito-Urinary: Negative Suprapubic Tenderness
Extremities: Negative Edema, Cyanosis, Erythema, Splinter Hemorrhage, Venous Insufficiency or [place] Lesions
Musculoskeletal: Negative Joint Swelling or Joint Effusion
Skin: Warm and Dry; Negative Rash or Jaundice
Neurological: Awake and Alert
Psychological: Calm
Lab / Diagnostic Study Results
10/30/23 05:39
10/30/23 05:39
Abs Immat Gran (auto) 0.2 10^3/uL (0-0.05) H 10/24/23 09:12
Absolute Neuts (auto) 14.0 10^3/uL (1.4-6.5) H 10/24/23 09:12
Absolute Lymphs (auto) 1.7 10^3/uL (1.2-3.4) 10/24/23 09:12
Absolute Monos (auto) 1.1 10^3/uL (0.1-0.6) H 10/24/23 09:12
Absolute Basos (auto) 0.0 10^3/uL (0-0.2) 10/24/23 09:12
Immature Gran % 0.9 % (0-0.5) H 10/24/23 09:12
Neutrophils % 82.5 % (42.2-75.2) H 10/24/23 09:12
Lymphocytes % 10.0 % (20.5-51.1) L 10/24/23 09:12
Monocytes % 6.4 % (1.7-9.3) 10/24/23 09:12
Eosinophils % 0.0 % (0-6) 10/24/23 09:12
Basophils % 0.2 % (0-2) 10/24/23 09:12
PT 15.7 Sec (11.4-14.6) H 10/24/23 09:12
INR 1.27 10/24/23 09:12
Lactic Acid Cancelled 10/24/23 17:00
C-Reactive Protein 19.40 mg/L (0.0-10.00) H 10/30/23 05:39
Procalcitonin 1.12 ng/ml (0.0-0.25) H 10/24/23 12:42
Microbiology Results
Micro:
10/24/23 09:39 Blood Culture - Final
Blood/Venous No Growth - Final Report
10/24/23 09:12 Blood Culture - Final
Blood/Venous No Growth - Final Report
10/24/23 12:42 Nasal Screen MRSA (PCR) - Final
Nose MRSA not detected - performed by PCR methodology.
10/24/23 09:39 Influenza Types A & B (YANY) - Final
Nasal Swab Negative for Influenza A & B, NAAT
Negative results must be combined with clinical observations
and patient history.
Nucleic Acid Amplification test (NAAT)performed on the
[employer] ID NOW platform.
Imaging:
10/29/2023 CT head without contrast: Moderate ventricular sulcal prominence consistent with atrophy. Brain parenchyma is normal attenuation. No intra or extra-axial masses, hemorrhage or fluid collection. Please see full dictation for additional
detail.
10/28/2023 CXR (portable): Mild � moderate interstitial airspace disease in the right middle lobe consistent with pneumonia which is significantly improved when compared to prior study. Lungs are otherwise clear. Please see full dictation for
additional detail.
10/24/2023 CT chest: Large right middle lobe pneumonia noted. Small volume right hilar lymphadenopathy.
Assessment / Plan
Encephalopathy; unclear etiology
Leukocytosis - may be secondary to steroid effect
COVID-19 (vaccinated patient)
COPD
Hypothyroidism
Multiple sclerosis
Substance abuse (on chronic methadone)
Recommendations:
Agree with discontinuation of cefepime.
Continue metronidazole and remdesivir for today.
Trend O2 sat. Attempt to wean O2.
Await MRI.
Follow white count and temperature curve.
[2023-10-30 18:14] LABS: Glucose - Point of Care 98 mg/dl (70-99)
--- NOTE | 2023-10-30 19:29 | PTCARENOTE ---
pt arrived to IMU post MRI at 1800. pt opens eyes. not following commands or responding verbally. moving all extremities. pupils reactive to light. sinus rythym on monitor. sat 97 on 4 liters o2 . caorse rhonchi throughout lungs with occasional
mosit harsh cough. . blood sugar 98 on arrival. pt kept npo. bed alarm activated, callbell in pts reach although she is not able to use at this time. covid precautions maintained.
[2023-10-30 20:00] VITALS: BP 123/44
--- NOTE | 2023-10-30 20:03 | W.PN.UPDATE ---
Update Note
Progress Note Update
Nursing notified this house provider that patient has been unable to PO medications related to change in mental status. In chart review patient was transitioned to Eliquis 2.5mg PO on 10/26/2023, MAR shows last dose of Eliquis patient received was
morning of 10/27/2023. Placed Eilquis on hold and reordered Lovenox 1mg/kg q12 for portal vein thrombosis.
[2023-10-30] MEDS: LOVENOX 50 MG SC (21:11)
[2023-10-30 22:00] VITALS: BP 119/103
--- NOTE | 2023-10-30 22:28 | PTCARENOTE ---
pt unresponsive but restless- unable to follow commands- oxygen requirements increased to 15 liters midflow from 4 liters. rnp ordered cxr and ABG's. unable to take Eliquis. rnp ordered Lovenox. see mar
[2023-10-30 22:52] LABS: B.E. 0.4 mmol/L; HCO3 22.6 mmol/L (21-28); O2 Saturation % 93.8 % (94-98); PCO2 29 mmHg (32-35); PO2 67 mmHg (83-108)
[2023-10-30 23:20] LABS: Glucose - Point of Care 84 mg/dl (70-99)
[2023-10-31] VITALS (14 sets, daily range): BP systolic 94–133; BP diastolic 39–107; BMI 18.3
[2023-10-31] MEDS: NOVOLOG FLEXPEN-LOW RESISTANCE SC ×4 (00:38→17:44)
--- NOTE | 2023-10-31 01:12 | PTCARENOTE ---
98% on 14 liters midflow- remains restless but unresponsive at same time- did open eyes to voice. unable to follow commands. moves all extremities but nit purposefully- sinus afebrile bp wnl
[2023-10-31] MEDS: D5/0.45%NACL 500 IV (03:16)
[2023-10-31] MEDS: FLAGYL 500 MG 100 IV ×3 (03:16→17:41)
[2023-10-31 05:25] LABS: ALT (SGPT) 62 U/L (0-35); AST (SGOT) 106 U/L (14-36); Albumin 2.3 g/dl (3.5-5.0); Alkaline Phosphatase 177 U/L (38-126); Blood Urea Nitrogen 43 mg/dl (7-17); Calcium 8.1 mg/dl (8.4-10.2); Carbon Dioxide 20 mmol/L (22-30); Chloride 120 mmol/L (98-107); Direct Bilirubin 1.6 mg/dl (0.0-0.4); Estimated Creatinine Clearance 41 ml/min; Glucose 88 mg/dl (70-99); Sodium 149 mmol/L (135-145); Total Bilirubin 1.8 mg/dl (0.2-1.3); Total Protein 5.4 g/dl (6.3-8.2); eGFR 57.17
[2023-10-31 06:05] LABS: Hemoglobin 12.6 g/dL (12.0-16.0); Mean Corpuscular Hgb 39.4 pg (27.0-31.0); Mean Corpuscular Volume 112.5 fL (81.0-99.0); Mean Platelet Volume 12.2 fL (7.4-10.4); Platelet Count 128 10^3/uL (130-400); Red Cell Dist. Width 14.8 % (11.5-14.5); White Blood Cell Count 33.7 10^3/uL (4.8-10.8)
[2023-10-31 06:13] LABS: Glucose - Point of Care 102 mg/dl (70-99)
--- NOTE | 2023-10-31 08:09 | W.PN.HOSP.TC ---
Today's Communication/Plan
-
see A/P
Assessment / Plan
Assessment / Plan
HPI: 63-year-old female with past medical history of hypothyroidism, COPD, multiple sclerosis, substance abuse on methadone, chronic opiate, tobacco abuse, COPD, chronic pain, ?History of atrial fibrillation; p/w shortness of breath.
A/P:
# Acute hypoxic respiratory insufficiency
# COPD exacerbation
# Severe sepsis POA, secondary to CAP
# SARS-CoV-2
procal 1.12, MRSA screen negative, Blood Cx negative
She was treated with Cefepime, received 7 days, discontinued further cefepime
Cont Flagyl for anaerobe coverage, will treat for 5 days
Cont O2 support at 2L NC, wean O2 as tolerated
DuoNebs every 4 standing
Started RemD x5 days with persistent hypoxia
Solu-Medrol 40 mg every 12 -> Decadron 6 mg daily x10 days
Incentive [place]
# Leucocytosis, steroid induced?
ID on board
Heme CS
# Acute TME
DC fentanyl patch, off ATC oxycodone, off PRN Morphine
UDS positive for opiate/fentanyl/benzo, also cocaine and methamphetamine
CT head x2: No acute intracranial abnormality noted.
MRI brain No acute intracranial abnormality noted.
Monitor MS
Check EEG
Neuro CS
NPO for now, cont daily SPL eval
# Hypoglycemia due to decreased PO
s/p D50
monitor with AccuCheck
# New onset acute HFrEF
Echo with EF 30 to 35%, akinesis of the septum and apex, normal contraction of the basal inferior, inferolateral, and lateral louis, hypokinesis of the remaining segments, mild MR, aortic sclerosis with mild AR
s/p gentle diuresis with IV Lasix 20 mg daily, hold with COY
Started low-dose Toprol, monitor blood pressures
Cardiology on board, added lisinopril for reduced EF- on hold with COY, consider outpt ischemic eval
# Hyponatremia
# Now hypernatremia
s/p Hypertonic Saline
Now on D5W
Nephro on board
# Drop in platelet, concern for HIT
Pt received Lovenox therapeutic dose 2- - 10/26
Check HIT Ab
Heme reconsult
d/w heme Dr Boyd, will start arixtra due to transaminitis
# COY
D5W for concurrent hypernatremia
hold ACEI
# Portal vein thrombosis
unclear acute v chronic, can be related to COVID-19
Lovenox 1 mg/kg -> Eliquis 2.5 mg BID -> Arixtra due to transaminitis
hematology on board
# Transaminitis due to Hepatocellular injury
Most likely secondary to portal vein thrombosis +/- congestive hepatopathy
No statin
Monitor LFT
# Elevated troponin likely non-DC troponin elevation in setting of acute CHF
Continue to monitor trend
troponin plateaued at 0.16
# Polysubstance abuse
# Tobacco use
# Chronic pain
off INCLUSION PARAEDUCATOR fentanyl patch, oxycodone with current hypoactive delirium
# Multiple sclerosis
# Hypokalemia
replete
DVT prophylaxis: Lovenox SQ
DW RN
DW Compilation Clerk Dr Boyd
total time spent 51 min
Anticipated Discharge: > 48 hours
Subjective/Interval History
-
Date of Service: October 31, 2023
Objective Data
-
Labs:
Laboratory Results
10/30/23 10/31/23 10/31/23
22:43 04:32 05:47
WBC Cancelled 33.7 H
Hgb Cancelled 12.6
Hct Cancelled 36.0 L
Plt Count Cancelled 128 L
HCO3 22.6
Sodium 149 H
Potassium 5.5 H D
Chloride 120 H
Carbon Dioxide 20 L
BUN 43 H
Creatinine 1.1 H
Glucose 88
Calcium 8.1 L
Total Bilirubin 1.8 H
AST 106 H
ALT 62 H
Alkaline Phosphatase 177 H
Vital Signs:
Vital Signs
Temp Pulse Resp BP Pulse Ox
36.0 C L 85 23 114/78 89
10/31/23 05:15 10/31/23 06:00 10/31/23 06:00 10/31/23 06:00 10/31/23 03:52
I&O
10/30/23 10/31/23 11/01/23
06:59 06:59 06:59
Intake Total 760 / 760
Output Total 700 / 700 300 / 300
Balance 60 / 60 -300 / -300
Review of Systems
-
Unable to obtain full review of systems at this time due to: Acuity
Physical Exam
-
General: Well Developed and Appears Chronically Ill
HEENT: Normocephalic, Atraumatic, Nose Appears Normal, Ears Appear Normal and Oxygen (2L NC)
Respiratory: Clear to Auscultation and Non Labored Respirations; Negative Accessory Resp Muscle Use
Cardiac: Regular Rhythm and S1/S2
GI: Soft, Nontender, Nondistended and Normal Bowel Sounds
Skin: Warm and Dry
Psych: Calm and Confused; Negative Intact Judgement/Insight
Data Reviewed
-
CT Scan: Report Reviewed by me
MRI: Report Reviewed by me
Labs: Labs Reviewed by me
--- NOTE | 2023-10-31 08:17 | PTOTSP ---
Patient transferred to a higher level of care ([address] [place] to IMU). New orders required. Will follow up if/when medically appropriate and orders received.
[2023-10-31] MEDS: LOVENOX SC (08:28)
[2023-10-31] MEDS: TOPROL XL PO (08:28)
[2023-10-31] MEDS: DECADRON 6 MG IV (08:29)
[2023-10-31] MEDS: D5W 1000 IV ×2 (09:11→19:41)
--- NOTE | 2023-10-31 10:22 | W.PN.NEPH.PH ---
Today's Communication / Plan
-
maintain hypotonic ivfs
Assessment/Plan
-
Assessment:
-COY
-hyponatremia
-hypotension on admission
-COVID+
-large RML PNA
-lactic acidosis
-?thrombosed portal vein/thrombocytopenia
-GI bleeding
-COPD
-hypothyroid
-HFrEF 30% (new onset)
-multiple sclerosis
-chronic pain/opioids
-confusion: s/p LP
-metabolic acidosis
Plan
-creatinine continues to worsening for no obvious etiology
-hold delano
-no diuretics as hypernatremia worsening and creatinine up to 1.6
-uop droppingmaintain sorensen
-basal IVF with dextrose hypotonic to continue at rate to 80cc/hr
-follow BMP
-cause of delirium uncertain, s/p LP
-replete K
-metabolic acidosis worsening
-heparin off due to gi bleeding
-patient at high clinical risk, with worsening COY, hypernatremia
-
-
Date of Service: October 31, 2023
CC / HPI / ROS
-
Chief Complaint:
hyponatremia
History of Present Illness:
Abx for RML PNA
BP stable
Na at146
K low 3.3
LFTs stable high
WBC remains elevated on steroids
Review of Systems:
no CP/fever
on midflow oxygen support
confusion and swallowing issues
Labs
-
Labs:
WBC 33.7 10^3/uL (4.8-10.8) H 10/31/23 05:47
RBC 3.20 10^6/uL (4.20-5.40) L 10/31/23 05:47
Hgb 12.6 g/dL (12.0-16.0) 10/31/23 05:47
Hct 36.0 % (37.0-47.0) L 10/31/23 05:47
Plt Count 128 10^3/uL (130-400) L 10/31/23 05:47
Sodium 149 mmol/L (135-145) H 10/31/23 04:32
Potassium 5.5 mmol/L (3.5-5.1) H D 10/31/23 04:32
Chloride 120 mmol/L (98-107) H 10/31/23 04:32
Carbon Dioxide 20 mmol/L (22-30) L 10/31/23 04:32
BUN 43 mg/dl (7-17) H 10/31/23 04:32
Creatinine 1.1 mg/dL (0.6-1.0) H 10/31/23 04:32
eGFR 57.17 10/31/23 04:32
Glucose 88 mg/dl (70-99) 10/31/23 04:32
Calcium 8.1 mg/dl (8.4-10.2) L 10/31/23 04:32
Phosphorus 3.7 mg/dl (2.5-4.5) 10/25/23 04:12
Jwb-V-Amexdokxqga Pept > 42202 pg/ml 10/24/23 09:12
Albumin 2.3 g/dl (3.5-5.0) L 10/31/23 04:32
Physical Exam
-
Vital Signs:
Vital Signs
Temp Pulse Resp BP Pulse Ox
96.9 F L 85 23 114/78 89
10/31/23 07:20 10/31/23 06:00 10/31/23 06:00 10/31/23 06:00 10/31/23 03:52
Cardiovascular:: Regular rate and rhythm
Respiratory:: Bilateral: Coarse
Lung Excursion:: Normal
Abdomen:: Nontender and Soft
Bowel Sounds:: Decreased
Extremity Edema:: +1: Bilateral:
Sorensen Catheter: Yes
--- NOTE | 2023-10-31 10:36 | CON.NEURO ---
Neuro Assessment/Plan
Assessment
IMPRESSIONS/RECOMMENDATIONS:
Abrupt change in mental status
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
Patient also reportedly has a history of transverse myelitis of unclear etiology and abnormal enhancing lesions in the cervical spine
There is no confirmation currently that the patient has multiple sclerosis especially based on unremarkable MRI of brain results
Plan
Monitor for alcohol withdrawal, less likely based on the patient's prolonged hospitalization at this time, provide thiamine
Okay to perform lumbar puncture, will add oligoclonal bands, paraneoplastic evaluation, myelin oligodendrocyte glycoprotein associated disease testing
Obtain prior records from local neurologists
Will continue to follow pending results
Consultation
Order
Date of Consultation: 10/31/23
Requesting Provider: Hospitalist
Reason for Consult: Change in mental status
Subjective/Objective
Subjective Data
Date of Service: October 31, 2023
Unknown handed
Patient's history is entirely obtained from review of the patient's medical records and discussion with professional medical care providers. Reportedly, in 2007, the patient had an episode of generalized shaking and loss of consciousness suggested
to be due to possible alcohol exposure. Patient had been seen prior to that due to a question of multiple sclerosis which reportedly was never confirmed. The patient again was seen by the [facility] neurologist in 2008 at which time the
patient was described as having generalized tonic-clonic movements. At that time, patient was discharged from the hospital on primidone for an unclear reason as well as routine lamotrigine to treat bipolar affective disorder
EEG performed in 2007 failed to demonstrate a focal abnormality.EEG in 2008, also failed to demonstrate a focal abnormality.
Medical records suggest outpatient follow-up by local neurologists due to findings of cervical spine abnormalities by MRI imaging in 2008, 2010, 2012 suggestive of lesions at C4, C6 and C7. Thoracic spine MRI in 2007 and 2012 was described as
unremarkable according to old records. Outpatient records suggest the patient was experiencing significant muscle spasms in the legs and prior use of ambulatory assistive devices in 2017.
The patient presented to this hospital's emergency department on October 24, 2023 due to shortness of breath. Patient was subsequently diagnosed with COVID-19 infection and developed a portal vein thrombosis. Patient also has experienced
significant thrombocytopenia.
Objective Data
Vital Signs
Temp Pulse Resp BP Pulse Ox
36.1 C L 85 23 114/78 89
10/31/23 07:20 10/31/23 06:00 10/31/23 06:00 10/31/23 06:00 10/31/23 03:52
Lab Results
10/31/23 05:47
10/31/23 04:32
PT 15.7 Sec (11.4-14.6) H 10/24/23 09:12
INR 1.27 10/24/23 09:12
APTT 33.2 Sec (23.4-35.0) 10/25/23 13:35
Sodium 149 mmol/L (135-145) H 10/31/23 04:32
Potassium 5.5 mmol/L (3.5-5.1) H D 10/31/23 04:32
BUN 43 mg/dl (7-17) H 10/31/23 04:32
Glucose 88 mg/dl (70-99) 10/31/23 04:32
Calcium 8.1 mg/dl (8.4-10.2) L 10/31/23 04:32
Phosphorus 3.7 mg/dl (2.5-4.5) 10/25/23 04:12
Sxg-Y-Mgtynypvemg Pept > 78036 pg/ml 10/24/23 09:12
Vitamin B12 970 pg/ml (239-931) H 10/28/23 04:52
Ur Buprenorphine Negative (Negative) 10/28/23 10:53
Patient Allergies
alcohol [Alcohol] Allergy (Verified 10/24/23 09:06)
HISTORY OF ETOH ABUSE
latex [Latex] Allergy (Verified 10/24/23 09:06)
Anaphylaxis
nicotine [Nicotine] Allergy (Verified 10/24/23 09:06)
Hives
Penicillins Allergy (Verified 10/24/23 09:06)
Hives
Modified Inge Score (MRS)
-
MRS Score:
Review of Systems
-
Unable to obtain full review of systems at this time due to: Lethargy
History Source: Patient
All other systems: Reviewed and negative
Physical Exam
-
General: No Apparent Distress, Appears Stated Age and Wearing Oxygen
Eyes: OU Absent Papilledema, Round OU, [place] Conjunctivae and No Ptosis
HEENT: Anicteric and Moist Mucous Membranes
Neck: Full Range of Motion
Respiratory: No Dyspnea
Cardiac: No JVD
GI: Non-distended
Skin: Unremarkable
Extremities: No Clubbing, No Cyanosis and No Edema
Psych: Unable to Assess
Extended Neurological Exam
Mood & Affect: Unable to Assess
Attention Span & Concentration: Awake, Interactive, Closes Eyes after Stimulation (Immediately), Unable to Perform 2 Step Request and Other (Does not perform single step requests, resists examination); Negative Alert, Unresponsive to Verbal Stimuli
or Unresponsive to Physical Stimuli
Memory: Unable to Assess
Tremor: Hand Tremor Absent and Head Tremor Absent
Involuntary Movement: None
Speech: Mute
Cranial Nerve II: Left Eye: Pupillary Reactivity Unremarkable, Pupillary Size Unremarkable and Visual Love Grossly Intact
Cranial Nerve II: Right Eye: Pupillary Reactivity Unremarkable, Pupillary Size Unremarkable and Visual Love Grossly Intact
Cranial Nerves III, IV, : Extraocular Movement: Grossly Intact and Other (Resists eye opening equally)
Cranial Nerve V: Facial Sensation: Unable to Assess
Cranial Nerve VII: Facial Symmetry: Normal Facial Symmetry
Cranial Nerve XI: Shoulder Shrug: Unable to Assess
Cranial Nerve XII: Tongue Protusion: Unable to Assess
Muscle Strength, Overall: Spontaneously Moves (All extremities)
Muscle Bulk & Tone: Bulk Unremarkable and Tone Unremarkable
Pronator Drift: Unable to Assess
Deep Tendon Reflexes: Trace Throughout
Cold Sensation: Unable to Assess
Vibration Sensation: Unable to Assess
Coordination: Reaches for Objects without Difficulty
Babinski Sign: Absent Bilaterally
Gait & Station: Unable to Assess
Data Reviewed
-
MRI Head: Report Reviewed and Image Reviewed
EEG: Report Reviewed
Labs: Report Reviewed
Reviewed with: Physician and Nurse
Old Records: Summarized
Medications
-
Active Medications
Generic Name Dose Route Start Last Admin
Trade Name Freq PRN Reason Stop Dose Admin
Acetaminophen 650 mg 10/24/23 12:18
Acetaminophen 325 Mg Tablet PO 11/21/23 12:17
Q4HPRN PRN
mild pain/GARCIA/temp> 100.4F
Albuterol/Ipratropium 1 puff 10/24/23 17:27
Combivent Respimat Inhalation [place] INH 11/21/23 17:26
R Q2HPRN PRN
SOB/WHEEZE
Apixaban 2.5 mg 10/26/23 18:00 10/30/23 21:04
Apixaban (Eliquis) 2.5 Mg Tablet PO 11/23/23 17:59 Not Given
BID LEISA
Dexamethasone Sodium Phosphate 6 mg 10/28/23 08:00 10/31/23 08:29
Dexamethasone 4 Mg/Ml 1 Ml Vial IV 11/07/23 07:59 6 mg
Q24H LEISA Administration
Dextrose 12.5 grams 10/25/23 05:37 10/28/23 06:52
Dextrose 50% (0.5 Grams/Ml) 50 Ml Syringe IV 11/22/23 05:36 12.5 grams
[id number] PRN Administration
BS < 70
Dextrose 12.5 grams 10/28/23 08:09
Dextrose 50% (0.5 Grams/Ml) 50 Ml Syringe IV 11/25/23 08:08
[id number] PRN
hypoglycemia
Protocol
Fondaparinux 5 mg 10/31/23 18:00
Fondaparinux 5 Mg/0.4 Ml Syringe SC 11/28/23 17:59
QPM LEISA
Glucagon 1 mg 10/28/23 08:09
Glucagon 1 Mg Vial IM 11/25/23 08:08
PRN PRN
hypoglycemia
Protocol
Remdesivir 100 mg/ Sodium 250 mls @ 250 mls/hr 10/29/23 12:00 10/30/23 12:26
Chloride IV 11/01/23 12:59 250 mls
DAILY@1200 LEISA Administration
Sodium Chloride 30 mls @ 120 mls/hr 10/29/23 13:00 10/30/23 12:26
Nss IV 11/01/23 13:14 30 mls
DAILY@1300 LEISA Administration
Metronidazole 100 mls @ 100 mls/hr 10/29/23 18:00 10/31/23 09:12
Flagyl 500 Mg IV 11/03/23 17:59 100 mls
Q8H LEISA Administration
Dextrose 1,000 mls @ 80 mls/hr 10/31/23 09:00 10/31/23 09:11
D5w IV 1,000 mls
[id number] LEISA Administration
Insulin Aspart 0 units 10/29/23 00:00 10/31/23 06:04
Insulin Aspart Low Resistance 300 Units/3 Ml Pen.Injctr SC 11/26/23 00:00 Not Given
Q6 LEISA
Protocol
Lisinopril 5 mg 10/27/23 15:00 10/31/23 08:29
Lisinopril 5 Mg Tablet PO 11/24/23 14:59 Not Given
DAILY LEISA
Lorazepam 1 mg 10/31/23 10:32
Lorazepam 2 Mg/Ml Vial IV 10/31/23 10:33
NOW ONE
Metoprolol Succinate 12.5 mg 10/25/23 08:00 10/31/23 08:28
Metoprolol 12.5 Mg Extended Release Dose (1/2 Of 25 Mg Xl Tablet) PO 11/22/23 07:59 Not Given
DAILY LEISA
Patch Removal 0 patch 10/27/23 13:00 10/30/23 14:21
Remove Fentanyl Patch REMOVE 11/10/23 12:59 Not Given
Q72H LEISA
Polyethylene Glycol 17 grams 10/24/23 12:18
Polyethylene Glycol Powder 17 Grams Packet PO 11/21/23 12:17
DAILY PRN
constipation
Sodium Chloride 0 flush 10/24/23 13:00
Sodium Chloride 0.9% (Flush) Syringe IV 11/21/23 12:59
PER PROTOCOL LEISA
Sodium Chloride 1 ml 10/29/23 15:28
Nss (Pf) 10 Ml Vial For Ativan 2 Mg Dose IV 11/26/23 15:27
ONCE PRN
TO DILUTE LORAZEPAM
Thiamine HCl 100 mg 10/31/23 11:00
Thiamine (100 Mg/Ml) 2 Ml Vial IV 11/28/23 10:59
DAILY LEISA
Home Medications
Medication Instructions Recorded
fentanyl 50 mcg/hr transdermal 50 mcg transdermal Q72H Pain 10/24/23
patch
hydromorphone 4 mg tablet 4 mg PO Q6HPRN PRN SEVERE PAIN 10/24/23
methadone 10 mg tablet 10 mg PO TID Pain 10/24/23
ondansetron 4 mg disintegrating 4 mg PO DAILYPRN PRN nausea 10/24/23
tablet
oxycodone 15 mg tablet 15 mg PO Q4HWA Pain 10/24/23
polyethylene glycol 3350 17 gram 17 g PO DAILY PRN constipation 10/24/23
oral powder packet (Miralax)
Past History
Past History
ED Past Medical History: Asthma, COPD, Hypercholesterolemia, Hypothyroidism, Psychiatric (Major depression), Other (Transverse myelitis with lesions at C6-7, C4, epilepsy, hepatitis C,) and Other (Prior drug overdoses, prior ventilator dependent
narcotic drug overdose, rheumatoid arthritis)
ED Past Surgical History: Appendectomy, and Tonsilectomy
Social History
Tobacco: Smoker
Alcohol: Former
Drug: Narcotics and Other (Cocaine positivity October 2023)
Personal: Single
Living: with family
Employment: Not employed
Family History
Family History: Unable to obtain
--- NOTE | 2023-10-31 10:38 | W.PN.ID1 ---
Date of Service
Date of Service: October 31, 2023
Today's Communication
Continue current antibiotics. Will order LP and CSF labs.
Assessment / Plan
Encephalopathy
- unclear etiology at present
Leukocytosis
- may be secondary to steroid effect, cannot rule out infectious process.
COVID-19 (vaccinated patient)
- Day #4 of remdesivir.
COPD
Hypothyroidism
Multiple sclerosis
Substance abuse (on chronic methadone; UDS positive for multiple substances)
Recommendations:
Continue metronidazole and remdesivir for today.
Trend O2 sat. Attempt to wean O2.
Increase in white count concerning. May be all secondary to steroids, but cannot rule out an infectious process.
Given ongoing encephalopathy, would obtain LP. Patient on anticoagulants, washout will need to be coordinated with Interventional Radiology.
Follow white count and temperature curve.
Chief Complaint
-: Other (Covid-19; encephalopathy)
Subjective / Review of Systems
Review of Systems: No Fever and No Chills
Vital Signs / Physical Exam
Vital Signs
Vital Signs
Temp Pulse Resp BP Pulse Ox
96.9 F L 85 23 114/78 89
10/31/23 07:20 10/31/23 06:00 10/31/23 06:00 10/31/23 06:00 10/31/23 03:52
Physical Exam
Constitutional: Acutely Ill, Non-toxic and Cachetic
Head: Other (Temporal wasting.)
Eyes: No Conjunctival Hemorrhage and Sclera Anicteric
Oropharyngeal: Negative Thrush
Cardiovascular: S1/S2; Negative S3/S4
Pulmonary: Non Labored
Gastrointestinal: Soft, Non Tender, Non Distended and Normal Bowel Sounds
Extremities: Negative Edema
Neurological: Meningeal Signs (Questionable nuchal rigidity.) and Other (Patient with minimal responsiveness to verbal questioning.)
Psychological: Confused
Objective Data
Lab Data
Lab Results
10/31/23 05:47
10/31/23 04:32
PT 15.7 Sec (11.4-14.6) H 10/24/23 09:12
INR 1.27 10/24/23 09:12
APTT 33.2 Sec (23.4-35.0) 10/25/23 13:35
Estimated Creat Clear 41 ml/min 10/31/23 04:32
Lactic Acid Cancelled 10/24/23 17:00
Total Bilirubin 1.8 mg/dl (0.2-1.3) H 10/31/23 04:32
AST 106 U/L (14-36) H 10/31/23 04:32
ALT 62 U/L (0-35) H 10/31/23 04:32
Alkaline Phosphatase 177 U/L (38-126) H 10/31/23 04:32
C-Reactive Protein 19.40 mg/L (0.0-10.00) H 10/30/23 05:39
Most recent labs reviewed.
Micro Results:
10/24/23 09:39 Blood Culture - Final
Blood/Venous No Growth - Final Report
10/24/23 09:12 Blood Culture - Final
Blood/Venous No Growth - Final Report
10/24/23 12:42 Nasal Screen MRSA (PCR) - Final
Nose MRSA not detected - performed by PCR methodology.
10/24/23 09:39 Influenza Types A & B (YANY) - Final
Nasal Swab Negative for Influenza A & B, NAAT
Negative results must be combined with clinical observations
and patient history.
Nucleic Acid Amplification test (NAAT)performed on the
[employer] platform.
Imaging:
10/29/2023 CT head without contrast: Moderate ventricular sulcal prominence consistent with atrophy. Brain parenchyma is normal attenuation. No intra or extra-axial masses, hemorrhage or fluid collection. Please see full dictation for additional
detail.
10/28/2023 CXR (portable): Mild � moderate interstitial airspace disease in the right middle lobe consistent with pneumonia which is significantly improved when compared to prior study. Lungs are otherwise clear. Please see full dictation for
additional detail.
10/24/2023 CT chest: Large right middle lobe pneumonia noted. Small volume right hilar lymphadenopathy.
Care Review
Plan reviewed with: Physician (Hospitalist, Neurology, IR, Nephrology)
[2023-10-31 11:03] LABS: Ammonia < 9 umol/L (9-30)
[2023-10-31] MEDS: THIAMINE INJECTION 100 MG IV (11:47)
[2023-10-31 11:49] LABS: Erythrocyte Sed Rate 61 mm/hour (0-20)
--- NOTE | 2023-10-31 11:55 | PTCARENOTE ---
Pt tachypnic 27-45 pox 789-92% on 15 liter mid flow working to breath very restless . Pt for tx to icu awaiting a bed. Pt had large soft brown BM, bladder scan foer 302
[2023-10-31] MEDS: COMBIVENT RESPIMAT INHAL SPRAY 1 PUFF INH ×2 (11:57→19:50)
[2023-10-31 12:04] LABS: TSH Reflex To Free T4 9.59 uIU/ml (0.47-4.68)
[2023-10-31 12:21] LABS: Glucose - Point of Care 142 mg/dl (70-99)
--- NOTE | 2023-10-31 12:21 | W.PN.ONC ---
Today's Communication / Plan
-
Thrombocytopenia - as below - potentially multifactorial
hold lovenox
HIT ab pending
therapeutic arixtra for anticoagulation
follow CBC
Impression
Impression
Portal vein thrombosis indeterminate age
thrombocytopenia
Acute hypoxic respiratory insufficiency
COVID-19
Right middle lobe pneumonia
Cardiomyopathy, EF 30 to 35%
Elevated troponin
Hyponatremia
Hypothyroidism
COPD
Multiple sclerosis
h/o substance abuse
Tobacco abuse
Chronic pain
Possible remote atrial fibrillation
Plan
Plan
1. Portal vein thrombosis indeterminate age
-pt is hypercoagulable in setting of COVID 19 positivity
-evaluation for thrombophilia - cardiolipin, beta 2 glycoprotein I, and phosphatidyl serine antibodies not detected
-had been on eliquis until 10/26 when stopped
-transitioned to lovenox 10/30 - s/p 1 dose 50mg (1mg/kg) therapeutic dose last evening
-plts dropped slightly today - lovenox held this am
-will transition to arixtra post LP today
2. Thrombocytopenia
-review of platelet count for the past 5-6 days reveals variable counts between 125,000 - 196,000
-platelet count on 10/29 prior to resuming lovenox was 125,000
-patient has multiple reasons for thrombocytopenia including COVID, pneumonia, acute infection/ inflammatory illness, antibiotics/ meds
-HIT is on the differential - given prior exposure to lovenox - however timing of platelet drop, amount of platelet drop on re-exposure, as well as presence of multiple other factors which could cause thrombocytopenia makes HIT less likely
-HIT 4T score of <3 - low probability
-HIT antibody pending
-transition to therapeutic arixtra 5mg daily - for treatment of portal vein thrombosis
-follow CBC
Will continue to follow with you.
Subjective/Objective
Subjective/Objective
In ICU
Vital Signs:
Vital Signs
Temp Pulse Resp BP Pulse Ox
96.9 F L 88 36 114/78 96
10/31/23 07:20 10/31/23 12:15 10/31/23 12:15 10/31/23 06:00 10/31/23 12:15
Lab Results:
Laboratory Data
WBC 33.7 10^3/uL (4.8-10.8) H 10/31/23 05:47
Hgb 12.6 g/dL (12.0-16.0) 10/31/23 05:47
Plt Count 128 10^3/uL (130-400) L 10/31/23 05:47
PT 15.7 Sec (11.4-14.6) H 10/24/23 09:12
INR 1.27 10/24/23 09:12
APTT 33.2 Sec (23.4-35.0) 10/25/23 13:35
eGFR 57.17 10/31/23 04:32
Orders
Orders
Orders From Last 24 Hours
10/31/23 10:45
PT/INR [Prothrombin Time] Routine
PTT Routine
10/31/23 18:00
Fondaparinux Sodium [Arixtra] 5 mg SC QPM
[2023-10-31 12:42] LABS: Folate 4.5 ng/ml (2.76-20); Vitamin B12 617 pg/ml (239-931)
--- NOTE | 2023-10-31 12:50 | CM ---
pna/copd on iv falgyl,iv lasix,+uds.patient now with abrupt change in mental status due to TME per neurology,thrashing limbs in bed.now on high flow o2 100% fio2/55 liters nc o2.patient will be transferred to ICU.
--- NOTE | 2023-10-31 12:56 | W.PN.INTV ---
Today's Communication / Plan
Recommendations
Transferred to ICU
Lumbar puncture
Antibiotics per infectious disease
Begin inhalers
Mobilize secretions
Supplemental oxygen as needed
Decrease sedating medications
Neurology evaluation
Assessment
-
Ms Kaitlin Esparza is a 63/W adm 10-24 with several d h/o dyspnea. Brought by EMS to ER, no EMS report available, ER note mentioned administration of DNs in route which improved O2 from low 90s victoria mid 90s. Seen at ICU, on BPAP 14/5 with O2 4L , POx
92%, in moderate resp distress, intermittently agitated and trying to remove BPAP mask. Unfortunately very poor historian at time of visit, unknown baseline MS, appears acutely on chronically ill-she continues to have mental status changes and
infectious disease wished lumbar puncture and patient transferred for deteriorating neurologic status to the ICU 10/31/2023
Acute respiratory failure
Toxic metabolic encephalopathy/abrupt change in mental status
RML infiltrate
COVID positive
Elevated PCT
Leukocytosis s eosinophilia
COPD exacerbation
Heart failure-acute new onset with reduced EF-35%
Hyponatremia, uncertain chronicity
Low serum osmolality
Lactic acidosis
Mild transaminitis
Portal vein thrombosis
Elevated troponin and BNP: LVEF 30-35% with WMAs
Flu negative
Elevated ESR-61
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
COPD
Hypothyroidism
Multiple sclerosis
Substance abuse: on methadone
VDRF due to overdose Jul 2011
Chronic pain: reportedly on fentanyl patch, hydromorphone, oxycodone
Smoker
Alcohol: Former
Plan:
Patient with abrupt mental status changes also requiring a lumbar puncture transferred to ICU 10/31/2023 in critical condition
Supplemental oxygen as needed
Nebulizers if needed-currently not bronchospastic
Aspiration precautions especially in light of depressed mental status
Speech therapy following
Follow chest x-ray and infiltrate
Flutter if able
Consider vest therapy to help mobilize secretions
Follow chest x-ray
Cultures reviewed
Infectious disease following
Monitor leukocytosis-significant increase
On remdesivir
Decadron 6 mg daily
Lumbar puncture 10/31/2023 pending
Pressors if needed
Neurology evaluation ongoing-correspondence reviewed
Discontinue fentanyl patch and other medications that might cause mental status changes
Consider EEG
Also saw psychiatry 10/28/2023
Monitor thrombocytopenia
Hematology following
Lovenox on hold hold
HIT pending
Arixtra for anticoagulation
Follow CBC
Diuresis as tolerated
Monitor renal function, electrolytes, intake/output, lower extremity edema and weight
Replace electrolytes as needed
Nephrology following
Monitor hyponatremia
VICTOR MANUEL held-follow renal function
Arixtra Eliquis continues for portal vein thrombosis-suspected covid infection related
Patient will see GI as an outpatient
Monitor for arrhythmias
Troponin trended
Cardiology follow-up till 10/28/2023
Smoking cessation counseling
Chronic pain and polysubstance abuse
DVT prophylaxis-on Eliquis
Nutrition with aspiration precautions
Critical care statement: A total of 40 minutes of critical care time was provided for this patient today. This includes management of unstable vital signs, evaluation of the patient at bedside, reviewing the patient's pertinent medical records
including radiographs, microbiology, laboratory evaluations, and discussion with primary team, consultants, pharmacy, nutrition, physical therapy, case management, charge nurse, critical care nursing, and respiratory therapy.
Diagnostic tests:
CXR 10-24-23 c/w Apr 2023: New R basilar infiltrate. Mild pulm vasc congestion. No free air. Blunted c-d angles.
Chest x-ray 10/30/2023-improving right lower lobe pneumonia
Chest CTA 10-24-23: No PE. RML infiltrate. RLL patch of pneumonitis. Patchy small lingular infiltrates.
Brain MRI 10/30/2023-no acute intracranial abnormalities
Echocardiogram 10/24/2023-EF 30-35%, mild mitral regurgitation, aortic sclerosis
Subjective Dataa
Subjective Data
Date of Service:
Date of Service: October 31, 2023
Chief Complaint: Beet Topper Follow Up and Pulmonary Follow Up
Objective Data
Data Reviewed
Vital Signs / I&O / Oxygen:
Vital Signs
Temp Pulse Resp BP Pulse Ox
96.7 F L 88 36 114/78 96
10/31/23 11:40 10/31/23 12:15 10/31/23 12:15 10/31/23 06:00 10/31/23 12:15
Intake and Output
10/30/23 10/31/23 11/01/23
06:59 06:59 06:59
Intake Total 760 / 760
Output Total 700 / 700 300 / 300
Balance 60 / 60 -300 / -300
SaO2 96
Nasal Cannula flow liters per 55
minute
Physical Exam
General: Respiratory Distress
HEENT: Normocephalic and Moist Mucous Membranes
Cardiovascular: Regular Rhythm, Murmur (n) and Peripheral Edema (mild LANCE)
Respiratory: Wheeze (n), Crackles, Accessory Resp Muscle Use (mild) and Stridor (n)
GI: Soft, Non Distended and Non Tender
Neurology: Awake, Oriented and No Motor Deficits
Skin: Dry
Labs/Micro/Reports
Lab Data
10/31/23 05:47
Laboratory Results
10/30/23
22:43
pH 7.50 H
pCO2 29 L
pO2 67 L
HCO3 22.6
O2 Delivery Level
Microbiology
10/24/23 09:39 Blood/Venous Blood Culture - Final
No Growth - Final Report
10/24/23 09:12 Blood/Venous Blood Culture - Final
No Growth - Final Report
[2023-10-31] MEDS: NSS 30 IV (13:43)
[2023-10-31] MEDS: VEKLURY 250 MG IV (13:43)
[2023-10-31 14:09] LABS: Free T4 0.51 ng/dl (0.78-2.19)
[2023-10-31] MEDS: COMBIVENT RESPIMAT INHAL SPRAY INH (15:36)
--- NOTE | 2023-10-31 16:00 | PTCARENOTE ---
PT received from IMU, PT is awake, not oriented to self, place, time, PT remains nonverbal, restless and thrashing in bed, PT receive full CHG bath, linen change, bladder scanned for >360 ml, using sterile technique a indwelling catheter placed,
nadya urine returned, NSR HR 70's, +pulses trace edema, 50L/50% Hi Flow, B/L BS coarse rhonchi T/O, abdomen soft NT, smear of stool, right midline flushed and patent, PT has a scattered petechial rash on arms and legs, sacrum has a square red
petechial rash where a foam had been, Calazime applied, at bedside and updated, LP cancelled as PT is unable to lay prone at this time
--- NOTE | 2023-10-31 17:04 | EEG.RPT ---
Electroencephalogram Report
Recording
Date of EE10/31/23
Type of EEG: Routine
Length of EEG recordin mins
Done with Video Recording: Yes
Patient Status: Inpatient
Recording Conditions: Confused
Hyperventilation Performed: No
Photic Stimulation Performed: Yes
Report
METHODS
A 21 channel digitized electroencephalogram was performed at [facility]. The 10/20 international system of electrode placement was used. In addition to EEG, the patient was monitored for EKG. The duration of the recording was 25 minutes.
BACKGROUND
The background was diffusely slow to 5-6Hz.
HYPERVENTILATION
Hyperventilation was not performed.
PHOTIC STIMULATION
Photic stimulation using a step-menon increase in photic frequency varying from 1-31 Hertz resulted in no driving responses but no appearance of abnormal activity.
ABNORMAL EEG ACTIVITY
The background was diffusely slow to 5-6Hz.
CLINICAL EVENTS
Clinical events consisted of head movement, 'constant tremor/shaking,' L hand movement, and turning her head. No clear epileptiform correlate was noted.
INTERPRETATION AND CLINICAL CORRELATION
This EEG is abnormal due to the presence of diffuse slowing of the background to theta range frequencies. Clinical events consisted of head movement, 'constant tremor/shaking,' L hand movement, and turning her head. No clear epileptiform correlate
was noted. Overall the study is consistent with moderate diffuse cerebral dysfunction, nonspecific in etiology. Of note the study was heavily obscured by severe diffuse near constant muscle and movement artifact which limited the study; underlying
epileptiform abnormalities cannot be definitively excluded.
--- NOTE | 2023-10-31 17:54 | PTCARENOTE ---
"PT incontinent of large loose burgundy stool, heme tested +, TT Dr Boyd and DR Alfred regarding Heme positive and Argatroban, awaiting answer, PT received full CHG bath and linen, As per DR Alfred and Dr Boyd hold Argatroban, GI consult placed by Dr Tima (~), PT continues being nonverbal, moans only, does not follow commands, continuously restless"
[2023-10-31 18:00] LABS: Glucose - Point of Care 123 mg/dl (70-99)
[2023-10-31 18:04] LABS: Carbon Dioxide 21 mmol/L (22-30); Chloride 122 mmol/L (98-107); Potassium 3.9 mmol/L (3.5-5.1); Sodium 147 mmol/L (135-145)
--- NOTE | 2023-10-31 20:33 | PTCARENOTE ---
Pt lethargic, arouses to name but does not follow commands, NSR on monitor 70-80bpm. Received her on 50L/50% Hiflow sats are 100%, RT decreased Hiflow 50L/40% sats 98%. D5W at 100ml/hr via midline. Thermistor Morgan in place, 75ml nadya urine out
thus far. Petechia rash on all limbs and sacrum with scattered scabs. Q2 turns with pillows.
[2023-11-01] VITALS (24 sets, daily range): BP systolic 78–143; BP diastolic 39–97; BMI 19.2
[2023-11-01 00:42] LABS: Glucose - Point of Care 110 mg/dl (70-99)
[2023-11-01] MEDS: NOVOLOG FLEXPEN-LOW RESISTANCE SC ×4 (01:01→17:40)
[2023-11-01] MEDS: FLAGYL 500 MG 100 IV ×3 (02:11→17:39)
[2023-11-01 04:09] LABS: Hematocrit 34.9 % (37.0-47.0); Hemoglobin 12.5 g/dL (12.0-16.0); Mean Corp Hgb Conc. 35.8 g/dL (33.0-37.0); Mean Corpuscular Hgb 39.1 pg (27.0-31.0); Mean Corpuscular Volume 109.1 fL (81.0-99.0); Mean Platelet Volume 12.8 fL (7.4-10.4); Platelet Count 116 10^3/uL (130-400); Red Cell Dist. Width 14.8 % (11.5-14.5); White Blood Cell Count 31.6 10^3/uL (4.8-10.8)
[2023-11-01 04:19] LABS: PT 20.8 Sec (11.4-14.6)
[2023-11-01 04:20] LABS: APTT 44.3 Sec (23.4-35.0)
[2023-11-01 04:31] LABS: ALT (SGPT) 68 U/L (0-35); AST (SGOT) 74 U/L (14-36); Albumin 2.1 g/dl (3.5-5.0); Alkaline Phosphatase 260 U/L (38-126); Blood Urea Nitrogen 46 mg/dl (7-17); Calcium 7.8 mg/dl (8.4-10.2); Carbon Dioxide 18 mmol/L (22-30); Chloride 123 mmol/L (98-107); Direct Bilirubin 1.2 mg/dl (0.0-0.4); Estimated Creatinine Clearance 28 ml/min; Glucose 97 mg/dl (70-99); Potassium 3.4 mmol/L (3.5-5.1); Sodium 146 mmol/L (135-145); Total Bilirubin 1.2 mg/dl (0.2-1.3); eGFR 36.47
[2023-11-01] MEDS: KCL 270 MEQ IV (05:47)
[2023-11-01] MEDS: D5W 1000 IV ×2 (06:42→20:26)
[2023-11-01 06:52] LABS: Glucose - Point of Care 110 mg/dl (70-99)
--- NOTE | 2023-11-01 07:42 | W.PN.INTV ---
Today's Communication / Plan
Recommendations
Supplemental oxygen
Mucus clearing devices
Antibiotics
Pressors if needed
Eventual lumbar puncture when not as agitated
Assessment
-
Ms Kaitlin Esparza is a 63/W adm 10-24 with several d h/o dyspnea. Brought by EMS to ER, no EMS report available, ER note mentioned administration of DNs in route which improved O2 from low 90s victoria mid 90s. Seen at ICU, on BPAP 14/5 with O2 4L , POx
92%, in moderate resp distress, intermittently agitated and trying to remove BPAP mask. Unfortunately very poor historian at time of visit, unknown baseline MS, appears acutely on chronically ill-she continues to have mental status changes and
infectious disease wished lumbar puncture and patient transferred for deteriorating neurologic status to the ICU 10/31/2023
Acute respiratory failure
Toxic metabolic encephalopathy/abrupt change in mental status
RML infiltrate
COVID positive
Elevated PCT
Leukocytosis s eosinophilia
COPD exacerbation
Heart failure-acute new onset with reduced EF-35%
Hyponatremia, uncertain chronicity
Low serum osmolality
Lactic acidosis
Mild transaminitis
Portal vein thrombosis
Elevated troponin and BNP: LVEF 30-35% with WMAs
Flu negative
Elevated ESR-61
GI bleed 10/31/2023
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
COPD
Hypothyroidism
Multiple sclerosis
Substance abuse: on methadone
VDRF due to overdose Jul 2011
Chronic pain: reportedly on fentanyl patch, hydromorphone, oxycodone
Smoker
Alcohol: Former
Plan:
Critically ill with depressed mental status and hypoxemia
Supplemental oxygen as needed
High flow oxygen if needed
Nebulizers if needed-currently not bronchospastic
Aspiration precautions especially in light of depressed mental status
Speech therapy following
Follow chest x-ray and infiltrate
Flutter if able
Consider vest therapy to help mobilize secretions
Follow chest x-ray
Cultures reviewed
Infectious disease following-correspondence reviewed
Monitor leukocytosis-significant increase
On remdesivir-day 5
Decadron 6 mg daily
Lumbar puncture 10/31/2023-unable to perform due to agitation-pending
Pressors if needed
Neurology evaluation ongoing-correspondence reviewed
Discontinue fentanyl patch and other medications that might cause mental status changes
EEG-10/31/2023-no obvious epileptiform discharges but cannot be completely ruled out because of significant underlying artifact from movement
Also saw psychiatry 10/28/2023
Follow thrombocytopenia
Hematology following
Lovenox on hold hold
HIT pending
Arixtra for anticoagulation
Argatroban was to be started but did not due to GI bleed
Follow hemoglobin
Transfuse as needed
GI evaluation 11/01/2023 for burgundy stools-pending
Diuresis as tolerated
Monitor renal function, electrolytes, intake/output, lower extremity edema and weight
Continue to replace electrolytes as needed
Nephrology following-correspondence reviewed
Monitor hyponatremia
VICTOR MANUEL held-follow renal function
Arixtra continues for portal vein thrombosis-suspected covid infection related
Patient will see GI as an outpatient
Monitor for arrhythmias
Troponin trended
Cardiology follow-up till 10/28/2023
Smoking cessation counseling once alert and can comprehend advice
Chronic pain and polysubstance abuse
DVT prophylaxis-on Eliquis
Nutrition with aspiration precautions
Critical care statement: A total of 36 minutes of critical care time was provided for this patient today. This includes management of unstable vital signs, evaluation of the patient at bedside, reviewing the patient's pertinent medical records
including radiographs, pressor management, microbiology, laboratory evaluations, and discussion with primary team, consultants, pharmacy, nutrition, physical therapy, case management, charge nurse, critical care nursing, and respiratory therapy.
Diagnostic tests:
CXR 10-24-23 c/w Apr 2023: New R basilar infiltrate. Mild pulm vasc congestion. No free air. Blunted c-d angles.
Chest x-ray 10/30/2023-improving right lower lobe pneumonia
Chest CTA 10-24-23: No PE. RML infiltrate. RLL patch of pneumonitis. Patchy small lingular infiltrates.
Brain MRI 10/30/2023-no acute intracranial abnormalities
Echocardiogram 10/24/2023-EF 30-35%, mild mitral regurgitation, aortic sclerosis
Subjective Dataa
Subjective Data
Date of Service:
Date of Service: November 01, 2023
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
Subjective:
Still with significant secretions, mental status depressed, unable to do lumbar puncture due to agitation, review of systems unobtainable
Review of Systems
General: Unobtainable - Pat Unresp and Other (Per HPI)
Objective Data
Data Reviewed
Vital Signs / I&O / Oxygen:
Vital Signs
Temp Pulse Resp BP Pulse Ox
97.7 F 88 24 112/97 93
11/01/23 07:23 11/01/23 06:00 11/01/23 06:00 11/01/23 06:00 11/01/23 06:00
Intake and Output
10/31/23 11/01/23 11/02/23
06:59 06:59 06:59
Intake Total 900 / 900
Output Total 300 / 300 125 / 125
Balance -300 / -300 775 / 775
SaO2 93
Nasal Cannula flow liters per 50
minute
Physical Exam
General: Respiratory Distress
HEENT: Normocephalic and Moist Mucous Membranes
Cardiovascular: Regular Rhythm, Murmur (n) and Peripheral Edema (mild LANCE)
Respiratory: Wheeze (n), Crackles, Accessory Resp Muscle Use (mild) and Stridor (n)
GI: Soft, Non Distended and Non Tender
Neurology: Awake, Alert and No Motor Deficits
Skin: Dry
Labs/Micro/Reports
Lab Data
11/01/23 03:57
11/01/23 03:57
Laboratory Results
10/31/23 10/31/23 11/01/23
10:45 17:38 03:57
PT Cancelled Cancelled 20.8 H
INR Cancelled Cancelled 1.80
APTT Cancelled Cancelled 44.3 H
Microbiology
10/24/23 09:39 Blood/Venous Blood Culture - Final
No Growth - Final Report
10/24/23 09:12 Blood/Venous Blood Culture - Final
No Growth - Final Report
--- NOTE | 2023-11-01 07:42 | W.PN.HOSP.TC ---
Today's Communication/Plan
-
see A/P
Assessment / Plan
Assessment / Plan
HPI: 63-year-old female with past medical history of hypothyroidism, COPD, multiple sclerosis, substance abuse on methadone, chronic opiate, tobacco abuse, COPD, chronic pain, ?History of atrial fibrillation; p/w shortness of breath.
A/P:
# Acute hypoxic respiratory insufficiency
# COPD exacerbation
# Severe sepsis POA, secondary to CAP
# SARS-CoV-2
procal 1.12, MRSA screen negative, Blood Cx negative
She was treated with Cefepime, received 7 days, discontinued further cefepime
Cont Flagyl for anaerobe coverage, will treat for 5 days
Cont O2 support, increased to 10L mid flow, wean O2 as tolerated, pt not on home O2
DuoNebs every 4 standing
Started RemD x5 days with persistent hypoxia
Solu-Medrol 40 mg every 12 -> Decadron 6 mg daily x10 days
Incentive Foster
Pulm/Aircraft Air Conditioning Mechanic on board
ID on board
# Leucocytosis, steroid induced vs encephalitis (see below)
ID on board
# Acute TME, unclear etiology, ddx including psychosis from polysubstance abuse vs encephalitis vs others
Off fentanyl patch, off ATC oxycodone, off PRN Morphine
UDS positive for opiate/fentanyl/benzo, also cocaine and methamphetamine
CT head x2: No acute intracranial abnormality noted.
MRI brain No acute intracranial abnormality noted.
EEG without overt seizure activity
pending LP,
follow meningitis panel, CSF paraneoplastic Ab, Myelin Oligodendrocyte Glycoprotein (MOG) Antibody when LP is performed
ID/ Neuro on board
NPO for now, start TF
# Hypoglycemia due to decreased PO , resolved
# New onset acute HFrEF
Echo with EF 30 to 35%, akinesis of the septum and apex, normal contraction of the basal inferior, inferolateral, and lateral louis, hypokinesis of the remaining segments, mild MR, aortic sclerosis with mild AR
s/p gentle diuresis with IV Lasix 20 mg daily, hold with COY
Started low-dose Toprol, monitor blood pressures
Cardiology on board, added lisinopril for reduced EF- on hold with COY
consider outpt ischemic eval
# Hyponatremia
# Now hypernatremia
Now on D5W
Nephro on board
# Drop in platelet, concern for HIT
Pt received Lovenox therapeutic dose 10/24 - 10/26
Follow HIT Ab
Heme on board
was planned to start argatroban, but did not start due to GIB
# GIB 10/31 with burgundy stool
GI CS
# COY
SCr trending upward 0.9 -> 1.6
cont IVF with D5W
hold ACEI
Renal on board
# Portal vein thrombosis, unclear acute v chronic, can be related to COVID-19
Lovenox 1 mg/kg -> Eliquis 2.5 mg BID -> Argatroban (did not start due to GIB)
APL panel unrevealing,
pending prothrombin gene mutation, PENNY-2 mutation test results
hematology on board
# Transaminitis due to Hepatocellular injury
Most likely secondary to portal vein thrombosis +/- congestive hepatopathy
No statin
Monitor LFT
# Elevated troponin likely non-LA troponin elevation in setting of acute CHF
troponin plateaued at 0.16
# Polysubstance abuse
# Tobacco use
# Chronic pain
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
# Multiple sclerosis
# Hypokalemia
replete
DVT prophylaxis: SCD, pending argatroban
DW Aircraft Air Conditioning Mechanic
updated on the phone
Total Critical Care Time__51__ minutes. I was immediately available to the patient and staff. I personally examined, reviewed labs, diagnostic images/reports, interpretations, treatment plans, discussed patient care with other providers and
family or caregivers (if patient is unable to make decisions), entered orders as appropriate and documented the medical record.
Anticipated Discharge: > 48 hours
Subjective/Interval History
-
Date of Service: November 01, 2023
Objective Data
-
Labs:
Laboratory Results
11/01/23
03:57
WBC 31.6 H
Hgb 12.5
Hct 34.9 L
Plt Count 116 L
PT 20.8 H
INR 1.80
APTT 44.3 H
Sodium 146 H
Potassium 3.4 L
Chloride 123 H
Carbon Dioxide 18 L
BUN 46 H
Creatinine 1.6 H
Glucose 97
Calcium 7.8 L
Total Bilirubin 1.2
AST 74 H
ALT 68 H
Alkaline Phosphatase 260 H
Vital Signs:
Vital Signs
Temp Pulse Resp BP Pulse Ox
36.5 C 88 24 112/97 93
11/01/23 07:23 11/01/23 06:00 11/01/23 06:00 11/01/23 06:00 11/01/23 06:00
I&O
10/31/23 11/01/23 11/02/23
06:59 06:59 06:59
Intake Total 900 / 900
Output Total 300 / 300 125 / 125
Balance -300 / -300 775 / 775
Review of Systems
-
Unable to obtain full review of systems at this time due to: Acuity
Physical Exam
-
General: Well Developed and Appears Chronically Ill
HEENT: Normocephalic, Atraumatic, Nose Appears Normal, Ears Appear Normal and Oxygen (10L NC)
Respiratory: Clear to Auscultation and Non Labored Respirations; Negative Accessory Resp Muscle Use
Cardiac: Regular Rhythm and S1/S2
GI: Soft, Nontender, Nondistended and Normal Bowel Sounds
Genito-urinary: Morgan
Skin: Warm and Dry
Psych: Calm and Confused; Negative Intact Judgement/Insight
Data Reviewed
-
CT Scan: Report Reviewed by me
MRI: Report Reviewed by me
Labs: Labs Reviewed by me
[2023-11-01] MEDS: COMBIVENT RESPIMAT INHAL SPRAY INH ×4 (07:48→21:31)
[2023-11-01] MEDS: DECADRON 6 MG IV (09:03)
[2023-11-01] MEDS: THIAMINE INJECTION 100 MG IV (09:05)
[2023-11-01] MEDS: TOPROL XL PO ×2 (09:06→09:07)
--- NOTE | 2023-11-01 10:08 | W.PN.ID1 ---
Date of Service
Date of Service: November 01, 2023
Today's Communication
progressive hypoxemia and COY
continue remdesivir - day 5
continue metronidazole
await LP
Assessment / Plan
Encephalopathy
- unclear etiology at present,
Leukocytosis
- may be secondary to steroid effect, cannot rule out infectious process.
COVID-19 (vaccinated patient)
- Day #5 of remdesivir.
COPD
Acute Onset CHF - Ef 30%
COY - new
Hypothyroidism
<del>Multiple</del> <del>sclerosis</del> not confirmed, not on outpatient immunosuppression
Portal vein thrombosis acute vs chronic - with ascites
Substance abuse (on chronic methadone; UDS positive for multiple substances)
Recommendations:
on 5L NC on my exam
COY - progressive; nephrology following
Transaminitis resolving, ammonia neg
Leukocytosis noted - steroids vs infection
Continue metronidazole day 4 of 5 and remdesivir (day 5)
Steroids per pulmonary
Given ongoing encephalopathy, would obtain LP - pending Patient on anticoagulants, washout will need to be coordinated with Interventional Radiology.
Follow white count and temperature curve.
Chief Complaint
-: Other (Covid-19; encephalopathy)
Subjective / Review of Systems
afebrile
bp stable
now on high flow NC at 50L per chart but on my evaluation in the room on 5L NC
declining leukocytosis
increasing cr now 1.6
LP pending
reviewed neuro note 'no confirmation of MS, history of transverse myelitis... 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
Vital Signs / Physical Exam
Vital Signs
Vital Signs
Temp Pulse Resp BP Pulse Ox
97.7 F 88 24 112/97 93
11/01/23 07:23 02/10/24 06:00 11/01/23 06:00 11/01/23 06:00 11/01/23 06:00
Physical Exam
Constitutional: Chronically Ill and Cachetic (borderline cahcetic)
Cardiovascular: Regular Rate and S1/S2; Negative Murmur or Rub
Pulmonary: Clear and Symmetric; Negative Wheezes or Rales
Gastrointestinal: Soft, Non Tender, Non Distended and Normal Bowel Sounds
Skin: Warm and Dry; Negative Rash or Jaundice
Objective Data
Lab Data
Lab Results
11/01/23 03:57
11/01/23 03:57
ESR 61 mm/hour (0-20) H 10/31/23 05:47
PT 20.8 Sec (11.4-14.6) H 11/01/23 03:57
INR 1.80 11/01/23 03:57
APTT 44.3 Sec (23.4-35.0) H 11/01/23 03:57
Estimated Creat Clear 28 ml/min 11/01/23 03:57
Lactic Acid Cancelled 10/24/23 17:00
Total Bilirubin 1.2 mg/dl (0.2-1.3) 11/01/23 03:57
AST 74 U/L (14-36) H 11/01/23 03:57
ALT 68 U/L (0-35) H 11/01/23 03:57
Alkaline Phosphatase 260 U/L (38-126) H 11/01/23 03:57
C-Reactive Protein 19.40 mg/L (0.0-10.00) H 10/30/23 05:39
Most recent labs reviewed.
Micro Results:
10/24/23 09:39 Blood Culture - Final
Blood/Venous No Growth - Final Report
10/24/23 09:12 Blood Culture - Final
Blood/Venous No Growth - Final Report
10/24/23 12:42 Nasal Screen MRSA (PCR) - Final
Nose MRSA not detected - performed by PCR methodology.
10/24/23 09:39 Influenza Types A & B (YANY) - Final
Nasal Swab Negative for Influenza A & B, NAAT
Negative results must be combined with clinical observations
and patient history.
Nucleic Acid Amplification test (NAAT)performed on the
[employer] platform.
Imaging:
10/29/2023 CT head without contrast: Moderate ventricular sulcal prominence consistent with atrophy. Brain parenchyma is normal attenuation. No intra or extra-axial masses, hemorrhage or fluid collection. Please see full dictation for additional
detail.
10/28/2023 CXR (portable): Mild � moderate interstitial airspace disease in the right middle lobe consistent with pneumonia which is significantly improved when compared to prior study. Lungs are otherwise clear. Please see full dictation for
additional detail.
10/24/2023 CT chest: Large right middle lobe pneumonia noted. Small volume right hilar lymphadenopathy.
[2023-11-01] MEDS: PROTONIX 100 IV ×2 (10:42→23:19)
--- NOTE | 2023-11-01 10:52 | PTCARENOTE ---
received pt at 0700 in bed. on 10L via mid-flow. patient awake not following commends. disoriented x3. SR 78. VSS . incontinent of dark black stool. Morgan care administered. Oliguria, dark nadya urine. HoB elevated, bed alarm activated. pt on
isolation for COVID protonix will be started
[2023-11-01] MEDS: VEKLURY 250 MG IV (12:53)
--- NOTE | 2023-11-01 13:09 | W.PN.ONC ---
Today's Communication / Plan
-
-await GI evaluation as to GI bleed and safety of anticoagulation for portal vein thrombosis
-thrombocytopenia - likely multifactorial -plts holding fairly stable - 116,000
-HITab pending - low probability
-if determined to be safe to anticoagulate - arixtra vs. argatroban while HITab pending
Impression
Impression
Portal vein thrombosis indeterminate age
thrombocytopenia
Acute hypoxic respiratory insufficiency
COVID-19
Right middle lobe pneumonia
Cardiomyopathy, EF 30 to 35%
Elevated troponin
Hyponatremia
Hypothyroidism
COPD
Multiple sclerosis
h/o substance abuse
Tobacco abuse
Chronic pain
Possible remote atrial fibrillation
GI bleed - heme pos stool
Plan
Plan
1. Portal vein thrombosis indeterminate age
-pt is hypercoagulable in setting of COVID 19 positivity
-evaluation for thrombophilia - cardiolipin, beta 2 glycoprotein I, and phosphatidyl serine antibodies not detected
-had been on eliquis until 10/26 when stopped
-transitioned to lovenox 10/30 - s/p 1 dose 50mg (1mg/kg) therapeutic dose last evening - stopped due to plts drop
-plan was to transition to arixtra vs. argatroban - however, due to potential contraindication in setting of active GI bleed anticoagulation on hold
-GI consulted for GI bleed - safety of anticoagulation as well as chronicity/ acuity of portal vein thrombosis
2. Thrombocytopenia
-review of platelet count for the past 5-6 days reveals variable counts between 125,000 - 196,000
-platelet count on 10/29 prior to resuming lovenox was 125,000
-patient has multiple reasons for thrombocytopenia including COVID, pneumonia, acute infection/ inflammatory illness, antibiotics/ meds
-HIT is on the differential - given prior exposure to lovenox - however timing of platelet drop, amount of platelet drop on re-exposure, as well as presence of multiple other factors which could cause thrombocytopenia makes HIT less likely
-HIT 4T score of <3 - low probability
-HIT antibody pending
-as above anticoagulation on hold w/ potentially active GI bleed
-once has been determined to be safe to anticoagulate - transition to therapeutic arixtra vs. argatroban while HITab pending - for treatment of portal vein thrombosis
-follow CBC
Will continue to follow with you.
Subjective/Objective
Subjective/Objective
In ICU
Vital Signs:
Vital Signs
Temp Pulse Resp BP Pulse Ox
98.0 F 88 30 129/56 95
11/01/23 13:07 11/01/23 10:00 11/01/23 10:00 11/01/23 10:00 11/01/23 10:00
Lab Results:
Laboratory Data
WBC 31.6 10^3/uL (4.8-10.8) H 11/01/23 03:57
Hgb 12.5 g/dL (12.0-16.0) 11/01/23 03:57
Plt Count 116 10^3/uL (130-400) L 11/01/23 03:57
PT 20.8 Sec (11.4-14.6) H 11/01/23 03:57
INR 1.80 11/01/23 03:57
APTT 44.3 Sec (23.4-35.0) H 11/01/23 03:57
eGFR 36.47 11/01/23 03:57
Orders
Orders
Orders From Last 24 Hours
10/31/23 16:00
Argatroban 250 mg 0.9% Sodium Chloride 250 ml [Nss] 250 ml IV PER PROTOCOL
10/31/23 18:00
Fondaparinux Sodium [Arixtra] 5 mg SC QPM
11/01/23 07:00
US Periph Venous LOWER Ext Juanito Routine
11/02/23 06:00
Complete Blood Count/No Diff IN AM
11/03/23 06:00
Complete Blood Count/No Diff IN AM
11/04/23 06:00
Complete Blood Count/No Diff IN AM
11/05/23 06:00
Complete Blood Count/No Diff IN AM
11/06/23 06:00
Complete Blood Count/No Diff IN AM
11/07/23 06:00
Complete Blood Count/No Diff IN AM
[2023-11-01 13:18] LABS: Glucose - Point of Care 114 mg/dl (70-99)
--- NOTE | 2023-11-01 13:54 | CON.GI ---
Consultation
-
Date/Time Consultation Requested: 11/01/2023
Date/Time Consultation Performed: 11/01/2023
Requesting Provider:
Performing Provider: Dr. Rodriguez
Reason for Consultation: Black stool
Medical History
Chief Complaint / HPI
Chief Complaint: Black stool
History of Present Illness:
Kaitlni is a 63-year-old female with history of chronic pain on multiple narcotics, history of multisubstance abuse with positive UDS for cocaine, methamphetamine, benzodiazepines, fentanyl and opiates, history of drug overdose, smoker with COPD
presenting to the emergency room with shortness of breath, hypoxia. Also noted to have change in mental status being nonverbal but awake, right middle lobe pneumonia,COVID-positive, portal vein thrombus noted this admission, on argatroban which is
now on hold for GI bleeding. Last night, patient apparently had burgundy stool, this morning also noted to have black stool. Patient is nonverbal and no history could be obtained. No previous GI records.
I called and spoke with patient's , no previous history of GI bleeding, never had an upper endoscopy or colonoscopy. As per patient's , she has history of hepatitis C but not active, she was admitted to [facility] 3 to 4 years ago for
bowel obstruction, unclear if it was large or small bowel and if she had any surgery.
No significant alcohol use.
Reviewing labs, hemoglobin seems to be stable, slight thrombocytopenia, INR on argatroban 1.8, elevated creatinine which seems to be new, elevated bilirubin, all direct, elevated ALT, AST 2-1/2 times upper limit of normal and elevated alkaline
phosphatase with normal ammonia. Albumin of 2.1.
Labs including Anti-smooth muscle antibody, SLA, LKM antibody all unremarkable. Hepatitis C antibody reactive but PCR negative in 2009.
Abdominal ultrasound on admission, hepatic steatosis noted, small volume of abdominal ascites and thrombosed main portal vein.
Lumbar puncture with meningitis panel, CSF paraneoplastic antibody, myelin oligodendrocyte glycoprotein antibody pending. MRI of the brain without any acute abnormalities.
Past Medical History
Past Medical History: COPD, Hypothyroidism and Other (Chronic pain, hepatitis C reactivity with negative RNA )
Past Surgical History: Appendectomy, and Other (Right hemicolectomy, right hernia repair, hysterectomy and bladder repair)
Social History
Tobacco: Smoker
Alcohol: Occasional
Drug: Cocaine and Narcotics
Family History
Family History: Unable to Obtain
Allergies / Home Medications
Allergy/AdvReac Type Severity Reaction Status Date / Time
alcohol [Alcohol] Allergy HISTORY OF Verified 10/24/23 09:06
ETOH ABUSE
latex [Latex] Allergy Anaphylaxis Verified 10/24/23 09:06
nicotine [Nicotine] Allergy Hives Verified 10/24/23 09:06
Penicillins Allergy Hives Verified 10/24/23 09:06
Medication Instructions Recorded
fentanyl 50 mcg/hr transdermal 50 mcg transdermal Q72H Pain 10/24/23
patch
hydromorphone 4 mg tablet 4 mg PO Q6HPRN PRN SEVERE PAIN 10/24/23
methadone 10 mg tablet 10 mg PO TID Pain 10/24/23
ondansetron 4 mg disintegrating 4 mg PO DAILYPRN PRN nausea 10/24/23
tablet
oxycodone 15 mg tablet 15 mg PO Q4HWA Pain 10/24/23
polyethylene glycol 3350 17 gram 17 g PO DAILY PRN constipation 10/24/23
oral powder packet (Miralax)
Review of Systems
-
Unable to obtain full review of systems at this time due to: Patient Non Verbal
Vital Signs
Temp Pulse Resp BP Pulse Ox
98.0 F 88 30 129/56 95
11/01/23 13:07 11/01/23 10:00 11/01/23 10:00 11/01/23 10:00 11/01/23 10:00
Physical Exam
Exam
GI: Soft, Non Tender and Non Distended
Results
WBC 31.6 10^3/uL (4.8-10.8) H 11/01/23 03:57
Hgb 12.5 g/dL (12.0-16.0) 11/01/23 03:57
Hct 34.9 % (37.0-47.0) L 11/01/23 03:57
MCV 109.1 fL (81.0-99.0) H 11/01/23 03:57
Plt Count 116 10^3/uL (130-400) L 11/01/23 03:57
Absolute Neuts (auto) 14.0 10^3/uL (1.4-6.5) H 10/24/23 09:12
PT 20.8 Sec (11.4-14.6) H 11/01/23 03:57
INR 1.80 11/01/23 03:57
APTT 44.3 Sec (23.4-35.0) H 11/01/23 03:57
Sodium 146 mmol/L (135-145) H 11/01/23 03:57
Potassium 3.4 mmol/L (3.5-5.1) L 11/01/23 03:57
Chloride 123 mmol/L (98-107) H 11/01/23 03:57
Carbon Dioxide 18 mmol/L (22-30) L 11/01/23 03:57
BUN 46 mg/dl (7-17) H 11/01/23 03:57
Creatinine 1.6 mg/dL (0.6-1.0) H 11/01/23 03:57
Calcium 7.8 mg/dl (8.4-10.2) L 11/01/23 03:57
Total Bilirubin 1.2 mg/dl (0.2-1.3) 11/01/23 03:57
AST 74 U/L (14-36) H 11/01/23 03:57
ALT 68 U/L (0-35) H 11/01/23 03:57
Alkaline Phosphatase 260 U/L (38-126) H 11/01/23 03:57
Diagnostic Image Results:
Prior GI Procedures:
EGD:
Colonoscopy:
Assessment / Plan
-
63-year-old female with history of chronic pain, multidrug abuse, COPD, hypothyroidism, hepatitis C reactivity with negative RNA presenting with shortness of breath, change in mental status, noted to have portal vein thrombus at admission, started
on Lovenox followed by argatroban which is currently on hold for black stool.
Currently hemodynamically stable.
-Black stool, hemoglobin seems to be in normal range, no evidence of hematemesis
Rule out ulcer disease, esophagitis, gastritis versus other
History of hepatitis C reactivity with negative RNA, no evidence of cirrhosis noted on imaging.
Started Protonix drip
N.p.o.
Monitor H&H and transfuse as needed
If bleeding continues, will go ahead and do upper endoscopy, will need to get consent from patient's
-History of hepatitis C reactivity
Will check hepatitis C RNA PCR
Elevated total bilirubin and mild elevation in transaminases
Fib-4 may not be accurate given ?HIT for thrombocytopenia
We could get noncontrast CT abdomen to will evaluate the liver if HIT negative.
Will follow
-
-
Thank you for consultation and allowing me to participate in the patient's care. Please call the environmental health specialist GI physician during the after hours with any questions or concerns.
--- NOTE | 2023-11-01 14:45 | PTCARENOTE ---
patient in bed. Alert, disoriented x3. able to make eye contact, not following commends, non-verbal. BP via left lower arm 117/72; SR 84. RR 40; POX 95%/3L via nasal cannula. Lungs course, non productive moist weak cough. Lungs course. No loose
stool since am . pt on Protonix via RT mid-line, Ramdizivir infused
[2023-11-01] MEDS: NSS 30 IV (14:53)
[2023-11-01 15:45] LABS: Hemoglobin 12.8 g/dL (12.0-16.0)
--- NOTE | 2023-11-01 16:11 | W.PN.NEURO.1 ---
Today's Communication / Plan
-
reattempt LP as able
Neuro Assessment/Plan
Assessment
IMPRESSIONS/RECOMMENDATIONS:
Abrupt change in mental status
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
Patient also reportedly has a history of transverse myelitis of unclear etiology and abnormal enhancing lesions in the cervical spine
Reviewed MRI brain images-not clearly consistent with MS. at bedside states that she has been worked up for this in the past and he thinks she was not diagnosed with MS. Cannot remember the name of her outpatient neurologist but says she
had seizures around 2008 (none since) and has had surgery at [facility] in the past.
Plan
Monitor for alcohol withdrawal, less likely based on the patient's prolonged hospitalization at this time, provide thiamine
LP attempted by IR--had to abort as patient was agitated; reattempt as able, Dr. Danielle added oligoclonal bands, paraneoplastic evaluation, myelin oligodendrocyte glycoprotein associated disease testing
Will request records from [facility]-- cannot remember the name of outpatient neurologist she saw in the past
EEG done yesterday was severely obscured by movement/muscle artifact but no clear underlying epileptiform abnormalities were noted.
Critical care time 30 mins
Will continue to follow
Subjective/Objective
Subjective Data
Date of Service: November 01, 2023
confused, not following commands, abnormal movements captured during yesterday's EEG have resolved
Objective Data
Vital Signs
Temp Pulse Resp BP Pulse Ox
98.0 F 88 30 129/56 95
11/01/23 13:07 11/01/23 10:00 11/01/23 10:00 11/01/23 10:00 11/01/23 10:00
Lab Results
11/01/23 15:21
11/01/23 03:57
PT 20.8 Sec (11.4-14.6) H 11/01/23 03:57
INR 1.80 11/01/23 03:57
APTT 44.3 Sec (23.4-35.0) H 11/01/23 03:57
Sodium 146 mmol/L (135-145) H 11/01/23 03:57
Potassium 3.4 mmol/L (3.5-5.1) L 11/01/23 03:57
BUN 46 mg/dl (7-17) H 11/01/23 03:57
Glucose 97 mg/dl (70-99) 11/01/23 03:57
Calcium 7.8 mg/dl (8.4-10.2) L 11/01/23 03:57
Phosphorus 3.7 mg/dl (2.5-4.5) 10/25/23 04:12
Zka-H-Qowapjzswkm Pept > 86217 pg/ml 10/24/23 09:12
Vitamin B12 617 pg/ml (239-931) 10/31/23 04:32
Ur Buprenorphine Negative (Negative) 10/28/23 10:53
Patient Allergies
alcohol [Alcohol] Allergy (Verified 10/24/23 09:06)
HISTORY OF ETOH ABUSE
latex [Latex] Allergy (Verified 10/24/23 09:06)
Anaphylaxis
nicotine [Nicotine] Allergy (Verified 10/24/23 09:06)
Hives
Penicillins Allergy (Verified 10/24/23 09:06)
Hives
Physical Exam
-
General: Appears Chronically Ill
Extended Neurological Exam
Mood & Affect: Unable to Assess
Attention Span & Concentration: Other (awake, makes no eye contact, follows no commands, does not acknowledge who was at bedside, mute)
Memory: Unable to Assess
Tremor: Hand Tremor Absent and Head Tremor Absent
Speech: Mute
Cranial Nerve VII: Facial Symmetry: Normal Facial Symmetry
Cranial Nerve VIII: Hearing: Unable to Assess
Cranial Nerves IX, X: Palate Movement: Unable to Assess
Cranial Nerve XI: Shoulder Shrug: Unable to Assess
Cranial Nerve XII: Tongue Protusion: Unable to Assess
Muscle Strength, Overall: Spontaneously Moves (followed no commands for more detailed testing)
Deep Tendon Reflexes: Trace Throughout
Touch Sensation: Negative Withdrawal to Pain
Babinski Sign: Absent Bilaterally
Modified Inge Score (MRS)
-
MRS Score:
[2023-11-01 17:34] LABS: Glucose - Point of Care 129 mg/dl (70-99)
--- NOTE | 2023-11-01 17:43 | PTCARENOTE ---
patient in bed. no change in mental status since beginning of shift noted. patient awake, easily aroused, non-verbal. SR 81. bp via left upper arm 120/49 map 71. On 3L via nasal canula POX 90% weak moist non productive cough Tachypnea RR 35 Blood
sugar 129. No BM since this am. Morgan draining cloudy nadya urine decrease urinal output . Hob elevated call vora within reach
--- NOTE | 2023-11-01 22:00 | PTCARENOTE ---
Report received from previous shift RN [id number]. Pt in bed, eyes open and tracking staff, nonverbal, no commands followed. Respirations labored and tachypneic, pox 95-97% on 5L O2, lung sounds decreased w coarse rhonchi throughout. Novel respiratory
precautions maintained. Telemetry rhythm reveals SR, HR 70-80's, no edema noted, palpable peripheral pulses present, knee high SCD LLE. +BS, abdomen soft, NPO status maintained. Incontinent black smear bm at start of shift, incontinence care and
complete CHG bath/Morgan/oral care provided. Thermistor Morgan catheter draining cloudy yellow/nadya urine. Skin as documented. RUE midline catheter with IVF and Protonix infusion as ordered. Pt on lateral rotation bed and ordered percussion. Bed
alarm on and monitoring. Safe environment maintained, will monitor closely.
[2023-11-02] VITALS (20 sets, daily range): BP systolic 92–162; BP diastolic 56–144; BMI 18.9
[2023-11-02] MEDS: NOVOLOG FLEXPEN-LOW RESISTANCE SC ×4 (00:26→18:08)
--- NOTE | 2023-11-02 00:34 | PTCARENOTE ---
RN entered room to obtain accucheck and reposition pt; pt very alert and smiled at RN. RN asked pt's name and , pt answered (with garbled speech) 'Kaitlin' and about to state month and day of date. Pt able to squeeze RN's hands (L grasp
stronger than R), opened mouth at request for mouthcare, able to wiggle toes on b/l feet.
Repositioned pt. Pt watching movie and appears comfortable. Will monitor closely.
[2023-11-02 00:38] LABS: Glucose - Point of Care 114 mg/dl (70-99)
[2023-11-02] MEDS: FLAGYL 500 MG 100 IV ×3 (02:06→18:09)
--- NOTE | 2023-11-02 04:30 | PTCARENOTE ---
Pt has not slept all shift. Remains more interactive with staff, speech garbled but attempting to communicate with RN. No complaints offered. Call vora within reach, will continue to monitor.
[2023-11-02 04:59] LABS: Hematocrit 33.4 % (37.0-47.0); Hemoglobin 12.4 g/dL (12.0-16.0); Mean Corp Hgb Conc. 37.1 g/dL (33.0-37.0); Mean Corpuscular Hgb 40.7 pg (27.0-31.0); Mean Corpuscular Volume 109.5 fL (81.0-99.0); Mean Platelet Volume 13.1 fL (7.4-10.4); Platelet Count 101 10^3/uL (130-400); Red Blood Cell Count 3.05 10^6/uL (4.20-5.40); Red Cell Dist. Width 15.1 % (11.5-14.5); White Blood Cell Count 28.5 10^3/uL (4.8-10.8)
[2023-11-02 05:23] LABS: ALT (SGPT) 57 U/L (0-35); AST (SGOT) 61 U/L (14-36); Alkaline Phosphatase 319 U/L (38-126); Blood Urea Nitrogen 53 mg/dl (7-17); Calcium 7.7 mg/dl (8.4-10.2); Carbon Dioxide 15 mmol/L (22-30); Chloride 121 mmol/L (98-107); Direct Bilirubin 1.2 mg/dl (0.0-0.4); Estimated Creatinine Clearance 22 ml/min; Glucose 106 mg/dl (70-99); Potassium 4.2 mmol/L (3.5-5.1); Sodium 141 mmol/L (135-145); Total Bilirubin 1.2 mg/dl (0.2-1.3); Total Protein 4.9 g/dl (6.3-8.2); eGFR 26.31
--- NOTE | 2023-11-02 07:31 | W.PN.INTV ---
Today's Communication / Plan
Recommendations
Anticoagulation held
Follow hemoglobin
Consider endoscopy
Opiates held and mental status improved
No change in Decadron
Inhalers continue
Mucus clearing devices
Assessment
-
Ms Kaitlin Esparza is a 63/W adm 10-24 with several d h/o dyspnea. Brought by EMS to ER, no EMS report available, ER note mentioned administration of DNs in route which improved O2 from low 90s victoria mid 90s. Seen at ICU, on BPAP 14/5 with O2 4L , POx
92%, in moderate resp distress, intermittently agitated and trying to remove BPAP mask. Unfortunately very poor historian at time of visit, unknown baseline MS, appears acutely on chronically ill-she continues to have mental status changes and
infectious disease wished lumbar puncture and patient transferred for deteriorating neurologic status to the ICU 10/31/2023
Acute respiratory failure
Toxic metabolic encephalopathy/abrupt change in mental status
RML infiltrate
COVID positive
Elevated PCT
Leukocytosis s eosinophilia
COPD exacerbation
Heart failure-acute new onset with reduced EF-35%
Hyponatremia, uncertain chronicity
Low serum osmolality
Lactic acidosis
Mild transaminitis
Portal vein thrombosis
Elevated troponin and BNP: LVEF 30-35% with WMAs
Flu negative
Elevated ESR-61
GI bleed 10/31/2023
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
COPD
Hypothyroidism
Multiple sclerosis
Substance abuse: on methadone
VDRF due to overdose Jul 2011
Chronic pain: reportedly on fentanyl patch, hydromorphone, oxycodone
Smoker
Alcohol: Former
Plan:
Remains critically ill with mental status changes-slowly improving and respiratory distress
Continue supplemental oxygen as needed-attempt to wean
Nebulizers if needed-currently not bronchospastic
Aspiration precautions especially in light of depressed mental status
Speech therapy following
Follow chest x-ray and infiltrate
Flutter if able
Sport bed
Consider vest therapy to help mobilize secretions
Follow-up chest x-ray 11/03/2023
Cultures reviewed
Infectious disease following-correspondence reviewed
Monitor leukocytosis-significant increase
Finished remdesivir
Decadron 6 mg daily-no change
Lumbar puncture 10/31/2023-unable to perform due to agitation-pending
Mental status improved-off fentanyl patch, off [id number] oxycodone and off as needed morphine
Pressors if needed
Neurology evaluation ongoing-correspondence reviewed
Discontinue fentanyl patch and other medications that might cause mental status changes
EEG-10/31/2023-no obvious epileptiform discharges but cannot be completely ruled out because of significant underlying artifact from movement
Also saw psychiatry 10/28/2023
Monitor thrombocytopenia
Hematology following
Lovenox on hold hold
HIT 10/31/2023-pending
Arixtra for anticoagulation-on hold due to GI bleed
Argatroban was to be started but did not due to GI bleed
Monitor hemoglobin
Transfuse as needed
GI evaluation 11/01/2023-consultation reviewed
Begin Protonix drip
Considering upper endoscopy
CT abdomen noncontrast
Continue diuresis as tolerated
Follow renal function, electrolytes, intake/output, lower extremity edema and weight
Continue to replace electrolytes as needed
Nephrology following-correspondence reviewed
Follow hyponatremia
VICTOR MANUEL held-follow renal function
Arixtra continues for portal vein thrombosis-suspected covid infection related
Patient will see GI as an outpatient
Follow for arrhythmias
Troponin trended
Cardiology follow-up till 10/28/2023
Smoking cessation counseling once alert and can comprehend advice
Chronic pain and polysubstance abuse
DVT prophylaxis-on Eliquis
Nutrition with aspiration precautions
Critical care statement: A total of 38 minutes of critical care time was provided for this patient today. This includes management of unstable vital signs, evaluation of the patient at bedside, reviewing the patient's pertinent medical records
including radiographs, pressor management, microbiology, laboratory evaluations, and discussion with primary team, consultants, pharmacy, nutrition, physical therapy, case management, charge nurse, critical care nursing, and respiratory therapy.
Diagnostic tests:
CXR 10-24-23 c/w Apr 2023: New R basilar infiltrate. Mild pulm vasc congestion. No free air. Blunted c-d angles.
Chest x-ray 10/30/2023-improving right lower lobe pneumonia
Chest CTA 10-24-23: No PE. RML infiltrate. RLL patch of pneumonitis. Patchy small lingular infiltrates.
Brain MRI 10/30/2023-no acute intracranial abnormalities
Echocardiogram 10/24/2023-EF 30-35%, mild mitral regurgitation, aortic sclerosis
Subjective Dataa
Subjective Data
Date of Service:
Date of Service: November 02, 2023
Chief Complaint: A&P Mechanic Follow Up and Pulmonary Follow Up
Subjective:
Mental status improved, still on 5 L, difficulties mobilizing secretions, no chest pain or abdominal pain
Review of Systems
General: Other (Per HPI)
Objective Data
Data Reviewed
Vital Signs / I&O / Oxygen:
Vital Signs
Temp Pulse Resp BP Pulse Ox
97.3 F 87 36 112/69 100
11/02/23 04:00 11/02/23 06:00 11/02/23 06:00 11/02/23 06:00 11/02/23 06:00
Intake and Output
11/01/23 11/02/23 11/03/23
06:59 06:59 06:59
Intake Total 900 / 900 1800 / 1800
Output Total 125 / 125 120 / 120
Balance 775 / 775 1680 / 1680
SaO2 100
Nasal Cannula flow liters per 5
minute
Physical Exam
General: Respiratory Distress
HEENT: Normocephalic and Moist Mucous Membranes
Cardiovascular: Regular Rhythm, Murmur (n) and Peripheral Edema (mild LANCE)
Respiratory: Wheeze (n), Crackles, Accessory Resp Muscle Use (mild) and Stridor (n)
GI: Soft, Non Distended and Non Tender
Neurology: Awake, Alert and No Motor Deficits
Skin: Dry
Labs/Micro/Reports
Lab Data
11/02/23 04:31
11/02/23 04:31
[2023-11-02] MEDS: THIAMINE INJECTION 100 MG IV (07:45)
[2023-11-02] MEDS: PROTONIX 100 IV (07:45)
[2023-11-02] MEDS: DECADRON 6 MG IV (07:46)
[2023-11-02] MEDS: COMBIVENT RESPIMAT INHAL SPRAY 1 PUFF INH ×4 (07:54→20:17)
--- NOTE | 2023-11-02 08:00 | PTCARENOTE ---
Received pt awake. Speech garbled but pt is oriented to self and place, follows commands, generalized weakness but assists w/ turns. C/o generalized pain. Dr Alfred also at bedside for assessment. Pt mildly restless but pleasant and cooperative.
Psych reconsulted to evaluate medications. LS coarse throughout, occasional nonproductive cough, 99% on 5L, RR 30's, will wean oxygen as tolerated. Morgan patent w/ small amounts of nadya urine. D5W @ 80ml/hr R midline w/ Protonix gtt infusing. Smear
of black stool noted. Pt remains NPO, Speech to see pt today. Mouth care provided. Full assessment as documented.
[2023-11-02] MEDS: TOPROL XL PO (08:02)
[2023-11-02] MEDS: D5W 1000 IV (08:02)
--- NOTE | 2023-11-02 08:09 | W.PN.HOSP.TC ---
Today's Communication/Plan
-
see A/P
Assessment / Plan
Assessment / Plan
HPI: 63-year-old female with past medical history of hypothyroidism, COPD, multiple sclerosis, substance abuse on methadone, chronic opiate, tobacco abuse, COPD, chronic pain, ?History of atrial fibrillation; p/w shortness of breath.
A/P:
# Acute hypoxic respiratory insufficiency
# COPD exacerbation
# Severe sepsis POA, secondary to CAP
# SARS-CoV-2
procal 1.12, MRSA screen negative, Blood Cx negative
She was treated with Cefepime, received 7 days, discontinued further cefepime
Cont Flagyl for anaerobe coverage, treat for 5 days
Cont O2 support, adjusted to 5L, wean O2 as tolerated, pt not on home O2
DuoNebs every 4 standing
Started RemD x5 days with persistent hypoxia
Solu-Medrol 40 mg every 12 -> Decadron 6 mg daily x10 days
Incentive Marco
Check VQ scan
Pulm/Boiler Tube Reamer on board
ID on board
# Leucocytosis, unclear etiology, steroid induced vs VTE vs encephalitis (see below)
# Acute TME, unclear etiology, ddx including psychosis from polysubstance abuse vs encephalitis vs others
Off fentanyl patch, off ATC oxycodone, off PRN Morphine
UDS positive for opiate/fentanyl/benzo, also cocaine and methamphetamine
CT head x2: No acute intracranial abnormality noted.
MRI brain No acute intracranial abnormality noted.
EEG without overt seizure activity
pending LP, attempted 03/30 but had to abort as patient was agitated; IR will reattempt Friday 11/03
follow meningitis panel, CSF paraneoplastic Ab, Myelin Oligodendrocyte Glycoprotein (MOG) Antibody when LP is performed
ID/ Neuro on board
SPL eval
MS has improved slightly 11/02, she is awake and minimally conversant
Psych CS to assist with home psychotropic meds
# Portal vein thrombosis, unclear acute v chronic, can be related to COVID-19
Lovenox 1 mg/kg -> Eliquis 2.5 mg BID -> Argatroban (did not start due to GIB that started 10/31)
APL panel unrevealing, pending prothrombin gene mutation, PENNY-2 mutation test results
hematology on board
# Drop in platelet, concern for HIT
Pt did receive Lovenox therapeutic dose 10/24 - 10/26
Follow HIT Ab
Heme on board
was planned to start argatroban, but did not start due to GIB that started 10/31
# New onset acute HFrEF
Echo with EF 30 to 35%, akinesis of the septum and apex, normal contraction of the basal inferior, inferolateral, and lateral louis, hypokinesis of the remaining segments, mild MR, aortic sclerosis with mild AR
s/p gentle diuresis with IV Lasix 20 mg daily, hold with COY
Started low-dose Toprol, monitor blood pressures
Cardiology on board, was added lisinopril for reduced EF- off with COY
consider outpt ischemic eval
# Hyponatremia
# Now hypernatremia
adjusting IVF based on sodium level
Nephro on board
# GIB 10/31 with burgundy stool
GI on board
# COY
SCr trending upward 0.9 -> ... -> 2.1
cont IVF as above
hold ACEI
Renal on board
# Transaminitis due to Hepatocellular injury
Most likely secondary to portal vein thrombosis +/- congestive hepatopathy
No statin
Monitor LFT
# Elevated troponin likely non-MD troponin elevation in setting of acute CHF
troponin plateaued at 0.16
# Polysubstance abuse
# Tobacco use
# Chronic pain
off VICE PRESIDENT OF NURSING fentanyl patch, oxycodone with current delirium
Psych CS
# Multiple sclerosis
# Hypokalemia
replete
DVT prophylaxis: SCD, pending argatroban
COLT Boiler Tube Reamer
COLT RN
updated on the phone
Total Critical Care Time__51__ minutes. I was immediately available to the patient and staff. I personally examined, reviewed labs, diagnostic images/reports, interpretations, treatment plans, discussed patient care with other providers and
family or caregivers (if patient is unable to make decisions), entered orders as appropriate and documented the medical record.
Anticipated Discharge: > 48 hours
Subjective/Interval History
-
Date of Service: November 02, 2023
Objective Data
-
Labs:
Laboratory Results
11/02/23
04:31
WBC 28.5 H
Hgb 12.4
Hct 33.4 L
Plt Count 101 L
Sodium 141
Potassium 4.2
Chloride 121 H
Carbon Dioxide 15 L
BUN 53 H
Creatinine 2.1 H
Glucose 106 H
Calcium 7.7 L
Total Bilirubin 1.2
AST 61 H
ALT 57 H
Alkaline Phosphatase 319 H
Vital Signs:
Vital Signs
Temp Pulse Resp BP Pulse Ox
36.5 C 73 40 112/69 96
11/02/23 07:30 11/02/23 08:02 11/02/23 08:02 11/02/23 06:00 11/02/23 08:02
I&O
11/01/23 11/02/23 11/03/23
06:59 06:59 06:59
Intake Total 900 / 900 1800 / 1800
Output Total 125 / 125 120 / 120
Balance 775 / 775 1680 / 1680
Review of Systems
-
Unable to obtain full review of systems at this time due to: Dementia and Acuity
Physical Exam
-
General: Well Developed and Appears Chronically Ill
HEENT: Normocephalic, Atraumatic, Nose Appears Normal, Ears Appear Normal and Oxygen (5L NC)
Respiratory: Non Labored Respirations; Negative Accessory Resp Muscle Use
Cardiac: Regular Rhythm and S1/S2
GI: Soft, Nontender, Nondistended and Normal Bowel Sounds
Genito-urinary: Morgan
Skin: Warm and Dry
Neuro: Awake
Psych: Calm and Confused; Negative Intact Judgement/Insight
Data Reviewed
-
CT Scan: Report Reviewed by me
MRI: Report Reviewed by me
Labs: Labs Reviewed by me
--- NOTE | 2023-11-02 08:34 | W.PN.NEPH.PH ---
Today's Communication / Plan
-
change to alkaline IVfs
check UA , FeNa
maintain sorensen
Assessment/Plan
-
Assessment:
-COY
-hyponatremia
-hypotension on admission
-COVID+
-large RML PNA
-lactic acidosis
-?thrombosed portal vein/thrombocytopenia
-GI bleeding
-COPD
-hypothyroid
-HFrEF 30% (new onset)
-multiple sclerosis
-chronic pain/opioids
-confusion: s/p LP
-metabolic acidosis
Plan
-creatinine continues to worsening for no obvious etiology now up to 2.1 with worsening metabolic acidosis
-hemodynamically stable without obvious nephrotoxic exposure,doubt cardio renal syndrome
-will check UA and FeNa
-holding delano
-uop dropping maintain sorensen
-will change IVFs to hco3 with d5w for acidosis continue at rate to 80cc/hr
-follow BMP
-cause of delirium uncertain, s/p LP
-heparin off due to gi bleeding, h/h stable
-patient at high clinical risk, with worsening COY and metaobolic acidoss
-
-
Date of Service: November 02, 2023
CC / HPI / ROS
-
Chief Complaint:
hyponatremia
History of Present Illness:
Abx for RML PNA
BP stable
Na at141
metabolic acidosis worsening
LFTs stable high
WBC remains elevated on steroids
Review of Systems:
no CP/fever
on midflow oxygen support
confusion improving
Labs
-
Labs:
WBC 28.5 10^3/uL (4.8-10.8) H 11/02/23 04:31
RBC 3.05 10^6/uL (4.20-5.40) L 11/02/23 04:31
Hgb 12.4 g/dL (12.0-16.0) 11/02/23 04:31
Hct 33.4 % (37.0-47.0) L 11/02/23 04:31
Plt Count 101 10^3/uL (130-400) L 11/02/23 04:31
Sodium 141 mmol/L (135-145) 11/02/23 04:31
Potassium 4.2 mmol/L (3.5-5.1) 11/02/23 04:31
Chloride 121 mmol/L (98-107) H 11/02/23 04:31
Carbon Dioxide 15 mmol/L (22-30) L 11/02/23 04:31
BUN 53 mg/dl (7-17) H 11/02/23 04:31
Creatinine 2.1 mg/dL (0.6-1.0) H 11/02/23 04:31
eGFR 26.31 11/02/23 04:31
Glucose 106 mg/dl (70-99) H 11/02/23 04:31
Calcium 7.7 mg/dl (8.4-10.2) L 11/02/23 04:31
Phosphorus 3.7 mg/dl (2.5-4.5) 10/25/23 04:12
Hyg-L-Chrgdewykpr Pept > 29605 pg/ml 10/24/23 09:12
Albumin 2.0 g/dl (3.5-5.0) L 11/02/23 04:31
Physical Exam
-
Vital Signs:
Vital Signs
Temp Pulse Resp BP Pulse Ox
97.7 F 73 40 129/61 95
11/02/23 07:30 11/02/23 08:02 11/02/23 08:02 11/02/23 08:00 11/02/23 08:25
Cardiovascular:: Regular rate and rhythm
Respiratory:: Bilateral: Coarse
Lung Excursion:: Normal
Abdomen:: Nontender
Bowel Sounds:: Normal
Extremity Edema:: +1: Bilateral:
Sorensen Catheter: Yes
[2023-11-02] MEDS: SODIUM BICARBONATE 1150 MEQ IV (10:30)
[2023-11-02 10:52] LABS: Urine Albumin 2+ (Neg - Trace); Urine Bilirubin 1+ (Negative); Urine Character Clear (Clear); Urine Color Yellow; Urine Glucose Negative (Negative); Urine Ketone Trace (Negative); Urine Leukocyte 1+ (Negative); Urine Nitrite Positive (Negative); Urine Occult Blood 3+ (Negative); Urine Specific Gravity 1.025 (<1.030); Urine Urobilinogen Negative (Neg - 1+)
[2023-11-02 11:04] LABS: Urine Bacteria Moderate (Negative); Urine Mucus Few; Urine Red Blood Cell 0-2 /HPF (0-2); Urine Yeast Few (Negative)
[2023-11-02 11:15] LABS: Urine Sodium < 5 mmol/L (30-90)
--- NOTE | 2023-11-02 11:15 | W.PN.GI.CBS2 ---
Today's Communication / Plan
-
-Black stool, hemoglobin seems to be in normal range, no evidence of hematemesis
Rule out ulcer disease, esophagitis, gastritis versus other
History of hepatitis C reactivity with negative RNA, no evidence of cirrhosis noted on imaging- less likely esophageal varices.
hemoglobin continues to be stable
Okay for Protonix IV twice daily
Monitor H&H and transfuse as needed
Speech eval pending, okay for clear liquid diet cleared by speech no red liquids.
If bleeding continues, will go ahead and do upper endoscopy, will need to get consent from patient's
Argatroban on hold, given hemoglobin is stable, if need to restart, okay but will monitor hemoglobin and bowel movements closely.
-History of hepatitis C reactivity
Hepatitis C RNA PCR pending
Elevated total bilirubin and mild elevation in transaminases
Fib-4 may not be accurate given ?HIT for thrombocytopenia
We could get noncontrast CT abdomen to will evaluate the liver when able.
Will follow
Assessment / Plan
-
63-year-old female with history of chronic pain, multidrug abuse, COPD, hypothyroidism, hepatitis C reactivity with negative RNA presenting with shortness of breath, change in mental status, noted to have portal vein thrombus at admission, started
on Lovenox followed by argatroban which is currently on hold for black stool.
Currently hemodynamically stable.
-Black stool, hemoglobin seems to be in normal range, no evidence of hematemesis
Rule out ulcer disease, esophagitis, gastritis versus other
History of hepatitis C reactivity with negative RNA, no evidence of cirrhosis noted on imaging- less likely esophageal varices.
hemoglobin continues to be stable
Okay for Protonix IV twice daily
Monitor H&H and transfuse as needed
Speech eval pending, okay for clear liquid diet cleared by speech no red liquids.
If bleeding continues, will go ahead and do upper endoscopy, will need to get consent from patient's
Argatroban on hold, given hemoglobin is stable, if need to restart, okay but will monitor hemoglobin and bowel movements closely.
-History of hepatitis C reactivity
Hepatitis C RNA PCR pending
Elevated total bilirubin and mild elevation in transaminases
Fib-4 may not be accurate given ?HIT for thrombocytopenia
We could get noncontrast CT abdomen to will evaluate the liver when able.
Will follow
Subjective
Subjective
Date of Service: November 02, 2023
Patient much more awake today but still not very coherent.
Small smear of black stool this morning
Objective
Data Reviewed
Laboratory Data:
Laboratory Results
11/02/23 04:31
11/02/23 04:31
Laboratory Results
PT 20.8 Sec (11.4-14.6) H 11/01/23 03:57
INR 1.80 11/01/23 03:57
APTT 44.3 Sec (23.4-35.0) H 11/01/23 03:57
Phosphorus 3.7 mg/dl (2.5-4.5) 10/25/23 04:12
Magnesium 2.5 mg/dl (1.6-2.3) H 10/29/23 05:15
Total Bilirubin 1.2 mg/dl (0.2-1.3) 11/02/23 04:31
AST 61 U/L (14-36) H 11/02/23 04:31
ALT 57 U/L (0-35) H 11/02/23 04:31
Alkaline Phosphatase 319 U/L (38-126) H 11/02/23 04:31
Vital Signs and I&O:
Vital Signs
Temp Pulse Resp BP Pulse Ox
97.7 F 90 43 146/62 95
11/02/23 07:30 11/02/23 09:00 11/02/23 09:00 11/02/23 09:00 11/02/23 08:25
I&O
11/01/23 11/02/2311/03/24
06:59 06:59 06:59
Intake Total 900 / 900 1800 / 1890 410 / 410
Output Total 125 / 125 120 / 120 15 /
Balance 775 / 775 1680 / 1770 395 / 395
Physical Exam
Physical Exam
GI: Soft, Non Distended and Non Tender
--- NOTE | 2023-11-02 11:36 | W.PN.ID1 ---
Date of Service
Date of Service: November 02, 2023
Today's Communication
Continue metronidazole day 4 of 5
Completed remdesivir
Steroids per pulmonary
Assessment / Plan
Encephalopathy
- unclear etiology at present,
Leukocytosis
- may be secondary to steroid effect, cannot rule out infectious process.
COVID-19 (vaccinated patient)
- completed remdesivir x5 days
COPD
Acute Onset CHF - Ef 30%
COY - new
Hypothyroidism
<del>Multiple</del> <del>sclerosis</del> not confirmed, not on outpatient immunosuppression
Portal vein thrombosis acute vs chronic - with ascites
Substance abuse (on chronic methadone; UDS positive for multiple substances)
Recommendations:
O2 requirement stable - on 5L NC on my exam
COY - progressive; nephrology following
Transaminitis resolving, ammonia neg
Leukocytosis noted - steroids vs infection
Continue metronidazole day 4 of 5
Completed remdesivir
Steroids per pulmonary
Given ongoing encephalopathy, would obtain LP when feasible - pending Patient on anticoagulants, washout will need to be coordinated with Interventional Radiology.
Follow white count and temperature curve.
Chief Complaint
-: Other (Covid-19; encephalopathy)
Subjective / Review of Systems
no further hypothemia
bp stable
declining leukocytosis
thrombocytopenia persis
cr now 2.1 - progressed
cxr - progression at the bases - question of aspiration
black stool - concern for gi bleeding
hep C rna sent by GI - pending
more alert but words are jibberish
Vital Signs / Physical Exam
Vital Signs
Vital Signs
Temp Pulse Resp BP Pulse Ox
97.7 F 90 43 146/62 95
11/02/23 07:30 11/02/23 09:00 11/02/23 09:00 11/02/23 09:00 11/02/23 08:25
Physical Exam
Constitutional: No Acute Distress
Cardiovascular: Regular Rate and S1/S2; Negative Murmur or Rub
Pulmonary: Clear and Symmetric; Negative Wheezes or Rales
Gastrointestinal: Soft, Non Tender, Non Distended and Normal Bowel Sounds
Skin: Warm and Dry; Negative Rash or Jaundice
Objective Data
Lab Data
Lab Results
11/02/23 04:31
11/02/23 04:31
ESR 61 mm/hour (0-20) H 10/31/23 05:47
PT 20.8 Sec (11.4-14.6) H 11/01/23 03:57
INR 1.80 11/01/23 03:57
APTT 44.3 Sec (23.4-35.0) H 11/01/23 03:57
Estimated Creat Clear 22 ml/min 11/02/23 04:31
Lactic Acid Cancelled 10/24/23 17:00
Total Bilirubin 1.2 mg/dl (0.2-1.3) 11/02/23 04:31
AST 61 U/L (14-36) H 11/02/23 04:31
ALT 57 U/L (0-35) H 11/02/23 04:31
Alkaline Phosphatase 319 U/L (38-126) H 11/02/23 04:31
C-Reactive Protein 19.40 mg/L (0.0-10.00) H 10/30/23 05:39
Most recent labs reviewed.
Micro Results:
10/24/23 09:39 Blood Culture - Final
Blood/Venous No Growth - Final Report
10/24/23 09:12 Blood Culture - Final
Blood/Venous No Growth - Final Report
10/24/23 12:42 Nasal Screen MRSA (PCR) - Final
Nose MRSA not detected - performed by PCR methodology.
10/24/23 09:39 Influenza Types A & B (YANY) - Final
Nasal Swab Negative for Influenza A & B, NAAT
Negative results must be combined with clinical observations
and patient history.
Nucleic Acid Amplification test (NAAT)performed on the
[employer] platform.
Imaging:
10/29/2023 CT head without contrast: Moderate ventricular sulcal prominence consistent with atrophy. Brain parenchyma is normal attenuation. No intra or extra-axial masses, hemorrhage or fluid collection. Please see full dictation for additional
detail.
10/28/2023 CXR (portable): Mild � moderate interstitial airspace disease in the right middle lobe consistent with pneumonia which is significantly improved when compared to prior study. Lungs are otherwise clear. Please see full dictation for
additional detail.
10/24/2023 CT chest: Large right middle lobe pneumonia noted. Small volume right hilar lymphadenopathy.
--- NOTE | 2023-11-02 14:37 | W.PN.NEURO.1 ---
Today's Communication / Plan
-
continue to follow mental status--significant improved today
LP tomorrow
Neuro Assessment/Plan
Assessment
IMPRESSIONS/RECOMMENDATIONS:
Abrupt change in mental status
Most likely due to toxic metabolic encephalopathy in a patient with prior history of numerous EDGE DRUMMER injuries including secondary injury from prior hepatitis C, cocaine exposure, alcoholism with superimposed COVID; UDS positive for several substances;
significantly improved today but still a bit confused
Patient also reportedly has a history of transverse myelitis of unclear etiology and abnormal enhancing lesions in the cervical spine
Reviewed MRI brain images-not clearly consistent with MS. stated that she has been worked up for this in the past and he thinks she was not diagnosed with MS. Cannot remember the name of her outpatient neurologist but says she had seizures
around 2008 (none since) and has had surgery at [facility] in the past.
Plan
Monitor for alcohol withdrawal, provide thiamine
LP attempted by IR yesterday--had to abort as patient was agitated; reattempt tomorrow, Dr. Danielle added oligoclonal bands, paraneoplastic evaluation, myelin oligodendrocyte glycoprotein associated disease testing; may be able to avoid this if
mental status continues to improve
Requested records from [facility]-- cannot remember the name of outpatient neurologist she saw in the past
EEG done Friday was severely obscured by movement/muscle artifact but no clear underlying epileptiform abnormalities were noted.
Critical care time 30 mins
Will continue to follow
Subjective/Objective
Subjective Data
Date of Service: November 02, 2023
mental status significantly improved today; still a bit confused
Objective Data
Vital Signs
Temp Pulse Resp BP Pulse Ox
97.2 F 96 34 146/62 95
11/02/23 11:30 11/02/23 12:01 11/02/23 12:01 11/02/23 09:00 11/02/23 08:25
Lab Results
11/02/23 04:31
11/02/23 04:31
PT 20.8 Sec (11.4-14.6) H 11/01/23 03:57
INR 1.80 11/01/23 03:57
APTT 44.3 Sec (23.4-35.0) H 11/01/23 03:57
Sodium 141 mmol/L (135-145) 11/02/23 04:31
Potassium 4.2 mmol/L (3.5-5.1) 11/02/23 04:31
BUN 53 mg/dl (7-17) H 11/02/23 04:31
Glucose 106 mg/dl (70-99) H 11/02/23 04:31
Calcium 7.7 mg/dl (8.4-10.2) L 11/02/23 04:31
Phosphorus 3.7 mg/dl (2.5-4.5) 10/25/23 04:12
Sss-W-Pnchymbirnd Pept > 96618 pg/ml 10/24/23 09:12
Vitamin B12 617 pg/ml (239-931) 10/31/23 04:32
Ur Buprenorphine Negative (Negative) 10/28/23 10:53
Patient Allergies
alcohol [Alcohol] Allergy (Verified 10/24/23 09:06)
HISTORY OF ETOH ABUSE
latex [Latex] Allergy (Verified 10/24/23 09:06)
Anaphylaxis
nicotine [Nicotine] Allergy (Verified 10/24/23 09:06)
Hives
Penicillins Allergy (Verified 10/24/23 09:06)
Hives
Physical Exam
Extended Neurological Exam
Attention Span & Concentration: Awake, Alert and Interactive
Memory: Other (Does not remember details of hospitalization, able to recall that she saw a neurologist years ago but cannot remember the name, knows her birthdate and her current location, when asked the date she answered 2003)
Tremor: Hand Tremor Absent and Head Tremor Absent
Speech: Other (some mild dysarthria)
Cranial Nerve II: Left Eye: Pupillary Reactivity Unremarkable and Pupillary Size Unremarkable
Cranial Nerve II: Right Eye: Pupillary Reactivity Unremarkable and Pupillary Size Unremarkable
Cranial Nerves III, IV, : Extraocular Movement: Extraocular Movement Full in all Directions
Cranial Nerve VII: Facial Symmetry: Normal Facial Symmetry
Cranial Nerve VIII: Hearing: Unremarkable Hearing to Normal Conversational Volume
Cranial Nerves IX, X: Palate Movement: Palate Elevation Symmetric
Cranial Nerve XI: Shoulder Shrug: Unremarkable
Muscle Strength, Overall: Other (at least 4/5 diffusely--limited effort)
Deep Tendon Reflexes: Unremarkable Throughout
Coordination: Anfebq-rjyr-esqqny Testing Unremarkable
Modified Inge Score (MRS)
-
MRS Score:
--- NOTE | 2023-11-02 16:26 | W.PN.ONC ---
Today's Communication / Plan
-
HITab negative
discussed resuming anticoagulation w/ hospitalist
heparin sq prophylaxis has been initiated
if no further GI bleeding - Hb/ plts remain stable - consider re-initiation of therapeutic anticoagulation
Impression
Impression
Portal vein thrombosis indeterminate age
thrombocytopenia
Acute hypoxic respiratory insufficiency
COVID-19
Right middle lobe pneumonia
Cardiomyopathy, EF 30 to 35%
Elevated troponin
Hyponatremia
Hypothyroidism
COPD
Multiple sclerosis
h/o substance abuse
Tobacco abuse
Chronic pain
Possible remote atrial fibrillation
GI bleed - heme pos stool
Plan
Plan
1. Portal vein thrombosis indeterminate age
-pt is hypercoagulable in setting of COVID 19 positivity
-evaluation for thrombophilia - cardiolipin, beta 2 glycoprotein I, and phosphatidyl serine antibodies not detected
-had been on eliquis until 10/26 when stopped
-transitioned to lovenox 10/30 - s/p 1 dose 50mg (1mg/kg) therapeutic dose - stopped due to plts drop
-due to platelet drop concern was raised as to possible HIT - argatroban was recommended however pt developed GI bleeding
-anticoagulation held w/ ongoing GI bleed
-GI consulted for GI bleed - safety of anticoagulation as well as chronicity/ acuity of portal vein thrombosis
-HITab negative
2. Thrombocytopenia
-likely multifactorial w/ COVID, pneumonia, acute infection/ inflammatory illness, antibiotics/ meds
-HITab negative
-follow CBC
Will continue to follow with you.
Subjective/Objective
Subjective/Objective
In ICU
Vital Signs:
Vital Signs
Temp Pulse Resp BP Pulse Ox
97.6 F 97 23 146/62 96
11/02/23 15:30 11/02/23 15:42 11/02/23 15:42 11/02/23 09:00 11/02/23 15:42
Lab Results:
Laboratory Data
WBC 28.5 10^3/uL (4.8-10.8) H 11/02/23 04:31
Hgb 12.4 g/dL (12.0-16.0) 11/02/23 04:31
Plt Count 101 10^3/uL (130-400) L 11/02/23 04:31
PT 20.8 Sec (11.4-14.6) H 11/01/23 03:57
INR 1.80 11/01/23 03:57
APTT 44.3 Sec (23.4-35.0) H 11/01/23 03:57
eGFR 26.31 11/02/23 04:31
Orders
Orders
Orders From Last 24 Hours
11/03/23 06:00
Complete Blood Count/No Diff IN AM
11/04/23 06:00
Complete Blood Count/No Diff IN AM
11/05/23 06:00
Complete Blood Count/No Diff IN AM
11/06/23 06:00
Complete Blood Count/No Diff IN AM
11/07/23 06:00
Complete Blood Count/No Diff IN AM
--- NOTE | 2023-11-02 17:51 | PTCARENOTE ---
patient received at 1200. confused disoriented, speech slurred difficult to understand. NPO at this time. SR 82; pedal pulses present. Morgan draining cloudy nadya urine. Skin : mutter. red non blanchable area on sacrum foam dressing applied. bed
alarm applied and activated. ST ok to give pt ice one peach at the time under supervision only. No bloody BM for this shift. D5W with sodium Bicarb infusing via RT mid-line call vora within reach
[2023-11-02 18:23] LABS: Glucose - Point of Care 102 mg/dl (70-99)
--- NOTE | 2023-11-02 18:27 | CON.MD ---
Consultation - Medical
-
Pt seen at bedside. Is unable to participate in meaningful interview, disoriented and at times mumbling to self. When I mentioned UDS positive for methamphetamine and cocaine she appeared surprised but was unable to provide much further meaningful
information.
Psychiatry reconsulted regarding management of prior psychotropics, which during this visit could potentially be considered to be methadone, if used for MMT. Unfortunately, I cannot comment on how to restart the pain medications as this would be the
[facility], though I would caution against it as she does have a hx of substance abuse.
Regarding methadone, I doubt its being used as MMT and if it is, I doubt it�s doing much good, so if it�s purely for MMT purposes I would not restart that.
I would worry about opiate withdrawal in this context however, which could potentially further contribute to TME � could consider buprenorphine use, however it has been over a week since admission so I am not sure it is absolutely necessary as it
may further contribute to TME.
[2023-11-02] MEDS: NSS (PRESERVATIVE FREE) 10 ML IV (20:42)
[2023-11-02] MEDS: PROTONIX IV 40 MG IV (20:42)
[2023-11-02] MEDS: HEPARIN 5000 UNITS SC (20:43)
--- NOTE | 2023-11-02 21:30 | PTCARENOTE ---
Assumed care of patient at 1920. Patient alert and oriented to self and place. Speech garbled. Rambling sentences and restlessness at times. NSR on tele monitor. Weaned to RA. POX 92-95%. Lung sounds coarse/diminished. Tachypneic. Denies dyspnea.
Hypo BS. No BM. Morgan draining nadya urine. Patient washed and repositioned for comfort. Bicarb gtt infusing through right midline. Patient educated on how to ring call vora; demonstrating understanding. Bed alarm on and safe environment maintained.
[2023-11-03] VITALS (22 sets, daily range): BP systolic 97–160; BP diastolic 48–148; PULSE 84; O2SAT 96
[2023-11-03 00:07] LABS: Glucose - Point of Care 91 mg/dl (70-99)
--- NOTE | 2023-11-03 00:07 | PTCARENOTE ---
Assessment unchanged. Patient resting comfortably. VSS. Remains on RA.
[2023-11-03] MEDS: NOVOLOG FLEXPEN-LOW RESISTANCE SC ×4 (00:10→17:38)
[2023-11-03] MEDS: FLAGYL 500 MG 100 IV ×3 (02:03→17:32)
--- NOTE | 2023-11-03 03:49 | PTCARENOTE ---
Assessment unchanged. Patient encouraged to try and sleep. Restless and fidgety in bed overnight. AM labs drawn. VSS.
[2023-11-03 04:14] LABS: Hematocrit 34.8 % (37.0-47.0); Mean Corp Hgb Conc. 37.4 g/dL (33.0-37.0); Mean Corpuscular Hgb 40.4 pg (27.0-31.0); Mean Corpuscular Volume 108.1 fL (81.0-99.0); Red Blood Cell Count 3.22 10^6/uL (4.20-5.40); Red Cell Dist. Width 14.5 % (11.5-14.5); White Blood Cell Count 28.3 10^3/uL (4.8-10.8)
[2023-11-03 04:25] LABS: NT-proBNP 22200 pg/ml
[2023-11-03 04:29] LABS: Mean Platelet Volume 12.9 fL (7.4-10.4)
[2023-11-03 04:30] LABS: Platelet Count 99 10^3/uL (130-400)
[2023-11-03 04:34] LABS: ALT (SGPT) 50 U/L (0-35); AST (SGOT) 72 U/L (14-36); Albumin 1.9 g/dl (3.5-5.0); Alkaline Phosphatase 329 U/L (38-126); Blood Urea Nitrogen 65 mg/dl (7-17); Calcium 7.8 mg/dl (8.4-10.2); Carbon Dioxide 18 mmol/L (22-30); Chloride 113 mmol/L (98-107); Direct Bilirubin 1.5 mg/dl (0.0-0.4); Estimated Creatinine Clearance 18 ml/min; Glucose 77 mg/dl (70-99); Potassium 3.9 mmol/L (3.5-5.1); Sodium 141 mmol/L (135-145); Total Bilirubin 1.7 mg/dl (0.2-1.3); Total Protein 4.7 g/dl (6.3-8.2); eGFR 19.46
[2023-11-03] MEDS: SODIUM BICARBONATE 1150 MEQ IV ×2 (05:30→15:05)
[2023-11-03 05:40] LABS: Glucose - Point of Care 93 mg/dl (70-99)
--- NOTE | 2023-11-03 07:58 | W.PN.INTV ---
Today's Communication / Plan
Recommendations
Abx - last day of flagyl today per ID
Trend Hb; GI on board
Her o2 requirements has markedly improved --> low utility of V/Q scan as we will Tx with AC x 3 months anyway given her PVT suspected to be provoked from covid-19
Opiates held and mental status improved
Decadron x 10 days
Pt has markedly improved and is stable for downgrade out of ICU to telemetry vs IMU. Pulmonary service will continue to follow along.
Assessment
-
Ms Kaitlin Esparza is a 63/W adm 10-24 with several d h/o dyspnea. Brought by EMS to ER, no EMS report available, ER note mentioned administration of DNs in route which improved O2 from low 90s victoria mid 90s. Seen at ICU, on BPAP 14/5 with O2 4L , POx
92%, in moderate resp distress, intermittently agitated and trying to remove BPAP mask. Unfortunately very poor historian at time of visit, unknown baseline MS, appears acutely on chronically ill-she continues to have mental status changes and
infectious disease wished lumbar puncture and patient transferred for deteriorating neurologic status to the ICU 10/31/2023
Acute respiratory failure with hypoxemia
Toxic metabolic encephalopathy/abrupt change in mental status - improved
Acute kidney injury -worsening
Bilateral infiltrates due to bacterial superinfection (CAP - initial CT chest with tree-in-bud in posterior RUL + RML and anterior RLL, and lingula + large consolidation in medial RML)
Sepsis without shock due to CAP and covid-19
COVID positive (positive on 10/24/2023)
Elevated PCT
Leukocytosis
Thrombocytopenia
Hypoalbuminemia
COPD exacerbation
Heart failure-acute new onset with reduced EF-35% with septal and apical akinesis
Low serum osmolality (248 on admission)
Lactic acidosis -resolved
Mild transaminitis
Portal vein thrombosis (seen on abd US from 10/24/2023 involving main portal vein)
Elevated troponin and BNP: LVEF 30-35% with WMAs
Flu negative
Elevated ESR-61
GI bleed 10/31/2023 with melena and heem positive stools
Hx of HCV (positive Ab in 2009, but negative HCV RNA)
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
COPD
Hypothyroidism
Multiple sclerosis
Substance abuse: on methadone
VDRF due to overdose Jul 2011
Chronic pain: reportedly on fentanyl patch, hydromorphone, oxycodone
Smoker
Alcohol: Former
Plan:
She has markedly improved and is now on nasal cannula and is awake, alert and following commands although still easily distractible
Maintain SpO2 >90-94% and check walking pulse ox prior to discharge
Nebulizers if needed-currently not bronchospastic
Aspiration precautions
Speech therapy following --> patient failed INSURANCE ACCOUNT SPECIALIST --> Dobhoff to be inserted and tube feeds will be started today
Follow chest x-ray and infiltrate -ultimately will need repeat CXR in 4 to 6 weeks to follow pneumonia to resolution
Flutter valve prn
Sport bed
Continue ABx per ID - currently on last day of flagyl (been on since 10/29); s/p cefepime from 10/24 - 10/30 and IV vanco x 1 day (10/24)
Cultures reviewed
Infectious disease following-correspondence reviewed
Trend WBC
s/p course of remdesivir (10/28 - 11/01/2023)
Decadron 6 mg daily x 10 days
Lumbar puncture 10/31/2023-unable to perform due to agitation-pending --> in light of improved mental stauts, I do not feel this is needed. Will defer this decision to neuro
Mental status improved-off fentanyl patch (she reportedly had 2 fentanyl patches on admission), off [id number] oxycodone and off as needed morphine - will start Subutex 2 mg SL daily and increase as required
Maintain MAP>65
Neurology evaluation ongoing-correspondence reviewed
Discontinued fentanyl patch and other medications that might cause mental status changes
EEG-10/31/2023-no obvious epileptiform discharges but cannot be completely ruled out because of significant underlying artifact from movement
Also saw psychiatry 10/28/2023
Monitor thrombocytopenia
Hematology following
Lovenox on hold hold
KENNETH panel negative (hep associated plt ab 0.170 on 10/31/2023)
Arixtra for anticoagulation-on hold due to GI bleed (pt had heme positive stools on 10/31/2023)
Argatroban was to be started but did not due to GI bleed
Monitor hemoglobin
Transfuse as needed to maintain Hb >7, plt>50k
GI evaluation 11/01/2023-consultation reviewed
PPI --> currently on 40mg IV BID
Considering upper endoscopy --> will defer this decision to GI
CT abdomen noncontrast to evlauate the liver better given Hx of HCV and current transaminitis
Diuresis on hold given worsening COY
Follow renal function, electrolytes, intake/output, lower extremity edema and weight
Continue to replace electrolytes as needed
Nephrology following-correspondence reviewed
VICTOR MANUEL held-follow renal function
Heparin gtt continues for portal vein thrombosis-suspected covid infection related
Patient will see GI as an outpatient
Follow for arrhythmias
Cardiology follow-up till 10/28/2023
Smoking cessation counseling once alert and can comprehend advice
Chronic pain and polysubstance abuse --> psych reconsulted
DVT prophylaxis-on heparin gtt
Nutrition with aspiration precautions
Starting TF --> INSURANCE ACCOUNT SPECIALIST to continue to follow along. She may ultimately require PEG vs TPN if she continues to fail INSURANCE ACCOUNT SPECIALIST ; given her Hx of drug abuse, PEG would be safer option.
Patient has continued to improve and is down to nasal cannula with mental status improved. From refrigerating oiler perspective, she no longer requires ICU. Recommend downgrade to telemetry versus IMU. Pulmonary service will continue to follow along.
Diagnostic tests:
CXR 10-24-23 c/w Apr 2023: New R basilar infiltrate. Mild pulm vasc congestion. No free air. Blunted c-d angles.
Chest x-ray 10/30/2023-improving right lower lobe pneumonia
CXR 11/03/2023: Progressed findings suggesting bilateral lower lobe pneumonia.
Chest CTA 10-24-23: No acute PE. RML infiltrate. RLL patch of pneumonitis. Patchy small lingular and posterior RUL infiltrates
Brain MRI 10/30/2023-no acute intracranial abnormalities
Echocardiogram 10/24/2023-EF 30-35%, mild mitral regurgitation, aortic sclerosis
Subjective Dataa
Subjective Data
Date of Service:
Date of Service: November 03, 2023
Chief Complaint: Digital Commentator Follow Up and Pulmonary Follow Up
Subjective:
Seen this AM. She is awake, alert, oriented x2, but is easily distractible. HR 92 and BP 119/78. She is getting a midline this AM. She is on 2Lmin NC and saturating 96%. Made 80cc nadya urine since midnight and Cr continues to rise.
Review of Systems
General: Other (negative unless mentioned above)
Objective Data
Data Reviewed
Vital Signs / I&O / Oxygen:
Vital Signs
Temp Pulse Resp BP Pulse Ox
97.9 F 87 25 126/86 96
11/03/23 07:15 11/03/23 09:00 11/03/23 09:00 11/03/23 09:00 11/03/23 09:48
Intake and Output
11/02/23 11/03/23 11/04/23
06:59 06:59 06:59
Intake Total 1800 / 1890 2030 / 2110 340 / 340
Output Total 120 / 120 185 / 190 10 / 10
Balance 1680 / 1770 1845 / 1920 330 / 330
SaO2 96
Nasal Cannula flow liters per 2
minute
Physical Exam
General: Respiratory Distress
HEENT: Normocephalic, Anicteric and Moist Mucous Membranes
Cardiovascular: S1-S2, Murmur (n) and Peripheral Edema (negative)
Respiratory: Wheeze (n), Crackles (bibasilar), Accessory Resp Muscle Use (negative) and Stridor (n)
GI: Soft, Non Distended and Non Tender
Neurology: Awake, Alert, No Motor Deficits and Other (Pupils 4 mm bilaterally and brisk)
Skin: Warm and Dry
Labs/Micro/Reports
Lab Data
11/03/23 03:42
11/03/23 03:42
[2023-11-03] MEDS: COMBIVENT RESPIMAT INHAL SPRAY 1 PUFF INH ×4 (08:13→20:07)
[2023-11-03] MEDS: DECADRON 6 MG IV (08:49)
[2023-11-03] MEDS: PROTONIX IV 40 MG IV ×2 (08:49→20:46)
[2023-11-03] MEDS: NSS (PRESERVATIVE FREE) 10 ML IV ×2 (08:49→20:46)
[2023-11-03] MEDS: THIAMINE INJECTION 100 MG IV (08:50)
[2023-11-03] MEDS: HEPARIN 5000 UNITS SC (08:50)
[2023-11-03] MEDS: TOPROL XL 12.5 MG PO (08:51)
--- NOTE | 2023-11-03 09:00 | PTCARENOTE ---
Received pt @ change of shift. AAOx2, required reorientation to time. Anx/restless/forgetful @ x's. SR on monitor. SpO2 88-89% on RA, 2LNC applied and SPO2 96%. Shallow breaths, tachypnea. Auscultated dim/coarse breath sounds. P moist cough w
clear/white sputum. Hypo BS, abd round. Inc bowel, no BM this shift thus far. Swallow screen completed, 1st sip no coughing. Coughing noted w PO pill intake. NPO maintained. Morgan in place w nadya urine, oliguric. Petechiae on UE. R midline in
place w IVF. Assisted w repositioning in bed. Bed alarm active. Pt. instructed on how to report care concerns and call vora placed in reach.
--- NOTE | 2023-11-03 09:28 | W.PN.NEURO.1 ---
Today's Communication / Plan
-
.
Subjective/Objective
Subjective Data
Date of Service: November 03, 2023
CC: none
This is a 63-year-old woman who presented to [facility] 10/24/2023 with encephalopathy.
24h events: Normotensive, afebrile.
Labs(11/03/2023) WBCs�28.3, Cr 2.4, ua WBC nitrates, LE+,
ua tox(10/28/2023) positive for methamphetamines, cocaine, fentanyl.
Vit b12(10/31/2023) 617.
SARS-Cov-2 Ag-positive(10/24/2023)
Ammonia(10/31/2023)<9.
Brain MRI (10/30/2023)mild atrophy, mild hyperintensity within the periventricular and deep subcortical white matter.
PMH: chronic back pain, bipolar DO, LATOYA, ADHD, polysubstance addiction, CAD, HTN, DLP, COPD, h/o Hep C, GERD;
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
ROS: Negative for chest pain, headache, shortness of breath, weakness, numbness
General: Well developed. In no acute distress.
Cardio: Regular rate and rhythm without murmur. Extremities are without cyanosis or edema.
Neuro:
Mental Status: Alert, oriented to self, ' [facility]' [facility], ' 2023'. Poor attention. Follows simple requests consistently. Increased processing time, not fluent, no hemineglect
Cranial Nerves: Pupils are equally round and reactive to light. EOMs full. BTT BL No ptosis. No nystagmus. V1-V3 intact to light touch and pinprick bilaterally, symmetric. Face symmetric. Normal hearing AU. The palate elevated well. SCMs
and traps 5/5. Tongue midline. Mild dysarthria.
Motor: no pronator or leg drift
Reflexes: Positive grasp bilateral
Sensory: Limited exam due to poor attention
Coordination: No dysmetria or tremor. BL myoclonus in UEs
Gait: deferred
Assessment and Plan:
I. Multifactorial encephalopathy (toxic, metabolic, infectious), clinically improved
II. Metabolic myoclonus
III. Polysubstance addiction
-avoid KILN FURNITURE CASTER suppressants
-Please check TSH, free T4.
-Continue thiamine 100 mg QD
-addiction psychiatry consult
-OP Neurology follow up in 2-3 weeks
I personally reviewed all radiology and labs along with past medical records pertinent to current medical problems.
Thank you for allowing us to participate in the care of this patient. Please do not hesitate to contact us with any questions or concerns.
Objective Data
Vital Signs
Temp Pulse Resp BP Pulse Ox
36.6 C 90 30 122/85 92
11/03/23 07:15 11/03/23 08:51 11/03/23 08:22 11/03/23 08:51 11/03/23 08:22
Lab Results
11/03/23 03:42
11/03/23 03:42
PT 20.8 Sec (11.4-14.6) H 11/01/23 03:57
INR 1.80 11/01/23 03:57
APTT 44.3 Sec (23.4-35.0) H 11/01/23 03:57
Sodium 141 mmol/L (135-145) 11/03/23 03:42
Potassium 3.9 mmol/L (3.5-5.1) 11/03/23 03:42
BUN 65 mg/dl (7-17) H 11/03/23 03:42
Glucose 77 mg/dl (70-99) 11/03/23 03:42
Calcium 7.8 mg/dl (8.4-10.2) L 11/03/23 03:42
Phosphorus 3.7 mg/dl (2.5-4.5) 10/25/23 04:12
Bbo-L-Teoucqvimxd Pept 45315 pg/ml 11/03/23 03:42
Vitamin B12 617 pg/ml (634-431) 10/31/23 04:32
Ur Buprenorphine Negative (Negative) 10/28/23 10:53
Patient Allergies
alcohol [Alcohol] Allergy (Verified 10/24/23 09:06)
HISTORY OF ETOH ABUSE
latex [Latex] Allergy (Verified 10/24/23 09:06)
Anaphylaxis
nicotine [Nicotine] Allergy (Verified 10/24/23 09:06)
Hives
Penicillins Allergy (Verified 10/24/23 09:06)
Hives
Modified Inge Score (MRS)
-
MRS Score:
--- NOTE | 2023-11-03 11:15 | PTOTSP ---
Speech Language Pathology
Pt seen for dysphagia tx. RR in mid 20s up to low 40s during session. Sp02 remained stable. P.O. trials of ice chips, thin liquids via cup, and mildly thick liquids (nectar) via tsp/cup provided. Immediate cough with thin liquids with
intermittent cough with mildly thick liquids. Given RR and intermittent coughing, further trials deferred.
Recommend:
(1) Continued NPO
(2) Oral care 4x/day with suctioning as needed
(3) Allow ice chips sparingly post oral care given supervision per Aspiration Risk Hydration Protocol (ARHP)
(4) Pt will likely require VSE, but is not yet ready given respiratory status
(5) ROLL HANDLER to continue to follow
[2023-11-03 11:58] LABS: Glucose - Point of Care 104 mg/dl (70-99)
--- NOTE | 2023-11-03 12:00 | W.PN.UPDATE ---
Update Note
Progress Note Update
- Discussed with neurology this AM; do not feel currently there is an indication for LP
- Please reconsult as needed
[2023-11-03] MEDS: FLEXBUMIN 100 IV ×2 (12:44→17:32)
[2023-11-03 13:59] LABS: JAK2 Qual Mutation by PCR Not Detected; JAK2-PCR Source Whole Blood
--- NOTE | 2023-11-03 14:23 | PTCARENOTE ---
Nephrology, Dr. Escalante aware of rising creat and oliguria. Plan to hold off on HD and watch creat per nephro. Bicarb gtt d/c'd and IV albumin admin- see NOV. Pt. failed swallow screen per speech. Aaliyah Garciaff inserted @ 75cm. ABD x-ray obtained,
awaiting results. Hold off on lung scan until d/t partial testing d/t novel respiratory precautions per Dr. Carreon. LP scan cancelled per neuro. Remains on bed alarm. Call vora w in reach.
--- NOTE | 2023-11-03 14:31 | W.PN.NEPH.PH ---
Today's Communication / Plan
-
- continue with sodium bicarb gtt
Assessment/Plan
-
Assessment:
-COY
-hyponatremia
-hypotension on admission
-COVID+
-large RML PNA
-lactic acidosis
-?thrombosed portal vein/thrombocytopenia
-GI bleeding
-COPD
-hypothyroid
-HFrEF 30% (new onset)
-multiple sclerosis
-chronic pain/opioids
-confusion: s/p LP
-metabolic acidosis
Plan
-creatinine continues to worsening for no obvious etiology (ATN) now up to 2.7 with worsening metabolic acidosis
-noted to have multiple episodes of hemodynamic instablity on 11/01 and prior
-FeNa consistent with pre-renal (?REBECCA)
-REBECCA on differential but last contrast administration on 10/24, Cr rise began on 10/30 which does not perfectly fit timeline
-holding delano
-uop dropping maintain sorensen
-c/w IVF with NaHCO3 at 75cc/hr
-follow BMP
-cause of delirium uncertain, s/p LP
-heparin off due to gi bleeding, h/h stable
-patient at high clinical risk, with worsening COY and metaobolic acidoss
-
-
Date of Service: November 03, 2023
CC / HPI / ROS
-
Chief Complaint:
hyponatremia
History of Present Illness:
Abx for RML PNA
Na at141
Cr rise to 2.7
metabolic acidosis worsening
LFTs stable high
WBC remains elevated on steroids
Review of Systems:
no CP/fever
on midflow oxygen support
confusion improving
Labs
-
Labs:
WBC 28.3 10^3/uL (4.8-10.8) H 11/03/23 03:42
RBC 3.22 10^6/uL (4.20-5.40) L 11/03/23 03:42
Hgb 13.0 g/dL (12.0-16.0) 02 03:42
Hct 34.8 % (37.0-47.0) L 11/03/23 03:42
Plt Count 99 10^3/uL (130-400) L 11/03/23 03:42
Sodium 141 mmol/L (135-145) 11/03/23 03:42
Potassium 3.9 mmol/L (3.5-5.1) 11/03/23 03:42
Chloride 113 mmol/L (98-107) H 11/03/23 03:42
Carbon Dioxide 18 mmol/L (22-30) L 11/03/23 03:42
BUN 65 mg/dl (7-17) H 11/03/23 03:42
Creatinine 2.7 mg/dL (0.6-1.0) H 11/03/23 03:42
eGFR 19.46 11/03/23 03:42
Glucose 77 mg/dl (70-99) 11/03/23 03:42
Calcium 7.8 mg/dl (8.4-10.2) L 11/03/23 03:42
Phosphorus 3.7 mg/dl (2.5-4.5) 10/25/23 04:12
Nml-T-Hsflqxtowpp Pept 70345 pg/ml 11/03/23 03:42
Albumin 1.9 g/dl (3.5-5.0) L 11/03/23 03:42
Physical Exam
-
Vital Signs:
Vital Signs
Temp Pulse Resp BP Pulse Ox
97.4 F 92 34 160/148 94
11/03/23 11:30 11/03/23 12:00 11/03/23 12:00 11/03/23 12:47 11/03/23 12:00
Cardiovascular:: Regular rate and rhythm
Respiratory:: Bilateral: CTA
Lung Excursion:: Normal
Abdomen:: Distended, Nontender and Soft
Bowel Sounds:: Normal
Extremity Edema:: None: Bilateral:
Sorensen Catheter: Yes
--- NOTE | 2023-11-03 14:36 | W.PN.HOSP.TC ---
Today's Communication/Plan
-
resume argatroban
bicarb ggt, monitor Scr
no need for LP
?need for VQ scan
Speech eval - continue npo
Assessment / Plan
Assessment / Plan
HPI: 63-year-old female with past medical history of hypothyroidism, COPD, multiple sclerosis, substance abuse on methadone, chronic opiate, tobacco abuse, COPD, chronic pain, ?History of atrial fibrillation; p/w shortness of breath.
A/P:
# Acute hypoxic respiratory insufficiency
# COPD exacerbation
# Severe sepsis POA, secondary to CAP
# SARS-CoV-2
procal 1.12, MRSA screen negative, Blood Cx negative
She was treated with Cefepime, received 7 days, discontinued further cefepime
Cont Flagyl for anaerobe coverage, treat for 5 days (D5/5)
Cont O2 support, continue to wean o2; not on home o2 as home
DuoNebs every 4 standing
Completed RemD x5 days with persistent hypoxia
Solu-Medrol 40 mg every 12 -> Decadron 6 mg daily x10 days
Incentive [place]
Pulm/Culinary Instructor on board
ID on board
# Leucocytosis, unclear etiology, steroid induced vs VTE vs encephalitis (see below)
-ctm fever curve
# Acute TME, unclear etiology, ddx including psychosis from polysubstance abuse vs encephalitis; I favor 2/2 to metabolic encephalopathy 2/2 to SARS-CoV-2, PNA +/- cefepime use
Off fentanyl patch, off ATC oxycodone, off PRN Morphine
UDS positive for opiate/fentanyl/benzo, also cocaine and methamphetamine
CT head x2: No acute intracranial abnormality noted.
MRI brain No acute intracranial abnormality noted.
EEG without overt seizure activity
no need for LP at this time; Mental status improving
follow meningitis panel, CSF paraneoplastic Ab, Myelin Oligodendrocyte Glycoprotein (MOG) Antibody when LP is performed
ID/ Neuro on board
SPL eval - cont NPO
Psych CS to assist with home psychotropic meds
# Portal vein thrombosis, unclear acute v chronic, can be related to COVID-19
Lovenox 1 mg/kg -> Eliquis 2.5 mg BID -> Argatroban - restart as hgb stable
APL panel unrevealing, pending prothrombin gene mutation, PENNY-2 mutation test results
hematology on board
# Drop in platelet, concern for HIT
Pt did receive Lovenox therapeutic dose 10/24 - 10/26
HIT Ab: negative
Heme on board
# New onset acute HFrEF
Echo with EF 30 to 35%, akinesis of the septum and apex, normal contraction of the basal inferior, inferolateral, and lateral louis, hypokinesis of the remaining segments, mild MR, aortic sclerosis with mild AR
s/p gentle diuresis with IV Lasix 20 mg daily, hold with COY
Started low-dose Toprol, monitor blood pressures
Cardiology on board, was added lisinopril for reduced EF- off with COY
consider outpt ischemic eval
# Hyponatremia
# Now hypernatremia
adjusting IVF based on sodium level
Nephro on board
# GIB 10/31 with burgundy stool
GI on board
# COY
#Anion Gap Metabolic Acidosis
SCr trending upward
hold ACEI
Renal on board
Bicarb ggt
# Transaminitis due to Hepatocellular injury
Most likely secondary to portal vein thrombosis +/- congestive hepatopathy
No statin
Monitor LFT
# Elevated troponin likely non-VA troponin elevation in setting of acute CHF
troponin plateaued at 0.16
# Polysubstance abuse
# Tobacco use
# Chronic pain
off SHOE ASSOCIATE fentanyl patch, oxycodone with current delirium
Psych CS
# Multiple sclerosis
# Hypokalemia
replete
DVT prophylaxis: SCD; argatroban
DW Culinary Instructor
DW RN
Total Critical Care Time__55__ minutes. I was immediately available to the patient and staff. I personally examined, reviewed labs, diagnostic images/reports, interpretations, treatment plans, discussed patient care with other providers and
family or caregivers (if patient is unable to make decisions), entered orders as appropriate and documented the medical record.
Anticipated Discharge: > 48 hours
Subjective/Interval History
-
Date of Service: November 03, 2023
no acute events overnight
Objective Data
-
Labs:
Laboratory Results
11/03/23
03:42
WBC 28.3 H
Hgb 13.0
Hct 34.8 L
Plt Count 99 L
Sodium 141
Potassium 3.9
Chloride 113 H
Carbon Dioxide 18 L
BUN 65 H
Creatinine 2.7 H
Glucose 77
Calcium 7.8 L
Total Bilirubin 1.7 H
AST 72 H
ALT 50 H
Alkaline Phosphatase 329 H
Vital Signs:
Vital Signs
Temp Pulse Resp BP Pulse Ox
97.4 F 92 34 160/148 94
11/03/23 11:30 11/03/23 12:00 11/03/23 12:00 11/03/23 12:47 11/03/23 12:00
I&O
11/02/23 11/03/23 11/04/23
06:59 06:59 06:59
Intake Total 1800 / 1890 2030 / 2110 440 / 440
Output Total 120 / 120 185 / 190 30 / 30
Balance 1680 / 1770 1845 / 1920 410 / 410
Review of Systems
-
Unable to obtain full review of systems at this time due to: Dementia and Acuity
Physical Exam
-
General: Well Developed and Appears Chronically Ill
HEENT: Normocephalic, Atraumatic, Nose Appears Normal, Ears Appear Normal and Oxygen (5L NC)
Respiratory: Non Labored Respirations; Negative Accessory Resp Muscle Use
Cardiac: Regular Rhythm and S1/S2
GI: Soft, Nontender, Nondistended and Normal Bowel Sounds
Genito-urinary: Morgan
Skin: Warm and Dry
Neuro: Awake
Psych: Calm and Confused; Negative Intact Judgement/Insight
Data Reviewed
-
CT Scan: Report Reviewed by me
MRI: Report Reviewed by me
Labs: Labs Reviewed by me
--- NOTE | 2023-11-03 14:47 | W.PN.GI.CBS2 ---
Today's Communication / Plan
-
-Black stool, hemoglobin seems to be in normal range, no evidence of hematemesis
Rule out ulcer disease, esophagitis, gastritis versus other
Hemoglobin stable, no anemia
History of hepatitis C reactivity with negative RNA, no evidence of cirrhosis noted on imaging- less likely esophageal varices.
Continue Protonix IV twice daily
Monitor H&H and transfuse as needed
Currently on tube feeds, increase to goal as tolerated
If bleeding continues, will go ahead and do upper endoscopy, will need to get consent from patient's
Argatroban on hold, given hemoglobin is stable, if need to restart, okay but will monitor hemoglobin and bowel movements closely.
-History of hepatitis C reactivity
Hepatitis C RNA PCR pending
Elevated total bilirubin and mild elevation in transaminases
Fib-4 may not be accurate given ?HIT for thrombocytopenia
Will order noncontrast CT abdomen to will evaluate the liver .
Will follow
Assessment / Plan
-
63-year-old female with history of chronic pain, multidrug abuse, COPD, hypothyroidism, hepatitis C reactivity with negative RNA presenting with shortness of breath, change in mental status, noted to have portal vein thrombus at admission, started
on Lovenox followed by argatroban which is currently on hold for black stool.
Currently hemodynamically stable.
-Black stool, hemoglobin seems to be in normal range, no evidence of hematemesis
Rule out ulcer disease, esophagitis, gastritis versus other
Hemoglobin stable, no anemia
History of hepatitis C reactivity with negative RNA, no evidence of cirrhosis noted on imaging- less likely esophageal varices.
Continue Protonix IV twice daily
Monitor H&H and transfuse as needed
Currently on tube feeds, increase to goal as tolerated
If bleeding continues, will go ahead and do upper endoscopy, will need to get consent from patient's
Argatroban on hold, given hemoglobin is stable, if need to restart, okay but will monitor hemoglobin and bowel movements closely.
-History of hepatitis C reactivity
Hepatitis C RNA PCR pending
Elevated total bilirubin and mild elevation in transaminases
Fib-4 may not be accurate given ?HIT for thrombocytopenia
Will order noncontrast CT abdomen to will evaluate the liver .
Will follow
Subjective
Subjective
Date of Service: November 03, 2023
No further black stool, patient denies any abdominal pain, nausea or vomiting
Objective
Data Reviewed
Laboratory Data:
Laboratory Results
11/03/23 03:42
11/03/23 03:42
Laboratory Results
PT 20.8 Sec (11.4-14.6) H 11/01/23 03:57
INR 1.80 11/01/23 03:57
APTT 44.3 Sec (23.4-35.0) H 11/01/23 03:57
Phosphorus 3.7 mg/dl (2.5-4.5) 10/25/23 04:12
Magnesium 2.5 mg/dl (1.6-2.3) H 10/29/23 05:15
Total Bilirubin 1.7 mg/dl (0.2-1.3) H 11/03/23 03:42
AST 72 U/L (14-36) H 11/03/23 03:42
ALT 50 U/L (0-35) H 11/03/23 03:42
Alkaline Phosphatase 329 U/L (38-126) H 11/03/23 03:42
Vital Signs and I&O:
Vital Signs
Temp Pulse Resp BP Pulse Ox
97.4 F 92 34 160/148 94
11/03/23 11:30 11/03/23 12:00 11/03/23 12:00 11/03/23 12:47 11/03/23 12:00
I&O
11/02/23 11/03/23 11/04/23
06:59 06:59 06:59
Intake Total 1800 / 1890 2030 / 2110 440 / 440
Output Total 120 / 120 185 / 190 30 / 30
Balance 1680 / 1770 1845 / 1920 410 / 410
Physical Exam
Physical Exam
GI: Soft, Non Distended and Non Tender
--- NOTE | 2023-11-03 14:58 | W.PN.ID1 ---
Date of Service
Date of Service: November 03, 2023
Today's Communication
Complete course of metronidazole today. Thereafter, follow off antibiotics
Assessment / Plan
Encephalopathy
- unclear etiology; suspect TME
Leukocytosis
- may be secondary to steroid effect, cannot rule out infectious process.
COVID-19 (vaccinated patient)
- completed remdesivir x5 days
COPD
Acute Onset CHF - Ef 30%
COY - new
Hypothyroidism
Portal vein thrombosis acute vs chronic - with ascites
Substance abuse (on chronic methadone; UDS positive for multiple substances)
Recommendations:
O2 requirement stable/improved-currently on 2L NC on my exam
COY - progressive; nephrology following
Transaminitis resolving, ammonia neg
Leukocytosis noted - steroids vs infection
Patient completing a course of metronidazole today. Thereafter follow off antibiotics.
Completed remdesivir
Steroids per pulmonary
IR has discussed the case with Neurology and LP not felt to be beneficial or warranted at this point.
Follow white count and temperature curve.
����������������������������������������������������������
Chief Complaint
-: Other (Covid-19; encephalopathy)
Subjective / Review of Systems
Patient seen and examined. Currently sitting up in the chair.
Review of Systems: No Fever, No Chills, Cough and No Sputum Production
Vital Signs / Physical Exam
Vital Signs
Vital Signs
Temp Pulse Resp BP Pulse Ox
97.4 F 92 34 160/148 94
11/03/23 11:30 11/03/23 12:00 11/03/23 12:00 11/03/23 12:47 11/03/23 12:00
Physical Exam
Constitutional: Comfortable, Chronically Ill, Non-toxic and Cachetic
Head: Other (Nasal Dobbhoff in place.)
Eyes: Sclera Anicteric
Cardiovascular: S1/S2; Negative S3/S4
Pulmonary: Coarse; Negative Wheezes or Rales
Gastrointestinal: Soft, Non Distended and Normal Bowel Sounds
Neurological: Awake and Alert
Psychological: Calm
Objective Data
Lab Data
Lab Results
11/03/23 03:42
11/03/23 03:42
ESR 61 mm/hour (0-20) H 10/31/23 05:47
PT 20.8 Sec (11.4-14.6) H 11/01/23 03:57
INR 1.80 11/01/23 03:57
APTT 44.3 Sec (23.4-35.0) H 11/01/23 03:57
Estimated Creat Clear 18 ml/min 11/03/23 03:42
Lactic Acid Cancelled 10/24/23 17:00
Total Bilirubin 1.7 mg/dl (0.2-1.3) H 11/03/23 03:42
AST 72 U/L (14-36) H 11/03/23 03:42
ALT 50 U/L (0-35) H 11/03/23 03:42
Alkaline Phosphatase 329 U/L (38-126) H 11/03/23 03:42
C-Reactive Protein 19.40 mg/L (0.0-10.00) H 10/30/23 05:39
Most recent labs reviewed.
Micro Results:
11/02/23 10:32 Urine Culture - Pending
Urine
10/24/23 09:39 Blood Culture - Final
Blood/Venous No Growth - Final Report
10/24/23 09:12 Blood Culture - Final
Blood/Venous No Growth - Final Report
10/24/23 12:42 Nasal Screen MRSA (PCR) - Final
Nose MRSA not detected - performed by PCR methodology.
10/24/23 09:39 Influenza Types A & B (YANY) - Final
Nasal Swab Negative for Influenza A & B, NAAT
Negative results must be combined with clinical observations
and patient history.
Nucleic Acid Amplification test (NAAT)performed on the
[employer] platform.
Imaging:
10/29/2023 CT head without contrast: Moderate ventricular sulcal prominence consistent with atrophy. Brain parenchyma is normal attenuation. No intra or extra-axial masses, hemorrhage or fluid collection. Please see full dictation for additional
detail.
10/28/2023 CXR (portable): Mild � moderate interstitial airspace disease in the right middle lobe consistent with pneumonia which is significantly improved when compared to prior study. Lungs are otherwise clear. Please see full dictation for
additional detail.
10/24/2023 CT chest: Large right middle lobe pneumonia noted. Small volume right hilar lymphadenopathy.
[2023-11-03] MEDS: SUBUTEX 2 MG SL (15:05)
--- NOTE | 2023-11-03 15:13 | CM ---
CM following re: discharge planning.
Discussed in rounds, reviewed pt's chart,. Per Rounds meeting, pt remains NPO, DHT, speech therapy following, nephrology following. .
The patient resides with her spouse in a second floor apartment with a flight of steps to enter. The patient had a cane and nebulizer. No home O2.
D/c plan: uncertain ay this time and will depend on pt's progress
CM will follow with discharge plan updates as hospitalization progresses
[2023-11-03 17:28] LABS: Hematocrit 30.3 % (37.0-47.0); Hemoglobin 11.3 g/dL (12.0-16.0); Mean Corp Hgb Conc. 37.3 g/dL (33.0-37.0); Mean Corpuscular Hgb 38.8 pg (27.0-31.0); Mean Corpuscular Volume 104.1 fL (81.0-99.0); Mean Platelet Volume 12.9 fL (7.4-10.4); Platelet Count 89 10^3/uL (130-400); Red Blood Cell Count 2.91 10^6/uL (4.20-5.40); Red Cell Dist. Width 14.8 % (11.5-14.5); White Blood Cell Count 20.5 10^3/uL (4.8-10.8)
[2023-11-03 17:38] LABS: APTT 41.9 Sec (23.4-35.0)
[2023-11-03 17:44] LABS: Glucose - Point of Care 96 mg/dl (70-99)
[2023-11-03 18:37] LABS: Free T4 0.52 ng/dl (0.78-2.19)
[2023-11-03] MEDS: HEPARIN 25000 UNITS/250 ML IV (18:49)
--- NOTE | 2023-11-03 19:00 | PTCARENOTE ---
L nare dobhoff inserted, outer nare marking at 75cm. Placement confirmed w abd x-ray per Dr. Del Valle. Tube feedings initiated via Dobbhoff @ 1900 per orders- see flow sheet. Heparin gtt initiated @ 1900- see flow sheet. Heparin gtt orders
confirmed w Dr. Carreon and pharmacy prior to initiation. Pt.'s @ bedside earlier, updated. Pt OOB to chair w PT/OT, tolerated chair position and remained OOB approx 2.5H. Assisted back to bed x2 stand/pivot, deconditioned/weak.
Repositioned in bed; bed alarm active; call vora in reach.
[2023-11-03 19:06] LABS: Hepatitis C Antibody Reactive (Negative)
--- NOTE | 2023-11-03 20:30 | PTCARENOTE ---
Report received from manuel cruz. pt oriented to person and place. vss. pulse ox 95% on 2l. nsr. osmolite 1.2 tf @ 10cc/hr. Will follow protocol. Bicarb gtt @ 75cc/hr. hep gtt @ 1000units/hr. sorensen draining nadya urine. cath care provided. Pt turned
and plan of care updated. Will monitor.
[2023-11-04] VITALS (25 sets, daily range): BP systolic 107–140; BP diastolic 52–106; PULSE 79–83; O2SAT 94; BMI 21.0
[2023-11-04] MEDS: FLEXBUMIN 100 IV (00:02)
[2023-11-04 00:08] LABS: Glucose - Point of Care 89 mg/dl (70-99)
[2023-11-04] MEDS: NOVOLOG FLEXPEN-LOW RESISTANCE SC ×3 (00:24→12:37)
[2023-11-04 01:48] LABS: APTT > 200 Sec (23.4-35.0)
--- NOTE | 2023-11-04 01:59 | PTCARENOTE ---
ptt >200. hep gtt on hold for two hrs then decrease by 200 units. search engine optimization analyst also notified all based on protocol. pt has no changes since previous assessment.
--- NOTE | 2023-11-04 04:49 | PTCARENOTE ---
pt had moderate black heme positive bm. heparin gtt off at this time. molded goods operator notified. coags ordered and sent. heparin remains off. will monitor.
[2023-11-04 04:58] LABS: Hematocrit 24.5 % (37.0-47.0); Mean Corp Hgb Conc. 35.9 g/dL (33.0-37.0); Mean Corpuscular Hgb 38.4 pg (27.0-31.0); Mean Platelet Volume 12.8 fL (7.4-10.4); Platelet Count 68 10^3/uL (130-400); Red Blood Cell Count 2.29 10^6/uL (4.20-5.40); Red Cell Dist. Width 14.9 % (11.5-14.5); White Blood Cell Count 16.2 10^3/uL (4.8-10.8)
[2023-11-04 05:16] LABS: APTT 47.9 Sec (23.4-35.0)
[2023-11-04 05:23] LABS: Hemoglobin 8.8 g/dL (12.0-16.0)
--- NOTE | 2023-11-04 05:24 | W.PN.UPDATE ---
Addendum entered and electronically signed by BRYSON Nix 11/04/23 05:34:
AM Hgb dropped from 11.3 to 8.8, Hemodynamically stable, type and screen done.
Original Note:
Update Note
Progress Note Update
0430 Heparin drip stopped for nurse reported bloody BM (concern for GI Bleed).
--- NOTE | 2023-11-04 05:32 | PTCARENOTE ---
hgb dropped from 11.3 to 8.8. truck repair supervisor aware. pt already typed and screened. no new orders. will monitor
[2023-11-04 05:39] LABS: ALT (SGPT) 33 U/L (0-35); AST (SGOT) 58 U/L (14-36); Albumin 2.9 g/dl (3.5-5.0); Alkaline Phosphatase 237 U/L (38-126); Blood Urea Nitrogen 68 mg/dl (7-17); Calcium 7.9 mg/dl (8.4-10.2); Carbon Dioxide 22 mmol/L (22-30); Chloride 107 mmol/L (98-107); Estimated Creatinine Clearance 16 ml/min; Glucose 65 mg/dl (70-99); Magnesium 1.9 mg/dl (1.6-2.3); Phosphorus 3.6 mg/dl (2.5-4.5); Potassium 3.5 mmol/L (3.5-5.1); Sodium 143 mmol/L (135-145); Total Bilirubin 1.8 mg/dl (0.2-1.3); Total Protein 4.9 g/dl (6.3-8.2); eGFR 15.87
[2023-11-04] MEDS: DEXTROSE 50% SYRINGE 12.5 GRAMS IV (05:49)
[2023-11-04 06:22] LABS: Glucose - Point of Care 144 mg/dl (70-99)
--- NOTE | 2023-11-04 06:40 | PTCARENOTE ---
glucose 64 via am bmp. / amp dextrose admin. post medical coding specialist glucose was 144. Will monitor.
[2023-11-04] MEDS: SODIUM BICARBONATE 1150 MEQ IV (06:45)
[2023-11-04] MEDS: COMBIVENT RESPIMAT INHAL SPRAY 1 PUFF INH ×4 (07:20→20:23)
[2023-11-04] MEDS: LOPRESSOR 12.5 MG TUBE (08:42)
[2023-11-04] MEDS: SUBUTEX 2 MG SL (08:43)
[2023-11-04] MEDS: THIAMINE INJECTION 100 MG IV (08:43)
[2023-11-04] MEDS: NSS (PRESERVATIVE FREE) 10 ML IV ×2 (08:44→20:05)
[2023-11-04] MEDS: PROTONIX IV 40 MG IV ×2 (08:44→20:04)
[2023-11-04] MEDS: DECADRON 6 MG IV (08:44)
--- NOTE | 2023-11-04 09:05 | W.PN.PUL3 ---
Today's Communication / Plan
-
Start levothyroxine supplementation with repeat TFTs in 4-6 weeks
Trend Hb; GI on board
Decadron x 10 days
Ultimately will need repeat CXR in 4-6 weeks
Pulmonary service will continue to follow along.
Assessment
-
Ms Kaitlin Esparza is a 63/W adm 10-24 with several d h/o dyspnea. Brought by EMS to ER, no EMS report available, ER note mentioned administration of DNs in route which improved O2 from low 90s victoria mid 90s. Seen at ICU, on BPAP 14/5 with O2 4L , POx
92%, in moderate resp distress, intermittently agitated and trying to remove BPAP mask. Unfortunately very poor historian at time of visit, unknown baseline MS, appears acutely on chronically ill-she continues to have mental status changes and
infectious disease wished lumbar puncture and patient transferred for deteriorating neurologic status to the ICU 10/31/2023
Acute respiratory failure with hypoxemia - stable
Toxic metabolic encephalopathy/abrupt change in mental status - improved/stable
Acute kidney injury -worsening
Bilateral infiltrates due to bacterial superinfection (CAP - initial CT chest with tree-in-bud in posterior RUL + RML and anterior RLL, and lingula + large consolidation in medial RML)
Left-sided (mild-moderate) parapneumonic effusion with loculations
Sepsis without shock due to CAP and covid-19
COVID positive (positive on 10/24/2023)
Elevated PCT
Leukocytosis -improved
Thrombocytopenia -worsening
Primary symptomatic hypothyroidism
Hypoalbuminemia
COPD exacerbation
Heart failure-acute new onset with reduced EF-35% with septal and apical akinesis
Low serum osmolality (248 on admission)
Lactic acidosis -resolved
Transaminitis -improved
Portal vein thrombosis (seen on abd US from 10/24/2023 involving main portal vein)
Elevated troponin and BNP: LVEF 30-35% with WMAs
Flu negative
Elevated ESR-61
GI bleed 10/31/2023 with melena and heem positive stools
Hx of HCV (positive Ab in 2009, but negative HCV RNA)
Conditions NANNY CAREGIVER:
COPD
Hypothyroidism
Multiple sclerosis
Substance abuse: on methadone
VDRF due to overdose Jul 2011
Chronic pain: reportedly on fentanyl patch, hydromorphone, oxycodone
Smoker
Former alcohol abuse with cirrhosis seen on imaging
Plan:
Patient continues to be stable on supplemental oxygen and mental status is stable as well.
CXR today shows progressing bilateral pneumonia with left-sided pleural effusion which is loculated (per CT chest today)
Maintain SpO2 >90-94% and check walking pulse ox prior to discharge
Continue DuoNebs QID
Aspiration precautions
Speech therapy following -->�patient failed ACTIVATED SLUDGE ATTENDANT --> Dobhoff inserted on 11/03 and tube feeds were started
Will need repeat CXR in 4 to 6 weeks to follow pneumonia to resolution
Flutter valve prn
Sport bed
She is s/p course of antibiotics as per ID - was on flagyl from 10/29 - 11/03; s/p cefepime from 10/24 - 10/30 and IV vanco x 1 day (10/24)
Cultures reviewed
Urine Cx growing yeast
Infectious disease following-correspondence reviewed
Trend WBC
s/p course of remdesivir (10/28 - 11/01/2023)
Decadron 6 mg daily x 10 days
Lumbar puncture 10/31/2023- unable to perform due to agitation --> in light of improved mental status, I do not feel this is needed.� Will defer this decision to neuro
Mental status improved-off fentanyl patch (she reportedly had 2 fentanyl patches on admission), off [id number] oxycodone and off as needed morphine -�continue Subutex 2 mg SL daily (started 11/03) and increase as required
Maintain MAP>65
Given elevated TSH>15 with low fT4, levothyroxine should be started --> considering her age and newly diagnosed HFrEF with suspected ICM, would start between 25-50mcg per day and can increase as needed with repeat TFTs in 4-6 weeks once she has
fully recovered from her current acute illness.
If she spikes fever or if WBC rises further then consider left-sided thoracentesis for diagnostic purposes to rule out empyema; can also consider paracentesis
Neurology evaluation ongoing-correspondence reviewed
Discontinued fentanyl patch and other medications that might cause mental status changes
EEG-10/31/2023-no obvious epileptiform discharges but cannot be completely ruled out because of significant underlying artifact from movement
Also saw psychiatry 10/28/2023
Monitor thrombocytopenia - transfuse if needed to keep plt>20k
Hematology following
KENNETH panel negative (hep associated plt ab 0.170 on 10/31/2023)
Pt had heme positive stools on 10/31/2023
Monitor hemoglobin and transfuse as needed to maintain Hb >7, plt>50k
GI evaluation 11/01/2023-consultation reviewed
PPI --> currently on 40mg IV BID
Considering upper endoscopy --> will defer this decision to GI
Considering she has cirrhosis on imaging, check/trend ammonia and if elevated then start lactulose + rifaximin
Diuresis on hold given worsening COY
Follow renal function, electrolytes, intake/output, lower extremity edema and weight
Continue to replace electrolytes as needed
Nephrology following-correspondence reviewed
VICTOR MANUEL held-follow renal function
Heparin gtt continues for portal vein thrombosis-suspected covid infection related
Patient will see GI as an outpatient
Follow for arrhythmias
Cardiology follow-up till 10/28/2023
Smoking cessation counseling once alert and can comprehend advice
Chronic pain and polysubstance abuse -->�psych reconsulted on 11/03 - up-titrate subutex as tolerated
DVT prophylaxis-on heparin gtt
Nutrition with aspiration precautions
Starting TF --> ACTIVATED SLUDGE ATTENDANT to continue to follow along.� She may ultimately require PEG vs TPN if she continues to fail ACTIVATED SLUDGE ATTENDANT ; given her Hx of drug abuse, PEG would be safer option.
Patient downgraded to IMU on 11/03/2023. Pulmonary service will continue to follow along.
Diagnostic tests:
CXR 10-24-23 c/w Apr 2023: New R basilar infiltrate. Mild pulm vasc congestion. No free air. Blunted c-d angles.
Chest x-ray 10/30/2023-improving right lower lobe pneumonia
CXR 11/03/2023:� Progressed findings suggesting bilateral lower lobe pneumonia.
Chest CTA 10-24-23: No acute PE. RML infiltrate. RLL patch of pneumonitis. Patchy small lingular and posterior RUL infiltrates
CT Chest/Abd/pelvis 11-04-2023:
Moderate consolidation of the left lower lobe concerning for pneumonia. Progressed from 11/03/2023.
Small to moderate loculated left pleural effusion. Limited evaluation without IV contrast. Progressed from 11/03/2023.
Moderate patchy groundglass opacities throughout all lobes, greatest in the right upper lobe, concerning for pneumonia. New from 10/24/2023.
Small right pleural effusion. New from 10/24/2023
Tiny pericardial effusion versus pleural thickening. Stable
Mild abdominopelvic ascites. Progressed from 10/24/2023
Nodular hepatic margin suggesting cirrhosis. New from 11/18/2010
Probable partially calcified gallstone. New from 11/18/2010
Limited evaluation of the bowel without oral contrast.
Findings suggesting moderate volume overload or third spacing. New from 11/18/2010
Brain MRI 10/30/2023-no acute intracranial abnormalities
Echocardiogram 10/24/2023-EF 30-35%, mild mitral regurgitation, aortic sclerosis
Subjective Data
-
Date of Service:
Date of Service: November 04, 2023
Chief Complaint: Pulmonary Follow Up
Subjective:
Seen this morning. No acute events reported overnight. She is calm today. On 4 L nasal cannula with SpO2 94%. Continues to be on tube feeds and tolerating without any nausea/vomiting. CXR today showed worsening bilateral pneumonia. Awaiting CT
chest, abdomen, pelvis.
Review of Systems
General: Other (Negative unless mentioned above)
Objective Data
Data Reviewed
Vital Signs / I&O / Oxygen:
Vital Signs
Temp Pulse Resp BP Pulse Ox
98.3 F 94 22 117/62 93
11/04/23 08:16 11/04/23 08:42 11/04/23 07:27 11/04/23 08:42 11/04/23 07:27
Intake and Output
11/03/23 11/04/23 11/05/23
06:59 06:59 06:59
Intake Total 2030 / 2110 1405 / 1405
Output Total 185 / 190 170 / 170
Balance 1845 / 1920 1235 / 1235
SaO2 93
Nasal Cannula flow liters per 2
minute
Physical Exam
General: Respiratory Distress (n)
HEENT: Normocephalic and Moist Mucous Membranes
Cardiovascular: S1-S2 and Peripheral Edema (negative)
Respiratory: Wheeze (negative), Crackles (bibasilar), Rhonchi (negative) and Stridor (n)
GI: Soft, Non Distended and Non Tender
Neurology: Awake and Alert
Skin: Warm and Dry
Labs/Micro/Reports
Lab Data
11/04/23 04:37
11/04/23 04:37
Laboratory Results
11/03/23 11/04/23 11/04/23
17:14 00:56 04:37
APTT 41.9 H > 200 H* 47.9 H
11/04/23
07:00
APTT Cancelled
--- NOTE | 2023-11-04 09:32 | W.PN.GI.CBS2 ---
Addendum entered and electronically signed by Mikey Leo MD 11/04/23 19:02:
I saw and examined the patient.
The PA's note was reviewed and I agree with the note.
Comment:
Drop in Hgb from 11 to 8.8 noted. Melena, however no sign of active GI hemorrhage. Clinically not stable for endo eval at this time, continue supportive mx, will follow. Continue with PPI.
Original Note:
Today's Communication / Plan
-
some black stool and drop in hbg with heparin gtt now on hold no stools overnight
Etiology unclear -- PUD, ectasia, no evidence of cirrhosis noted on imaging- less likely esophageal varices.
cont to follow hbg-- no stools overnight per staff transfuse as needed - supportive care
high risk for intubation with any scopes hold for now but if signs of aggressive bleeding consider sooner will need to consider EGD when medically optimized
for CT today
cont PPI
hep C RNA pending
cont tube feeds for nutrition
heme following
Fib-4 may not be accurate given ?HIT for thrombocytopenia
Pt critically ill with multiple medical issues
Assessment / Plan
-
63-year-old female with history of chronic pain, multidrug abuse, COPD, hypothyroidism, hepatitis C reactivity with negative RNA presenting with shortness of breath, change in mental status, noted to have portal vein thrombus at admission, started
on Lovenox followed by argatroban which is currently on hold for black stool.
Currently hemodynamically stable.
-melena
-anemia with progressive drop in hbg since admission
-PVT
-hep C + RNA pending
-encephalopathy ammonia <9 neuro following
-leukocytosis
-worsening COY
-covid 19
-PNA
-COY
-thrombocytopenia
-hypoalbuminemia
-hypothyroidism with TSH 16.2 and T4 0.52
other medical problems:
-COPD
-PVT acute vs chronic
-concern for HIT argatroban was recommended however pt developed GI bleeding
-substance abuse with chronic opioid use
-MS
-tobacco abuse
PLAN:
some black stool and drop in hbg with heparin gtt now on hold no stools overnight
Etiology unclear -- PUD, ectasia, no evidence of cirrhosis noted on imaging- less likely esophageal varices.
cont to follow hbg-- no stools overnight per staff transfuse as needed - supportive care
high risk for intubation with any scopes hold for now but if signs of aggressive bleeding consider sooner will need to consider EGD when medically optimized
for CT today
cont PPI
hep C RNA pending
cont tube feeds for nutrition
heme following
Fib-4 may not be accurate given ?HIT for thrombocytopenia
Pt critically ill with multiple medical issues
Subjective
Subjective
Date of Service: November 04, 2023
11/04 black stool, on tube feeds noted continued shortness of breath but awake and answering most questions
Objective
Data Reviewed
Laboratory Data:
Laboratory Results
11/04/23 04:37
11/04/23 04:37
Laboratory Results
PT 20.8 Sec (11.4-14.6) H 11/01/23 03:57
INR 1.80 11/01/23 03:57
APTT Cancelled 11/04/23 07:00
Phosphorus 3.6 mg/dl (2.5-4.5) 11/04/23 04:37
Magnesium 1.9 mg/dl (1.6-2.3) 11/04/23 04:37
Total Bilirubin 1.8 mg/dl (0.2-1.3) H 11/04/23 04:37
AST 58 U/L (14-36) H 11/04/23 04:37
ALT 33 U/L (0-35) 11/04/23 04:37
Alkaline Phosphatase 237 U/L (38-126) H 11/04/23 04:37
Vital Signs and I&O:
Vital Signs
Temp Pulse Resp BP Pulse Ox
98.3 F 94 22 117/62 93
11/04/23 08:16 11/04/23 08:42 11/04/23 07:27 11/04/23 08:42 11/04/23 07:27
I&O
11/03/23 11/04/23 11/05/23
06:59 06:59 06:59
Intake Total 2029 / 2109 1405 / 1405
Output Total 185 / 190 170 / 170
Balance 1845 / 1920 1235 / 1235
Physical Exam
Physical Exam
HEENT: Other (mild jaundice )
Cardiology: Normal Sinus Rhythm
Pulmonary: Other (course with visible shortness of breath at rest)
GI: Soft, Distended and Non Tender
Extremities: No Edema
Neuro: Other (oriented x 2 with some one word answers and awake)
[2023-11-04 12:06] LABS: Glucose - Point of Care 122 mg/dl (70-99)
--- NOTE | 2023-11-04 12:36 | W.PN.ID1 ---
Date of Service
Date of Service: November 04, 2023
Today's Communication
Observe off antibiotics. Check HIV serology. Continue with supportive care.
Assessment / Plan
Encephalopathy
- unclear etiology; suspect TME
Leukocytosis
- may be secondary to steroid effect, cannot rule out infectious process.
COVID-19 (vaccinated patient)
- completed remdesivir x5 days
- off isolation
COPD
Acute Onset CHF - Ef 30%
COY - new
Hypothyroidism
Portal vein thrombosis acute vs chronic - with ascites
Substance abuse (on chronic methadone; UDS positive for multiple substances)
Hep C positive
Recommendations:
O2 requirement stable. Currently on 4L NC.
COY - progressive; nephrology following
Transaminitis resolving, ammonia neg
Leukocytosis noted - steroids vs infection. Trending down.
S/P course of metronidazole. Follow off antibiotics.
S/P course of remdesivir
Steroids per pulmonary
Given Hep C (+), will check HIV antibody. Have obtained verbal consent from patient's spouse.
Follow white count and temperature curve.
Continue with supportive measures.
����������������������������������������������������������
Chief Complaint
-: Other (Covid-19; encephalopathy)
Vital Signs / Physical Exam
Vital Signs
Vital Signs
Temp Pulse Resp BP Pulse Ox
98.2 F 72 14 117/62 96
11/04/23 12:09 11/04/23 10:54 11/04/23 10:54 11/04/23 08:42 11/04/23 10:54
Physical Exam
Constitutional: Chronically Ill, Non-toxic and Cachetic
Eyes: No Conjunctival Hemorrhage and Sclera Anicteric
Cardiovascular: S1/S2; Negative S3/S4
Pulmonary: Coarse and Non Labored; Negative Wheezes or Rales
Gastrointestinal: Soft, Non Tender, Non Distended and Normal Bowel Sounds
Extremities: Negative Edema or Cyanosis
Skin: Negative Rash or Jaundice
Neurological: Awake and Alert
Psychological: Confused
Objective Data
Lab Data
Lab Results
11/04/23 04:37
11/04/23 04:37
ESR 61 mm/hour (0-20) H 10/31/23 05:47
PT 20.8 Sec (11.4-14.6) H 11/01/23 03:57
INR 1.80 11/01/23 03:57
APTT Cancelled 11/04/23 07:00
Estimated Creat Clear 16 ml/min 11/04/23 04:37
Lactic Acid Cancelled 10/24/23 17:00
Total Bilirubin 1.8 mg/dl (0.2-1.3) H 11/04/23 04:37
AST 58 U/L (14-36) H 11/04/23 04:37
ALT 33 U/L (0-35) 11/04/23 04:37
Alkaline Phosphatase 237 U/L (38-126) H 11/04/23 04:37
C-Reactive Protein 19.40 mg/L (0.0-10.00) H 10/30/23 05:39
Most recent labs reviewed.
Micro Results:
11/02/23 10:32 Urine Culture - Final
Urine Yeast
10/24/23 09:39 Blood Culture - Final
Blood/Venous No Growth - Final Report
10/24/23 09:12 Blood Culture - Final
Blood/Venous No Growth - Final Report
10/24/23 12:42 Nasal Screen MRSA (PCR) - Final
Nose MRSA not detected - performed by PCR methodology.
10/24/23 09:39 Influenza Types A & B (YANY) - Final
Nasal Swab Negative for Influenza A & B, NAAT
Negative results must be combined with clinical observations
and patient history.
Nucleic Acid Amplification test (NAAT)performed on the
[employer] platform.
Imaging:
10/29/2023 CT head without contrast: Moderate ventricular sulcal prominence consistent with atrophy. Brain parenchyma is normal attenuation. No intra or extra-axial masses, hemorrhage or fluid collection. Please see full dictation for additional
detail.
10/28/2023 CXR (portable): Mild � moderate interstitial airspace disease in the right middle lobe consistent with pneumonia which is significantly improved when compared to prior study. Lungs are otherwise clear. Please see full dictation for
additional detail.
10/24/2023 CT chest: Large right middle lobe pneumonia noted. Small volume right hilar lymphadenopathy.
--- NOTE | 2023-11-04 13:07 | W.PN.UPDATE ---
Update Note
Progress Note Update
Psychiatry asked to re-consult on this 63 yo female admitted with Covid pneumonia, seen initially for TME/hypoactive delirium. Pt on multiple opioid pain meds prior to admission from [facility], prescribed large numbers, last filled 10/07 and
10/09/23. Unable to obtain detailed history from pt about her level of use or compliance. Pt seen, reviewed with nursing staff. Pt remains somewhat slowed and drowsy, awakens briefly when spoken to, oriented to self and hospital. Pt calm, in hand
mitts due to tendency to pick at lines/tubes. Pt has Dobhoff tube, is aspiration risk per nursing staff, able to take sublingual Subutex 2 mg started yesterday. Pt admitted 10/24/23, has been taken off of previous opioids. No recent psychotropic
meds noted or confirmed. Pt does not present any mood symptoms or psychosis. Pt agreed to stop previous Rx opioids when asked.
Imp: TME/hypoactive delirium, persistent but slowly improving
Rec: Agree with trial of Subutex; could use the established protocol, or alternatively titrate toward the usual range of 8 to 16 mg Daily
No other psych meds appear to be indicated at this point; will follow and continue to assess
--- NOTE | 2023-11-04 13:25 | W.PN.NEPH.PH ---
Today's Communication / Plan
-
- stop sodium bicarb fluids
- continue to trend BMPs
- no urgent indications for HD
Assessment/Plan
-
Assessment:
-COY
-hyponatremia
-hypotension on admission
-COVID+
-large RML PNA
-lactic acidosis
-?thrombosed portal vein/thrombocytopenia
-GI bleeding
-COPD
-hypothyroid
-HFrEF 30% (new onset)
-multiple sclerosis
-chronic pain/opioids
-confusion: s/p LP
-metabolic acidosis
Plan
-creatinine continues to worsening for no obvious etiology (ATN?) now up to 3.2 with worsening metabolic acidosis
-noted to have multiple episodes of hemodynamic instablity on 11/01 and prior
-concern for possible GIB overnight
-FeNa consistent with pre-renal (?REBECCA)
-REBECCA on differential but last contrast administration on 10/24, Cr rise began on 10/30 which does not fit typical presentation
-holding delano
-uop dropping maintain sorensen
-stop NaHCO3 fluids today as patient is very oliguric
-follow BMP
-cause of delirium uncertain, s/p LP
-patient at high clinical risk, with worsening COY and metaobolic acidoss
-
-
Date of Service: November 04, 2023
CC / HPI / ROS
-
Chief Complaint:
hyponatremia
History of Present Illness:
Abx for RML PNA
Na at141
Cr rise to 3.2
metabolic acidosis worsening
LFTs stable high
WBC remains elevated on steroids
Review of Systems:
no CP/fever
on midflow oxygen support
confusion improving
Labs
-
Labs:
WBC 16.2 10^3/uL (4.8-10.8) H 11/04/23 04:37
RBC 2.29 10^6/uL (4.20-5.40) L 11/04/23 04:37
Hgb 8.8 g/dL (12.0-16.0) L D 11/04/23 04:37
Hct 24.5 % (37.0-47.0) L 11/04/23 04:37
Plt Count 68 10^3/uL (130-400) L D 11/04/23 04:37
Sodium 143 mmol/L (135-145) 11/04/23 04:37
Potassium 3.5 mmol/L (3.5-5.1) 11/04/23 04:37
Chloride 107 mmol/L (98-107) 11/04/23 04:37
Carbon Dioxide 22 mmol/L (22-30) 11/04/23 04:37
BUN 68 mg/dl (7-17) H 11/04/23 04:37
Creatinine 3.2 mg/dL (0.6-1.0) H 11/04/23 04:37
eGFR 15.87 11/04/23 04:37
Glucose 65 mg/dl (70-99) L 11/04/23 04:37
Calcium 7.9 mg/dl (8.4-10.2) L 11/04/23 04:37
Phosphorus 3.6 mg/dl (2.5-4.5) 11/04/23 04:37
Ovv-B-Angoscvjhfm Pept 36287 pg/ml 11/03/23 03:42
Albumin 2.9 g/dl (3.5-5.0) L 11/04/23 04:37
Physical Exam
-
Vital Signs:
Vital Signs
Temp Pulse Resp BP Pulse Ox
98.2 F 72 14 117/62 96
11/04/23 12:09 11/04/23 10:54 11/04/23 10:54 11/04/23 08:42 11/04/23 10:54
Cardiovascular:: Regular rate and rhythm
Respiratory:: Bilateral: Coarse
Lung Excursion:: Normal
Abdomen:: Nontender and Soft
Extremity Edema:: +1: Bilateral:
Sorensen Catheter: Yes
--- NOTE | 2023-11-04 13:36 | PTCARENOTE ---
pt awake in am , aware of place, unaware of events of hospitalization, confused conversation at times, NSR-ST on monitor , BP adequate , pt 02 sat 88 on 2L and increased o2 to 4L now 93% and above , pt was sent to CT for eval of lungs and liver in
am , she had Speech eval and has poor gag reflex , tolerating tube feeds , and bedside and updated plan of care and condition , IMU level of care
--- NOTE | 2023-11-04 13:40 | PTCARENOTE ---
labs noted, no further black stools since last night
[2023-11-04 14:25] LABS: HCV Quant by NAAT IU/mL Not Detected; HCV Quant by NAAT Interp Not Detected (Not Detected); HCV Quant by NAAT Log IU/mL Not Detected log IU/mL
--- NOTE | 2023-11-04 14:58 | W.PN.HOSP.TC ---
Today's Communication/Plan
-
holding anticoagulation, f/u GI recs
stop bicarb, anticipate possible lasix trial in next 24-48 hours
hep c antibody, hiv f/u
Assessment / Plan
Assessment / Plan
HPI: 63-year-old female with past medical history of hypothyroidism, COPD, multiple sclerosis, substance abuse on methadone, chronic opiate, tobacco abuse, COPD, chronic pain, ?History of atrial fibrillation; p/w shortness of breath.
A/P:
# Acute hypoxic respiratory insufficiency
# COPD exacerbation
# Severe sepsis POA, secondary to CAP
# SARS-CoV-2
procal 1.12, MRSA screen negative, Blood Cx negative
She was treated with Cefepime, received 7 days, discontinued further cefepime
Cont Flagyl for anaerobe coverage, treat for 5 days (D5/5) completed
Cont O2 support, continue to wean o2; not on home o2 as home
DuoNebs every 4 standing
Completed RemD x5 days with persistent hypoxia
Solu-Medrol 40 mg every 12 -> Decadron 6 mg daily x10 days
Incentive Marco
Pulm/Locomotive Crane Operator Helper on board
ID on board
# Leucocytosis, unclear etiology, steroid induced vs VTE vs encephalitis (see below)
-ctm fever curve
# Acute TME, unclear etiology, ddx including psychosis from polysubstance abuse vs encephalitis; I favor 2/2 to metabolic encephalopathy 2/2 to SARS-CoV-2, PNA +/- cefepime use
Off fentanyl patch, off ATC oxycodone, off PRN Morphine
UDS positive for opiate/fentanyl/benzo, also cocaine and methamphetamine
CT head x2: No acute intracranial abnormality noted.
MRI brain No acute intracranial abnormality noted.
EEG without overt seizure activity
no need for LP at this time; Mental status improving
ID/ Neuro on board
SPL eval - cont NPO
Psych CS to assist with home psychotropic meds
# Portal vein thrombosis, unclear acute v chronic, can be related to COVID-19
Lovenox 1 mg/kg -> Eliquis 2.5 mg BID -> Argatroban - restart as hgb stable
APL panel unrevealing, pending prothrombin gene mutation, PENNY-2 mutation test results
hematology on board
-hep ggt was initiated, but stopped due to GIB
#Acute Blood Loss Anemia
-GI Bleed
-CT A/P
-GI consulted
-Hold anticoagulation
-PPI
# Drop in platelet, concern for HIT
Pt did receive Lovenox therapeutic dose 10/24 - 10/26
HIT Ab: negative
Heme on board
# New onset acute HFrEF
Echo with EF 30 to 35%, akinesis of the septum and apex, normal contraction of the basal inferior, inferolateral, and lateral louis, hypokinesis of the remaining segments, mild MR, aortic sclerosis with mild AR
s/p gentle diuresis with IV Lasix 20 mg daily, hold with COY
Started low-dose Toprol, monitor blood pressures
Cardiology on board, was added lisinopril for reduced EF- off with COY
consider outpt ischemic eval
# Hyponatremia
# Now hypernatremia
adjusting IVF based on sodium level
Nephro on board
# COY
#Anion Gap Metabolic Acidosis
SCr trending upward
hold ACEI
Renal on board
Bicarb ggt - stopped; oliguric; may need lasix in next 24-48 hours;
# Transaminitis due to Hepatocellular injury
Most likely secondary to portal vein thrombosis +/- congestive hepatopathy
No statin
Monitor LFT
#Hep C positive
-hep c antibody ordered as per ID
#Hypothyroidism
-initiate synthroid
# Elevated troponin likely non-OK troponin elevation in setting of acute CHF
troponin plateaued at 0.16
# Polysubstance abuse
# Tobacco use
# Chronic pain
off CHIEF FUNDRAISING OFFICER fentanyl patch, oxycodone with current delirium
Psych CS
# Multiple sclerosis
# Hypokalemia
replete
DVT prophylaxis: SCD;
Total Critical Care Time__60__ minutes. I was immediately available to the patient and staff. I personally examined, reviewed labs, diagnostic images/reports, interpretations, treatment plans, discussed patient care with other providers and
family or caregivers (if patient is unable to make decisions), entered orders as appropriate and documented the medical record.
Anticipated Discharge: > 48 hours
Subjective/Interval History
-
Date of Service: November 04, 2023
Bloody bowel movement overnight
Objective Data
-
Labs:
Laboratory Results
11/04/23 11/04/23
04:37 07:00
WBC 16.2 H
Hgb 8.8 L D
Hct 24.5 L
Plt Count 68 L D
APTT 47.9 H Cancelled
Sodium 143
Potassium 3.5
Chloride 107
Carbon Dioxide 22
BUN 68 H
Creatinine 3.2 H
Glucose 65 L
Calcium 7.9 L
Total Bilirubin 1.8 H
AST 58 H
ALT 33
Alkaline Phosphatase 237 H
Vital Signs:
Vital Signs
Temp Pulse Resp BP Pulse Ox
98.2 F 82 15 117/62 96
11/04/23 12:09 11/04/23 14:57 11/04/23 14:57 11/04/23 08:42 11/04/23 10:54
I&O
11/03/23 11/04/23 11/05/23
06:59 06:59 06:59
Intake Total 2029 / 0 1405 / 1525 860 / 860
Output Total 185 / 190 170 / 170 55 / 55
Balance 1845 / 1920 1235 / 1355 805 / 805
Review of Systems
-
Unable to obtain full review of systems at this time due to: Acuity
History Source: Patient
Physical Exam
-
General: Well Developed and Appears Chronically Ill
HEENT: Normocephalic, Atraumatic, Nose Appears Normal, Ears Appear Normal and Oxygen (5L NC)
Respiratory: Non Labored Respirations; Negative Accessory Resp Muscle Use
Cardiac: Regular Rhythm and S1/S2
GI: Soft, Nontender, Nondistended and Normal Bowel Sounds
Genito-urinary: Morgan
Skin: Warm and Dry
Neuro: Awake
Psych: Calm and Confused; Negative Intact Judgement/Insight
Data Reviewed
-
CT Scan: Image personally visualized and interpreted and Report Reviewed by me
MRI: Report Reviewed by me
Labs: Labs Reviewed by me
[2023-11-04 17:25] LABS: HIV Combo Negative (Negative)
[2023-11-04 17:58] LABS: Glucose - Point of Care 182 mg/dl (70-99)
--- NOTE | 2023-11-04 18:08 | PTCARENOTE ---
pt tolerating tube feeds with increased volumes, pt is more talkative and responsive than in am
[2023-11-04] MEDS: NOVOLOG FLEXPEN-LOW RESISTANCE 1 UNITS SC ×2 (18:38→23:58)
[2023-11-04 23:18] LABS: Glucose - Point of Care 179 mg/dl (70-99)
[2023-11-05] VITALS (26 sets, daily range): BP systolic 101–135; BP diastolic 46–97; BMI 21.5
--- NOTE | 2023-11-05 04:54 | PTCARENOTE ---
pt pulling off o2. mitts applied. pt continued to remove oxygen and desat to the 70's. bilateral wrist restraints now in place. pt with crackles throughout. respiratory at bedside, pt placed on midflow.
[2023-11-05 05:06] LABS: Hematocrit 29.6 % (37.0-47.0); Hemoglobin 10.5 g/dL (12.0-16.0); Mean Corp Hgb Conc. 35.5 g/dL (33.0-37.0); Mean Corpuscular Hgb 38.3 pg (27.0-31.0); Mean Platelet Volume 13.8 fL (7.4-10.4); Platelet Count 71 10^3/uL (130-400); Red Blood Cell Count 2.74 10^6/uL (4.20-5.40); Red Cell Dist. Width 15.3 % (11.5-14.5)
[2023-11-05] MEDS: NOVOLOG FLEXPEN-LOW RESISTANCE 1 UNITS SC (05:06)
[2023-11-05 05:17] LABS: Glucose - Point of Care 160 mg/dl (70-99)
[2023-11-05 05:24] LABS: Ammonia 13 umol/L (9-30)
[2023-11-05 05:38] LABS: ALT (SGPT) 33 U/L (0-35); AST (SGOT) 53 U/L (14-36); Albumin 2.7 g/dl (3.5-5.0); Alkaline Phosphatase 263 U/L (38-126); Blood Urea Nitrogen 72 mg/dl (7-17); Calcium 7.7 mg/dl (8.4-10.2); Carbon Dioxide 27 mmol/L (22-30); Chloride 105 mmol/L (98-107); Estimated Creatinine Clearance 15 ml/min; Glucose 163 mg/dl (70-99); Magnesium 1.9 mg/dl (1.6-2.3); Potassium 3.7 mmol/L (3.5-5.1); Sodium 141 mmol/L (135-145); Total Bilirubin 1.6 mg/dl (0.2-1.3)
[2023-11-05] MEDS: SYNTHROID 25 MCG PO (06:04)
[2023-11-05] MEDS: COMBIVENT RESPIMAT INHAL SPRAY 1 PUFF INH ×2 (07:22→10:49)
--- NOTE | 2023-11-05 08:13 | W.PN.NEPH.PH ---
Today's Communication / Plan
-
Follow BMP
Holding IV fluid
Assessment/Plan
-
Assessment:
-COY
-hyponatremia
-hypotension on admission
-COVID+
-large RML PNA
-lactic acidosis
-?thrombosed portal vein/thrombocytopenia
-GI bleeding
-COPD
-hypothyroid
-HFrEF 30% (new onset)
-multiple sclerosis
-chronic pain/opioids
-confusion: s/p LP
-metabolic acidosis
Plan
-creatinine continues to worsening for no obvious etiology (ATN?) now up to 3.3 however creatinine may be plateauing in setting of presumed ATN
-No acute HD requirement today
-noted to have multiple episodes of hemodynamic instability on 11/01 and prior, but has been hemodynamically stable
-concern for possible GIB , hemoglobin up to 10.5 status posttransfusion
-FeNa consistent with pre-renal (?REBECCA)
-REBECCA on differential but last contrast administration on 10/24, Cr rise began on 10/30 which does not fit typical presentation
-holding delano
-uop dropping maintain sorensen
-follow BMP
-cause of delirium uncertain, s/p LP
-patient at high clinical risk, with worsening COY
-
-
Date of Service: November 05, 2023
CC / HPI / ROS
-
Chief Complaint:
hyponatremia
History of Present Illness:
Abx for RML PNA
Na at141
Cr rise to 3.3
metabolic acidosis worsening
LFTs stable high
WBC remains elevated on steroids
Review of Systems:
no CP/fever
on midflow oxygen support
confusion improving
Oliguric via cath
Labs
-
Labs:
WBC 22.0 10^3/uL (4.8-10.8) H 11/05/23 04:32
RBC 2.74 10^6/uL (4.20-5.40) L 11/05/23 04:32
Hgb 10.5 g/dL (12.0-16.0) L 11/05/23 04:32
Hct 29.6 % (37.0-47.0) L 11/05/23 04:32
Plt Count 71 10^3/uL (130-400) L 11/05/23 04:32
Sodium 141 mmol/L (135-145) 11/05/23 04:32
Potassium 3.7 mmol/L (3.5-5.1) 11/05/23 04:32
Chloride 105 mmol/L (98-107) 11/05/23 04:32
Carbon Dioxide 27 mmol/L (22-30) 11/05/23 04:32
BUN 72 mg/dl (7-17) H 11/05/23 04:32
Creatinine 3.3 mg/dL (0.6-1.0) H 11/05/23 04:32
eGFR 15.30 11/05/23 04:32
Glucose 163 mg/dl (70-99) H 11/05/23 04:32
Calcium 7.7 mg/dl (8.4-10.2) L 11/05/23 04:32
Phosphorus 3.0 mg/dl (2.5-4.5) 11/05/23 04:32
Min-U-Pnnuyxiildn Pept 31230 pg/ml 11/03/23 03:42
Albumin 2.7 g/dl (3.5-5.0) L 11/05/23 04:32
Physical Exam
-
Vital Signs:
Vital Signs
Temp Pulse Resp BP Pulse Ox
97.3 F 85 14 135/57 99
11/05/23 05:13 11/05/23 07:23 11/05/23 07:23 11/05/23 06:00 11/05/23 07:23
Cardiovascular:: Regular rate and rhythm
Respiratory:: Bilateral: Coarse
Lung Excursion:: Normal
Abdomen:: Distended and Soft
Bowel Sounds:: Decreased
Extremity Edema:: +1: Bilateral: (central edema)
Sorensen Catheter: Yes
[2023-11-05] MEDS: LOPRESSOR 12.5 MG TUBE (08:47)
[2023-11-05] MEDS: THIAMINE INJECTION 100 MG IV (08:47)
[2023-11-05] MEDS: SUBUTEX 2 MG SL (08:47)
[2023-11-05] MEDS: PROTONIX IV 40 MG IV ×2 (08:47→19:58)
[2023-11-05] MEDS: DECADRON 6 MG IV (08:47)
[2023-11-05] MEDS: NSS (PRESERVATIVE FREE) 10 ML IV ×2 (08:48→19:58)
--- NOTE | 2023-11-05 10:12 | W.PN.PUL3 ---
Today's Communication / Plan
-
Consult IR for thoracentesis vs paracentesis
Continue high flow with goal SpO2 >88%
Low threshold to intubate
Keep right side down more so than left side given the degree of opacification/atelectasis on the left lung
Upgrade back to ICU level of care.
Assessment
-
Ms Kaitlin Esparza is a 63/W adm 10-24 with several d h/o dyspnea. Brought by EMS to ER, no EMS report available, ER note mentioned administration of DNs in route which improved O2 from low 90s victoria mid 90s. Seen at ICU, on BPAP 14/5 with O2 4L , POx
92%, in moderate resp distress, intermittently agitated and trying to remove BPAP mask. Unfortunately very poor historian at time of visit, unknown baseline MS, appears acutely on chronically ill-she continues to have mental status changes and
infectious disease wished lumbar puncture and patient transferred for deteriorating neurologic status to the ICU 10/31/2023
Acute respiratory failure with hypoxemia - worsening due to progressive multifocal PNA in setting of L-loculated effusion
Toxic metabolic encephalopathy/abrupt change in mental status - improved/stable
Acute kidney injury -worsening - suspect this could be due to hepatorenal syndrome vs ATN in setting of sepsis
Bilateral infiltrates due to bacterial superinfection (CAP - initial CT chest with tree-in-bud in posterior RUL + RML and anterior RLL, and lingula + large consolidation in medial RML)
Left-sided (mild-moderate) parapneumonic effusion with loculations
Sepsis without shock due to CAP and covid-19
COVID positive (positive on 10/24/2023)
Elevated PCT
Leukocytosis - worsening
Thrombocytopenia - stable
Primary symptomatic hypothyroidism
Hypoalbuminemia with ascites (ascites likely due to cirrhosis)
COPD exacerbation
Heart failure-acute new onset with reduced EF-35% with septal and apical akinesis
Low serum osmolality (248 on admission)
Lactic acidosis -resolved
Transaminitis -improved
Portal vein thrombosis (seen on abd US from 10/24/2023 involving main portal vein)
Elevated troponin and BNP: LVEF 30-35% with WMAs
Flu negative
Elevated ESR-61
GI bleed 10/31/2023 with melena and heem positive stools
Hx of HCV (positive Ab in 2009, but negative HCV RNA)
Conditions RAMP BOSS:
COPD
Hypothyroidism
Multiple sclerosis
Substance abuse: on methadone
VDRF due to overdose Jul 2011
Chronic pain: reportedly on fentanyl patch, hydromorphone, oxycodone
Smoker
Former alcohol abuse with cirrhosis seen on imaging
Plan:
Today patient is worsening with more confusion, hypoxia and her skin color looks worse (sesay/pale)
Continue high flow nasal cannula and titrate FiO2/flow rate to maintain SpO2 >88%
I will consult IR to see if they can perform left-sided thoracentesis; if not enough fluid then will assess for paracentesis
Given her cirrhosis, this is a contraindication for chest tube so even if there is a left-sided loculated effusion, a tube thoracostomy should not be placed
Continue DuoNebs QID
Start mucinex
Aspiration precautions
Speech therapy following -->�patient failed BILLING SUPERVISOR --> Dobhoff inserted on 11/03 and tube feeds were started
Will need repeat CXR in 4 to 6 weeks to follow pneumonia to resolution
Flutter valve prn
Sport bed
She is s/p course of antibiotics as per ID - was on flagyl from 10/29 - 11/03; s/p cefepime from 10/24 - 10/30 and IV vanco x 1 day (10/24) --> ID restarted ABx today with Invanz
Cultures reviewed
Urine Cx growing yeast
Infectious disease following-correspondence reviewed
Trend WBC
s/p course of remdesivir (10/28 - 11/01/2023)
Decadron 6 mg daily x 10 days
Lumbar puncture 10/31/2023- unable to perform due to agitation --> in light of improved mental status, I do not feel this is needed.� Will defer this decision to neuro
Mental status improved-off fentanyl patch (she reportedly had 2 fentanyl patches on admission), off [id number] oxycodone and off as needed morphine -�continue Subutex 2 mg SL daily (started 11/03) and increase as required
Maintain MAP>65
Given elevated TSH>15 with low fT4, levothyroxine should be started --> considering her age and newly diagnosed HFrEF with suspected ICM, start between 25-50mcg per day and can increase as needed with repeat TFTs in 4-6 weeks once she has fully
recovered from her current acute illness.
Neurology evaluation ongoing-correspondence reviewed
Discontinued fentanyl patch and other medications that might cause mental status changes
EEG-10/31/2023-no obvious epileptiform discharges but cannot be completely ruled out because of significant underlying artifact from movement
Also saw psychiatry 10/28/2023
Monitor thrombocytopenia - transfuse if needed to keep plt>20k
Hematology following
KENNETH panel negative (hep associated plt ab 0.170 on 10/31/2023)
Pt had heme positive stools on 10/31/2023
Monitor hemoglobin and transfuse as needed to maintain Hb >7, plt>50k
GI evaluation 11/01/2023-consultation reviewed
PPI --> currently on 40mg IV BID
Considering upper endoscopy --> will defer this decision to GI
Considering she has cirrhosis on imaging, trend ammonia and if elevated then start lactulose + rifaximin
Scheduled diuresis on hold given worsening COY, although she did receive a dose today given her worseng hypoxia and she does have ascites with b/l pleural effusions (L>R)
Follow renal function, electrolytes, intake/output, lower extremity edema and weight
Continue to replace electrolytes as needed
Nephrology following-correspondence reviewed --> BUN and Cr continue to rise despite having MAP>65-70; she may need HD. Given her low serum Na and cirrhosis, I am concerned that she has HRS
VICTOR MANUEL held-follow renal function
Heparin gtt continues for portal vein thrombosis-suspected covid infection related
Patient will see GI as an outpatient
Follow for arrhythmias
Cardiology follow-up till 10/28/2023
Smoking cessation counseling once alert and can comprehend advice
Chronic pain and polysubstance abuse -->�psych reconsulted on 11/03 - up-titrate subutex as tolerated
DVT prophylaxis-on heparin gtt
Nutrition with aspiration precautions
Starting TF --> BILLING SUPERVISOR to continue to follow along.� She may ultimately require PEG vs TPN if she continues to fail BILLING SUPERVISOR ; given her Hx of drug abuse, PEG would be safer option.
Patient downgraded to IMU on 11/03/2023. Due to her worsening hypoxia and how she clinically appears, will upgrade back to ICU now. She has a low threshold to be intubated
Critical care statement: A total of 40 minutes of critical care time was provided for this patient today. This includes management of unstable vital signs, evaluation of the patient at bedside, reviewing the patient's pertinent medical records
including radiographs, microbiology, laboratory evaluations, and discussion with primary team, consultants, pharmacy, nutrition, physical therapy, case management, charge nurse, critical care nursing, and respiratory therapy.
Diagnostic tests:
CXR 10-24-23 c/w Apr 2023: New R basilar infiltrate. Mild pulm vasc congestion. No free air. Blunted c-d angles.
Chest x-ray 10/30/2023-improving right lower lobe pneumonia
CXR 11/03/2023:� Progressed findings suggesting bilateral lower lobe pneumonia.
CXR 11/05/2023: Persistent interstitial and airspace disease bilaterally not significantly changed. Left pleural fluid.
Chest CTA 10-24-23: No acute PE. RML infiltrate. RLL patch of pneumonitis. Patchy small lingular and posterior RUL infiltrates
CT Chest/Abd/pelvis 11-04-2023:
Moderate consolidation of the left lower lobe concerning for pneumonia. Progressed from 11/03/2023.
Small to moderate loculated left pleural effusion. Limited evaluation without IV contrast. Progressed from 11/03/2023.
Moderate patchy groundglass opacities throughout all lobes, greatest in the right upper lobe, concerning for pneumonia. New from 10/24/2023.
Small right pleural effusion. New from 10/24/2023
Tiny pericardial effusion versus pleural thickening. Stable
Mild abdominopelvic ascites. Progressed from 10/24/2023
Nodular hepatic margin suggesting cirrhosis. New from 11/18/2010
Probable partially calcified gallstone. New from 11/18/2010
Limited evaluation of the bowel without oral contrast.
Findings suggesting moderate volume overload or third spacing. New from 11/18/2010
Brain MRI 10/30/2023-no acute intracranial abnormalities
Echocardiogram 10/24/2023-EF 30-35%, mild mitral regurgitation, aortic sclerosis
Subjective Data
-
Date of Service:
Date of Service: November 05, 2023
Chief Complaint: Pulmonary Follow Up
Subjective:
Patient seen this morning. More short of breath today. Has audible phlegm that she is not able to expectorate. She is confused albeit awake. came to bedside -I answered all of his questions and told him about the worsening oxygen
requirements for Kaitlin. Patient remains full code with full medical treatment.
Review of Systems
General: Other (Unable to obtain due to patient's acute clinical condition)
Objective Data
Data Reviewed
Vital Signs / I&O / Oxygen:
Vital Signs
Temp Pulse Resp BP Pulse Ox
98.1 F 75 19 116/61 100
11/05/23 15:00 11/05/23 15:49 11/05/23 15:49 11/05/23 15:49 11/05/23 15:40
Intake and Output
11/04/23 11/05/23 11/06/23
06:59 06:59 06:59
Intake Total 1405 / 1525 2465 / 2545 560 / 560
Output Total 170 / 170 185 / 190 75 / 75
Balance 1235 / 1355 2280 / 2355 485 / 485
SaO2 100
Nasal Cannula flow liters per 50
minute
Physical Exam
General: Respiratory Distress (n)
HEENT: Normocephalic and Moist Mucous Membranes
Cardiovascular: S1-S2 and Peripheral Edema (negative)
Respiratory: Wheeze (negative), Crackles (bibasilar), Rhonchi (negative) and Stridor (n)
GI: Soft, Non Distended and Non Tender
Neurology: Awake and Alert
Skin: Warm and Dry
Labs/Micro/Reports
Lab Data
11/05/23 04:32
11/05/23 04:32
Microbiology
11/02/23 10:32 Urine Urine Culture - Final
Yeast
[2023-11-05] MEDS: LASIX 40 MG IV (10:23)
--- NOTE | 2023-11-05 10:34 | PTCARENOTE ---
Pt received from second shift supervisor RN. Pt drowsy but awakens easily, nods yes/no to questions. NSR on tele, trace generalized edema. Breath sounds coarse with rhonchi throughout. Pt received on 12L MFNC with saturation of 97%. Initially titrated down to
8L but she required more O2. While asleep pt desaturated to the 80's. Sl exp wheezing noted. O2 increased to 15L and 40mg IV Lasix given. ABD round and distended. TF through R nare DHT, Osmolite feed at goal 55/hr with 25 flush. + Placement. Morgan
in place draining nadya urine at 5mls/hr. Skin intact. R midline intact. BL wrist restraints in place.
--- NOTE | 2023-11-05 10:44 | W.PN.GI.CBS2 ---
Addendum entered and electronically signed by Mikey Leo MD 11/05/23 12:26:
I saw and examined the patient.
The PA's note was reviewed and I agree with the note.
Comment:
Hgb back up to 10.5, no transfusion yesterday or o/n. No signs of active GI hemorrhage. Clinically tenuous, especially respiratory. No endo eval, continue with PPI, supportive mx. Minimal role of GI in pt's care at this point, will s/o, pls call
back if active hemorrhage suspected.
Addendum entered and electronically signed by BRYSON Werner 11/05/23 10:55:
add INR for am with underlying cirrhosis, INR 1.8 on 11/01
Original Note:
Today's Communication / Plan
-
no further black stools recorded
hbg up to 10.5 without transfusion cont to monitor
heparin remains off
Etiology unclear -- PUD, ectasia, no evidence of cirrhosis noted on imaging- less likely esophageal varices.
cont to follow hbg-
high risk for intubation with any scopes hold for now but if signs of aggressive bleeding consider sooner will need to consider EGD when medically optimized
CT as noted with cirrhosis and mild ascites -- prior liver work up with + BARRY, hep C exposure no active virus at this time-- OP follow up
cont PPI
hep C RNA neg prior exposure vs prior treatment
cont tube feeds for nutrition--resp status will need optimization of peg needed
heme following
Fib-4 may not be accurate given ?HIT for thrombocytopenia
Pt remains critically ill with multiple medical issues
will need OP follow up after discharge for underlying cirrhosis, GI bleed etc.
Assessment / Plan
-
63-year-old female with history of chronic pain, multidrug abuse, COPD, hypothyroidism, hepatitis C reactivity with negative RNA presenting with shortness of breath, change in mental status, noted to have portal vein thrombus at admission, started
on Lovenox followed by argatroban which is currently on hold for black stool.
11/04/23 CT Chest/abd/pel Wo Iv Cont
IMPRESSION: Moderate consolidation of the left lower lobe concerning for pneumonia. Progressed from 11/03/2023.
Small to moderate loculated left pleural effusion. Limited evaluation without IV contrast. Progressed from 11/03/2023.
Moderate patchy groundglass opacities throughout all lobes, greatest in the right upper lobe, concerning for pneumonia. New from 10/24/2023.
Small right pleural effusion. New from 10/24/2023
Tiny pericardial effusion versus pleural thickening. Stable
Mild abdominopelvic ascites. Progressed from 10/24/2023
Nodular hepatic margin suggesting cirrhosis. New from 11/18/2010
Probable partially calcified gallstone. New from 11/18/2010
Limited evaluation of the bowel without oral contrast.
Findings suggesting moderate volume overload or third spacing. New from 11/18/2010
-melena
-anemia
-PVT
-hep C + RNA no detected - prior exposure with clearance vs prior treatment
-encephalopathy ammonia <9 neuro following
-CT concerning for underlying cirrhosis with ascites
-leukocytosis
-worsening COY
-covid 19/CT 11/04 with LLL PNA, effusion
-PNA
-COY
-thrombocytopenia
-hypoalbuminemia
-hypothyroidism with TSH 16.2 and T4 0.52
-+ tox screen
other medical problems:
-COPD
-PVT acute vs chronic
-concern for HIT argatroban was recommended however pt developed GI bleeding
-substance abuse with chronic opioid use
-MS
-tobacco abuse
PLAN:
no further black stools recorded
hbg up to 10.5 without transfusion cont to monitor
heparin remains off
Etiology unclear -- PUD, ectasia, no evidence of cirrhosis noted on imaging- less likely esophageal varices.
cont to follow hbg-
high risk for intubation with any scopes hold for now but if signs of aggressive bleeding consider sooner will need to consider EGD when medically optimized
CT as noted with cirrhosis and mild ascites
cont PPI
hep C RNA neg prior exposure vs prior treatment
cont tube feeds for nutrition--resp status will need optimization of peg needed
heme following
Fib-4 may not be accurate given ?HIT for thrombocytopenia
Pt remains critically ill with multiple medical issues
will need OP follow up after discharge for underlying cirrhosis, GI bleed etc.
Subjective
Subjective
Date of Service: November 05, 2023
minimal verbal in exam, remains on tube feeds 11/04 black stool
Objective
Data Reviewed
Laboratory Data:
Laboratory Results
11/05/23 04:32
11/05/23 04:32
Laboratory Results
PT 20.8 Sec (11.4-14.6) H 11/01/23 03:57
INR 1.80 11/01/23 03:57
APTT Cancelled 11/04/23 07:00
Phosphorus 3.0 mg/dl (2.5-4.5) 11/05/23 04:32
Magnesium 1.9 mg/dl (1.6-2.3) 11/05/23 04:32
Total Bilirubin 1.6 mg/dl (0.2-1.3) H 11/05/23 04:32
AST 53 U/L (14-36) H 11/05/23 04:32
ALT 33 U/L (0-35) 11/05/23 04:32
Alkaline Phosphatase 263 U/L (38-126) H 11/05/23 04:32
Vital Signs and I&O:
Vital Signs
Temp Pulse Resp BP Pulse Ox
97.6 F 77 22 117/53 83
11/05/23 08:16 11/05/23 10:23 11/05/23 09:00 11/05/23 10:23 11/05/23 10:33
I&O
11/04/23 11/05/23 11/06/23
06:59 06:59 06:59
Intake Total 1405 / 1525 2465 / 2545 320 / 320
Output Total 170 / 170 185 / 190
Balance 1235 / 1355 2280 / 2355 295 / 295
Physical Exam
Physical Exam
HEENT: Anicteric, Moist mucous membranes and Other (thin appearing)
Cardiology: Normal Sinus Rhythm
Pulmonary: Clear
GI: Soft, Non Distended and Non Tender
Extremities: No Edema
Neuro: Other (opens eyes and some attempt for verbal communications)
--- NOTE | 2023-11-05 11:16 | W.PN.ID1 ---
Date of Service
Date of Service: November 05, 2023
Today's Communication
abx.
Assessment / Plan
Encephalopathy
- unclear etiology; suspect TME
Leukocytosis
- may be secondary to steroid effect, cannot rule out infectious process. Rising on today's labs.
COVID-19 (vaccinated patient)
- completed remdesivir x5 days
- off isolation
COPD
Acute Onset CHF - Ef 30%
COY
Hypothyroidism
Portal vein thrombosis acute vs chronic - with ascites
Substance abuse (on chronic methadone; UDS positive for multiple substances)
Hep C (+)
Recommendations:
O2 requirement increasing. Patient being moved to high flow O2.
COY - progressive; Nephrology following
Transaminitis resolving, ammonia neg
Leukocytosis noted - steroids vs infection. Up-to-date.
S/P course of metronidazole; S/P course of remdesivir
Steroids per pulmonary
HIV antibody : neg
Follow white count and temperature curve.
Given rising white count and O2 requirements, will reinitiate antibiotics with ertapenem (dosed for renal insufficiency)
Continue with supportive measures.
����������������������������������������������������������
Chief Complaint
-: Pneumonia and Other (Covid-19; encephalopathy)
Subjective / Review of Systems
Pt seen / examined. Hypoxemia ongoing, and patient currently being moved from mid flow to high flow O2.
Vital Signs / Physical Exam
Vital Signs
Vital Signs
Temp Pulse Resp BP Pulse Ox
97.6 F 77 16 117/53 94
11/05/23 08:16 11/05/23 10:23 11/05/23 10:00 11/05/23 10:23 11/05/23 11:12
Physical Exam
Constitutional: Chronically Ill and Cachetic
Eyes: Sclera Anicteric
Cardiovascular: S1/S2; Negative S3/S4
Pulmonary: Rhonchi (Scattered), Coarse and Other (Mildly labored.)
Gastrointestinal: Soft, Non Tender and Non Distended
Neurological: Other (Arousable to voice and touch.)
Psychological: Confused
Objective Data
Lab Data
Lab Results
11/05/23 04:32
11/05/23 04:32
ESR 61 mm/hour (0-20) H 10/31/23 05:47
PT 20.8 Sec (11.4-14.6) H 11/01/23 03:57
INR 1.80 11/01/23 03:57
APTT Cancelled 11/04/23 07:00
Estimated Creat Clear 15 ml/min 11/05/23 04:32
Lactic Acid Cancelled 10/24/23 17:00
Total Bilirubin 1.6 mg/dl (0.2-1.3) H 11/05/23 04:32
AST 53 U/L (14-36) H 11/05/23 04:32
ALT 33 U/L (0-35) 11/05/23 04:32
Alkaline Phosphatase 263 U/L (38-126) H 11/05/23 04:32
C-Reactive Protein 19.40 mg/L (0.0-10.00) H 10/30/23 05:39
Most recent labs reviewed.
Micro Results:
11/02/23 10:32 Urine Culture - Final
Urine Yeast
10/24/23 09:39 Blood Culture - Final
Blood/Venous No Growth - Final Report
10/24/23 09:12 Blood Culture - Final
Blood/Venous No Growth - Final Report
10/24/23 12:42 Nasal Screen MRSA (PCR) - Final
Nose MRSA not detected - performed by PCR methodology.
10/24/23 09:39 Influenza Types A & B (YANY) - Final
Nasal Swab Negative for Influenza A & B, NAAT
Negative results must be combined with clinical observations
and patient history.
Nucleic Acid Amplification test (NAAT)performed on the
[employer] NOW platform.
Imaging:
11/05/2023 CXR (portable): NG tube remains in place, with the tip in the left upper quadrant. There is persistent bilateral interstitial and airspace disease, with blunting of the left costophrenic angle consistent with pleural fluid. No
significant changes from prior studies.
10/29/2023 CT head without contrast: Moderate ventricular sulcal prominence consistent with atrophy. Brain parenchyma is normal attenuation. No intra or extra-axial masses, hemorrhage or fluid collection. Please see full dictation for additional
detail.
10/28/2023 CXR (portable): Mild � moderate interstitial airspace disease in the right middle lobe consistent with pneumonia which is significantly improved when compared to prior study. Lungs are otherwise clear. Please see full dictation for
additional detail.
10/24/2023 CT chest: Large right middle lobe pneumonia noted. Small volume right hilar lymphadenopathy.
[2023-11-05 12:15] LABS: Glucose - Point of Care 204 mg/dl (70-99)
[2023-11-05] MEDS: INVANZ 55 MG IV (12:48)
[2023-11-05] MEDS: NOVOLOG FLEXPEN-LOW RESISTANCE 2 UNITS SC ×3 (12:48→23:23)
--- NOTE | 2023-11-05 15:02 | W.PN.HOSP.TC ---
Addendum entered and electronically signed by Gustavo Carreon MD 11/05/23 15:11:
Re-initiate abx - ? worsening PNA
Original Note:
Today's Communication/Plan
-
restart hep ggt
Lasix IV prn - attempt to wean o2
Assessment / Plan
Assessment / Plan
HPI: 63-year-old female with past medical history of hypothyroidism, COPD, multiple sclerosis, substance abuse on methadone, chronic opiate, tobacco abuse, COPD, chronic pain, ?History of atrial fibrillation; p/w shortness of breath.
A/P:
# Acute hypoxic respiratory insufficiency
# COPD exacerbation
# Severe sepsis POA, secondary to CAP
# SARS-CoV-2
procal 1.12, MRSA screen negative, Blood Cx negative
Back on HFNC
She was treated with Cefepime, received 7 days, discontinued further cefepime
Cont Flagyl for anaerobe coverage, treat for 5 days (D5/5) completed
Cont O2 support, continue to wean o2; not on home o2 as home; Lasix IV PRN
DuoNebs every 4 standing
Completed RemD x5 days with persistent hypoxia
Solu-Medrol 40 mg every 12 -> Decadron 6 mg daily x10 days
Incentive [place]
Pulm/Offender [employer] Ret[employer] Specialist on board
ID on board
# Leucocytosis, unclear etiology, steroid induced vs VTE vs encephalitis (see below)
-ctm fever curve
# Acute TME, unclear etiology, ddx including psychosis from polysubstance abuse vs encephalitis; I favor 2/2 to metabolic encephalopathy 2/2 to SARS-CoV-2, PNA +/- cefepime use
Off fentanyl patch, off ATC oxycodone, off PRN Morphine
UDS positive for opiate/fentanyl/benzo, also cocaine and methamphetamine
CT head x2: No acute intracranial abnormality noted.
MRI brain No acute intracranial abnormality noted.
EEG without overt seizure activity
no need for LP at this time; Mental status improving
ID/ Neuro on board
SPL eval - cont NPO, cont to eval
Mental status improving
# Portal vein thrombosis, unclear acute v chronic, can be related to COVID-19
Lovenox 1 mg/kg -> Eliquis 2.5 mg BID -> Argatroban - restart as hgb stable
APL panel unrevealing, pending prothrombin gene mutation, PENNY-2 mutation test results
hematology on board
-hep ggt was initiated, but stopped due to GIB; restart now
#Acute Blood Loss Anemia
-?GI bleed
hgb remains stable;
-GI consulted
-restart anticoag if ok by GI
-PPI
# Drop in platelet, concern for HIT
Pt did receive Lovenox therapeutic dose 10/24 - 10/26
HIT Ab: negative
Heme on board
# New onset acute HFrEF
Echo with EF 30 to 35%, akinesis of the septum and apex contraction of the basal inferior, inferolateral, and lateral louis, hypokinesis of the remaining segments, mild MR, aortic sclerosis with mild AR
s/p gentle diuresis with IV Lasix 20 mg daily
-Concern for COY and therefore was stopped; IV lasix PRN
Started low-dose Toprol, monitor blood pressures
Cardiology on board, was added lisinopril for reduced EF- off with COY
consider outpt ischemic eval
# Hyponatremia
# Now hypernatremia
adjusting IVF based on sodium level
Nephro on board
# COY
#Anion Gap Metabolic Acidosis
SCr trending upward
hold ACEI
Renal on board
Bicarb ggt - stopped; oliguric; Lasix IV prn
# Transaminitis due to Hepatocellular injury
Most likely secondary to portal vein thrombosis +/- congestive hepatopathy
No statin
Monitor LFT
#Hep C positive
-hep c antibody ordered as per ID
#Hypothyroidism
-initiate synthroid
# Elevated troponin likely non-OK troponin elevation in setting of acute CHF
troponin plateaued at 0.16
# Polysubstance abuse
# Tobacco use
# Chronic pain
off [employer] fentanyl patch, oxycodone with current delirium
# Multiple sclerosis
# Hypokalemia
replete
DVT prophylaxis: Hep ggt;
Total Critical Care Time__55__ minutes. I was immediately available to the patient and staff. I personally examined, reviewed labs, diagnostic images/reports, interpretations, treatment plans, discussed patient care with other providers and
family or caregivers (if patient is unable to make decisions), entered orders as appropriate and documented the medical record.
Anticipated Discharge: > 48 hours
Subjective/Interval History
-
Date of Service: November 05, 2023
requiring midflow; black tarry stool x 1 in last 12 hours
Objective Data
-
Labs:
Laboratory Results
11/05/23
04:32
WBC 22.0 H
Hgb 10.5 L
Hct 29.6 L
Plt Count 71 L
Sodium 141
Potassium 3.7
Chloride 105
Carbon Dioxide 27
BUN 72 H
Creatinine 3.3 H
Glucose 163 H
Calcium 7.7 L
Total Bilirubin 1.6 H
AST 53 H
ALT 33
Alkaline Phosphatase 263 H
Vital Signs:
Vital Signs
Temp Pulse Resp BP Pulse Ox
98.1 F 77 16 117/53 94
11/05/23 11:30 11/05/23 10:23 11/05/23 10:00 11/05/23 10:23 11/05/23 11:12
I&O
11/04/23 11/05/23 11/06/23
06:59 06:59 06:59
Intake Total 1405 / 1525 2465 / 2545 560 / 560
Output Total 170 / 170 185 / 190 75 / 75
Balance 1235 / 1355 2280 / 2355 485 / 485
Review of Systems
-
Unable to obtain full review of systems at this time due to: Acuity
History Source: Patient
Data Reviewed
-
CT Scan: Image personally visualized and interpreted and Report Reviewed by me
MRI: Report Reviewed by me
Labs: Labs Reviewed by me
[2023-11-05] MEDS: DUONEB 3 ML INH ×2 (15:24→20:32)
[2023-11-05 16:02] LABS: Body Fluid Albumin < 1.0 g/dl; Body Fluid LDH 95 U/L; Body Fluid Protein < 2.0 g/dl
[2023-11-05 16:18] LABS: Body Fluid WBC 122 /CUMM
[2023-11-05 16:28] LABS: Body Fluid Second Tech FB
[2023-11-05 17:30] LABS: APTT 30.9 Sec (23.4-35.0)
[2023-11-05 17:34] LABS: Glucose - Point of Care 210 mg/dl (70-99)
[2023-11-05] MEDS: HEPARIN 25000 UNITS/250 ML IV (18:22)
[2023-11-05 23:33] LABS: Glucose - Point of Care 223 mg/dl (70-99)
[2023-11-06] VITALS (24 sets, daily range): BP systolic 94–136; BP diastolic 45–68; BMI 21.6
[2023-11-06 03:14] LABS: Hematocrit 28.9 % (37.0-47.0); Hemoglobin 10.3 g/dL (12.0-16.0); Mean Corp Hgb Conc. 35.6 g/dL (33.0-37.0); Mean Corpuscular Hgb 39.2 pg (27.0-31.0); Mean Corpuscular Volume 109.9 fL (81.0-99.0); Mean Platelet Volume 13.6 fL (7.4-10.4); Platelet Count 60 10^3/uL (130-400); Red Blood Cell Count 2.63 10^6/uL (4.20-5.40); Red Cell Dist. Width 15.6 % (11.5-14.5); White Blood Cell Count 18.1 10^3/uL (4.8-10.8)
[2023-11-06 03:26] LABS: INR 1.13; PT 14.3 Sec (11.4-14.6)
[2023-11-06 03:27] LABS: APTT 68.8 Sec (23.4-35.0)
[2023-11-06 04:02] LABS: ALT (SGPT) 29 U/L (0-35); AST (SGOT) 45 U/L (14-36); Albumin 2.5 g/dl (3.5-5.0); Alkaline Phosphatase 286 U/L (38-126); Blood Urea Nitrogen 77 mg/dl (7-17); Calcium 7.9 mg/dl (8.4-10.2); Carbon Dioxide 29 mmol/L (22-30); Chloride 103 mmol/L (98-107); Estimated Creatinine Clearance 14 ml/min; Glucose 139 mg/dl (70-99); Phosphorus 2.2 mg/dl (2.5-4.5); Potassium 4.1 mmol/L (3.5-5.1); Sodium 142 mmol/L (135-145); Total Bilirubin 1.1 mg/dl (0.2-1.3); Total Protein 4.7 g/dl (6.3-8.2); eGFR 13.78
[2023-11-06] MEDS: SYNTHROID 25 MCG PO (06:06)
[2023-11-06 06:07] LABS: Glucose - Point of Care 153 mg/dl (70-99)
[2023-11-06] MEDS: NOVOLOG FLEXPEN-LOW RESISTANCE 1 UNITS SC ×3 (06:08→17:17)
--- NOTE | 2023-11-06 06:46 | W.PN.ONC2 ---
Today's Communication / Plan
-
On heparin for PVT as HIT AB NEG and PLT seem to be holding ~ 60-70K. Multifactorial reasons for thrombocytopenia.
Heme will sign off and see again if needed.
Impression
Impression
Portal vein thrombosis indeterminate age
Thrombocytopenia
Cirrhosis
COY
Acute hypoxic respiratory insufficiency
COVID-19
Right middle lobe pneumonia
Cardiomyopathy, EF 30 to 35%
Elevated troponin
Hyponatremia
Hypothyroidism
COPD
Multiple sclerosis
h/o substance abuse
Tobacco abuse
Chronic pain
Possible remote atrial fibrillation
GI bleed - heme pos stool
Plan
Plan
1. Portal vein thrombosis indeterminate age
-pt is hypercoagulable in setting of COVID 19 positivity
-evaluation for thrombophilia - cardiolipin, beta 2 glycoprotein I, and phosphatidyl serine antibodies not detected
-had been on eliquis until 10/26 when stopped
-transitioned to lovenox 10/30 - s/p 1 dose 50mg (1mg/kg) therapeutic dose - stopped due to plts drop
-due to platelet drop concern was raised as to possible HIT - argatroban was recommended however pt developed GI bleeding
-anticoagulation held w/ ongoing GI bleed
-HITab negative
-Back on IV heparin
2. Thrombocytopenia
-likely multifactorial w/ COVID, pneumonia, acute infection/ inflammatory illness, antibiotics/ meds, cirrhosis
-HITab negative
-CBC has remained stavle ~ 60-70K on IV heparin
Hematology issues seem to have stabilized. Will sign off
Subjective/Objective
Chief Complaint
ACS Heme Onc
Subjective
Remains lethargic and on high flow O2. No bleeding per RN. Drop in urine output.
Vital Signs:
Vital Signs
Temp Pulse Resp BP Pulse Ox
98.2 F 86 21 136/52 97
11/06/23 03:31 11/06/23 06:00 11/06/23 06:00 11/06/23 06:00 11/06/23 06:00
Lab Results:
Laboratory Data
WBC 18.1 10^3/uL (4.8-10.8) H 11/06/23 02:40
Hgb 10.3 g/dL (12.0-16.0) L 11/06/23 02:40
Plt Count 60 10^3/uL (130-400) L 11/06/23 02:40
PT 14.3 Sec (11.4-14.6) 11/06/23 02:40
INR 1.13 11/06/23 02:40
APTT 68.8 Sec (23.4-35.0) H 11/06/23 02:40
eGFR 13.78 11/06/23 02:40
Physical Exam
Cardiology: S1 and S2
Pulmonary: Clear
Extremities: No C/C/E
--- NOTE | 2023-11-06 07:00 | PTCARENOTE ---
0700 patient received in bed. Heparin at 06/1000 units infusing via RT mid-line. next ptt 0900. pt on High flow 50L/80% Lungs course through moist non-productive cough. awake and alert to herself only, restless confused. Abdomen ascites . left
flank dark blue bruise edges marked. Indwelling Morgan maintained for COY Morgan care done pre hospital's protocol. pt pulled Dobbhoff x2 . b/l wrist restraints and mitts b/l . A new Left Dobbhoff inserted , placement confirmed by abdominal XRay. RT
Mid-line changed to RT DL PICC line, placement confirmed by chest XRAy HOB elevated call vora with reach. . Lasix IV 80 mg and Albumin administered .Urinal output 100cc.
[2023-11-06] MEDS: DUONEB 3 ML INH ×4 (07:54→19:54)
--- NOTE | 2023-11-06 08:22 | W.PN.NEPH.PH ---
Today's Communication / Plan
-
lasix 80mg IV and 500mg IV diuril
check urine eosinophils
Assessment/Plan
-
Assessment:
-COY
-hyponatremia
-hypotension on admission
-COVID+
-large RML PNA
-lactic acidosis
-?thrombosed portal vein/thrombocytopenia
-GI bleeding
-COPD
-hypothyroid
-HFrEF 30% (new onset)
-multiple sclerosis
-chronic pain/opioids
-confusion: s/p LP
-metabolic acidosis
-newly dx cirrhosis
Plan
-creatinine continues to worsening for no obvious etiology (ATN?) now up to 3.6
-No acute HD requirement today but patient is essentially anuric and weights rising
-will give 80mg IV lasix now and assess response
-check urine eosinophils
-remains hemodynamically stable
-FeNa was consistent with pre-renal (?REBECCA)
-REBECCA on differential but last contrast administration on 10/24, Cr rise began on 10/30 which does not fit typical presentation
-holding delano
-uop dropping maintain sorensen
-follow BMP
-cause of delirium uncertain, s/p LP
-patient at high clinical risk, with worsening COY
-
-
Date of Service: November 06, 2023
CC / HPI / ROS
-
Chief Complaint:
hyponatremia
History of Present Illness:
Abx for RML PNA
Na at141
Cr rise to 3.6
metabolic acidosis worsening
LFTs stable high
WBC remains elevated on steroids
Review of Systems:
no CP/fever
on midflow oxygen support but worsening respiratory distress
confusion improving
Oliguric via cath
Labs
-
Labs:
WBC 18.1 10^3/uL (4.8-10.8) H 11/06/23 02:40
RBC 2.63 10^6/uL (4.20-5.40) L 11/06/23 02:40
Hgb 10.3 g/dL (12.0-16.0) L 11/06/23 02:40
Hct 28.9 % (37.0-47.0) L 11/06/23 02:40
Plt Count 60 10^3/uL (130-400) L 11/06/23 02:40
Sodium 142 mmol/L (135-145) 11/06/23 02:40
Potassium 4.1 mmol/L (3.5-5.1) 11/06/23 02:40
Chloride 103 mmol/L (98-107) 11/06/23 02:40
Carbon Dioxide 29 mmol/L (22-30) 11/06/23 02:40
BUN 77 mg/dl (7-17) H 11/06/23 02:40
Creatinine 3.6 mg/dL (0.6-1.0) H 11/06/23 02:40
eGFR 13.78 11/06/23 02:40
Glucose 139 mg/dl (70-99) H 11/06/23 02:40
Calcium 7.9 mg/dl (8.4-10.2) L 11/06/23 02:40
Phosphorus 2.2 mg/dl (2.5-4.5) L 11/06/23 02:40
Irw-N-Wysuqodtvcj Pept 64406 pg/ml 11/03/23 03:42
Albumin 2.5 g/dl (3.5-5.0) L 11/06/23 02:40
Physical Exam
-
Vital Signs:
Vital Signs
Temp Pulse Resp BP Pulse Ox
98.4 F 86 21 136/52 97
11/06/23 08:17 11/06/23 06:00 11/06/23 06:00 11/06/23 06:00 11/06/23 06:00
Cardiovascular:: Regular rate and rhythm
Respiratory:: Bilateral: Coarse
Lung Excursion:: Normal
Abdomen:: Nontender and Soft
Bowel Sounds:: Decreased
Extremity Edema:: None: Bilateral:
Sorensen Catheter: Yes
--- NOTE | 2023-11-06 08:46 | W.PN.INTV ---
Today's Communication / Plan
Recommendations
Continue high flow with goal SpO2 >88%
Diuresis trial, otherwise may need HD, if offered by nephrology given her low chance of recovery
Aspiration precautions
Low threshold to intubate
GOC discussion held with daughters --> they will speak to the and we will re-visit code status. They are leaning towards DNR/DNI
Assessment
-
Ms Kaitlin Esparza is a 63/W adm 10-24 with several d h/o dyspnea. Brought by EMS to ER, no EMS report available, ER note mentioned administration of DNs in route which improved O2 from low 90s victoria mid 90s. Seen at ICU, on BPAP 14/5 with O2 4L , POx
92%, in moderate resp distress, intermittently agitated and trying to remove BPAP mask. Unfortunately very poor historian at time of visit, unknown baseline MS, appears acutely on chronically ill-she continues to have mental status changes and
infectious disease wished lumbar puncture and patient transferred for deteriorating neurologic status to the ICU 10/31/2023
Acute respiratory failure with hypoxemia - worsening due to progressive multifocal PNA in setting of L-loculated effusion and ascites s/p para
Toxic metabolic encephalopathy - due to sepsis and COY in setting of cirrhosis/HE
Acute kidney injury -worsening - suspect this could be due to hepatorenal syndrome vs ATN in setting of sepsis (given low urine Na, I believe she has the former)
Bilateral infiltrates due to bacterial superinfection (CAP - initial CT chest with tree-in-bud in posterior RUL + RML and anterior RLL, and lingula + large consolidation in medial RML)
Left-sided (mild-moderate) parapneumonic effusion with loculations
Sepsis without shock due to CAP and covid-19
COVID positive (positive on 10/24/2023)
Elevated PCT
Leukocytosis
Thrombocytopenia -
Primary symptomatic hypothyroidism
Hypoalbuminemia with ascites (ascites likely due to cirrhosis)
COPD exacerbation
Heart failure-acute new onset with reduced EF-35% with septal and apical akinesis
Low serum osmolality (248 on admission)
Lactic acidosis -resolved
Transaminitis
Portal vein thrombosis (seen on abd US from 10/24/2023 involving main portal vein)
Elevated troponin and BNP: LVEF 30-35% with WMAs
Flu negative
Elevated ESR-61
GI bleed 10/31/2023 with melena and heem positive stools
Hx of HCV (positive Ab in 2009, but negative HCV RNA)
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
COPD
Hypothyroidism
Multiple sclerosis
Substance abuse: on methadone
VDRF due to overdose Jul 2011
Chronic pain: reportedly on fentanyl patch, hydromorphone, oxycodone
Smoker
Former alcohol abuse with cirrhosis seen on imaging
Plan:
She continues to be critically ill with multiorgan failure with worsening COY, high O2 requirements with continued risk for aspiration, and appears more weak
Continue high flow nasal cannula and titrate FiO2/flow rate to maintain SpO2 >88%
She underwent paracentesis yesterday with removal of 2.65L, and I believe this helped her breathe better
Given her cirrhosis, this is a contraindication for chest tube so even if there is a left-sided loculated effusion, a tube thoracostomy should not be placed
Continue DuoNebs QID
Mucolytics with mucinex
Aspiration precautions
Speech therapy following -->�patient failed PHYSICIANS AND SURGEONS --> Dobhoff inserted on 11/03 and tube feeds were started --> dobhoff was pulled out of her nose this AM --> replace and resume tube feeds
Will need repeat CXR in 4 to 6 weeks to follow pneumonia to resolution
Flutter valve prn
Sport bed
She is s/p course of antibiotics as per ID - was on flagyl from 10/29 - 11/03; s/p cefepime from 10/24 - 10/30 and IV vanco x 1 day (10/24) -->�ID restarted ABx today with Invanz
Cultures reviewed
Urine Cx growing yeast
Infectious disease following-correspondence reviewed
Trend WBC
s/p course of remdesivir (10/28 - 11/01/2023)
Decadron 6 mg daily x 10 days
Lumbar puncture 10/31/2023- unable to perform due to agitation --> she then improved and it was deferred. Will defer this decision to neuro
Mental status improved-off fentanyl patch (she reportedly had 2 fentanyl patches on admission), off bgypwx-oea-mumiv oxycodone and off as needed morphine -�we started Subutex 2 mg SL on 11/03; given her worsening mentation, I will stop subutex
Start rifaximin for HE treatment (it appears she has grade 1-2 HE); will hold off on lactulose as she is aleady having loose stools
Maintain MAP>65
Given elevated TSH>15 with low fT4, levothyroxine should be started --> considering her age and newly diagnosed HFrEF with suspected ICM, start between 25-50mcg per day and can increase as needed with repeat TFTs in 4-6 weeks once she has fully
recovered from her current acute illness.
Neurology evaluation ongoing-correspondence reviewed
Discontinued fentanyl patch and other medications that might cause mental status changes
EEG-10/31/2023-no obvious epileptiform discharges but cannot be completely ruled out because of significant underlying artifact from movement
Also saw psychiatry 10/28/2023
Monitor thrombocytopenia - transfuse if needed to keep plt>20k
Hematology following
KENNETH panel negative (hep associated plt ab 0.170 on 10/31/2023)
Pt had heme positive stools on 10/31/2023
Monitor hemoglobin and transfuse as needed to maintain Hb >7, plt>50k
GI evaluation 11/01/2023-consultation reviewed
PPI --> currently on 40mg IV BID
Considering upper endoscopy --> will defer this decision to GI
Considering she has cirrhosis on imaging, trend ammonia; start rifaximin (see above)
Scheduled diuresis on hold given worsening COY, although she did receive a dose today and yesterday to try to increase UOP -->nephrology on board
Follow renal function, electrolytes, intake/output, lower extremity edema and weight
Continue to replace electrolytes as needed
Nephrology following-correspondence reviewed --> BUN and Cr continue to rise despite having MAP>65-70;��she may need HD.� Given her low serum Na and cirrhosis, I am concerned that she has HRS
VICTOR MANUEL held-follow renal function
Heparin gtt continues for portal vein thrombosis-suspected covid infection related
Patient will see GI as an outpatient
Follow for arrhythmias
Cardiology follow-up till 10/28/2023
Smoking cessation counseling once alert and can comprehend advice
Chronic pain and polysubstance abuse -->�psych reconsulted on 11/03 - subutex was given and we were going to up-titrate as tolerated, however now that pt is doing worse and is more lethargic and occassionally confused, I will stop the Subutex
DVT prophylaxis-on heparin gtt
Nutrition with aspiration precautions
Starting TF --> PHYSICIANS [employer] SURGEONS to continue to follow along.� She may ultimately require PEG vs TPN if she continues to fail PHYSICIANS AND SURGEONS ; given her Hx of drug abuse, PEG would be safer option.
Patient downgraded to IMU on 11/03/2023.� Due to her worsening hypoxia and how she clinically appears, she was upgraded back to ICU 11/05. She has a low threshold to be intubated
Critical care statement: A total of 42 minutes of critical care time was provided for this patient today. This includes management of unstable vital signs, evaluation of the patient at bedside, reviewing the patient's pertinent medical records
including radiographs, microbiology, laboratory evaluations, and� discussion with primary team, consultants, pharmacy, nutrition, physical therapy, case management, charge nurse, critical care nursing, and respiratory therapy.
Diagnostic tests:
CXR 10-24-23 c/w Apr 2023: New R basilar infiltrate. Mild pulm vasc congestion. No free air. Blunted c-d angles.
Chest x-ray 10/30/2023-improving right lower lobe pneumonia
CXR 11/03/2023:� Progressed findings suggesting bilateral lower lobe pneumonia.
CXR 11/05/2023: Persistent interstitial and airspace disease bilaterally not significantly changed. Left pleural fluid.
CXR 11/06/2023: Findings suggest a moderate left lower lobe pneumonia. Improved; Mild mid and lower right lung pneumonia. Stable
Chest CTA 10-24-23:�No acute PE. RML infiltrate. RLL patch of pneumonitis. Patchy small lingular and posterior RUL infiltrates
CT Chest/Abd/pelvis 11-04-2023:
Moderate consolidation of the left lower lobe concerning for pneumonia. Progressed from 11/03/2023.
Small to moderate loculated left pleural effusion. Limited evaluation without IV contrast. Progressed from 11/03/2023.
Moderate patchy groundglass opacities throughout all lobes, greatest in the right upper lobe, concerning for pneumonia. New from 10/24/2023.
Small right pleural effusion. New from 10/24/2023
Tiny pericardial effusion versus pleural thickening. Stable
Mild abdominopelvic ascites. Progressed from 10/24/2023
Nodular hepatic margin suggesting cirrhosis. New from 11/18/2010
Probable partially calcified gallstone. New from 11/18/2010
Limited evaluation of the bowel without oral contrast.
Findings suggesting moderate volume overload or third spacing. New from 11/18/2010
Brain MRI 10/30/2023-no acute intracranial abnormalities
Echocardiogram 10/24/2023-EF 30-35%, mild mitral regurgitation, aortic sclerosis
Subjective Dataa
Subjective Data
Date of Service:
Date of Service: November 06, 2023
Chief Complaint: Manager Linux Follow Up and Pulmonary Follow Up
Subjective:
Pt seen this AM. No acute events reported overnight. On HFNC 50L/min, 80% FiO2. She is awake, following commands, albeit confused at times. Answers questions appropriately but she is also hard of hearing and slow to respond. Skin color appears
pale/sesay. No cyanosis seen. 2 daughters came to bedside and explained the critically ill state their mother present. Explained the worsening kidney function, liver cirrhosis with decompensation and respiratory failure with hypoxia and high O2
requirements. Goals of care discussed and they are considering changing mom to DNR/DNI. Will continue full medical management for now with full code.
Patient does endorse shortness of breath but no chest pain, headache, fevers or chills.
Review of Systems
General: Other (negative unless mentioned above)
Objective Data
Data Reviewed
Vital Signs / I&O / Oxygen:
Vital Signs
Temp Pulse Resp BP Pulse Ox
98.4 F 86 21 136/52 97
11/06/23 08:17 11/06/23 06:00 11/06/23 06:00 11/06/23 06:00 11/06/23 06:00
Intake and Output
11/05/23 11/06/23 11/07/23
06:59 06:59 06:59
Intake Total 2465 / 2545 1920 / 1920
Output Total 185 / 190 135 / 135
Balance 2280 / 2355 1785 / 1785
SaO2 97
Nasal Cannula flow liters per 50
minute
Physical Exam
General: Respiratory Distress (improved compared to yesterday) and Chills (negative)
HEENT: Normocephalic, Anicteric and Moist Mucous Membranes
Cardiovascular: S1-S2, Murmur (n) and Peripheral Edema (negative)
Respiratory: Wheeze (n), Crackles (left base), Rhonchi (negative), Accessory Resp Muscle Use (negative) and Stridor (n)
GI: Soft, Distended and Non Tender
Neurology: Awake, Alert and No Motor Deficits
Skin: Warm, Dry and Bruising (LLQ)
Labs/Micro/Reports
Lab Data
11/06/23 02:40
11/06/23 02:40
Laboratory Results
11/05/23 11/06/23
16:51 02:40
PT 14.3
INR 1.13
APTT 30.9 68.8 H
Microbiology
11/02/23 10:32 Urine Urine Culture - Final
Yeast
[2023-11-06] MEDS: PROTONIX IV 40 MG IV ×2 (09:10→20:06)
[2023-11-06] MEDS: LASIX 80 MG IV (09:11)
[2023-11-06] MEDS: NSS (PRESERVATIVE FREE) 10 ML IV ×2 (09:11→20:06)
[2023-11-06] MEDS: DECADRON 6 MG IV (09:13)
[2023-11-06] MEDS: SUBUTEX 2 MG SL (09:15)
[2023-11-06] MEDS: THIAMINE INJECTION 100 MG IV (09:16)
[2023-11-06] MEDS: DIURIL 0.5 GRAM VIAL 0.5 GRAMS IV (09:26)
[2023-11-06] MEDS: STERILE WATER FOR INJECTION 18 ML IV (09:27)
[2023-11-06] MEDS: FLEXBUMIN 100 IV ×2 (10:08→17:17)
--- NOTE | 2023-11-06 10:29 | W.PN.ID1 ---
Date of Service
Date of Service: November 06, 2023
Today's Communication
Continue ertapenam for today.
Assessment / Plan
Encephalopathy
- unclear etiology; suspect TME
Leukocytosis
- may be secondary to steroid effect, cannot rule out infectious process.
COVID-19 (vaccinated patient)
- completed remdesivir x5 days
- off isolation
Suspected new PNA; ?aspiration
COPD
Acute Onset CHF - Ef 30%
COY
Hypothyroidism
Portal vein thrombosis acute vs chronic - with ascites
Substance abuse (on chronic methadone; UDS positive for multiple substances)
Hep C (+). (HIV negative)
Recommendations:
O2 requirement increasing. Patient being moved to high flow O2.
COY - progressive; Nephrology following
Transaminitis resolving, ammonia neg
Leukocytosis noted - steroids vs infection.
S/P course of metronidazole; S/P course of remdesivir
Steroids per pulmonary
HIV antibody : neg
Follow white count and temperature curve.
Continue ertapenem (dosed for renal insufficiency)
Continue with supportive measures.
Patient remains critically ill in the ICU.
����������������������������������������������������������
Chief Complaint
-: Pneumonia and Other (Covid-19; encephalopathy)
Subjective / Review of Systems
Patient seen and examined. Remains on high flow O2 at this point.
Vital Signs / Physical Exam
Vital Signs
Vital Signs
Temp Pulse Resp BP Pulse Ox
98.4 F 96 21 94/50 97
11/06/23 08:17 11/06/23 09:11 11/06/23 06:00 11/06/23 09:11 11/06/23 06:00
Physical Exam
Constitutional: Comfortable, Chronically Ill and Non-toxic
Eyes: No Conjunctival Hemorrhage and Sclera Anicteric
Cardiovascular: S1/S2; Negative S3/S4
Pulmonary: Coarse and Non Labored
Gastrointestinal: Soft, Non Tender and Non Distended
Skin: Negative Rash or Jaundice
Neurological: Awake and Alert
Psychological: Calm
Objective Data
Lab Data
Lab Results
11/06/23 02:40
11/06/23 02:40
ESR 61 mm/hour (0-20) H 10/31/23 05:47
PT 14.3 Sec (11.4-14.6) 11/06/23 02:40
INR 1.13 11/06/23 02:40
APTT 68.8 Sec (23.4-35.0) H 11/06/23 02:40
Estimated Creat Clear 14 ml/min 11/06/23 02:40
Lactic Acid Cancelled 10/24/23 17:00
Total Bilirubin 1.1 mg/dl (0.2-1.3) 11/06/23 02:40
AST 45 U/L (14-36) H 11/06/23 02:40
ALT 29 U/L (0-35) 11/06/23 02:40
Alkaline Phosphatase 286 U/L (38-126) H 11/06/23 02:40
C-Reactive Protein 19.40 mg/L (0.0-10.00) H 10/30/23 05:39
Most recent labs reviewed.
CT Scan: Image Reviewed and Report Reviewed
Micro Results:
11/02/23 10:32 Urine Culture - Final
Urine Yeast
10/24/23 09:39 Blood Culture - Final
Blood/Venous No Growth - Final Report
10/24/23 09:12 Blood Culture - Final
Blood/Venous No Growth - Final Report
10/24/23 12:42 Nasal Screen MRSA (PCR) - Final
Nose MRSA not detected - performed by PCR methodology.
10/24/23 09:39 Influenza Types A & B (YANY) - Final
Nasal Swab Negative for Influenza A & B, NAAT
Negative results must be combined with clinical observations
and patient history.
Nucleic Acid Amplification test (NAAT)performed on the
[employer] platform.
Imaging:
11/05/2023 CXR (portable): NG tube remains in place, with the tip in the left upper quadrant. There is persistent bilateral interstitial and airspace disease, with blunting of the left costophrenic angle consistent with pleural fluid. No
significant changes from prior studies.
11/04/2023 CT chest/abdomen/pelvis: Moderate consolidation of the left lower lobe concerning for pneumonia, with progression from 11/03/2023. A small to moderate loculated left pleural effusion noted. Moderate patchy groundglass opacities throughout
all lobes, greatest in the right upper lobe and concerning for pneumonia. Mild abdominal pelvic ascites. A nodular hepatic margins suggest cirrhosis. Please see full dictation for additional detail.
10/29/2023 CT head without contrast: Moderate ventricular sulcal prominence consistent with atrophy. Brain parenchyma is normal attenuation. No intra or extra-axial masses, hemorrhage or fluid collection. Please see full dictation for additional
detail.
10/28/2023 CXR (portable): Mild � moderate interstitial airspace disease in the right middle lobe consistent with pneumonia which is significantly improved when compared to prior study. Lungs are otherwise clear. Please see full dictation for
additional detail.
10/24/2023 CT chest: Large right middle lobe pneumonia noted. Small volume right hilar lymphadenopathy.
Care Review
Plan reviewed with: Physician (Hospitalist)
[2023-11-06 11:48] LABS: Glucose - Point of Care 197 mg/dl (70-99)
--- NOTE | 2023-11-06 11:53 | PTOTSP ---
Patient transferred to ICU 11/05/2023. Orders continued upon transfer. Wagon Driver note indicates low threshold for intubation. Patient currently on increased respiratory support via 50 LPM HFNC with 100% FiO2, NPO, DHT in place. Spoke with
RNRadha, who reported patient is medically inappropriate for dysphagia therapy at this time. Will hold and follow up if/when appropriate.
Considering current respiratory status, recommend holding aspiration risk hydration protocol but continuing frequent thorough oral care with suctioning to reduce oral bacteria.
[2023-11-06] MEDS: HEPARIN 25000 UNITS/250 ML IV (12:17)
[2023-11-06] MEDS: INVANZ 55 MG IV (13:50)
[2023-11-06] MEDS: LOPRESSOR 12.5 MG TUBE (13:50)
[2023-11-06] MEDS: STERILE WATER FOR INJECTION 2.10000000000000009 ML IM (13:58)
--- NOTE | 2023-11-06 14:18 | CM ---
CM following re: discharge planning.
Discussed in Rounds, reviewed pt's chart, met with pt. Pt's two daughters at bedside in tears. Emotional support offered and provided. Per rounds meeting, pt requires 50 L HFNC with FIO2, not able to follow command.
Pt's daughters stated they spoke to MD regarding their mother current health condition, aware of poor prognosis and they are awaiting for their father (pt's ) to arrive and to discuss a goals of care. Per daughters, it is very difficult to
see their mother suffering. Emotional support offered and provided again and again.
D/c plan: GOC discussion with the family.
CM will follow with discharge plan updates as hospitalization progresses
--- NOTE | 2023-11-06 14:38 | WOUNDNOTE ---
[facility] RN NOTE:Reviewed chart and met with patient and RN, Radha. Per Radha patient had a sacral foam placed at time of admission but now area is fungal appearing surrounded by friction appearing skin. Plan is for antifungal ointment BID. Heels intact.
Patient on air mattress and turning schedule. Will continue to follow as needed.
--- NOTE | 2023-11-06 14:44 | W.PN.HOSP.TC ---
Today's Communication/Plan
-
trial iv lasix with albumin
cont ertapenem
Assessment / Plan
Assessment / Plan
HPI: 63-year-old female with past medical history of hypothyroidism, COPD, multiple sclerosis, substance abuse on methadone, chronic opiate, tobacco abuse, COPD, chronic pain, ?History of atrial fibrillation; p/w shortness of breath.
A/P:
# Acute hypoxic respiratory insufficiency
# COPD exacerbation
# Severe sepsis POA, secondary to CAP
# SARS-CoV-2
procal 1.12, MRSA screen negative, Blood Cx negative
Back on HFNC
She was treated with Cefepime, received 7 days, discontinued further cefepime ; started back on Ertapenem
Cont Flagyl for anaerobe coverage, treat for 5 days (D5/5) completed
Cont O2 support, continue to wean o2; not on home o2 as home; Lasix IV PRN -can trial albumin today; if no improvement, can trial fluids as IVC collapsible - defer to ep technologist; unfortunately has had significant weight gain and may be approaching
HD
DuoNebs every 4 standing
Completed RemD x5 days with persistent hypoxia
Solu-Medrol 40 mg every 12 -> Decadron 6 mg daily x10 days
Incentive Marco
Pulm/Lodge Officer on board
ID on board
IR evaluated loculated effusion - not large enough to tap
# Leucocytosis, unclear etiology, steroid induced vs VTE vs encephalitis (see below)
-ctm fever curve
# Acute TME, unclear etiology, ddx including psychosis from polysubstance abuse vs encephalitis; I favor 2/2 to metabolic encephalopathy 2/2 to SARS-CoV-2, PNA +/- cefepime use
Off fentanyl patch, off ATC oxycodone, off PRN Morphine
UDS positive for opiate/fentanyl/benzo, also cocaine and methamphetamine
CT head x2: No acute intracranial abnormality noted.
MRI brain No acute intracranial abnormality noted.
EEG without overt seizure activity
no need for LP at this time; Mental status improving
ID/ Neuro on board
SPL eval - cont NPO, cont to eval
Mental status improving
# Portal vein thrombosis, unclear acute v chronic, can be related to COVID-19
Lovenox 1 mg/kg -> Eliquis 2.5 mg BID -> Argatroban - restart as hgb stable
APL panel unrevealing, pending prothrombin gene mutation, PENNY-2 mutation test results
hematology on board
-hep ggt was initiated, but stopped due to GIB; restart now
#Acute Blood Loss Anemia
-?GI bleed
hgb remains stable;
-GI consulted
-restart anticoag as ok by GI
-PPI
# Drop in platelet, concern for HIT
Pt did receive Lovenox therapeutic dose 10/24 - 10/26
HIT Ab: negative
Heme on board
# New onset acute HFrEF
Echo with EF 30 to 35%, akinesis of the septum and apex contraction of the basal inferior, inferolateral, and lateral louis, hypokinesis of the remaining segments, mild MR, aortic sclerosis with mild AR
s/p gentle diuresis with IV Lasix 20 mg daily
-Concern for COY and therefore was stopped; IV lasix PRN
Started low-dose Toprol, monitor blood pressures
Cardiology on board, was added lisinopril for reduced EF- off with COY
consider outpt ischemic eval
#Ascites
-p/p paracentesis 11/05
-no evidence of SBP
-possible 10/24 ot cirrhosis v Volume overload
# Hyponatremia
# Now hypernatremia
adjusting IVF based on sodium level
Nephro on board
# COY
#Anion Gap Metabolic Acidosis
SCr trending upward
hold ACEI
Renal on board
Bicarb ggt - stopped; oliguric; Lasix IV prn
# Transaminitis due to Hepatocellular injury
Most likely secondary to portal vein thrombosis +/- congestive hepatopathy
No statin
Monitor LFT
#Hep C positive
-hep c antibody ordered as per ID
#Hypothyroidism
-initiate synthroid
# Elevated troponin likely non-CA troponin elevation in setting of acute CHF
troponin plateaued at 0.16
# Polysubstance abuse
# Tobacco use
# Chronic pain
off [employer] fentanyl patch, oxycodone with current delirium
# Multiple sclerosis
# Hypokalemia
replete
DVT prophylaxis: Hep ggt;
Total Critical Care Time__60__ minutes. I was immediately available to the patient and staff. I personally examined, reviewed labs, diagnostic images/reports, interpretations, treatment plans, discussed patient care with other providers and
family or caregivers (if patient is unable to make decisions), entered orders as appropriate and documented the medical record.
Anticipated Discharge: > 48 hours
Subjective/Interval History
-
Date of Service: November 06, 2023
worsening hypoxia, requiring midflow
Objective Data
-
Labs:
Laboratory Results
11/06/23 11/06/23 11/06/23
02:40 11:00 12:02
WBC 18.1 H
Hgb 10.3 L
Hct 28.9 L
Plt Count 60 L
PT 14.3
INR 1.13
APTT 68.8 H Cancelled Cancelled
Sodium 142
Potassium 4.1
Chloride 103
Carbon Dioxide 29
BUN 77 H
Creatinine 3.6 H
Glucose 139 H
Calcium 7.9 L
Total Bilirubin 1.1
AST 45 H
ALT 29
Alkaline Phosphatase 286 H
11/06/23
12:20
WBC
Hgb
Hct
Plt Count
PT
INR
APTT 39.0 H
Sodium
Potassium
Chloride
Carbon Dioxide
BUN
Creatinine
Glucose
Calcium
Total Bilirubin
AST
ALT
Alkaline Phosphatase
Vital Signs:
Vital Signs
Temp Pulse Resp BP Pulse Ox
98.5 F 89 23 130/56 93
11/06/23 13:40 11/06/23 13:00 11/06/23 13:00 11/06/23 13:00 11/06/23 11:36
I&O
11/05/23 11/06/23 11/07/23
06:59 06:59 06:59
Intake Total 2465 / 2545 1920 / 1930 170 / 170
Output Total 185 / 190 135 / 135 100 / 100
Balance 2280 / 2355 1785 / 1795 70 / 70
Review of Systems
-
Unable to obtain full review of systems at this time due to: Acuity
History Source: Patient
Physical Exam
-
General: Well Developed and Appears Chronically Ill
HEENT: Normocephalic, Atraumatic, Nose Appears Normal, Ears Appear Normal and Oxygen (5L NC)
Respiratory: Non Labored Respirations; Negative Accessory Resp Muscle Use
Cardiac: Regular Rhythm and S1/S2
GI: Soft, Nontender, Nondistended and Normal Bowel Sounds
Genito-urinary: Morgan
Skin: Warm and Dry
Neuro: Awake
Psych: Calm and Confused; Negative Intact Judgement/Insight
Data Reviewed
-
CT Scan: Image personally visualized and interpreted and Report Reviewed by me
MRI: Report Reviewed by me
Labs: Labs Reviewed by me
[2023-11-06] MEDS: NSS 1000 IV ×2 (15:43→18:03)
[2023-11-06] MEDS: NEUTRA-PHOS POWDER PACKET 250 MG TUBE (16:15)
--- NOTE | 2023-11-06 16:31 | PTCARENOTE ---
patient in bed. family ( 2 daughters and ) at the bedside. plan of care discussed in details. NSS 1L bolus administered via RT PICC line. phosphorous adm per order via Dophoff. Antifungal ointment applied to sacrum HOB elevated
[2023-11-06 17:33] LABS: Glucose - Point of Care 169 mg/dl (70-99)
--- NOTE | 2023-11-06 18:14 | PTCARENOTE ---
after first 1L bolus and 1st dose of albumin total put out 200cc urinal output via Morgan. 2nd dose of albumin and 2nd 1L bolus infusing will continue to monitor urinal output. on High flow 50L/80% pox 98% Respiratory therapy made aware to titrate
oxygen to mid-flow
[2023-11-06 18:51] LABS: APTT > 200 Sec (23.4-35.0)
[2023-11-06 18:57] LABS: Protein/creatinine Ratio 2.1; Urine Protein 66 mg/dl
--- NOTE | 2023-11-06 19:02 | PTCARENOTE ---
PTT > 200; per protocol heparin place on hold from 1900 to 2100; at 21:00 heparin rate to be decrease from 1200 /12ml to 06/1000; next ptt schedule for 11/07
[2023-11-06] MEDS: XIFAXAN 550 MG PO (20:06)
[2023-11-06] MEDS: ANTIFUNGAL CLEAR 1 APPLIC TOPICAL (20:06)
--- NOTE | 2023-11-06 20:30 | PTCARENOTE ---
received patient from [facility]. heparin on hold. pt yelling out/mumbling. trying to pull at oxygen and ng tube. bilateral wrist restraints and mittens in place. tf at goal, no residual.
[2023-11-06] MEDS: NOVOLOG FLEXPEN-LOW RESISTANCE SC (23:06)
[2023-11-06 23:17] LABS: Glucose - Point of Care 118 mg/dl (70-99)
[2023-11-07] VITALS (20 sets, daily range): BP systolic 99–140; BP diastolic 50–97; BMI 23.0
[2023-11-07 04:26] LABS: Hematocrit 22.3 % (37.0-47.0); Mean Corp Hgb Conc. 35.4 g/dL (33.0-37.0); Mean Corpuscular Volume 107.2 fL (81.0-99.0); Mean Platelet Volume 13.4 fL (7.4-10.4); Platelet Count 64 10^3/uL (130-400); Red Blood Cell Count 2.08 10^6/uL (4.20-5.40); White Blood Cell Count 16.3 10^3/uL (4.8-10.8)
[2023-11-07 04:46] LABS: Hemoglobin 7.9 g/dL (12.0-16.0)
[2023-11-07 05:13] LABS: ALT (SGPT) 25 U/L (0-35); AST (SGOT) 44 U/L (14-36); Albumin 2.8 g/dl (3.5-5.0); Alkaline Phosphatase 217 U/L (38-126); Blood Urea Nitrogen 78 mg/dl (7-17); Calcium 7.9 mg/dl (8.4-10.2); Carbon Dioxide 25 mmol/L (22-30); Chloride 106 mmol/L (98-107); Estimated Creatinine Clearance 13 ml/min; Glucose 95 mg/dl (70-99); Magnesium 1.8 mg/dl (1.6-2.3); Phosphorus 2.1 mg/dl (2.5-4.5); Sodium 142 mmol/L (135-145); Total Bilirubin 1.2 mg/dl (0.2-1.3); Total Protein 4.8 g/dl (6.3-8.2); eGFR 12.52
--- NOTE | 2023-11-07 05:16 | PTCARENOTE ---
incontinent x2 of loose brown stool. pt just mumbles unable to understand her. requiring frequent repositioning, pt keeps scooting down in bed.
[2023-11-07] MEDS: NOVOLOG FLEXPEN-LOW RESISTANCE SC ×3 (05:47→17:26)
[2023-11-07 05:58] LABS: Glucose - Point of Care 112 mg/dl (70-99)
[2023-11-07] MEDS: SYNTHROID 25 MCG PO (06:22)
--- NOTE | 2023-11-07 06:39 | PTCARENOTE ---
rectal trumpet placed pt having multiple large loose stools throughout the night
[2023-11-07] MEDS: DUONEB 3 ML INH ×4 (07:17→20:03)
--- NOTE | 2023-11-07 08:00 | PTCARENOTE ---
Received pt @ change of shift. Pt lethargic, opens eyes spontaneously to tactile stim, able to track and follow simple commands. Confused/forgetful/attempts to pull @ lines/tubes- b/l soft limb/mitts/rails in place- see flow sheet. SR on monitor.
SpO2 98% on HFNC 50L/80%. RT attempted to wean HFNC to 50L/60%, pt did not tolerate and titrated back up to 50L/80% HFNC. Auscultated dim breath sounds throughout w coarse/scattered rhonchi/crackles. Hypo BS, abd round/ascites. TF infusing-
Osmolite 1.2 @ 55mL/hr w 25mL.hr H20 flush; no residual. Rectal trumpet in place w dark brown/liq stool. Morgan in place; yellow urine; oliguric w UO 5-10mL/hr. R DL PICC in place w heparin gtt- titrated per orders- see flow sheet. Hygiene care
provided and pt repositioned per protocol.
[2023-11-07] MEDS: LOPRESSOR 12.5 MG TUBE (08:01)
[2023-11-07] MEDS: NSS (PRESERVATIVE FREE) 10 ML IV ×2 (08:01→20:13)
[2023-11-07] MEDS: XIFAXAN 550 MG PO ×2 (08:01→20:13)
[2023-11-07] MEDS: PROTONIX IV 40 MG IV ×2 (08:01→20:13)
[2023-11-07] MEDS: ANTIFUNGAL CLEAR 1 APPLIC TOPICAL ×2 (08:02→20:14)
[2023-11-07] MEDS: THIAMINE INJECTION 100 MG IV (08:02)
--- NOTE | 2023-11-07 09:02 | W.PN.INTV ---
Addendum entered and electronically signed by Lexx Del Valle MD 11/07/23 13:01:
Physical exam addition: Petechiae seen along lower extremities
Original Note:
Today's Communication / Plan
Recommendations
Continue high flow with goal SpO2 >88%
Diuresis trial --> will start bumex gtt
Aspiration precautions
Low threshold to intubate
Family meeting today to discuss GOC and code status given her worsening renal failure and continued respiratory failure.
Assessment
-
Ms Kaitlin Esparza is a 63/W adm 10-24 with several d h/o dyspnea. Brought by EMS to ER, no EMS report available, ER note mentioned administration of DNs in route which improved O2 from low 90s victoria mid 90s. Seen at ICU, on BPAP 14/5 with O2 4L , POx
92%, in moderate resp distress, intermittently agitated and trying to remove BPAP mask. Unfortunately very poor historian at time of visit, unknown baseline MS, appears acutely on chronically ill-she continues to have mental status changes and
infectious disease wished lumbar puncture and patient transferred for deteriorating neurologic status to the ICU 10/31/2023
Acute respiratory failure with hypoxemia - worsening due to progressive multifocal PNA in setting of L-loculated effusion and ascites s/p para
Toxic metabolic encephalopathy - due to sepsis and COY in setting of cirrhosis/HE
Acute kidney injury -worsening - suspect this could be due to hepatorenal syndrome vs ATN in setting of sepsis (given low urine Na, I believe she has the former)
Bilateral infiltrates due to bacterial superinfection (CAP - initial CT chest with tree-in-bud in posterior RUL + RML and anterior RLL, and lingula + large consolidation in medial RML)
Left-sided (mild-moderate) parapneumonic effusion with loculations
Sepsis without shock due to CAP and covid-19
COVID positive (positive on 10/24/2023)
Elevated PCT
Leukocytosis
Thrombocytopenia
Primary symptomatic hypothyroidism
Hypoalbuminemia with ascites (ascites likely due to cirrhosis)
COPD exacerbation
Heart failure-acute new onset with reduced EF-35% with septal and apical akinesis
Low serum osmolality (248 on admission)
Lactic acidosis -resolved
Transaminitis
Portal vein thrombosis (seen on abd US from 10/24/2023 involving main portal vein)
Elevated troponin and BNP: LVEF 30-35% with WMAs
Flu negative
Elevated ESR-61
GI bleed 10/31/2023 with melena and heem positive stools
Hx of HCV (positive Ab in 2009, but negative HCV RNA)
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
COPD
Hypothyroidism
Multiple sclerosis
Substance abuse: on methadone
VDRF due to overdose Jul 2011
Chronic pain: reportedly on fentanyl patch, hydromorphone, oxycodone
Smoker
Former alcohol abuse with cirrhosis seen on imaging
Plan:
She continues to be critically ill with multiorgan failure with worsening COY, high O2 requirements with continued risk for aspiration, and appears more weak
Continue high flow nasal cannula and titrate FiO2/flow rate to maintain SpO2 >88%
She underwent paracentesis on 11/05 with removal of 2.65L, and I believe this helped her breathe better
Given her cirrhosis, this is a contraindication for chest tube so even if there is a left-sided loculated effusion, a tube thoracostomy should not be placed
Continue DuoNebs QID
Mucolytics with mucinex
Aspiration precautions
Speech therapy following -->�patient failed AUTOMATED PROCESS OPERATOR --> Dobhoff inserted on 11/03 and tube feeds were started --> dobhoff was pulled out of her nose yesterday AM --> replaced; continue tube feeds
Will need repeat CXR in 4 to 6 weeks to follow pneumonia to resolution
Flutter valve prn
Sport bed
She is s/p course of antibiotics as per ID - was on flagyl from 10/29 - 11/03; s/p cefepime from 10/24 - 10/30 and IV vanco x 1 day (10/24) -->�ID restarted ABx today with Invanz
Cultures reviewed
Urine Cx growing yeast
Infectious disease following-correspondence reviewed
Trend WBC
s/p course of remdesivir (10/28 - 11/01/2023)
Decadron 6 mg daily x 10 days
Lumbar puncture 10/31/2023- unable to perform due to agitation --> she then improved and it was deferred. Will defer this decision to neuro
Mental status improved-off fentanyl patch (she reportedly had 2 fentanyl patches on admission), off [id number] oxycodone and off as needed morphine -�we started Subutex 2 mg SL on 11/03; given her worsening mentation, I stopped her subutex
Continue rifaximin for HE treatment (it appears she has grade 1-2 HE); will hold off on lactulose as she is already having loose stools
Maintain MAP>65
Given elevated TSH>15 with low fT4, levothyroxine should be started --> considering her age and newly diagnosed HFrEF with suspected ICM, we started 25mcg per day and can increase as needed with repeat TFTs in 4-6 weeks once she has fully recovered
from her current acute illness.
Neurology evaluation ongoing-correspondence reviewed
Discontinued fentanyl patch and other medications that might cause mental status changes
EEG-10/31/2023-no obvious epileptiform discharges but cannot be completely ruled out because of significant underlying artifact from movement
Also saw psychiatry 10/28/2023
Monitor thrombocytopenia - transfuse if needed to keep plt>20k
Hematology following
KENNETH panel negative (hep associated plt ab 0.170 on 10/31/2023)
Pt had heme positive stools on 10/31/2023
Monitor hemoglobin and transfuse as needed to maintain Hb >7, plt>50k
GI evaluation 11/01/2023-consultation reviewed
PPI --> currently on 40mg IV BID
Considering upper endoscopy --> will defer this decision to GI
Considering she has cirrhosis on imaging, trend ammonia; started rifaximin (see above)
Scheduled diuresis on hold given worsening COY, although she did receive a dose today and yesterday to try to increase UOP -->nephrology on board
Follow renal function, electrolytes, intake/output, lower extremity edema and weight
Continue to replace electrolytes as needed
Nephrology following-correspondence reviewed --> BUN and Cr continue to rise despite having MAP>65-70;��May need HD - defer to nephrology. Will start bumex gtt for now to see if improves UOP. Given her low serum Na and cirrhosis, I am concerned
that she has HRS
VICTOR MANUEL held-follow renal function
Heparin gtt continues for portal vein thrombosis-suspected covid infection related
Patient will see GI as an outpatient
Follow for arrhythmias
Cardiology follow-up till 10/28/2023
Smoking cessation counseling once alert and can comprehend advice
Chronic pain and polysubstance abuse -->�psych reconsulted on 11/03 - subutex was given and we were going to up-titrate as tolerated, however now that pt is doing worse and is more lethargic and confused, I stopped the Subutex
DVT prophylaxis-on heparin gtt
Nutrition with aspiration precautions
Starting TF --> AUTOMATED PROCESS OPERATOR to continue to follow along.� She may ultimately require PEG vs TPN if she continues to fail AUTOMATED PROCESS OPERATOR ; given her Hx of drug abuse, PEG would be safer option.
Patient downgraded to IMU on 11/03/2023.� Due to her worsening hypoxia and how she clinically appears, she was upgraded back to ICU 11/05. She has a low threshold to be intubated, however multiple goals of care discussions have taken place and family
is leaning towards making her DNR/DNI as she has low chances of extubation if she gets intubated. Family meeting today at 1PM
Critical care statement: A total of 38 minutes of critical care time was provided for this patient today. This includes management of unstable vital signs, evaluation of the patient at bedside, reviewing the patient's pertinent medical records
including radiographs, microbiology, laboratory evaluations, and� discussion with primary team, consultants, pharmacy, nutrition, physical therapy, case management, charge nurse, critical care nursing, and respiratory therapy.
Diagnostic tests:
CXR 10-24-23 c/w Apr 2023: New R basilar infiltrate. Mild pulm vasc congestion. No free air. Blunted c-d angles.
Chest x-ray 10/30/2023-improving right lower lobe pneumonia
CXR 11/03/2023:� Progressed findings suggesting bilateral lower lobe pneumonia.
CXR 11/05/2023: Persistent interstitial and airspace disease bilaterally not significantly changed. Left pleural fluid.
CXR 11/06/2023: Findings suggest a moderate left lower lobe pneumonia. Improved; Mild mid and lower right lung pneumonia. Stable
Chest CTA 10-24-23:�No acute PE. RML infiltrate. RLL patch of pneumonitis. Patchy small lingular and posterior RUL infiltrates
CT Chest/Abd/pelvis 11-04-2023:
Moderate consolidation of the left lower lobe concerning for pneumonia. Progressed from 11/03/2023.
Small to moderate loculated left pleural effusion. Limited evaluation without IV contrast. Progressed from 11/03/2023.
Moderate patchy groundglass opacities throughout all lobes, greatest in the right upper lobe, concerning for pneumonia. New from 10/24/2023.
Small right pleural effusion. New from 10/24/2023
Tiny pericardial effusion versus pleural thickening. Stable
Mild abdominopelvic ascites. Progressed from 10/24/2023
Nodular hepatic margin suggesting cirrhosis. New from 11/18/2010
Probable partially calcified gallstone. New from 11/18/2010
Limited evaluation of the bowel without oral contrast.
Findings suggesting moderate volume overload or third spacing. New from 11/18/2010
Brain MRI 10/30/2023-no acute intracranial abnormalities
Echocardiogram 10/24/2023-EF 30-35%, mild mitral regurgitation, aortic sclerosis
Subjective Dataa
Subjective Data
Date of Service:
Date of Service: November 07, 2023
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
Subjective:
Seen this AM. On HFNC at 100%. HR 84 and BP 110/55. Awakens to tactile stimuli and is confused. UOP poor - 10cc/hr. She is answering questions, appears in no acute distress.
Review of Systems
General: Other (Negative unless mentioned above)
Objective Data
Data Reviewed
Vital Signs / I&O / Oxygen:
Vital Signs
Temp Pulse Resp BP Pulse Ox
98 F 97 32 114/85 96
11/07/23 07:25 11/07/23 08:01 11/07/23 07:19 11/07/23 08:01 11/07/23 07:20
Intake and Output
11/06/23 11/07/23 11/08/23
06:59 06:59 06:59
Intake Total 1919 / 2009 4362 / 4452 180 / 180
Output Total 135 / 135 355 / 360
Balance 1785 / 1875 4007 / 4092 165 / 165
SaO2 96
Nasal Cannula flow liters per 50
minute
Physical Exam
General: Respiratory Distress (improved compared to yesterday) and Chills (negative)
HEENT: Normocephalic, Anicteric and Moist Mucous Membranes
Cardiovascular: S1-S2, Murmur (n) and Peripheral Edema (negative)
Respiratory: Wheeze (n), Crackles (bibasilar), Rhonchi (bilateral, mainly in posterior lung maier), Accessory Resp Muscle Use (mild) and Stridor (n)
GI: Soft, Distended and Non Tender
Neurology: Awake, Alert and No Motor Deficits
Skin: Warm, Dry and Bruising (LLQ)
Labs/Micro/Reports
Lab Data
11/07/23 04:15
11/07/23 04:15
Laboratory Results
11/06/23 11/06/23 11/06/23
11:00 12:02 12:20
APTT Cancelled Cancelled 39.0 H
11/06/23 11/07/23
17:52 04:15
APTT > 200 H* 78.0 H
Microbiology
11/02/23 10:32 Urine Urine Culture - Final
Yeast
--- NOTE | 2023-11-07 09:21 | W.PN.ID1 ---
Date of Service
Date of Service: November 07, 2023
Today's Communication
Continue antibiotics
Assessment / Plan
Encephalopathy
- unclear etiology; suspect TME
Leukocytosis
- may be secondary to steroid effect, cannot rule out infectious process.
COVID-19 (vaccinated patient)
- completed remdesivir x5 days
- off isolation
Suspected new PNA; ?aspiration
COPD
Acute Onset CHF - Ef 30%
COY
- Cr continues to worsen
Hypothyroidism
Portal vein thrombosis acute vs chronic - with ascites
Substance abuse (on chronic methadone; UDS positive for multiple substances)
Hep C (+). (HIV negative)
Recommendations:
O2 requirement remains high; patient remains on high flow O2.
COY - progressive; Nephrology following
Transaminitis resolving, ammonia neg
Leukocytosis noted - steroids vs infection.
Follow white count and temperature curve.
Continue ertapenem (dosed for renal insufficiency)
Continue with supportive measures.
Patient remains critically ill in the ICU. Given comorbidities and current clinical presentation, outlook remains extremely guarded.
����������������������������������������������������������
Chief Complaint
-: Pneumonia and Other (Covid-19; encephalopathy)
Subjective / Review of Systems
Patient seen and examined. Continues to require marked amount supplemental O2 via high flow cannula.
Vital Signs / Physical Exam
Vital Signs
Vital Signs
Temp Pulse Resp BP Pulse Ox
98 F 97 32 114/85 96
11/07/23 07:25 11/07/23 08:01 11/07/23 07:19 11/07/23 08:01 11/07/23 07:20
Physical Exam
Constitutional: Chronically Ill and Cachetic
Eyes: No Conjunctival Hemorrhage
Oropharyngeal: Other (Nasal Dobbhoff in place.)
Cardiovascular: S1/S2; Negative S3/S4
Pulmonary: Rhonchi, Coarse and Other (Mild to moderate labored breathing.)
Gastrointestinal: Soft, Non Distended, Normal Bowel Sounds and No Rebound
Extremities: Edema; Negative Erythema
Psychological: Calm
Objective Data
Lab Data
Lab Results
11/07/23 04:15
11/07/23 04:15
ESR 61 mm/hour (0-20) H 10/31/23 05:47
PT 14.3 Sec (11.4-14.6) 11/06/23 02:40
INR 1.13 11/06/23 02:40
APTT 78.0 Sec (23.4-35.0) H 11/07/23 04:15
Estimated Creat Clear 13 ml/min 11/07/23 04:15
Lactic Acid Cancelled 10/24/23 17:00
Total Bilirubin 1.2 mg/dl (0.2-1.3) 11/07/23 04:15
AST 44 U/L (14-36) H 11/07/23 04:15
ALT 25 U/L (0-35) 11/07/23 04:15
Alkaline Phosphatase 217 U/L (38-126) H 11/07/23 04:15
C-Reactive Protein 19.40 mg/L (0.0-10.00) H 10/30/23 05:39
Most recent labs reviewed.
Micro Results:
11/02/23 10:32 Urine Culture - Final
Urine Yeast
10/24/23 09:39 Blood Culture - Final
Blood/Venous No Growth - Final Report
10/24/23 09:12 Blood Culture - Final
Blood/Venous No Growth - Final Report
10/24/23 12:42 Nasal Screen MRSA (PCR) - Final
Nose MRSA not detected - performed by PCR methodology.
10/24/23 09:39 Influenza Types A & B (YANY) - Final
Nasal Swab Negative for Influenza A & B, NAAT
Negative results must be combined with clinical observations
and patient history.
Nucleic Acid Amplification test (NAAT)performed on the
[employer] platform.
Imaging:
11/05/2023 CXR (portable): NG tube remains in place, with the tip in the left upper quadrant. There is persistent bilateral interstitial and airspace disease, with blunting of the left costophrenic angle consistent with pleural fluid. No
significant changes from prior studies.
11/04/2023 CT chest/abdomen/pelvis: Moderate consolidation of the left lower lobe concerning for pneumonia, with progression from 11/03/2023. A small to moderate loculated left pleural effusion noted. Moderate patchy groundglass opacities throughout
all lobes, greatest in the right upper lobe and concerning for pneumonia. Mild abdominal pelvic ascites. A nodular hepatic margins suggest cirrhosis. Please see full dictation for additional detail.
10/29/2023 CT head without contrast: Moderate ventricular sulcal prominence consistent with atrophy. Brain parenchyma is normal attenuation. No intra or extra-axial masses, hemorrhage or fluid collection. Please see full dictation for additional
detail.
10/28/2023 CXR (portable): Mild � moderate interstitial airspace disease in the right middle lobe consistent with pneumonia which is significantly improved when compared to prior study. Lungs are otherwise clear. Please see full dictation for
additional detail.
10/24/2023 CT chest: Large right middle lobe pneumonia noted. Small volume right hilar lymphadenopathy.
[2023-11-07 10:33] LABS: APTT 63.6 Sec (23.4-35.0)
[2023-11-07] MEDS: HEPARIN 25000 UNITS/250 ML IV (11:12)
[2023-11-07] MEDS: HEPARIN 4200 UNITS IV (11:16)
[2023-11-07] MEDS: INVANZ 55 MG IV (11:45)
[2023-11-07] MEDS: NEUTRA-PHOS POWDER PACKET 500 MG PO ×3 (11:45→18:12)
[2023-11-07 11:55] LABS: Glucose - Point of Care 121 mg/dl (70-99)
--- NOTE | 2023-11-07 12:22 | CM ---
Addendum entered by Amari Lee 11/07/23 14:54:
Per MD, and 2 daughters participated in the meeting, son will arrive tomorrow. As a result of the meeting, code status changed to DNR/DNI and plan to pursue comfort care tomorrow when son and other family arrive.
Original Note:
CM following re: discharge planning.
Discussed in Rounds, reviewed pt's chart, met with pt. Per rounds meeting, pt requires 50 L HFNC with FIO2 of 100%, not able to follow command, multiple attempts made to wean HF without success.
CM spoke to pt's to set up a family meeting to discuss a goals of care. Pt's stated that 2 daughters will be at the hospital at 12:30 p.m and he and his son will be at 1:00 p.m. and pt's requested a family meeting today at
1:00 p.m. RN, Respiratory Therapist, MD are aware.
D/c plan: GOC discussion with the family.
CM will follow with discharge plan updates as hospitalization progresses
--- NOTE | 2023-11-07 13:35 | W.PN.UPDATE ---
Update Note
Progress Note Update
Multiple family members came to bedside including , Ramón, 2 daughters and son-in-law. The patient's critically ill state was reviewed including her worsening kidney failure, respiratory failure requiring high amounts of oxygen, physical
deconditioning with confusion and worsening weakness. This is all in the setting of end-stage liver disease with decompensation, ascites, pleural effusions and petechiae with thrombocytopenia. Decision made to withdraw care however waiting for
additional family member(s) to arrive, mainly the sonGigi. In the meantime, we will make patient's code status DNR/DNI. They also would like epic ambulatory analysts to come see the patient.
They believe that the son will be here by tomorrow at which point they would want to withdraw care at that time. All questions were answered. Emotional support was provided. Patient's bedside nurse was updated as well as case management.
--- NOTE | 2023-11-07 13:48 | PTCARENOTE ---
Pt.'s family to beside to discuss goal of care w , Dr. Del Valle. S/P discussion, code status changed to DNR/DNI and plan to pursue comfort care tomorrow when more family arrives. Remains on HFNC 50L/100%. Safe environment maintained.
[2023-11-07] MEDS: BUMEX 50 IV (13:58)
--- NOTE | 2023-11-07 14:34 | W.PN.HOSP.TC ---
Today's Communication/Plan
-
bumex ggt
abx
DNR/DNI after mixed crop and livestock farmer discussion
possible switch to comfort in the next few days
Assessment / Plan
Assessment / Plan
HPI: 63-year-old female with past medical history of hypothyroidism, COPD, multiple sclerosis, substance abuse on methadone, chronic opiate, tobacco abuse, COPD, chronic pain, ?History of atrial fibrillation; p/w shortness of breath.
A/P:
# Acute hypoxic respiratory insufficiency
# COPD exacerbation
# Severe sepsis POA, secondary to CAP
# SARS-CoV-2
procal 1.12, MRSA screen negative, Blood Cx negative
Back on HFNC
She was treated with Cefepime, received 7 days, discontinued further cefepime ; started back on Ertapenem
Cont Flagyl for anaerobe coverage, treat for 5 days (D5/5) completed
Cont O2 support, continue to wean o2; not on home o2 as home; Lasix IV PRN -can trial albumin today; if no improvement, can trial fluids as IVC collapsible - defer to mixed crop and livestock farmer; unfortunately has had significant weight gain and may be approaching
HD
DuoNebs every 4 standing
Completed RemD x5 days with persistent hypoxia
Solu-Medrol 40 mg every 12 -> Decadron 6 mg daily x10 days
Incentive [place]
Pulm/Construction Equipment Operator on board
ID on board
IR evaluated loculated effusion - not large enough to tap
-attempt bumex ggt for diuresis
# Leucocytosis, unclear etiology, steroid induced vs VTE vs encephalitis (see below)
-ctm fever curve
# Acute TME, unclear etiology, ddx including psychosis from polysubstance abuse vs encephalitis; I favor 2/2 to metabolic encephalopathy 2/2 to SARS-CoV-2, PNA +/- cefepime use
Off fentanyl patch, off ATC oxycodone, off PRN Morphine
UDS positive for opiate/fentanyl/benzo, also cocaine and methamphetamine
CT head x2: No acute intracranial abnormality noted.
MRI brain No acute intracranial abnormality noted.
EEG without overt seizure activity
no need for LP at this time; Mental status improving
ID/ Neuro on board
SPL eval - cont NPO, cont to eval
Mental status improving
# Portal vein thrombosis, unclear acute v chronic, can be related to COVID-19
Lovenox 1 mg/kg -> Eliquis 2.5 mg BID -> Argatroban - restart as hgb stable
APL panel unrevealing, pending prothrombin gene mutation, PENNY-2 mutation test results
hematology on board
-hep ggt was initiated, but stopped due to GIB; restart now
#Acute Blood Loss Anemia
-?GI bleed
hgb remains stable;
-GI consulted
-restart anticoag as ok by GI
-PPI
# Drop in platelet, concern for HIT
Pt did receive Lovenox therapeutic dose 10/24 - 10/26
HIT Ab: negative
Heme on board
# New onset acute HFrEF
Echo with EF 30 to 35%, akinesis of the septum and apex contraction of the basal inferior, inferolateral, and lateral [place], hypokinesis of the remaining segments, mild MR, aortic sclerosis with mild AR
s/p gentle diuresis with IV Lasix 20 mg daily
-Concern for COY and therefore was stopped; IV lasix PRN
Started low-dose Toprol, monitor blood pressures
Cardiology on board, was added lisinopril for reduced EF- off with COY
consider outpt ischemic eval
#Ascites
-p/p paracentesis 11/05
-no evidence of SBP
-possible 10/24 ot cirrhosis v Volume overload
# Hyponatremia
# Now hypernatremia
adjusting IVF based on sodium level
Nephro on board
# COY
#Anion Gap Metabolic Acidosis
SCr trending upward
hold ACEI
Renal on board
Bicarb ggt - stopped; oliguric; Lasix IV prn
# Transaminitis due to Hepatocellular injury
Most likely secondary to portal vein thrombosis +/- congestive hepatopathy
No statin
Monitor LFT
#Hep C positive
-hep c antibody ordered as per ID
#Hypothyroidism
-initiate synthroid
# Elevated troponin likely non-AL troponin elevation in setting of acute CHF
troponin plateaued at 0.16
# Polysubstance abuse
# Tobacco use
# Chronic pain
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
# Multiple sclerosis
# Hypokalemia
replete
DVT prophylaxis: Hep ggt;
GOC as per mixed crop and livestock farmer: DNR/DNI; possible switch GOC to comfort as of tomorrow; prognosis v poor
Total Critical Care Time__55__ minutes. I was immediately available to the patient and staff. I personally examined, reviewed labs, diagnostic images/reports, interpretations, treatment plans, discussed patient care with other providers and
family or caregivers (if patient is unable to make decisions), entered orders as appropriate and documented the medical record.
Anticipated Discharge: > 48 hours
Subjective/Interval History
-
Date of Service: November 07, 2023
No acute events
Objective Data
-
Labs:
Laboratory Results
11/07/23 11/07/23 11/07/23
04:15 10:08 15:00
WBC 16.3 H Pending
Hgb 7.9 L D Pending
Hct 22.3 L Pending
Plt Count 64 L Pending
APTT 78.0 H 63.6 H
Sodium 142
Potassium 4.0
Chloride 106
Carbon Dioxide 25
BUN 78 H
Creatinine 3.9 H
Glucose 95
Calcium 7.9 L
Total Bilirubin 1.2
AST 44 H
ALT 25
Alkaline Phosphatase 217 H
11/07/23
17:00
WBC
Hgb
Hct
Plt Count
APTT Pending
Sodium
Potassium
Chloride
Carbon Dioxide
BUN
Creatinine
Glucose
Calcium
Total Bilirubin
AST
ALT
Alkaline Phosphatase
Vital Signs:
Vital Signs
Temp Pulse Resp BP Pulse Ox
97.6 F 84 16 114/85 98
11/07/23 12:00 11/07/23 11:46 11/07/23 11:46 11/07/23 08:01 11/07/23 11:47
I&O
11/06/23 11/07/23 11/08/23
06:59 06:59 06:59
Intake Total 1919 / 2009 4362 / 4452 450 / 450
Output Total 135 / 135 355 / 360 40 / 40
Balance 1785 / 1875 4007 / 4092 410 / 410
Review of Systems
-
Unable to obtain full review of systems at this time due to: Acuity
History Source: Patient
Data Reviewed
-
CT Scan: Image personally visualized and interpreted and Report Reviewed by me
MRI: Report Reviewed by me
Labs: Labs Reviewed by me
--- NOTE | 2023-11-07 16:03 | PTCARENOTE ---
RT weaned pt from HFNC to 15LMF, SpO2 92%; RR remains tachypneic in 20's, otherwise tolerating wean. All systems reassessed, no changes in previous assessment.
--- NOTE | 2023-11-07 16:21 | W.PN.NEPH.PH ---
Today's Communication / Plan
-
- DNR/DNI plans to withdraw care
Assessment/Plan
-
Assessment:
-COY
-hyponatremia
-hypotension on admission
-COVID+
-large RML PNA
-lactic acidosis
-?thrombosed portal vein/thrombocytopenia
-GI bleeding
-COPD
-hypothyroid
-HFrEF 30% (new onset)
-multiple sclerosis
-chronic pain/opioids
-confusion: s/p LP
-metabolic acidosis
-newly dx cirrhosis
Plan
-creatinine continues to worsening for no obvious etiology (ATN?) now up to 3.9
-No acute HD requirement today but patient is essentially anuric and weights rising
-minimal response to IV lasix
-FeNa was consistent with pre-renal (?REBECCA)
-REBECCA on differential but last contrast administration on 10/24, Cr rise began on 10/30 which does not fit typical presentation
-holding delano
-uop dropping maintain sorensen
-follow BMP
-cause of delirium uncertain, s/p LP
-patient at high clinical risk, with worsening COY but spoke with family at bedside on 11/07, they do not want to pursue dialysis and the patient will be made DNR/DNI with plans to withdraw care tomorrow once more family arrives
Neph to sign off
-
-
Date of Service: November 07, 2023
CC / HPI / ROS
-
Chief Complaint:
hyponatremia
History of Present Illness:
Abx for RML PNA
Na at141
Cr rise to 3.9
metabolic acidosis worsening
LFTs stable high
WBC remains elevated on steroids
Review of Systems:
no CP/fever
on high flow oxygen support but worsening respiratory distress
confusion worsening
Oliguric via cath
Labs
-
Labs:
Sodium 142 mmol/L (135-145) 11/07/23 04:15
Potassium 4.0 mmol/L (3.5-5.1) 11/07/23 04:15
Chloride 106 mmol/L (98-107) 11/07/23 04:15
Carbon Dioxide 25 mmol/L (22-30) 11/07/23 04:15
BUN 78 mg/dl (7-17) H 11/07/23 04:15
Creatinine 3.9 mg/dL (0.6-1.0) H 11/07/23 04:15
eGFR 12.52 11/07/23 04:15
Glucose 95 mg/dl (70-99) 11/07/23 04:15
Calcium 7.9 mg/dl (8.4-10.2) L 11/07/23 04:15
Phosphorus 2.1 mg/dl (2.5-4.5) L 11/07/23 04:15
Zcb-H-Mdmjlxlejxd Pept 06401 pg/ml 11/03/23 03:42
Albumin 2.8 g/dl (3.5-5.0) L 11/07/23 04:15
Physical Exam
-
Vital Signs:
Vital Signs
Temp Pulse Resp BP Pulse Ox
97.6 F 98 32 112/53 91
11/07/23 12:00 11/07/23 16:00 11/07/23 16:00 11/07/23 16:00 11/07/23 16:00
Cardiovascular:: Irregular rate and rhythm
Respiratory:: Bilateral: Coarse
Lung Excursion:: Normal
Abdomen:: Distended, Soft and Tender
Bowel Sounds:: Normal
Extremity Edema:: +3: Bilateral:
Sorensen Catheter: Yes
[2023-11-07 16:56] LABS: Hematocrit 24.1 % (37.0-47.0); Hemoglobin 8.4 g/dL (12.0-16.0); Mean Corp Hgb Conc. 34.9 g/dL (33.0-37.0); Mean Corpuscular Hgb 38.4 pg (27.0-31.0); Mean Platelet Volume 13.1 fL (7.4-10.4); Platelet Count 69 10^3/uL (130-400); Red Blood Cell Count 2.19 10^6/uL (4.20-5.40); Red Cell Dist. Width 16.7 % (11.5-14.5); White Blood Cell Count 16.8 10^3/uL (4.8-10.8)
[2023-11-07 17:18] LABS: APTT > 200.0 Sec (23.4-35.0)
[2023-11-07 17:37] LABS: Glucose - Point of Care 148 mg/dl (70-99)
[2023-11-07] MEDS: MORPHINE SULFATE 1 MG IV ×2 (20:47→23:46)
--- NOTE | 2023-11-07 20:50 | PTCARENOTE ---
Received pt resting in bed, oriented only to self. Responds to verbal and to her name. Unable to verbalize needs. Will shake head yes and no to questions. SUBRAMANIAN but weak. Restraints and mitts in place for safety per orders. Follows simple commands.
Moaning at times. Switched from mid flow to hi flow NC by RT due to sats in the 80s. Morphine given for SOB and discomfort. SR/ST on tele HR 90s-100s. BP 110s/50s. Trunk edema/ascites. Weak pulses. Lungs dim with rhonchi and coarse throughout.
Shallow, tachypneic. Hypoactive bowel sounds. DH tube with osmo @ 55ml/hr with 25ml/hr h20 flush. Rectal trumpet leaking- reinserted and cleaned pt. Morgan in place draining nadya urine. Oliguric ~10ml/hr. R PICC with bumex and heparin gtts. Turning
q2. Mouth care provided, dentures removed.
and daughter were at bedside- they stated tomorrow around lunch time they will have the whole family here to begin the withdrawal process.
[2023-11-08] VITALS (18 sets, daily range): BP systolic 102–141; BP diastolic 49–69; BMI 22.3
[2023-11-08] MEDS: NOVOLOG FLEXPEN-LOW RESISTANCE 1 UNITS SC
[2023-11-08 00:04] LABS: Glucose - Point of Care 179 mg/dl (70-99)
--- NOTE | 2023-11-08 00:15 | PTCARENOTE ---
Pt. reassessed. Rectal trumpet came out-- cleaned and reinserted. Brown/green stool. No evidence of bleeding. No changes in vitals or assessment otherwise. Morphine given again.
[2023-11-08 02:56] LABS: APTT 69.1 Sec (23.4-35.0)
[2023-11-08] MEDS: HEPARIN 2100 UNITS IV (03:31)
[2023-11-08] MEDS: MORPHINE SULFATE 1 MG IV ×2 (03:31→05:40)
[2023-11-08 05:08] LABS: ALT (SGPT) 24 U/L (0-35); AST (SGOT) 42 U/L (14-36); Albumin 2.6 g/dl (3.5-5.0); Alkaline Phosphatase 236 U/L (38-126); Blood Urea Nitrogen 82 mg/dl (7-17); Carbon Dioxide 26 mmol/L (22-30); Chloride 105 mmol/L (98-107); Estimated Creatinine Clearance 13 ml/min; Glucose 147 mg/dl (70-99); Magnesium 1.7 mg/dl (1.6-2.3); Potassium 4.2 mmol/L (3.5-5.1); Sodium 142 mmol/L (135-145); Total Protein 4.7 g/dl (6.3-8.2); eGFR 12.14
[2023-11-08] MEDS: NOVOLOG FLEXPEN-LOW RESISTANCE SC ×2 (05:55→18:46)
[2023-11-08] MEDS: SYNTHROID 25 MCG PO (06:03)
--- NOTE | 2023-11-08 06:28 | PTCARENOTE ---
Pt. looks to be declining more this AM. VSS but just staring up, occasionally tracking to voice. Remains on hi flow. Family to be in today to pursue comfort care. Bathed with CHG this morning. Bumex and heparin gtts continue. PTT due 0930.
--- NOTE | 2023-11-08 07:17 | W.PN.ID1 ---
Date of Service
Date of Service: November 08, 2023
Today's Communication
Continue antibiotics
Assessment / Plan
Encephalopathy
- unclear etiology; suspect TME
Leukocytosis
-Likely secondary to steroid effect, cannot rule out infectious process.
COVID-19 (vaccinated patient)
- completed remdesivir x5 days
- off isolation
Suspected new PNA; ?aspiration
COPD
Acute Onset CHF - Ef 30%
COY
- Cr continues to worsen
Hypothyroidism
Portal vein thrombosis acute vs chronic - with ascites
Substance abuse (on chronic methadone; UDS positive for multiple substances)
Hep C (+). (HIV negative)
Recommendations:
O2 requirement remains high; patient remains on high flow O2.
COY - progressive; Nephrology following
Transaminitis resolving, ammonia neg
Leukocytosis noted - steroids vs infection.
Follow white count and temperature curve.
Continue ertapenem (d#4). Dosed for renal insufficiency.
Continue with supportive measures.
Chart reviewed. Patient now DNR. Family considering transition to hospice/comfort measures.
Patient remains critically ill in the ICU. Given comorbidities and current clinical presentation, outlook remains extremely guarded.
����������������������������������������������������������
Chief Complaint
-: Pneumonia and Other (Covid-19; encephalopathy)
Subjective / Review of Systems
Review of Systems: No Fever
Vital Signs / Physical Exam
Vital Signs
Vital Signs
Temp Pulse Resp BP Pulse Ox
97.0 F 95 28 127/69 94
11/08/23 03:32 11/08/23 06:00 11/08/23 06:00 11/08/23 06:00 11/08/23 06:00
Physical Exam
Constitutional: Acutely Ill, Chronically Ill and Cachetic
Eyes: No Conjunctival Hemorrhage and Sclera Anicteric
Oropharyngeal: Other (Nasal Dobbhoff in place.)
Cardiovascular: S1/S2; Negative S3/S4
Pulmonary: Rhonchi (scattered) and Coarse
Gastrointestinal: Non Distended, Normal Bowel Sounds and No Rebound
Extremities: Negative Edema or Erythema
Psychological: Confused and Other (Appears restless in bed)
Objective Data
Lab Data
Lab Results
11/07/23 16:45
11/08/23 03:36
ESR 61 mm/hour (0-20) H 10/31/23 05:47
PT 14.3 Sec (11.4-14.6) 11/06/23 02:40
INR 1.13 11/06/23 02:40
APTT 69.1 Sec (23.4-35.0) H 11/08/23 01:31
Estimated Creat Clear 13 ml/min 11/08/23 03:36
Lactic Acid Cancelled 10/24/23 17:00
Total Bilirubin 1.0 mg/dl (0.2-1.3) 11/08/23 03:36
AST 42 U/L (14-36) H 11/08/23 03:36
ALT 24 U/L (0-35) 11/08/23 03:36
Alkaline Phosphatase 236 U/L (38-126) H 11/08/23 03:36
C-Reactive Protein 19.40 mg/L (0.0-10.00) H 10/30/23 05:39
Most recent labs reviewed.
Micro Results:
11/02/23 10:32 Urine Culture - Final
Urine Yeast
10/24/23 09:39 Blood Culture - Final
Blood/Venous No Growth - Final Report
10/24/23 09:12 Blood Culture - Final
Blood/Venous No Growth - Final Report
10/24/23 12:42 Nasal Screen MRSA (PCR) - Final
Nose MRSA not detected - performed by PCR methodology.
10/24/23 09:39 Influenza Types A & B (YANY) - Final
Nasal Swab Negative for Influenza A & B, NAAT
Negative results must be combined with clinical observations
and patient history.
Nucleic Acid Amplification test (NAAT)performed on the
[employer] platform.
Imaging:
11/05/2023 CXR (portable): NG tube remains in place, with the tip in the left upper quadrant. There is persistent bilateral interstitial and airspace disease, with blunting of the left costophrenic angle consistent with pleural fluid. No
significant changes from prior studies.
11/04/2023 CT chest/abdomen/pelvis: Moderate consolidation of the left lower lobe concerning for pneumonia, with progression from 11/03/2023. A small to moderate loculated left pleural effusion noted. Moderate patchy groundglass opacities throughout
all lobes, greatest in the right upper lobe and concerning for pneumonia. Mild abdominal pelvic ascites. A nodular hepatic margins suggest cirrhosis. Please see full dictation for additional detail.
10/29/2023 CT head without contrast: Moderate ventricular sulcal prominence consistent with atrophy. Brain parenchyma is normal attenuation. No intra or extra-axial masses, hemorrhage or fluid collection. Please see full dictation for additional
detail.
10/28/2023 CXR (portable): Mild � moderate interstitial airspace disease in the right middle lobe consistent with pneumonia which is significantly improved when compared to prior study. Lungs are otherwise clear. Please see full dictation for
additional detail.
10/24/2023 CT chest: Large right middle lobe pneumonia noted. Small volume right hilar lymphadenopathy.
[2023-11-08] MEDS: THIAMINE INJECTION 100 MG IV (07:44)
[2023-11-08] MEDS: PROTONIX IV 40 MG IV ×2 (07:44→20:34)
[2023-11-08] MEDS: LOPRESSOR 12.5 MG TUBE (07:44)
[2023-11-08] MEDS: XIFAXAN 550 MG PO (07:44)
[2023-11-08] MEDS: ANTIFUNGAL CLEAR 1 APPLIC TOPICAL ×2 (07:45→20:39)
[2023-11-08] MEDS: NSS (PRESERVATIVE FREE) 10 ML IV (07:45)
[2023-11-08] MEDS: DUONEB 3 ML INH ×2 (07:50→11:21)
--- NOTE | 2023-11-08 08:05 | W.PN.INTV ---
Addendum entered and electronically signed by Lexx Del Valle MD 11/09/23 14:20:
Given that patient is now comfort care, respiratory physician/pulmonary service will now sign off. Thank you for allowing us to be involved in the care of this patient. Call back if there are any additional questions/concerns.
Original Note:
Today's Communication / Plan
Recommendations
She was made DNR/DNI yesterday and now we are awaiting withdrawal of care today.
In interim:
Continue high flow with goal SpO2 >88%
Diuresis trial --> continue bumex gtt
Aspiration precautions
Emotional support provided
Provide bereavement tray
Assessment
-
Ms Kaitlin Esparza is a 63/W adm 10-24 with several d h/o dyspnea. Brought by EMS to ER, no EMS report available, ER note mentioned administration of DNs in route which improved O2 from low 90s victoria mid 90s. Seen at ICU, on BPAP 14/5 with O2 4L , POx
92%, in moderate resp distress, intermittently agitated and trying to remove BPAP mask. Unfortunately very poor historian at time of visit, unknown baseline MS, appears acutely on chronically ill-she continues to have mental status changes and
infectious disease wished lumbar puncture and patient transferred for deteriorating neurologic status to the ICU 10/31/2023
Acute respiratory failure with hypoxemia - worsening due to progressive multifocal PNA in setting of L-loculated effusion and ascites s/p para
Toxic metabolic encephalopathy - due to sepsis and COY in setting of cirrhosis/HE
Acute kidney injury -worsening - suspect this could be due to hepatorenal syndrome vs ATN in setting of sepsis (given low urine Na, I believe she has the former)
Bilateral infiltrates due to bacterial superinfection (CAP - initial CT chest with tree-in-bud in posterior RUL + RML and anterior RLL, and lingula + large consolidation in medial RML)
Left-sided (mild-moderate) parapneumonic effusion with loculations
Sepsis without shock due to CAP and covid-19
COVID positive (positive on 10/24/2023)
Elevated PCT
Leukocytosis
Thrombocytopenia
Primary symptomatic hypothyroidism
Hypoalbuminemia with ascites (ascites likely due to cirrhosis)
COPD exacerbation
Heart failure-acute new onset with reduced EF-35% with septal and apical akinesis
Low serum osmolality (248 on admission)
Lactic acidosis -resolved
Transaminitis
Portal vein thrombosis (seen on abd US from 10/24/2023 involving main portal vein)
Elevated troponin and BNP: LVEF 30-35% with WMAs
Flu negative
Elevated ESR-61
GI bleed 10/31/2023 with melena and heem positive stools
Hx of HCV (positive Ab in 2009, but negative HCV RNA)
Conditions [facility]:
COPD
Hypothyroidism
Multiple sclerosis
Substance abuse: on methadone
VDRF due to overdose Jul 2011
Chronic pain: reportedly on fentanyl patch, hydromorphone, oxycodone
Smoker
Former alcohol abuse with cirrhosis seen on imaging
Plan:
Family is awaiting grout pump operator for [facility] prayer --> then we will withdraw care.
Continue current meds until that time
Emotional support was provided
Continue supplemental O2 in interim to keep sats >90-94%
Use prn dilaudid for air hunger in meantime + ativan prn anxiety
Per my prior note:
She continues to be critically ill with multiorgan failure with worsening COY, high O2 requirements with continued risk for aspiration, and appears more weak
Continue high flow nasal cannula and titrate FiO2/flow rate to maintain SpO2 >88%
She underwent paracentesis on 11/05 with removal of 2.65L, and I believe this helped her breathe better but she still has remained on FiO2 >50%
Given her cirrhosis, this is a contraindication for chest tube so even if there is a left-sided loculated effusion, a tube thoracostomy should not be placed
Continue DuoNebs QID
Mucolytics with mucinex
Aspiration precautions
Speech therapy following -->�patient failed ORDER TRACER --> Dobhoff inserted on 11/03 and tube feeds were started --> dobhoff was pulled out of her nose 2 days ago --> replaced; continue tube feeds
Will need repeat CXR in 4 to 6 weeks to follow pneumonia to resolution
Flutter valve prn
Sport bed
She is s/p course of antibiotics as per ID - was on flagyl from 10/29 - 11/03; s/p cefepime from 10/24 - 10/30 and IV vanco x 1 day (10/24) -->�ID restarted ABx 2 days ago with Invanz
Cultures reviewed
Urine Cx growing yeast
Infectious disease following-correspondence reviewed
Trend WBC
s/p course of remdesivir (10/28 - 11/01/2023)
Decadron 6 mg daily x 10 days
Lumbar puncture 10/31/2023- unable to perform due to agitation --> she then improved and it was deferred. Will defer this decision to neuro
Mental status improved-off fentanyl patch (she reportedly had 2 fentanyl patches on admission), off [id number] oxycodone and off as needed morphine -�we started Subutex 2 mg SL on 11/03; given her worsening mentation, I stopped her subutex
Continue rifaximin for HE treatment (it appears she has grade 1-2 HE); will hold off on lactulose as she is already having loose stools
Maintain MAP>65
Given elevated TSH>15 with low fT4, levothyroxine should be started --> considering her age and newly diagnosed HFrEF with suspected ICM, we started 25mcg/day and can increase as needed with repeat TFTs in 4-6 weeks once she has fully recovered from
her current acute illness.
Neurology evaluation ongoing-correspondence reviewed
Discontinued fentanyl patch and other medications that might cause mental status changes
EEG-10/31/2023-no obvious epileptiform discharges but cannot be completely ruled out because of significant underlying artifact from movement
Also saw psychiatry 10/28/2023
Monitor thrombocytopenia - transfuse if needed to keep plt>20k
Hematology following
KENNETH panel negative (hep associated plt ab 0.170 on 10/31/2023)
Pt had heme positive stools on 10/31/2023
Monitor hemoglobin and transfuse as needed to maintain Hb >7, plt>50k
GI evaluation 11/01/2023-consultation reviewed
PPI --> currently on 40mg IV BID
Considering upper endoscopy --> will defer this decision to GI
Considering she has cirrhosis on imaging, trend ammonia; started rifaximin (see above)
Scheduled diuresis on hold given worsening COY, although she did receive a dose today and yesterday to try to increase UOP -->nephrology on board
Follow renal function, electrolytes, intake/output, lower extremity edema and weight
Continue to replace electrolytes as needed
Nephrology following-correspondence reviewed --> BUN and Cr continue to rise despite having MAP>65-70;��Given her acute illness with family awaiting withdrawal of care, HD is not being offered. Continue bumex gtt for now to see if improves UOP
while we await withdrawal of care. Given her low serum Na and cirrhosis, I am concerned that she has HRS
VICTOR MANUEL held-follow renal function
Heparin gtt continues for portal vein thrombosis-suspected covid infection related
Patient will see GI as an outpatient
Follow for arrhythmias
Cardiology follow-up till 10/28/2023
Smoking cessation counseling once alert and can comprehend advice
Chronic pain and polysubstance abuse -->�psych reconsulted on 11/03 - subutex was given and we were going to up-titrate as tolerated, however now that pt is doing worse and is more lethargic and confused, I stopped the Subutex
DVT prophylaxis-on heparin gtt
Nutrition with aspiration precautions
Started TF --> ORDER TRACER to continue to follow along.� She may ultimately require PEG vs TPN if she continues to fail ORDER TRACER --> given we are awaiting withdrawal of care, pt not candidate for PEG or TPN
Patient downgraded to IMU on 11/03/2023.� Due to her worsening hypoxia and how she clinically appears, she was upgraded back to ICU 11/05. She was made DNR/DNI on 11/07 and now we are awaiting withdrawal of care today.
Diagnostic tests:
CXR 10-24-23 c/w Apr 2023: New R basilar infiltrate. Mild pulm vasc congestion. No free air. Blunted c-d angles.
Chest x-ray 10/30/2023-improving right lower lobe pneumonia
CXR 11/03/2023:� Progressed findings suggesting bilateral lower lobe pneumonia.
CXR 11/05/2023: Persistent interstitial and airspace disease bilaterally not significantly changed. Left pleural fluid.
CXR 11/06/2023: Findings suggest a moderate left lower lobe pneumonia. Improved; Mild mid and lower right lung pneumonia. Stable
Chest CTA 10-24-23:�No acute PE. RML infiltrate. RLL patch of pneumonitis. Patchy small lingular and posterior RUL infiltrates
CT Chest/Abd/pelvis 11-04-2023:
Moderate consolidation of the left lower lobe concerning for pneumonia. Progressed from 11/03/2023.
Small to moderate loculated left pleural effusion. Limited evaluation without IV contrast. Progressed from 11/03/2023.
Moderate patchy groundglass opacities throughout all lobes, greatest in the right upper lobe, concerning for pneumonia. New from 10/24/2023.
Small right pleural effusion. New from 10/24/2023
Tiny pericardial effusion versus pleural thickening. Stable
Mild abdominopelvic ascites. Progressed from 10/24/2023
Nodular hepatic margin suggesting cirrhosis. New from 11/18/2010
Probable partially calcified gallstone. New from 11/18/2010
Limited evaluation of the bowel without oral contrast.
Findings suggesting moderate volume overload or third spacing. New from 11/18/2010
Brain MRI 10/30/2023-no acute intracranial abnormalities
Echocardiogram 10/24/2023-EF 30-35%, mild mitral regurgitation, aortic sclerosis
Subjective Dataa
Subjective Data
Date of Service:
Date of Service: November 08, 2023
Chief Complaint: External Relations Manager Follow Up
Subjective:
Patient seen today. Family awaiting withdrawal of care. Family very emotional, upset. Bin Cleaner at bedside. Family awaiting grout pump operator to come for [facility]. All questions were answered. Emotional support was also provided. No acute
events reported overnight. Patient remains on high flow nasal cannula at 60% FiO2. Patient saturating 95%. Patient net positive 450 cc and has made about 250cc last 24 hrs. Creatinine continuing to worsen.
Review of Systems
General: Other (Unable to obtain due to acute clinical status of the patient)
Objective Data
Data Reviewed
Vital Signs / I&O / Oxygen:
Vital Signs
Temp Pulse Resp BP Pulse Ox
97.1 F 95 35 141/62 98
11/08/23 08:01 11/08/23 08:00 11/08/23 08:00 11/08/23 07:00 11/08/23 08:07
Intake and Output
11/07/23 11/08/23 11/09/23
06:59 06:59 06:59
Intake Total 4362 / 4452 2290 / 2382 184 / 184
Output Total 355 / 360 240 / 245 10 / 10
Balance 4007 / 4092 2050 / 2137 174 / 174
SaO2 98
Nasal Cannula flow liters per 46
minute
Physical Exam
General: Respiratory Distress (positive at rest) and Chills (negative)
HEENT: Normocephalic, Anicteric and Other (dry mucous membranes)
Cardiovascular: S1-S2, Murmur (n) and Peripheral Edema (negative)
Respiratory: Wheeze (n), Crackles (bibasilar), Rhonchi (bilateral, mainly in posterior lung maier), Accessory Resp Muscle Use (mild) and Stridor (n)
GI: Soft, Distended and Non Tender
Neurology: Awake and No Motor Deficits
Skin: Warm, Dry and Bruising (LLQ)
Labs/Micro/Reports
Lab Data
11/07/23 16:45
11/08/23 03:36
Laboratory Results
11/07/23 11/07/23 11/08/23
10:08 16:45 01:31
APTT 63.6 H > 200.0 H* 69.1 H
--- NOTE | 2023-11-08 08:09 | PTCARENOTE ---
Pt received this am. Assessment as documented. Pt nods head appropriately to questions. Follows simple commands. Tolerating high flow O2. Pt appears comfortable. Care ongoing.
[2023-11-08 10:37] LABS: APTT 103.7 Sec (23.4-35.0)
--- NOTE | 2023-11-08 11:15 | PTCARENOTE ---
Pt 88% on midflow. HF placed by resp
[2023-11-08] MEDS: HEPARIN 25000 UNITS/250 ML IV (11:36)
--- NOTE | 2023-11-08 14:25 | W.PN.HOSP.TC ---
Today's Communication/Plan
-
awaiting de-escalation of care and transition to comfort care today
Assessment / Plan
Assessment / Plan
HPI: 63-year-old female with past medical history of hypothyroidism, COPD, multiple sclerosis, substance abuse on methadone, chronic opiate, tobacco abuse, COPD, chronic pain, ?History of atrial fibrillation; p/w shortness of breath.
A/P:
# Acute hypoxic respiratory insufficiency
# COPD exacerbation
# Severe sepsis POA, secondary to CAP
# SARS-CoV-2
procal 1.12, MRSA screen negative, Blood Cx negative
Back on HFNC
She was treated with Cefepime, received 7 days, discontinued further cefepime ; started back on Ertapenem
Cont Flagyl for anaerobe coverage, treat for 5 days (D5/5) completed
Cont O2 support, continue to wean o2; not on home o2 as home; Lasix IV PRN -can trial albumin today; if no improvement, can trial fluids as IVC collapsible - defer to consolidation accountant; unfortunately has had significant weight gain and may be approaching
HD
DuoNebs every 4 standing
Completed RemD x5 days with persistent hypoxia
Solu-Medrol 40 mg every 12 -> Decadron 6 mg daily x10 days
Incentive [place]
Pulm/Director Of Maintenance on board
ID on board
IR evaluated loculated effusion - not large enough to tap
-attempt bumex ggt for diuresis
# Leucocytosis, unclear etiology, steroid induced vs VTE vs encephalitis (see below)
-ctm fever curve
# Acute TME, unclear etiology, ddx including psychosis from polysubstance abuse vs encephalitis; I favor 2/2 to metabolic encephalopathy 2/2 to SARS-CoV-2, PNA +/- cefepime use
Off fentanyl patch, off ATC oxycodone, off PRN Morphine
UDS positive for opiate/fentanyl/benzo, also cocaine and methamphetamine
CT head x2: No acute intracranial abnormality noted.
MRI brain No acute intracranial abnormality noted.
EEG without overt seizure activity
no need for LP at this time; Mental status improving
ID/ Neuro on board
SPL eval - cont NPO, cont to eval
Mental status improving
# Portal vein thrombosis, unclear acute v chronic, can be related to COVID-19
Lovenox 1 mg/kg -> Eliquis 2.5 mg BID -> Argatroban - restart as hgb stable
APL panel unrevealing, pending prothrombin gene mutation, PENNY-2 mutation test results
hematology on board
-hep ggt was initiated, but stopped due to GIB; restart now
#Acute Blood Loss Anemia
-?GI bleed
hgb remains stable;
-GI consulted
-restart anticoag as ok by GI
-PPI
# Drop in platelet, concern for HIT
Pt did receive Lovenox therapeutic dose 10/24 - 10/26
HIT Ab: negative
Heme on board
# New onset acute HFrEF
Echo with EF 30 to 35%, akinesis of the septum and apex contraction of the basal inferior, inferolateral, and lateral louis, hypokinesis of the remaining segments, mild MR, aortic sclerosis with mild AR
s/p gentle diuresis with IV Lasix 20 mg daily
-Concern for COY and therefore was stopped; IV lasix PRN
Started low-dose Toprol, monitor blood pressures
Cardiology on board, was added lisinopril for reduced EF- off with COY
consider outpt ischemic eval
#Ascites
-p/p paracentesis 11/05
-no evidence of SBP
-possible 10/24 ot cirrhosis v Volume overload
# Hyponatremia
# Now hypernatremia
adjusting IVF based on sodium level
Nephro on board
# COY
#Anion Gap Metabolic Acidosis
SCr trending upward
hold ACEI
Renal on board
Bicarb ggt - stopped; oliguric; Lasix IV prn
# Transaminitis due to Hepatocellular injury
Most likely secondary to portal vein thrombosis +/- congestive hepatopathy
No statin
Monitor LFT
#Hep C positive
-hep c antibody ordered as per ID
#Hypothyroidism
-initiate synthroid
# Elevated troponin likely non-CT troponin elevation in setting of acute CHF
troponin plateaued at 0.16
# Polysubstance abuse
# Tobacco use
# Chronic pain
off COLLAR POINTER fentanyl patch, oxycodone with current delirium
# Multiple sclerosis
# Hypokalemia
replete
DVT prophylaxis: Hep ggt;
GOC as per consolidation accountant: DNR/DNI; awaiting de-escalation of care and transition to comfort care today
Total Critical Care Time__54__ minutes. I was immediately available to the patient and staff. I personally examined, reviewed labs, diagnostic images/reports, interpretations, treatment plans, discussed patient care with other providers and
family or caregivers (if patient is unable to make decisions), entered orders as appropriate and documented the medical record.
Anticipated Discharge: > 48 hours
Subjective/Interval History
-
Date of Service: November 08, 2023
No changes, still remains on high flow. Family refusing dialysis, dissipate transition to comfort today
Objective Data
-
Labs:
Laboratory Results
11/08/23 11/08/23 11/08/23
01:31 03:36 09:51
APTT 69.1 H 103.7 H
Sodium 142
Potassium 4.2
Chloride 105
Carbon Dioxide 26
BUN 82 H
Creatinine 4.0 H
Glucose 147 H
Calcium 8.0 L
Total Bilirubin 1.0
AST 42 H
ALT 24
Alkaline Phosphatase 236 H
Vital Signs:
Vital Signs
Temp Pulse Resp BP Pulse Ox
97.1 F 93 26 109/54 97
11/08/23 08:01 11/08/23 11:23 11/08/23 11:23 11/08/23 11:00 11/08/23 11:24
I&O
11/07/23 11/08/23 11/09/23
06:59 06:59 06:59
Intake Total 4362 / 4452 2290 / 2382 460 / 460
Output Total 355 / 360 240 / 245
Balance 4007 / 4092 2050 / 2137 450 / 450
Review of Systems
-
History Source: Patient
All other systems: Not reviewed unless documented
Physical Exam
-
General: Well Developed and Appears Chronically Ill
HEENT: Normocephalic, Atraumatic, Nose Appears Normal, Ears Appear Normal and Oxygen (5L NC)
Respiratory: Non Labored Respirations; Negative Accessory Resp Muscle Use
Cardiac: Regular Rhythm and S1/S2
GI: Soft, Nontender, Nondistended and Normal Bowel Sounds
Genito-urinary: Morgan
Skin: Warm and Dry
Neuro: Awake
Psych: Calm and Confused; Negative Intact Judgement/Insight
[2023-11-08] MEDS: DILAUDID 1.5 MG IV (14:29)
[2023-11-08] MEDS: ATIVAN 1 MG IV ×2 (14:44→17:34)
--- NOTE | 2023-11-08 15:30 | PTCARENOTE ---
Pt now comfort care.Patient agreed that she sould like to be comfort care to family. Explained process to pt and family. Meds gven as ordered. Support offered to patient and family.
--- NOTE | 2023-11-08 16:02 | CHAP ---
Visited at 10am with no family present. Kaitlin did not respond when I spoke, although her eyes were open. I offered quiet words of comfort and prayed for her. Called by the nurse at 12pm, to be with Kaitlin and her family after they had made the
decision to withdraw life support. Comforted family members and prayed with them, commending Kaitlin to God with prayers from the [facility]. Called the [facility] emergency movable bulkhead installer, Fr. Capps, who came and administered the [facility]ick an
hour later. Meanwhile, a prayer blanket was provided, and I stayed to support the family through several hours. After life support was withdrawn, I closed the doors to the room and left to give the family privacy.
--- NOTE | 2023-11-08 18:30 | PTCARENOTE ---
Pt transferred to [id number]. Pt appears comfortable. Family at bedside.
[2023-11-08] MEDS: DILAUDID 1 MG IV ×2 (18:35→20:34)
[2023-11-08] MEDS: INVANZ IV (18:45)
[2023-11-08] MEDS: LEVSIN ORAL DROPS 0.125 MG SL (20:42)
[2023-11-09] MEDS: ATIVAN 1 MG IV ×5 (03:03→22:50)
[2023-11-09] MEDS: NSS (PRESERVATIVE FREE) 0.5 ML IV ×3 (03:04→22:51)
[2023-11-09] MEDS: DILAUDID 1 MG IV ×4 (06:21→17:20)
[2023-11-09 07:05] VITALS: BP 123/56
[2023-11-09] MEDS: PROTONIX IV 40 MG IV (09:00)
[2023-11-09] MEDS: ANTIFUNGAL CLEAR 1 APPLIC TOPICAL ×2 (09:09→20:53)
[2023-11-09] MEDS: LEVSIN ORAL DROPS 0.125 MG SL (09:22)
--- NOTE | 2023-11-09 13:00 | PTCARENOTE ---
Patient transferred to 2136 on comfort care, report given to Dereje. Family updated with room transfer, new room number given and directions to . Patient remains nonverbal, gets agitated with repositioning and hygiene care. Family left and will
return later today.
[2023-11-09 13:09] VITALS: BP 121/51
[2023-11-09] MEDS: NSS (PRESERVATIVE FREE) 1 ML IV (13:19)
[2023-11-09] MEDS: ROBINUL 0.200000000000000011 MG IV ×2 (13:22→22:50)
--- NOTE | 2023-11-09 13:31 | W.PN.HOSP.TC ---
Addendum entered and electronically signed by Gustavo Carreon MD 12/02/23 17:40:
[id number]
Original Note:
Today's Communication/Plan
-
comfort care measures
Assessment / Plan
Assessment / Plan
HPI: 63-year-old female with past medical history of hypothyroidism, COPD, multiple sclerosis, substance abuse on methadone, chronic opiate, tobacco abuse, COPD, chronic pain, ?History of atrial fibrillation; p/w shortness of breath.
A/P:
# Acute hypoxic respiratory insufficiency
# COPD exacerbation
# Severe sepsis POA, secondary to CAP
# SARS-CoV-2
procal 1.12, MRSA screen negative, Blood Cx negative
She was treated with Cefepime, received 7 days, discontinued further cefepime ; started back on Ertapenem - dced now that on comfort
Cont Flagyl for anaerobe coverage, treat for 5 days (D5/5) completed
Cont O2 support, continue to wean o2; not on home o2 as home; Lasix IV PRN -can trial albumin today; if no improvement, can trial fluids as IVC collapsible - defer to nurse's assistant; unfortunately has had significant weight gain and may be approaching
HD
DuoNebs every 4 standing
Completed RemD x5 days with persistent hypoxia
Solu-Medrol 40 mg every 12 -> Decadron 6 mg daily x10 days - stopped now that on comfort
Incentive [place]
Pulm/Tool Design Draftsperson on board
ID on board
IR evaluated loculated effusion - not large enough to tap
-attempt bumex ggt - stopped due to comfort
# Leucocytosis, unclear etiology, steroid induced vs VTE vs encephalitis (see below)
-ctm fever curve
# Acute TME, unclear etiology, ddx including psychosis from polysubstance abuse vs encephalitis; I favor 2/2 to metabolic encephalopathy 2/2 to SARS-CoV-2, PNA +/- cefepime use
MRI brain No acute intracranial abnormality noted.
EEG without overt seizure activity
no need for LP at this time; Mental status improving
ID/ Neuro on board
# Portal vein thrombosis, unclear acute v chronic, can be related to COVID-19
Lovenox 1 mg/kg -> Eliquis 2.5 mg BID -> Argatroban - restart as hgb stable
APL panel unrevealing, pending prothrombin gene mutation, PENNY-2 mutation test results
hematology on board
-hep ggt was initiated, but stopped due to GIB; eventually started but stopped due to comfort
#Acute Blood Loss Anemia
-?GI bleed
hgb remains stable;
-GI consulted
-restart anticoag as ok by GI
-PPI
# Drop in platelet, concern for HIT
Pt did receive Lovenox therapeutic dose 10/24 - 10/26
HIT Ab: negative
Heme on board
# New onset acute HFrEF
Echo with EF 30 to 35%, akinesis of the septum and apex contraction of the basal inferior, inferolateral, and lateral louis, hypokinesis of the remaining segments, mild MR, aortic sclerosis with mild AR
s/p gentle diuresis with IV Lasix 20 mg daily
-Concern for COY and therefore was stopped; IV lasix PRN
Started low-dose Toprol, monitor blood pressures
Cardiology on board, was added lisinopril for reduced EF- off with COY
#Ascites
-p/p paracentesis 11/05
-no evidence of SBP
-possible 10/24 ot cirrhosis v Volume overload
# Hyponatremia
# Now hypernatremia
Nephro on board
# COY
#Anion Gap Metabolic Acidosis
SCr trending upward
hold ACEI
Renal on board
s/p bumex ggt
# Transaminitis due to Hepatocellular injury
Most likely secondary to portal vein thrombosis +/- congestive hepatopathy
No statin
Monitor LFT
#Hep C positive
-hep c antibody ordered as per ID
#Hypothyroidism
-initiate synthroid
# Elevated troponin likely non-[place] troponin elevation in setting of acute CHF
troponin plateaued at 0.16
# Polysubstance abuse
# Tobacco use
# Chronic pain
off TETRYL SCREEN OPERATOR fentanyl patch, oxycodone with current delirium
# Multiple sclerosis
# Hypokalemia
replete
#Dispo: Comfort
Anticipated Discharge: > 48 hours
Subjective/Interval History
-
Date of Service: November 09, 2023
comfort
Objective Data
-
Vital Signs:
Vital Signs
Temp Pulse Resp BP Pulse Ox
97.4 F 93 26 121/51 73
11/09/23 13:09 11/09/23 13:09 11/09/23 13:09 11/09/23 13:09 11/09/23 13:09
I&O
11/08/23 11/09/23 11/10/23
06:59 06:59 06:59
Intake Total 2290 / 2382 460 / 460
Output Total 240 / 245 710 / 710
Balance 2049 -250 / -250
Review of Systems
-
Unable to obtain full review of systems at this time due to: Acuity
Data Reviewed
-
CT Scan: Image personally visualized and interpreted and Report Reviewed by me
MRI: Report Reviewed by me
Labs: Labs Reviewed by me
--- NOTE | 2023-11-09 14:01 | PTCARENOTE ---
Pt. admitted to from 4W. Upon arrival pt. tachypneic, gurgly, restless and RR 26. PRN Robinul, Dilaudid and Ativan given per order. Pt. labia/ groin noted to be edematous/ red. Pt. has latex allergy and has a 3 way catheter that was placed on
10/31/23 that does not seem to be latex free. MD made aware. Morgan removed per MD. Pt. having decreased output. Will replace with latex free catheter if patient begins to retain again. Pt. due to void at 2000 today. Will pass along to operation shift supervisor.
Multiple stage 2s noted on sacrum as well as a LLQ ecchymotic area on abdomen, multiple scattered scabs and MASD in groin. Calazime and foams placed. Pt on a [employer] accumax and placed on a static air overlay.
--- NOTE | 2023-11-09 15:39 | CHAP ---
Checked in on Kaitlin and her family, after she was moved to [facility]. Kaitlin looked comfortable and peaceful. The family was standing by faithfully - it has been a long and trying passage for them. I assured them we are here for them, if needed.
--- NOTE | 2023-11-09 16:02 | CM ---
CM met with family bedside, discussed CM consult for hospice. Family reports that they do not wish for Hospice care at this time, they just took patient off life support measures and they are just waiting at this point. CM offered support and if
family changes mind, hospice can answer any questions. CM will continue to follow for discharge planning needs.
Plan; comfort care, family not interested in hospice.
[2023-11-09] MEDS: DILAUDID 50 IV (18:08)
[2023-11-09] MEDS: DILAUDID 0.25 MG IV ×2 (20:56→22:50)
[2023-11-09 23:32] VITALS: BP 106/54
[2023-11-10] MEDS: DILAUDID 0.25 MG IV ×5 (00:06→05:32)
--- NOTE | 2023-11-10 06:43 | W.PN.DEATH ---
Pronouncement of
-
Called to see patient to pronounce.
No spontaneous heart tones or respirations noted.
Patient not responsive to verbal stimuli.
Patient is pronounced .
Time of : 06:25
Date of : 11/10/23
Family Notified: Yes ( notified and would like to come in.)
[2023-11-10] MEDS: ANTIFUNGAL CLEAR TOPICAL (07:00)
[2023-11-10 07:48] LABS: Glucose - Point of Care 179 mg/dl (70-99)
--- NOTE | 2023-12-02 17:38 | W.DS.TRANS ---
DC Summary - [employer]
-
Discharge Instructions:
Instructions:
Stand-Alone Forms:
Changes to Home Medications: No
Discharge Medications:
DC Medications w/original date entered in [email or web address]
fentanyl 50 mcg/hr transdermal patch 50 mcg transdermal Q72H Pain 10/24/23
hydromorphone 4 mg tablet 4 mg PO Q6HPRN PRN SEVERE PAIN 10/24/23
methadone 10 mg tablet 10 mg PO TID Pain 10/24/23
ondansetron 4 mg disintegrating tablet 4 mg PO DAILYPRN PRN nausea 10/24/23
oxycodone 15 mg tablet 15 mg PO Q4HWA Pain 10/24/23
polyethylene glycol 3350 17 gram oral powder packet (Miralax) 17 g PO DAILY PRN constipation 10/24/23
Home Medication Changes
na
Pending Results: No
== END 2023-11-10 10:55 | disposition expired | DRG 871 ==
LOC: 2 NORTH 11:19
PROVIDERS: Internal Medicine; Internal Medicine Critical Care Medicine; Internal Medicine Hematology & Oncology; Nurse Practitioner Adult Health; Nurse Practitioner Family; Nurse Practitioner Gerontology; Nurse Practitioner Primary Care; Psychiatry & Neurology Neurology; Radiology Diagnostic Radiology; Radiology Vascular & Interventional Radiology; Specialist; ADMITTING PHYSICIAN Internal Medicine; ATTENDING PHYSICIAN Internal Medicine; CONSULT PHYSICIAN Internal Medicine Gastroenterology; CONSULT PHYSICIAN Internal Medicine Infectious Disease; CONSULT PHYSICIAN Psychiatry & Neurology Neurology; CONSULT PHYSICIAN Specialist; EMERGENCY PHYSICIAN Emergency Medicine; OTHER PHYSICIAN Internal Medicine Cardiovascular Disease; OTHER PHYSICIAN Internal Medicine Hematology & Oncology; OTHER PHYSICIAN Internal Medicine Pulmonary Disease; OTHER PHYSICIAN Psychiatry & Neurology Psychiatry
PROC: 5A09357 Assistance with Respiratory Ventilation, Less than 24 Consecutive Hours, Continuous Positive Airway Pressure (ICD-10-PCS; 2023-10-24)
PROC: XW033E5 Introduction of Remdesivir Anti-infective into Peripheral Vein, Percutaneous Approach, New Technology Group 5 (ICD-10-PCS; 2023-10-28)
PROC: 5A0935A Assistance with Respiratory Ventilation, Less than 24 Consecutive Hours, High Flow/Velocity Cannula (ICD-10-PCS; 2023-10-31)
PROC: 0DH67UZ Insertion of Feeding Device into Stomach, Via Natural or Artificial Opening (ICD-10-PCS; 2023-11-03)
PROC: 0W9G3ZX Drainage of Peritoneal Cavity, Percutaneous Approach, Diagnostic (ICD-10-PCS; 2023-11-05)
PROC: 5A0945A Assistance with Respiratory Ventilation, 24-96 Consecutive Hours, High Flow/Velocity Cannula (ICD-10-PCS; 2023-11-05)
DX: A41.9 Sepsis, unspecified organism (principal); G92.8 Other toxic encephalopathy; I50.21 Acute systolic (congestive) heart failure; U07.1 COVID-19; J96.01 Acute respiratory failure with hypoxia; I81 Portal vein thrombosis; J18.9 Pneumonia, unspecified organism; J44.1 Chronic obstructive pulmonary disease with (acute) exacerbation; E87.1 Hypo-osmolality and hyponatremia; J44.0 Chronic obstructive pulmonary disease with (acute) lower respiratory infection; E87.20 Acidosis, unspecified; F11.20 Opioid dependence, uncomplicated; I42.9 Cardiomyopathy, unspecified; R64 Cachexia; F05 Delirium due to known physiological condition; I5A Non-ischemic myocardial injury (non-traumatic); E44.0 Moderate protein-calorie malnutrition; N17.9 Acute kidney failure, unspecified; D62 Acute posthemorrhagic anemia; E87.0 Hyperosmolality and hypernatremia; K92.2 Gastrointestinal hemorrhage, unspecified; R18.8 Other ascites; Z51.5 Encounter for palliative care; K74.60 Unspecified cirrhosis of liver; R65.20 Severe sepsis without septic shock; F17.210 Nicotine dependence, cigarettes, uncomplicated; K76.1 Chronic passive congestion of liver; D72.10 Eosinophilia, unspecified; G89.29 Other chronic pain; D69.6 Thrombocytopenia, unspecified; I08.0 Rheumatic disorders of both mitral and aortic valves; B19.20 Unspecified viral hepatitis C without hepatic coma; E16.2 Hypoglycemia, unspecified; F10.20 Alcohol dependence, uncomplicated; G35 Multiple sclerosis; I48.91 Unspecified atrial fibrillation; E87.6 Hypokalemia; R26.9 Unspecified abnormalities of gait and mobility; F31.9 Bipolar disorder, unspecified; I25.10 Atherosclerotic heart disease of native coronary artery without angina pectoris; E03.9 Hypothyroidism, unspecified; Z66 Do not resuscitate; Z91.040 Latex allergy status; Z88.0 Allergy status to penicillin; Z91.048 Other nonmedicinal substance allergy status; Z90.710 Acquired absence of both cervix and uterus; Z82.49 Family history of ischemic heart disease and other diseases of the circulatory system; Z68.22 Body mass index [BMI] 22.0-22.9, adult
CPT/HCPCS: 36600; 49083; 51701; 70450; 70551; 71045; 71250; 71275; 74018; 74176; 76700; 80048; 80051; 80053; 80306; 80307; 81003; 81015; 81270; 82042; 82140; 82248; 82306; 82570; 82607; 82728; 82746; 82805; 82962; 83036; 83605; 83615; 83735; 83880; 83930; 83935; 84100; 84145; 84156; 84157; 84300; 84439; 84443; 84484; 85018; 85025; 85027; 85610; 85652; 85730; 86022; 86140; 86146; 86147; 86148; 86803; 86850; 86900; 86901; 87040; 87086; 87389; 87502; 87522; 87641; 87811; 89051; 92526; 92610; 93005; 93306; 93970; 94640; 94660; 94667; 94668; 95816; 96365; 96375; 97163; 97167; 97530; 99291; 99406; J0248; J0883; J1205; J1335; J2358; P9047; Q9967